=== PATIENT | female | born 1960 | race Caucasian/White ===

== ENCOUNTER 2021-11-11 11:26 | Outpatient (REF) | payer MEDICARE, MEDICAID, SELFPAY ==
[2021-11-11 13:06] LABS: Binax Internal Control QC Valid; Binax Now Covid-19 Ag Negative (Negative); Binax Performed by: HO.BONILM
== END 2021-11-11 11:27 | disposition home or self-care (01) ==
LOC: HO.HMGCLDS 11:26
PROVIDERS: Visit Provider Internal Medicine
DX: Z20.822 Contact with and (suspected) exposure to COVID-19 (principal); J06.9 Acute upper respiratory infection, unspecified
CPT/HCPCS: 87811; C9803

== ENCOUNTER 2022-02-14 13:57 | Outpatient (REF) | payer MEDICARE, MEDICAID, SELFPAY ==
[2022-02-14 16:12] LABS: Influenza A PCR NEGATIVE (Negative); Influenza B PCR NEGATIVE (Negative); Resp Syncy Virus RNA Qual PCR NEGATIVE (Negative); SARS COV2 PCR INHOUSE POSITIVE (Negative)
== END 2022-02-14 13:58 | disposition home or self-care (01) ==
LOC: HO.LAB 13:57
PROVIDERS: Visit Provider Nurse Practitioner Acute Care
DX: R09.81 Nasal congestion (principal); Z20.822 Contact with and (suspected) exposure to COVID-19
CPT/HCPCS: 0241U

== ENCOUNTER 2022-03-23 13:11 | Outpatient (REF) | payer MEDICARE, MEDICAID, SELFPAY ==
--- NOTE | ~2022-03-23 | XR_ITS ---
EXAMINATION: XR ANKLE, LEFT CLINICAL INFORMATION: Sprain left ankle. Pain COMPARISON: None TECHNIQUE: AP, lateral, and mortise views of the left ankle. FINDINGS: There is bimalleolar soft tissue swelling with moderate enthesophytes along the tip of bilateral malleoli. No visible fracture, dislocation. The ankle mortise and subtalar joints is normal. There is a moderate size calcaneal heel and small retrocalcaneal enthesophytes. Also visualized or enthesophytes along the dorsal intertarsal joints. XR/XR ankle LT min 3V IMPRESSION: No acute fracture or dislocation. Calculi heel, retrocalcaneal, bilateral malleolar and dorsal intertarsal enthesophytes. There is bimalleolar soft tissue swelling.
== END 2022-03-23 13:12 | disposition home or self-care (01) ==
LOC: HO.HMGCX 13:11
PROVIDERS: PCP Nurse Practitioner Gerontology; Visit Provider Internal Medicine
DX: S93.402A Sprain of unspecified ligament of left ankle, initial encounter (principal)
CPT/HCPCS: 73610

== ENCOUNTER 2022-12-18 11:39 | Emergency (ER) | payer MEDICARE, MEDICAID, SELFPAY ==
--- NOTE | ~2022-12-18 | XR_ITS ---
EXAMINATION: XR CHEST CLINICAL INFORMATION: Chest pain. COMPARISON: None available. TECHNIQUE: 2 views of the chest were obtained. FINDINGS: No significant abnormality is noted involving the heart, lungs, mediastinum, bony thorax or soft tissues. XR/XR chest 2V IMPRESSION: No acute cardiopulmonary process.
--- NOTE | 2022-12-18 11:41 | ED.GENADULT ---
HPI - General Adult General Chief complaint: Chest Pain Stated complaint: chest pain Time Seen by Provider: 12/18/22 17:53 Source: patient Mode of arrival: ambulatory Limitations: no limitations History of Present Illness HPI narrative: Patient is a 62 year old assigned female at with no reported medical history presenting to the emergency department today with chest and epigastric pain. Patient states that since last night she has been having epigastric type pain that radiates into her chest and left arm. Patient denies any dizziness, lightheadedness, nausea, vomiting, fever, chills, blurry vision, double vision, loss of vision, difficulty breathing, shortness of breath, back pain, night sweats, pain with urination, increased urinary frequency, increased urinary urgency, blood in her urine or stool, syncope or a near syncopal episode, recent trauma or falls, bowel incontinence, bladder incontinence, bowel retention, bladder retention, or any other complaints at this time. Onset (ago): day(s) (1) Location: chest and abdomen Severity: mild Severity scale (1-10): 3 Quality: aching and dull Pain Consistency: constant Relieving factors: none Exacerbating factors: none Associated symptoms: denies other symptoms Treatments prior to arrival: none Related Data Home Medications Medication Instructions Recorded Confirmed albuterol sulfate 90 mcg/actuation 0 mcg inhalation 02/13/21 aerosol inhaler cariprazine 1.5 mg capsule 1.5 mg PO DAILY 02/13/21 (Vraylar) cariprazine 3 mg capsule (Vraylar) 3 mg PO DAILY 02/13/21 famotidine 40 mg tablet 40 mg PO DAILY 02/13/21 fluoxetine 20 mg capsule 0 mg PO 02/13/21 gabapentin 300 mg capsule 300 mg PO TID 02/13/21 insulin glargine 100 unit/mL (3 unit subcut 02/13/21 mL) subcutaneous pen (Lantus Solostar U-100 Insulin) lisinopril 5 mg tablet mg PO 02/13/21 metformin 500 mg tablet,extended 500 mg PO BID 02/13/21 release 24 hr metoprolol tartrate 25 mg tablet 25 mg PO BID 02/13/21 nystatin 100,000 unit/gram topical topical 02/13/21 powder topiramate 25 mg tablet 25 mg PO BID 02/13/21 Previous Rx's Medication Instructions Recorded prednisone 10 mg tablet 40 mg PO DAILY 3 days #30 tabs 02/13/21 meloxicam 15 mg tablet 15 mg PO DAILY #14 tabs 03/23/22 Allergies Allergy/AdvReac Type Severity Reaction Status Date / Time adhesive tape [ADHESIVE TAPE] Allergy Unknown RASH Verified 12/18/22 11:51 Sulfa (Sulfonamide Allergy Unknown SWELLING Verified 12/18/22 11:51 Antibiotics) AND HIVES [SULFA (SULFONAMIDE ANTIBIOTICS)] ADHESIVE BANDAGE Allergy Unknown RASH Uncoded 12/18/22 11:51 Review of Systems Constitutional: Constitutional: Reports no additional constitutional complaints, Denies chills, Denies fever(s) and Denies night sweats Eyes: Eyes: Reports no additional eye complaints, Denies blurry vision, Denies change in vision, Denies diplopia, Denies eye discharge, Denies loss of vision and Denies eye pain ENT: Denies dizziness Cardiovascular: Cardiovascular: Reports no additional cardiovascular complaints, Reports chest pain, Denies lightheadedness, Denies Loss of Consciousness and Denies dyspnea Respiratory: Respiratory: Reports no additional respiratory complaints and Denies dyspnea Gastrointestinal: Gastrointestinal: Reports no additional gastrointestinal complaints, Reports abdominal pain, Denies melena, Denies hematochezia, Denies change in bowel habits and Denies change in stool character Genitourinary: Genitourinary: Denies hematuria, Denies urinary frequency, Denies dysuria, Denies urinary incontinence, Denies urinary hesitancy and Denies urinary urgency Musculoskeletal: Musculoskeletal: Reports no additional musculoskeletal complaints, Denies numbness and Denies tingling Neurologic: Denies dizziness, Denies loss of vision, Denies numbness and Denies tingling Psychiatric: Psychiatric: Reports no additional psychiatric complaints Endocrine: Endocrine: Reports no additional endocrine complaints Hematologic/Lymphatic: Hematologic/Lymphatic: Reports no additional hematologic/lymphatic complaints Allergic/Immunologic: Allergic/Immunologic: Reports no additional allergic/immunologic complaints PMFSH Past Medical History Attestation statement: The following information was validated with the patient. Source: old records reviewed and nursing notes reviewed Medical History Bronchitis Congestion of nasal sinus COVID Sprain of ankle, left Social History Social History Advance Directives: No Advance Directives Information Provided: Yes Physical Exam ED Vital Signs: Vital Signs - 24 hr 12/18/22 11:51 12/18/22 16:18 Temperature 98 F Pulse Rate 71 72 Respiratory Rate 19 19 Blood Pressure 153/74 H 148/75 H Pulse Oximetry 99 98 Oxygen Delivery Method Room Air Room Air BMI result Body Mass Index 48.0 Const General: cooperative, no acute distress, alert and awake Nutritional Appearance: well nourished Orientation/consciousness: patient oriented x3 Limitations: no limitations HENMT Head: Yes normal to inspection and Yes atraumatic Ears: hearing grossly normal bilaterally and external ears normal General nose exam: Normal external nose present, no nasal discharge noted and no epistaxis Face and sinus: Yes normal facial exam, No abrasion and No laceration Mouth: Normal oral and palatal mucosa present, no drooling and no muffled voice Eyes General: appearance normal, both eyes and all related structures Periorbital: periorbital findings normal Eyelids: Yes eyelids normal Conjunctivae: conjunctivae normal Pupils: Equal, round and reactive pupils present EOM: EOMs intact bilaterally Neck Neck: Yes normal visual inspection, Yes full ROM and Yes no lymphadenopathy Chest Chest palpation & inspection: normal inspection of the chest Resp Effort & Inspection: normal respiratory effort and able to speak in complete sentences Auscultation: clear to auscultation bilaterally Cardio Rate: regular rate Rhythm: regular rhythm GI Inspection: Yes normal to inspection Palpation (GI): Soft to palpation, not firm, nontender and no guarding Neuro General: patient oriented x3 and moves all extremities Cranial nerves: Yes Equal, round and reactive pupils present Cognition (Neuro): normal cognition Motor exam (neuro): 5/5 motor strength present throughout Sensory Exam: Normal double simultaneous stimulation for sensation Coordination: [id number] test normal Extrem General: Yes normal to inspection, Yes full ROM and Yes capillary refill normal Psych Appearance: grossly normal Mental Status: mental status grossly normal Affect: normal affect Attitude: cooperative Thought process: Normal thought process present Thought content: Normal thought content present Insight: Good insight present (Psych) Course Course Course Narrative: RME performed by Nesha Rich PA-C. Patient is a 62 year old assigned female at presenting to the emergency department with chest and epigastric pain. Labs, imaging, and swab ordered. Patient placed back in the waiting room pending room availability and results. Medical Decision Making Medical Decision Making MDM Narrative: Patient is a 62 year old assigned female at with no reported medical history presenting to the emergency department today with epigastric and chest pain. Patient's physical exam was unremarkable. Patient's blood work was unremarkable. Patient's EKG was unremarkable. Patient's chest x-ray showed no acute process. I explained my physical exam findings as well as all test results to the patient. I answered all questions asked by the patient. I stressed the importance of the patient taking her medication as prescribed. I stressed the importance of the patient following up with her primary care provider and a GI specialist. I stressed the importance of the patient returning to the emergency department immediately if her symptoms were to worsen or if she were to develop any dizziness, shortness of breath, difficulty breathing, chest pain, blurry vision, loss of vision, nausea, vomiting, abdominal pain, fever, chills, back pain, or any other complaints. Patient verbalized agreement and understanding with this treatment plan and discharge. Differential Diagnosis Differential Diagnoses: The differential diagnosis associated with the presentation includes STEMI NSTEMI Epigastric pain Gastritis GERD Admission/Observation Consideration of admission/observation: Escalation of care including admission/observation considered Patient would have been admitted to the hospital had her work up had any findings where hospital admission was appropriate and her clinical presentation warranted hospital admission. Lab Data [facility] Lab Attestation statement: I reviewed the patient's lab results. My interpretation of these studies and their corresponding values is that they are grossly normal. 12/18/22 11:49 12/18/22 11:49 Labs: Lab Results 12/18/22 12/18/22 12/18/22 Range/Units 11:49 11:49 11:49 WBC 9.9 (4.8-10.8) X10*3/uL RBC 4.33 (4.20-5.50) X10*6/uL Hgb 11.8 L (12.0-16.0) g/dl Hct 36.1 L (37.0-47.0) % MCV 83.4 (80.0-98.0) fL MCH 27.3 (27.0-33.0) pg MCHC 32.7 (31.0-35.0) g/dl RDW 14.3 (11.0-16.0) % Plt Count 312 (160-400) X10*3/uL MPV 9.1 L (9.4-12.3) fL Immature Gran % (Auto) 0.4 (0.0-0.4) % Neut % (Auto) 64.4 (45-73) % Lymph % (Auto) 20.6 (20-40) % [place] % (Auto) 8.7 (2-11) % Eos % (Auto) 5.1 H (0-4) % Baso % (Auto) 0.8 (0-2) % Lymph # (Auto) 2.0 (1.2-4.9) X10*3/uL [place] # (Auto) 0.9 (0.1-1.2) X10*3/uL Eos # (Auto) 0.5 H (0.0-0.4) X10*3/uL Baso # (Auto) 0.1 (0.0-0.2) X10*3/uL Abs Immat Gran (auto) 0.04 H (0.00-0.03) X10*3/uL Absolute Neuts (auto) 6.4 (2.0-8.3) x10*3/uL Absolute Nucleated RBC 0.000 (0.0-0.012) X10*3/uL Nucleated RBC % (auto) 0.0 (0.0-0.2) /100WBC Sodium 137 (135-145) mmol/L Potassium 4.9 (3.3-5.1) mmol/L Chloride 105 (96-108) mmol/L Carbon Dioxide 23 (22-29) mmol/L Anion Gap 14 (12-20) BUN 16 (9-16) mg/dL Creatinine 0.87 (0.5-1.4) mg/dL Estim Creat Clear Calc 85.3 Estimated GFR > 60 Random Glucose 101 (60-115) mg/dL Calcium 10.0 (8.4-10.2) mg/dL Magnesium 1.8 (1.6-2.6) mg/dL Total Bilirubin 0.3 (0.0-1.0) mg/dL AST 17 (5-31) U/L ALT 18 (0-31) U/L Alkaline Phosphatase 63 (39-117) U/L Troponin I High Sens < 2.7 (<3.5-17.0) ng/L Total Protein 7.1 (6.5-8.0) g/dL Albumin 4.1 (3.5-5.0) g/dL COVID-19 (SURENDRA) (Negative) COVID-19 Clin Com 12/18/22 12/18/22 Range/Units 11:49 16:33 WBC (4.8-10.8) X10*3/uL RBC (4.20-5.50) X10*6/uL Hgb (12.0-16.0) g/dl Hct (37.0-47.0) % MCV (80.0-98.0) fL MCH (27.0-33.0) pg MCHC (31.0-35.0) g/dl RDW (11.0-16.0) % Plt Count (160-400) X10*3/uL MPV (9.4-12.3) fL Immature Gran % (Auto) (0.0-0.4) % Neut % (Auto) (45-73) % Lymph % (Auto) (20-40) % [place] % (Auto) (2-11) % Eos % (Auto) (0-4) % Baso % (Auto) (0-2) % Lymph # (Auto) (1.2-4.9) X10*3/uL [place] # (Auto) (0.1-1.2) X10*3/uL Eos # (Auto) (0.0-0.4) X10*3/uL Baso # (Auto) (0.0-0.2) X10*3/uL Abs Immat Gran (auto) (0.00-0.03) X10*3/uL Absolute Neuts (auto) (2.0-8.3) x10*3/uL Absolute Nucleated RBC (0.0-0.012) X10*3/uL Nucleated RBC % (auto) (0.0-0.2) /100WBC Sodium (135-145) mmol/L Potassium (3.3-5.1) mmol/L Chloride (96-108) mmol/L Carbon Dioxide (22-29) mmol/L Anion Gap (12-20) BUN (9-16) mg/dL Creatinine (0.5-1.4) mg/dL Estim Creat Clear Calc Estimated GFR Random Glucose (60-115) mg/dL Calcium (8.4-10.2) mg/dL Magnesium (1.6-2.6) mg/dL Total Bilirubin (0.0-1.0) mg/dL AST (5-31) U/L ALT (0-31) U/L Alkaline Phosphatase (39-117) U/L Troponin I High Sens < 2.7 (<3.5-17.0) ng/L Total Protein (6.5-8.0) g/dL Albumin (3.5-5.0) g/dL COVID-19 (SURENDRA) Negative (Negative) COVID-19 Clin Com See Note Independent Interpretation I performed an independent interpretation of an: EKG and Plain X-Ray Interpretation: My interpretation is in agreement with the radiologist's impression of this imaging study. EXAMINATION: XR CHEST CLINICAL INFORMATION: Chest pain. COMPARISON: None available. TECHNIQUE: 2 views of the chest were obtained. FINDINGS: No significant abnormality is noted involving the heart, lungs, mediastinum, bony thorax or soft tissues. XR/XR chest 2V IMPRESSION: No acute cardiopulmonary process. Dictated By: Savage Avila MD Signed By: Electronically signed by Savage Avila MD 12/18/22 9462 Vent. Rate : 072 BPM ? ? Atrial Rate: 072 BPM P-R Int : 158 ms? QRS Dur: 082 ms QT Int : 386 ms ? ? ? P-R-T Axes: 001 -02 030 degrees QTc Int : 422 ms ? Normal sinus rhythm Low voltage QRS Abnormal ECG When compared with ECG of 25-NOV-2005 14:33, QT has shortened Referred By: Nesha Rich ? Electronically Signed By:BERENICE CORMIER DOFACP Dictated By: Berenice Cormier DO Signed By: Electronically signed by Berenice Cormier DO 12/18/22 1512 Radiology Impression Discussion of test interpretation with radiology: I have reviewed the radiologist's reading. Discharge Plan Discharge Clinical Impression: Acute epigastric pain Patient Disposition: Home, Self-Care Instructions: Epigastric Pain (ED) Additional Instructions: Follow up with your primary care provider and a GI specialist. Return to the emergency department immediately if your symptoms worsen or if you develop any dizziness, shortness of breath, difficulty breathing, chest pain, blurry vision, loss of vision, nausea, vomiting, abdominal pain, fever, chills, back pain, or any other complaints. Prescriptions: No Action lisinopril 5 mg tablet PO metoprolol tartrate 25 mg tablet 25 mg PO BID metformin 500 mg tablet extended release 24 hr 500 mg PO BID Lantus Solostar U-100 Insulin 100 unit/mL (3 mL) insulin pen subcut nystatin 100,000 unit/gram powder topical topiramate 25 mg tablet 25 mg PO BID gabapentin 300 mg capsule 300 mg PO TID famotidine 40 mg tablet 40 mg PO DAILY albuterol sulfate 90 mcg/actuation HFA aerosol inhaler 0 mcg inhalation fluoxetine 20 mg capsule 0 mg PO Vraylar 3 mg capsule 3 mg PO DAILY Vraylar 1.5 mg capsule 1.5 mg PO DAILY prednisone 10 mg tablet 40 mg PO DAILY 3 Days Qty: 30 0RF Rx Instructions: then take 3 tabs for 3 days, then 2 tabs for 3 days, then 1 tab for 3 days. meloxicam 15 mg tablet 15 mg PO DAILY Qty: 14 0RF Referrals: [facility] [place] [facility] [Provider Group] (Call to establish and follow up with a primary care provider. If you already have a primary care provider, please follow up with them.) [facility] [place] [facility] [Provider Group] (Call to establish and follow up with a primary care provider. If you already have a primary care provider, please follow up with them.) [facility] [place] [facility] [Provider Group] (Call to establish and follow up with a primary care provider. If you already have a primary care provider, please follow up with them.) Interventions: ED Discharge Assessment Last Done: 12/18/22 17:57 Discharge Date/Time: 12/18/22 17:58 Print Language: Bruneian
--- NOTE | 2022-12-18 11:42 | ECG_ITS ---
Test Reason : cp Blood Pressure : / mmHG Vent. Rate : 072 BPM Atrial Rate : 072 BPM P-R Int : 158 ms QRS Dur : 082 ms QT Int : 386 ms P-R-T Axes : 001 -02 030 degrees QTc Int : 422 ms Normal sinus rhythm Low voltage QRS Abnormal ECG When compared with ECG of 25-NOV-2005 14:33, QT has shortened Referred By: Nesha Rich Electronically Signed By:BERENICE CUENCA
[2022-12-18 11:51] VITALS: BP 153/74; PULSE 71; RESP 19; TEMP 36.6; O2SAT 99; BMI 48.0
[2022-12-18 11:54] LABS: MANUAL DIFF FLAG NO
[2022-12-18 11:57] LABS: Basophils Absolute Auto 0.1 X10*3/uL (0.0-0.2); Basophils Percent Auto 0.8 % (0-2); Eosinophils Absolute Auto 0.5 X10*3/uL (0.0-0.4); Eosinophils Percent Auto 5.1 % (0-4); Hematocrit 36.1 % (37.0-47.0); Hemoglobin 11.8 g/dl (12.0-16.0); Imm Gran Abs Auto 0.04 X10*3/uL (0.00-0.03); Imm Gran Pct Auto 0.4 % (0.0-0.4); Lymphocytes Percent Auto 20.6 % (20-40); Mean Corpuscular HGB Conc 32.7 g/dl (31.0-35.0); Mean Corpuscular Hemoglobin 27.3 pg (27.0-33.0); Mean Corpuscular Volume 83.4 fL (80.0-98.0); Mean Platelet Volume 9.1 fL (9.4-12.3); Monocytes Absolute Auto 0.9 X10*3/uL (0.1-1.2); Monocytes Percent Auto 8.7 % (2-11); Neutrophils Absolute Auto 6.4 x10*3/uL (2.0-8.3); Neutrophils Percent Auto 64.4 % (45-73); Platelet Count 312 X10*3/uL (160-400); Red Blood Count 4.33 X10*6/uL (4.20-5.50); Red Cell Distribution Width 14.3 % (11.0-16.0); White Blood Count 9.9 X10*3/uL (4.8-10.8)
[2022-12-18 12:13] LABS: COVID-19 Test Negative (Negative); IDNOW Serial# 9DB6401D
[2022-12-18 12:20] LABS: Troponin-I High Sensitivity < 2.7 ng/L (<3.5-17.0)
[2022-12-18 12:34] LABS: Alanine Aminotransferase 18 U/L (0-31); Albumin Level 4.1 g/dL (3.5-5.0); Alkaline Phosphatase 63 U/L (39-117); Anion Gap 14 (12-20); Aspartate Amino Transferase 17 U/L (5-31); Bilirubin Total 0.3 mg/dL (0.0-1.0); Blood Urea Nitrogen 16 mg/dL (9-16); Carbon Dioxide 23 mmol/L (22-29); Chloride 105 mmol/L (96-108); Creatinine Clr Calc Pharmacy 85.3; Estimated Glomerular Filt Rate > 60; Glucose Random 101 mg/dL (60-115); Magnesium 1.8 mg/dL (1.6-2.6); Potassium 4.9 mmol/L (3.3-5.1); Sodium 137 mmol/L (135-145); Total Protein 7.1 g/dL (6.5-8.0)
[2022-12-18 16:18] VITALS: BP 148/75; PULSE 72; RESP 19; O2SAT 98
--- NOTE | 2022-12-18 16:19 | PC.NURSE ---
skin wpd alert, l cp, vss, will recheck trop and add xray
[2022-12-18 17:03] LABS: Troponin-I High Sensitivity < 2.7 ng/L (<3.5-17.0)
== END 2022-12-18 17:58 | disposition home or self-care (01) ==
PROVIDERS: Physician Assistant Medical; Emergency Provider Emergency Medicine
DX: R10.13 Epigastric pain (principal); Z20.822 Contact with and (suspected) exposure to COVID-19; Z79.4 Long term (current) use of insulin
CPT/HCPCS: 36415; 71046; 80053; 83735; 84484; 85025; 87635; 93005; 99283

== ENCOUNTER 2023-09-13 10:01 | Outpatient (AMB) | payer MEDICARE, MEDICAID, SELFPAY ==
--- NOTE | 2023-09-13 09:53 | MHC.OFFVISPS ---
Intake Vital Signs 09/13/23 09:54 Height 5 ft 6 in Weight 237 lb Intake Visit Reasons: Depression, Bipolar II disorder major depressive with atypical features, Chronic post-traumatic stress disorder (PTSD), Borderline personality disorder in adult Client Solutions Manager Required: No Allergies adhesive tape [ADHESIVE TAPE] Allergy (Unknown, Verified 12/18/22 11:51) RASH Sulfa (Sulfonamide Antibiotics) [SULFA (SULFONAMIDE ANTIBIOTICS)] Allergy (Unknown, Verified 12/18/22 11:51) SWELLING AND HIVES ADHESIVE BANDAGE Allergy (Unknown, Uncoded 12/18/22 11:51) RASH Medication List - Last Reconciled 09/13/23 by Cece Hurley, YUMIKO albuterol sulfate 90 mcg/actuation 0 mcg inhalation atorvastatin 10 mg PO DAILY bupropion HCl XL 150 mg PO QAM bupropion HCl XL 300 mg PO DAILY cariprazine (Vraylar) 3 mg PO DAILY cariprazine (Vraylar) 1.5 mg PO DAILY dicyclomine 10 mg PO TID PRN diphenoxylate-atropine 2.5-0.025 mg 1 tab PO TID fluoxetine 0 mg PO fluticasone propion-salmeterol 115-21 mcg/actuation 2 puffs inhalation BID folic acid 0.4 mg PO DAILY gabapentin 900 mg PO TID insulin degludec (Tresiba FlexTouch U-100 insulin) 47 units subcut DAILY insulin glargine (Lantus Solostar U-100 Insulin) units subcut lisinopril 2.5 mg PO DAILY meloxicam 15 mg PO DAILY metformin ER 500 mg PO BID methenamine hippurate 1 g PO BID metoprolol tartrate 25 mg PO BID montelukast 10 mg PO DAILY nystatin topical DAILY omeprazole 20 mg PO BID ondansetron HCl 4 mg PO Q6H PRN oxycodone 5 mg PO TID PRN prednisone 40 mg (4 x 10 mg) PO DAILY 3 days sitagliptin phosphate (Januvia) 100 mg PO DAILY trazodone 50 mg PO BEDTIME triamcinolone acetonide 0.5% 1 appl topical BID HPI- Psychiatric Chief Complaint: Depression, Bipolar II disorder major depressive with atypical features, Chronic post-traumatic stress disorder (PTSD), Borderline personality disorder in adult HPI Narrative: Pt seen today for follow up re; mood and anxiety; She has appt with new provider at [facility] next month but is out of medications; She is less depressed and less anxious. She had a difficult day yesterday as it was mother's day and she missed her mother. she experience self harm urges but did not act on them. she reports No SI or HI. She is spending time with two friends. She is attending rastafari. Pt has been adherent to meds; no side effects; She continues with therapy. Past Psychiatric History: Pt has hx of PTSD, Bipolar II, BPD with depressed mood, anxiety, and difficulty with self sabotaging behaviors such as impulse buying, gambling, and setting boundaries; Pt has hx of cutting and burning self Long history of psychiatric symptoms and co morbid medical issues seeking ongoing medication management; she sees Mariana Bridges for therapy outpatient; she has support from [facility] mental health patient support associate and [facility] 2004 respite 2010 no PHP or IOP outpatient [facility] 20+yrs Panic attacks: Yes Agoraphobia: Yes Separation anxiety disorder: No Social phobia: No Specific phobia: No Hypochondriasis: No Body dysmorphic disorder: No Obsessive compulsive disorder: No Generalized anxiety: Yes Post traumatic stress disorder: Yes Acute stress disorder: No Previous psychiatric history: Yes Previous inpatient psychiatric hospitalization: Yes Other previous psychiatric treatment programs: none History of suicidal ideation: Yes History of suicide attempt: Yes Medically hospitalized: Yes History of self injurious behavior: Yes History of violence: No Current/previous psychiatrist: jasiel Current/previous therapist: Sudha Umaña History provided by: patient and medical record Chief complaint: depression Previous similar episode: Yes Previous psychiatric history: Yes Previous inpatient psychiatric hospitalization: Yes Other previous psychiatric treatment programs: none History of suicidal ideation: Yes History of suicide attempt: Yes Medically hospitalized: Yes History of self injurious behavior: Yes History of violence: No Current/previous psychiatrist: jasiel Current/previous therapist: Sudha Umaña Subjective Subjective Subjective Medication Compliance: Yes Side effects from medications: No Review of Systems Medical Review of Systems: unchanged Mental Status Exam Mental Status Exam Patient Appearance: Well Grooomed and Appropriate Patient Orientation: Person, Place, Time and Situation Level of Consciousness: Awake Patient Behavior: Appropriate and Cooperative Mood Description: Anxious Affect Description: Constricted Patient Cognition Impaired: No Ability to Follow Directions: Good Speech Pattern: Clear Memory Description: Intact Hallucinations: None Delusions: Not Present Thought Process: Intact Thought Content: positive for Intact Judgement: Good Assessment and Plan Assessment & Plan (1) Chronic post-traumatic stress disorder (PTSD): Code(s): F43.12 - Post-traumatic stress disorder, chronic (2) Borderline personality disorder in adult: Code(s): F60.3 - Borderline personality disorder (3) Bipolar II disorder major depressive with atypical features: Code(s): F31.81 - Bipolar II disorder Plan continue medications as prescribed follow up with new prescriber at [facility] continue therapy with Sudha Bridges from [facility] Medications: New bupropion HCl XL 150 mg PO QAM 30 tabs 1RF cariprazine (Vraylar) 1.5 mg PO DAILY 30 caps 1RF folic acid 0.4 mg PO DAILY 30 tabs 1RF bupropion HCl XL 300 mg PO DAILY 30 tabs 1RF cariprazine (Vraylar) 3 mg PO DAILY 30 caps 1RF Changed From fluoxetine PO To fluoxetine 80 mg PO DAILY Counseling and coordination of Care Pt. Self Management counseling: General coping skills Medication management counseling: Effectiveness, Side effects, Dosing range, Duration, Drug interaction and Adherence Diagnosis and Prognosis Counseling: Accuracy of diagnosis, Prognosis over time, Impact of diagnosis on life functions, Impact of family relationship, Problematic behaviors secondary to diagnosis and Adequacy of current interventions Details: I spent 30 minutes reviewing the record, seeing the patient and documenting in the medical record. Counseling provided to the patient/caregiver as outlined below. Addressed patient/caregiver concerns regarding current medication regime including effective adherence. Addressed patient/caregiver concerns regarding diagnosis and prognosis including accuracy of diagnosis, prognosis over time, impact of diagnosis. Addressed patient/caregiver concerns regarding impact of recent stressors. [facility] Medical History (Updated 09/13/23 @ 10:03 by Cece Hurley APRN) Asthma IBS (irritable bowel syndrome) Chronic osteoarthritis Diabetes 1.5, managed as type 2 HTN (hypertension) Kidney stone Post hysterectomy menopause Sprain of ankle, left COVID Congestion of nasal sinus Bronchitis Social History: lives alone; has 2 brothers, attends rastafari; has friends Substance History: none Coding Level of Care Code Est Pt Level 4 (43161) Diagnoses Chronic post-traumatic stress disorder (PTSD) F43.12 Borderline personality disorder in adult F60.3 Bipolar II disorder major depressive with atypical features F31.81
== END 2023-09-13 10:36 | disposition home or self-care (01) ==
LOC: HO.HOP 10:01
PROVIDERS: Visit Provider Clinical Nurse Specialist Psychiatric/Mental Health
DX: F43.12 Post-traumatic stress disorder, chronic (principal); F60.3 Borderline personality disorder; F31.81 Bipolar II disorder
CPT/HCPCS: 99214

== ENCOUNTER → 2023-09-13 10:01 | Outpatient (BNVA) | payer MEDICARE, MEDICAID, SELFPAY | PROVIDERS: Visit Provider Clinical Nurse Specialist Psychiatric/Mental Health | DX: F43.12 Post-traumatic stress disorder, chronic (principal); F31.81 Bipolar II disorder; F60.3 Borderline personality disorder | CPT/HCPCS: 99212 ==

== ENCOUNTER 2024-03-18 11:09 | Outpatient (AMB) | payer MEDICARE, MEDICAID, SELFPAY ==
[2024-03-18 11:12] VITALS: BP 132/80; PULSE 80; TEMP 36.6; O2SAT 98
--- NOTE | 2024-03-18 11:12 | AM.OFFWIN_ITS ---
Intake Vital Signs 3 03/18/24 11:12 Height 5 ft 3 in BP 132/80 Blood Pressure Location Lt brachial Position Sitting Pulse 80 Pulse Source Pulse Oximeter Temp 97.9 F Temp Source Oral Pulse Oximetry (%) 98 Oxygen Delivery Method Room Air Intake Visit Reasons: EP Rash Intake Note: pt is here for rash Patient Tobacco Use Status: Never used Tobacco Allergies adhesive tape [ADHESIVE TAPE] Allergy (Unknown, Verified 03/18/24 11:12) RASH Sulfa (Sulfonamide Antibiotics) [SULFA (SULFONAMIDE ANTIBIOTICS)] Allergy (Unknown, Verified 03/18/24 11:12) SWELLING AND HIVES ADHESIVE BANDAGE Allergy (Unknown, Uncoded 12/18/22 11:51) RASH Do you need a note to return to daycare/school/sports/work: No HPI HPI Comments 2 History of Present Illness0 Details 63 y/o female patient who presents to [facility] walk in clinic with c/o itchy and red rash on her lower extremities since Wednesday. Pt was taken off Zyprexa due to rash, facial and leg swelling. She was also started on Doxy x 7 days. Her PCP thought the Rash was from Cellulitis. Pt reports that rash is not getting any better, and now it's spreading. [facility] Medical History (Updated 09/13/23 @ 10:03 by Cece Hurley APRN) Asthma IBS (irritable bowel syndrome) Chronic osteoarthritis Diabetes 1.5, managed as type 2 HTN (hypertension) Kidney stone Post hysterectomy menopause Sprain of ankle, left COVID Congestion of nasal sinus Bronchitis Social History Patient Tobacco Use Status: Never used Tobacco Physical Exam Vital Signs: Last Vital Signs Temp 97.9 F 03/18/24 11:12 Pulse 80 03/18/24 11:12 BP 132/80 03/18/24 11:12 Pulse Ox 98 03/18/24 11:12 Oxygen Delivery Method Room Air 03/18/24 11:12 Const General: cooperative and no acute distress Nutritional Appearance: obese Orientation/consciousness: patient oriented x3 Skin Rashes: rashes noted (B/L Lower extremities. ) Full body images: 2 1. Small red/pink macular papular raised rash with hives, dry and flaky skin Neuro General: patient oriented x3, gait normal and moves all extremities Extrem Right lower extremity: lower leg Details: erythema and non-pitting edema Left lower extremity: lower leg Details: erythema and non-pitting edema Psych Speech and movement: Normal speech and movement present Assessment & Plan Assessment & Plan (1) Rash and nonspecific skin eruption: Code(s): R21 - Rash and other nonspecific skin eruption Plan: DDx's: Allergic Dermatitis vs Fungal vs Eczema vs Cellulitis Ordered Oral and Topical Steroids. F/U with your Providers (PCP and Psych). Medications: New 2 prednisone 20 mg PO DAILY 10 tabs 0RF 10 days R21 - Rash and other nonspecific skin eruption Changed 2 From triamcinolone acetonide 0.5% 1 appl topical BID R21 - Rash and other nonspecific skin eruption To triamcinolone acetonide 0.5% 1 appl topical BID 15 grams 0RF 14 days R21 - Rash and other nonspecific skin eruption Coding Level of Care Code Est Pt Level 3 (43254) Diagnoses Rash and nonspecific skin eruption R21 Time Spent (min) 15
--- OUTSIDE RECORDS SUMMARY | 2024-03-24 12:21 | XMS_ITS | Continuity of Care Document ---
Author Organization [facility] [place] [address] [place] [address]- Care Team Providers Care Communications Advisor Name Role Phone Blayne RANDALL, Ana Jameson Primary Care Physician Encounter 05/01/19 - 06/15/19 [facility] [address], [address] [place] [address]- [phone] Attending Physician: Kerrie Dumont MD Admitting Physician: Kerrie Dumont MD Referring Physician: Kerrie Dumont MD Allergies, Adverse Reactions, Alerts Substance Reaction Severity Status sulfa drugs Active Provera rash Active Latex Active Soy Products swelling, rash Active Immunizations Given and Recorded Vaccine Date Status Refusal Reason influenza virus vaccine, inactivated 02/08/19 Give n Medications Advair Diskus 250 mcg-50 mcg inhalation powder 1 puffs, Inhalation, 2 times a day, 0 Refills, Maintenance Start Date: 08/10/12 Status: Ordered BD UF MINI PEN NEEDLE [id number] See Instructions, # 100 Unknown, Refills 2 Tot. Refills 2, USE DIRECTED AT BEDTIME WITH SOLORSTAR PEN, [facility]/pharmacy #[id number] Start Date: 02/13/19 Status: Ordered benzoyl peroxide-erythromycin 5%-3% topical gel See Instructions, APPLY TO AFFECTED AREA TWICE A DAY, # 23.3 Gm, 0 Refills, Acute, [id number], APPLY TO AFFECTED AREA TWICE A DAY, 163.25, cm, 04/24/19 11:37:00 EST, Height Start Date: 05/23/19 Status: Ordered cetirizine 10 mg oral tablet 1 tablet, By Mouth, Daily, # 30 tablet, 3 Refills, Maintenance, 05/15/19 11:02:00 EST, [facility], 163.25, cm, 04/24/19 11:37:00 EST, Height Start Date: 05/15/19 Status: Ordered clotrimazole 1% topical cream CREAM, 2 Refill(s),, 0 Refills, 08/29/18 12:04:00 EDT Start Date: 08/29/18 Status: Ordered [facility] FIBER 0.52 G CAPSULE See Instructions, # 30 capsule, Refills 6 Tot. Refills 6, TAKE ONE CAPSULE BY MOUTH EVERY DAY, [facility]/pharmacy #[id number] Start Date: 08/26/18 Status: Ordered [facility] FIBER 0.52 G CAPSULE See Instructions, # 30 capsule, Refills 6 Tot. Refills 6, TAKE ONE CAPSULE BY MOUTH EVERY DAY, [facility]/pharmacy #[id number] Start Date: 03/16/19 Status: Ordered Dexilant 60 mg oral delayed release capsule ORAL, CAPSULE, DELAYED RELEASE, 4 Refill(s),, 0 Refills, 08/29/18 12:04:00 EDT Start Date: 08/29/18 Status: Ordered Fiber Choice ORAL, CAPSULE, 7 Refill(s),, 0 Refills, 08/29/18 12:04:00 EDT Start Date: 08/29/18 Status: Ordered FLUoxetine 20 mg oral capsule 80 mg, 4, capsule, By Mouth, Daily, ORAL, CAPSULE, 0 Refill(s),, Refills 0, 08/29/18 12:05:00 EDT Start Date: 08/29/18 Status: Ordered fluticasone 50 mcg/inh nasal spray See Instructions, # 16 mL, Refills 5 Tot. Refills 5, SPRAY 2 SPRAYS INTO EACH NOSTRIL EVERY DAY, [facility]/pharmacy #[id number] Start Date: 09/30/18 Status: Ordered gabapentin 600 mg oral tablet ORAL, TABLET, 0 Refill(s),, 0 Refills, 08/29/18 12:05:00 EDT Start Date: 08/29/18 Status: Ordered Januvia 100 mg oral tablet 1 tablet, By Mouth, Daily, # 30 tablet, 3 Refills, Maintenance, 05/15/19 11:03:00 EST, [facility] ST[facility] 54665, 163.25, cm, 04/24/19 11:37:00 EST, Height Start Date: 05/15/19 Status: Ordered Lantus Solostar Pen 100 units/mL subcutaneous solution SUBCUTANEOUS, INJECTION, SOLUTION, 2 Refill(s),, 0 Refills, 08/29/18 12:05:00 EDT Start Date: 08/29/18 Status: Ordered Lipitor 10 mg oral tablet 1 tablet = 10 mg, By Mouth, Daily, # 30 tablet, 0 Refills, Maintenance Start Date: 03/09/18 Status: Ordered lisinopril 5 mg oral tablet See Instructions, # 45 tablet, Refills 1 Tot. Refills 1, TAKE 1/2 TABLET BY MOUTH DAILY, [facility]/pharmacy #[id number] Start Date: 03/07/19 Status: Ordered meclizine 12.5 mg oral tablet 1 tablet = 12.5 mg, By Mouth, 3 times a day, PRN for dizziness, # 30 tablet, 1 Refills, Maintenance, 05/29/19 11:21:00 EST, Tablet, [facility]/pharmacy #[id number], 163.25, cm, 05/29/19 11:18:00 EST, Height Start Date: 05/29/19 Status: Ordered mesalamine 1000 mg rectal suppository See Instructions, 1 supp Rectally bid, 0 Refills, Maintenance, 02/08/19 10:23:07 EDT Start Date: 02/08/19 Status: Ordered metFORMIN 500 mg oral tablet, extended release 2 tablet, By Mouth, Daily, # 180 tablet, 1 Refills, Maintenance, 05/15/19 11:01:00 EST, [facility] STORE 65594, 163.25, cm, 04/24/19 11:37:00 EST, Height Start Date: 05/15/19 Status: Ordered Metoprolol Tartrate 25 mg oral tablet See Instructions, # 180 tablet, Refills 1 Tot. Refills 1, TAKE 1 TABLET BY MOUTH TWICE A DAY, [facility]/pharmacy #[id number] Start Date: 03/10/19 Status: Ordered montelukast 10 mg oral tablet See Instructions, # 90 tablet, Refills 1 Tot. Refills 1, TAKE 1 TABLET BY MOUTH EVERY DAY, [facility]/pharmacy #[id number] Start Date: 12/22/18 Status: Ordered multivitamin Therapeutic Multiple Vitamins oral tablet 1, tablet, By Mouth, Daily, 0, 0, 05/25/05 16:31:13, [id number]+[id number], Constant Indicator Start Date: 05/25/05 Status: Ordered mupirocin 2% topical ointment 1 application, Topically, 3 times a day, for 1 week and prn., # 15 Gm, 0 Refills, Maintenance, 11/09/18 17:17:23 EDT, Ointment, 1 application Topically 3 times a day,Instr:for 1 week and prn. Start Date: 11/09/18 Status: Ordered nystatin topical 271260 u/gm cream 1 application, Topically, 2 times a day, # 30 Gm, 1 Refills, Maintenance, 01/16/19 18:04:19 EDT, Cream, 1 application Topically 2 times a day Start Date: 01/16/19 Status: Ordered oxyCODONE 5 mg oral capsule 2 capsule = 10 mg, By Mouth, Every 8 hours, PRN for pain, 0 Refills, Maintenance, 05/16/18 9:44:38 EST, Capsule Start Date: 05/16/18 Status: Ordered Protonix 20 mg oral delayed release tablet 1 tablet = 20 mg, By Mouth, Daily, 0 Refills, Maintenance Start Date: 08/10/12 Status: Ordered sucralfate 1 gm oral tablet 1 Gm, 1, tablet, By Mouth, 3 times a day before meals and bedtime, Refills 0, Maintenance, 02/08/1910:22:23 EDT Start Date: 02/08/19 Status: Ordered Ventolin HFA 108 mcg/inh inhalation aerosol with adapter 2 puffs, Inhalation, Every 6 hours, PRN for wheezing, # 18 Gm, 2 Refills, Maintenance, 05/10/19 9:22:00 EST, Aerosol, [facility]/pharmacy #[id number], 163.25, cm, 04/24/19 11:37:00 EST, Height Start Date: 05/10/19 Status: Ordered Vistaril pamoate 25 mg oral capsule 1 capsule = 25 mg, By Mouth, Once, PRN for anxiety, # 40 capsule, 0 Refills, Maintenance, 01/04/19 14:19:17 EDT, Capsule Start Date: 01/04/19 Status: Ordered Vitamin D3 2000 intl units oral capsule 1 capsule = 2,000 International_Units, By Mouth, Daily, in AM, # 30 capsule, 5 Refills, Maintenance, 02/08/19 10:35:07 EDT, Capsule Start Date: 02/08/19 Status: Ordered Vraylar 1.5 mg oral capsule See Instructions, 1 capsule By Mouth in am and 2 tabs in pm, # 1 capsule, 0 Refills, Maintenance, 08/29/18 12:07:25 EDT Start Date: 08/29/18 Status: Ordered Vraylar 3 mg oral capsule 1 capsule = 3 mg, By Mouth, Daily, 0 Refills, Maintenance, 03/09/18 11:19:42 EST Start Date: 03/09/18 Status: Ordered Wellbutrin SR 150 mg oral tablet, extended release 150, mg, 1, tablet, By Mouth, Daily, 0, 0, 05/22/05 18:31:07, [id number]+[id number], Constant Indicator Start Date: 05/22/05 Status: Ordered Wellbutrin XL 300 mg/24 hours oral tablet, extended release ORAL, TABLET, EXTENDED RELEASE, 0 Refill(s),, 0 Refills, 08/29/18 12:03:00 EDT Start Date: 08/29/18 Status: Ordered Zantac 150 oral tablet 1 tablet = 150 mg, By Mouth, 2 times a day, # 60 tablet, 0 Refills, Maintenance, 03/09/18 11:19:50 EST, Tablet Start Date: 03/09/18 Status: Ordered Zofran 4 mg oral tablet 1 tablet = 4 mg, By Mouth, Every 8 hours, PRN as needed for nausea/vomiting, 0 Refills, Maintenance, 03/09/18 11:20:08 EST, Tablet Start Date: 03/09/18 Status: Ordered Zyloprim 100 mg oral tablet 100 mg, 1, tablet, By Mouth, 2 times a day, # 60 tablet, Refills 0, Maintenance, 03/09/18 11:20:16 EST Start Date: 03/09/18 Status: Ordered Problem List Condition Effective Dates Status Health Status Inform ant Abnormal radiologic density- pulm nodule(s) details unclear(Confirmed) Active Allergic rhinitis(Confirmed) Active Anxiety(Confirmed) Active Asthma(Confirmed) Active Chronic obstructive lung disease(Confirmed) Active Chronic sinusitis(Confirmed) Active Depressive disorder(Confirmed) Active Diverticular disease of colon(Confirmed) Active Gastroesophageal reflux disease(Confirmed) Active Herpes simplex type 1 infection(Confirmed) Active Low back pain(Confirmed) Active Migraine(Confirmed) Active Morbid obesity(Confirmed) Active Nephrolithiasis(Confirmed) Active Posttraumatic stress disorder(Confirmed) Active Sleep apnea(Confirmed) Active Steatosis of liver(Confirmed) Active Tobacco abuse(Confirmed) Active Type 2 diabetes mellitus(Confirmed) Active Vitamin D deficiency(Confirmed) Active Vitiligo(Confirmed) Active Social History Social History Type Response Smoking Status Never (less than 100 in lifetime) entered on: 08/29/18 Sex
--- OUTSIDE RECORDS SUMMARY | 2024-03-24 12:21 | XMS_ITS | Continuity of Care Document ---
Author Organization [facility] Address [address] [place] [address]- Care Team Providers Care General Education Instructor Name Role Phone Blayne RANDALL, Ana Jameson Primary Care Physician [place] [facility] [place]): [place]02[place]21 - 01/01/22 [facility] [address] [place] [id number] Attending Physician: AdmZoe shi Admitting Physician: Admtr, Ar8 Referring Physician: Admtr, Ar8 Allergies, Adverse Reactions, Alerts Substance Reaction Severity Status sulfa drugs swelling itching Active Provera rash Active Latex rash Active Soy Products swelling, rash Active Immunizations Given and Recorded Vaccine Date Status Refusal Reason influenza virus vaccine, inactivated 1 02/25/21 Gi miguel influenza virus vaccine, inactivated 02/08/19 Give n SARS-CoV-2 (COVID-19) mRNA BNT-162b2 vac 08/01/20 Recorded SARS-CoV-2 (COVID-19) mRNA BNT-162b2 vac 07/11/20 Recorded Influenza Virus Vaccine (oldterm) 02/03/20 [facility] 1Result Comment: [facility] [id number] Medications Advair Diskus 250 mcg-50 mcg inhalation powder 1 puffs, Inhalation, 2 times a day, 0 Refills, Maintenance Start Date: 08/10/12 Status: Ordered aspirin 81 mg oral delayed release tablet 81 mg, 1, tablet, By Mouth, Daily, # 30 tablet, Refills 0, Maintenance, 10/03/21 14:17:00 EDT, Partial fill upon patient request if the prescription is for a schedule II opioid drug. Start Date: 10/03/21 Status: Ordered cetirizine 10 mg oral tablet 1 tablet, By Mouth, Daily, # 90 tablet, 1 Refills, [facility], 163.25, cm, 10/26/21 15:12:00 EDT, Height Start Date: 03/05/21 Status: Ordered Cranberry oral tablet 2 tabs 500 mg, 0 Refills, Maintenance, 03/12/21 16:25:00 EST, Partial fill upon patient request if the prescription is for a schedule II opioid drug. Start Date: 03/12/21 Status: Ordered Dexilant 60 mg oral delayed release capsule ORAL, CAPSULE, DELAYED RELEASE, 4 Refill(s),, 0 Refills, 08/29/18 12:04:00 EDT Start Date: 08/29/18 Status: Ordered Fiber Choice 1.5 g oral tablet, chewable 1 tablet = 1.5 Gm, Chew, Daily, # 90 tablet, 0 Refills, Maintenance, 10/30/19 7:22:00 EDT, Chew Tablet, [facility]/pharmacy #[id number], 163.25, cm, 10/18/19 11:00:00 EDT, Height Start Date: 10/30/19 Status: Ordered fluconazole 150 mg oral tablet 1 tablet = 150 mg, By Mouth, Once, # 1 tablet, 0 Refills, Soft Stop, 12/24/21 14:01:00 EDT, Tablet,[facility]/pharmacy #[id number], Partial fill upon patient request if the prescription is for a schedule II opioid drug., 163, cm, 12/24/21 13:40:00 EDT, Height, 12... Start Date: 12/24/21 Status: Ordered FLUoxetine 20 mg oral capsule 80 mg, 4, capsule, By Mouth, Daily, ORAL, CAPSULE, 0 Refill(s),, Refills 0, 08/29/18 12:05:00 EDT Start Date: 08/29/18 Status: Ordered fluticasone 50 mcg/inh nasal spray See Instructions, SPRAY 2 SPRAYS INTO EACH NOSTRIL EVERY DAY, # 48 mL, 1 Refills, Soft Stop, 05/21/20 2:30:00 EST, [facility]/pharmacy #[id number], SPRAY 2 SPRAYS INTO EACH NOSTRIL EVERY DAY, 163.25, cm, 04/30/2012:50:00 EST, Height Start Date: 05/21/20 Status: Ordered folic acid 1 mg oral tablet 400 mcg, By Mouth, Daily, # 30 tablet, Refills 0, Maintenance, 11/23/19 11:22:00 EDT Start Date: 11/23/19 Status: Ordered gabapentin 600 mg oral tablet = 900 mg, 2 times a day, ORAL, TABLET, 0 Refill(s),, 0 Refills, 08/29/18 12:05:00 EDT Start Date: 08/29/18 Status: Ordered incontinence pads incontinence pads, See Instructions, # 60 each, Refills 11, Tot. Refills 11, Maintenance, urinary incontinence use 1-2 times a day, 11/19/21 11:23:00 EDT, Supply Start Date: 11/19/21 Status: Ordered Januvia 100 mg oral tablet 1 tablet, By Mouth, Daily, # 90 tablet, 3 Refills, Maintenance, 07/02/21 11:04:00 EST, [facility]/pharmacy#0693, 162.56, cm, 06/16/21 11:08:00 EST, Height, 125.8, kg, 06/16/21 11:08:00 EST, Dry Weight Start Date: 07/02/21 Status: Ordered Lantus Solostar Pen 100 units/mL subcutaneous solution See Instructions, INJECT 47 UNITS INTO THE SKIN ONCE A DAY DX E11.9, # 30 mL, 5 Refills, 12/12/21 9:28:00 EDT, [facility]/pharmacy #[id number], 163, cm, 12/02/21 9:43:00 EDT, Height, 123.7, kg, 10/06/21 7:05:00 EDT, Dry Weight Start Date: 12/12/21 Status: Ordered Lipitor 10 mg oral tablet 1 tablet = 10 mg, By Mouth, Daily at bedtime, # 30 tablet, 0 Refills, Maintenance Start Date: 03/09/18 Status: Ordered lisinopril 5 mg oral tablet 0.5, tablet, By Mouth, Daily, # 45 tablet, Refills 1, Route to Pharmacy Electronically, [id number], 163, cm, 12/02/21 9:43:00 EDT, Height, 123.7, kg, 10/06/21 7:05:00 EDT, Dry Weight Start Date: 12/04/21 Status: Ordered meclizine 12.5 mg oral tablet 1 tablet = 12.5 mg, By Mouth, 3 times a day, PRN for dizziness, # 30 tablet, 1 Refills, Maintenance, 05/29/19 11:21:00 EST, Tablet, [facility]/pharmacy #[id number], 163.25, cm, 05/29/19 11:18:00 EST, Height Start Date: 05/29/19 Status: Ordered meclizine 12.5 mg oral tablet 1 tablet = 12.5 mg, By Mouth, 3 times a day, PRN for dizziness, # 30 tablet, 0 Refills, Maintenance, 11/19/21 11:34:00 EDT, Tablet, [facility]/pharmacy #[id number], Partial fill upon patient request if the prescription is for a schedule II opioid drug., 163, cm, 0... Start Date: 11/19/21 Status: Ordered mesalamine 1000 mg rectal suppository See Instructions, 1 supp Rectally bid, 0 Refills, Maintenance, 02/08/19 10:23:07 EDT Start Date: 02/08/19 Status: Ordered MetFORMIN (Eqv-Glucophage XR) 500 mg oral tablet, extended release 2 tablet, By Mouth, 2 times a day, # 360 tablet, 2 Refills, Maintenance, 09/30/21 13:54:00 EDT, [facility]/pharmacy #[id number], 163, cm, 09/26/21 7:21:00 EDT, Height, 125.2, kg, 09/24/21 17:31:00 EDT, Dry Weight Start Date: 09/30/21 Status: Ordered Metoprolol Tartrate 25 mg oral tablet 1 tablet, By Mouth, 2 times a day, # 180 tablet, 1 Refills, [facility], 162.56, cm, 08/20/21 11:09:00 EDT, Height, 125.8, kg, 06/16/21 11:08:00 EST, Dry Weight Start Date: 09/09/21 Status: Ordered montelukast 10 mg oral tablet 1, tablet, By Mouth, Daily, # 90 tablet, Refills 1, Route to Pharmacy Electronically, [id number], 162.56, cm, 08/20/21 11:09:00 EDT, Height, 125.8, kg, 06/16/21 11:08:00 EST, Dry Weight Start Date: 09/09/21 Status: Ordered multivitamin Therapeutic Multiple Vitamins oral tablet 1, tablet, By Mouth, Daily, 0, 0, 05/25/05 16:31:13, 1.50670k+006, Constant Indicator Start Date: 05/25/05 Status: Ordered nystatin topical 265725 u/gm powder See Instructions, APPLY TOPICALLY TO THE AFFECTED AREA 2 OR 3 TIMES A DAY., # 60 Gm, 1 Refills, Maintenance, 12/27/21 11:39:00 EDT, [facility]/pharmacy #[id number], APPLY TOPICALLY TO THE AFFECTED AREA 2 OR 3 TIMES A DAY., 163, cm, 12/24/21 13:40:00 EDT, Height, 1... Start Date: 12/27/21 Status: Ordered oxyCODONE 5 mg oral capsule 2 capsule = 10 mg, By Mouth, Every 8 hours, PRN for pain, 0 Refills, Maintenance, 05/16/18 9:44:38 EST, Capsule Start Date: 05/16/18 Status: Ordered Protonix 20 mg oral delayed release tablet = 40 mg, By Mouth, Daily, 0 Refills, Maintenance, 08/10/12 13:36:33 EDT Start Date: 08/10/12 Status: Ordered sucralfate 1 gm oral tablet TAKE 1 TABLET BY MOUTH TWICE A DAY BEFORE MEALS Start Date: 07/17/21 Status: Ordered tamsulosin 0.4 mg oral capsule 0.4 mg, 1, capsule, By Mouth, Daily, Refills 0, Maintenance, 09/24/21 17:26:00 EDT, Partial fill upon patient request if the prescription is for a schedule II opioid drug. Start Date: 09/24/21 Status: Ordered topiramate 25 mg oral capsule 1 capsule = 25 mg, By Mouth, 2 times a day, 0 Refills, Maintenance, 07/24/20 8:59:00 EDT, Partial fill upon patient request if the prescription is for a schedule II opioid drug. Start Date: 07/24/20 Status: Ordered Ventolin HFA 108 mcg/inh inhalation aerosol with adapter 2 puffs, Inhalation, Every 6 hours, PRN for wheezing, # 8 Gm, 3 Refills, Maintenance, 11/06/21 8:07:00 EDT, Aerosol, [facility]/pharmacy #[id number], Partial fill upon patient request if the prescription is for aschedule II opioid drug., 163, cm, 06/20/22 15:37:0... Start Date: 11/06/21 Status: Ordered Vistaril pamoate 25 mg oral [...] Capsule Start Date: 02/08/19 Status: Ordered Vraylar 3 mg oral capsule 1 capsule = 3 mg, By Mouth, Daily, 0 Refills, Maintenance, 03/09/18 11:19:42 EST Start Date: 03/09/18 Status: Ordered Wellbutrin XL 300 mg/24 hours oral tablet, extended release ORAL, TABLET, EXTENDED RELEASE, 0 Refill(s),, 0 Refills, 08/29/18 12:03:00 EDT Start Date: 08/29/18 Status: Ordered Problem List Condition Effective Dates Status Health Status Inform ant Abnormal radiologic density- pulm nodule(s) details unclear(Confirmed) Active Allergic rhinitis(Confirmed) Active Anxiety(Confirmed) Active Asthma(Confirmed) Active Chronic obstructive lung disease(Confirmed) Active Chronic sinusitis(Confirmed) Active Depressive disorder(Confirmed) Active Diverticular disease of colon(Confirmed) Active Gastroesophageal reflux disease(Confirmed) Active Herpes simplex type 1 infection(Confirmed) Active Infected sebaceous cyst of skin(Confirmed) Active Intertrigo(Confirmed) Active Low back pain(Confirmed) Active Migraine(Confirmed) Active Morbid obesity(Confirmed) Active Nephrolithiasis(Confirmed) Active Posttraumatic stress disorder(Confirmed) Active Recurrent major depression i n partial remission(Confirmed) Active Recurrent UTI(Confirmed) Active Severe obesity(Confirmed) Active Sleep apnea(Confirmed) Active Steatosis of liver(Confirmed) Active Tobacco abuse(Confirmed) Active Type 2 diabetes mellitus(Confirmed) Active Vitamin D deficiency(Confirmed) Active Vitiligo(Confirmed) Active Social History Social History Type Response Smoking Status Former smoker, quit more than 30 days ago entered on: 08/20/21 Sex Implantable Device List Procedure Provider Procedure Date Device Type Site Cystoscopy Retrograde Ureteroscopy Giovanny Dumas MD 10/06/21 Unknown Ureter Device Identifier Serial Number Lot or Batch Number Manufacturing Date Expiration Date Distinct Identification Code MRI Safety Implantable Status Assigning Authority Unknown Unknown [id number] Unknown 01/06/24 Unknown Unknown Active Unknown Care Team Personnel Name: Blayne RANDALL, Ana Jameson Address: [address] [place] [address]
--- OUTSIDE RECORDS SUMMARY | 2024-03-24 12:21 | XMS_ITS | Continuity of Care Document ---
Author Organization [facility] Address [address] [place] [address]- Care Team Providers Care General Dentist/Owner Name Role Phone Blayne RANDALL, Ana Jameson Primary Care Physician ( [phone] Encounter [facility] Date(s): 01/15/22 - 04/23/[address] [address]- Encounter Diagnosis Low back pain, unspecified(Final) - Discharge Disposition: A-D/C Home Attending Physician: Candis Mederos DO Admitting Physician: Candis Mederos DO Referring Physician: Candis Mederos DO Allergies, Adverse Reactions, Alerts Substance Reaction Severity [...] 07/11/20 Recorded Influenza Virus Vaccine (oldterm) 02/03/20 Recorde d Not Given Vaccine Date Status Refusal Reason tetanus/diphtheria/pertussis, acel(Tdap) 2 02/04/22 Not Given Patient Refuses 1Result Comment: [facility] [id number] 2Result Comment: pt will do next time in Medications Advair Diskus 250 mcg-50 mcg inhalation [...] Mouth, Daily, # 90 tablet, 1 Refills, [facility], 163.25, cm, 02/25/21 15:12:00 EDT, Height Start Date: 03/05/21 Status: [...] Refills, Maintenance, 10/30/19 7:22:00 EDT, Chew Tablet, [facility]/pharmacy #[id number], 163.25, cm, 10/18/19 11:00:00 EDT, Height Start Date: 10/30/19 Status: Ordered fluconazole 150 mg oral tablet 1 tablet = 150 mg, By Mouth, Once, # 1 tablet, 0 Refills, Soft Stop, 12/24/21 14:01:00 EDT, Tablet,[facility]/pharmacy #[id number], Partial fill upon patient request if [...] 1 Refills, Soft Stop, 05/21/20 2:30:00 EST, [facility]/pharmacy #[id number], SPRAY 2 SPRAYS INTO EACH NOSTRIL [...] Daily, # 90 tablet, 3 Refills, Maintenance, 03/31/22 12:48:00 EST, [facility]/pharmacy#0693, 163, cm, 03/25/22 16:47:00 EST, Height, 123.7, kg, 10/06/21 7:05:00 EDT, Dry Weight Start Date: 03/31/22 Stop Date: 03/26/23 Status: Ordered Lantus Solostar Pen 100 units/mL subcutaneous solution See Instructions, INJECT 47 UNITS INTO THE SKIN ONCE A DAY DX E11.9, # 30 mL, 5 Refills, 12/12/21 9:28:00 EDT, [facility]/pharmacy #[id number], 163, cm, 12/02/21 9:43:00 EDT, Height, 123.7, kg, 10/06/21 7:05:00 EDT, Dry Weight Start Date: 12/12/21 Status: Ordered Lipitor 10 mg oral tablet 1 tablet = 10 mg, By Mouth, Daily at bedtime, # 30 tablet, 0 Refills, Maintenance Start Date: 03/09/18 Status: Ordered lisinopril 2.5 mg oral tablet 1, tablet, By Mouth, Daily, # 90 tablet, Refills 1, Maintenance, 03/24/22 4:05:00 EST, Route to Pharmacy Electronically, [facility] [id number], 163, cm, 03/10/22 15:21:00 EST, Height, 123.7, kg, 10/06/21 7:05:00 EDT, Dry Weight Start Date: 03/24/22 Status: Ordered meclizine 12.5 mg oral tablet 1 tablet = 12.5 mg, By Mouth, 3 times a day, PRN for dizziness, # 30 tablet, 1 Refills, Maintenance, 05/29/19 11:21:00 EST, Tablet, [facility]/pharmacy #[id number], 163.25, cm, 05/29/19 11:18:00 EST, Height Start Date: 05/29/19 Status: Ordered meclizine 12.5 mg oral tablet 1 tablet = 12.5 mg, By Mouth, 3 times a day, PRN for dizziness, # 30 tablet, 0 Refills, Maintenance, 11/19/21 11:34:00 EDT, Tablet, [facility]/pharmacy #[id number], Partial fill upon patient request if [...] tablet, 2 Refills, Maintenance, 09/30/21 13:54:00 EDT, [facility]/pharmacy #[id number], 163, cm, 09/26/21 7:21:00 EDT, Height, 125.2, kg, 09/24/21 17:31:00 EDT, Dry Weight Start Date: 09/30/21 Status: Ordered methenamine hippurate 1 gm oral tablet 1 tablet = 1 Gm, By Mouth, 2 times a day, 0 Refills, Maintenance, 03/10/22 15:34:00 EST, Partial fill upon patient request if the prescription is for a schedule II opioid drug. Start Date: 03/10/22 Status: Ordered Metoprolol Tartrate 25 mg oral tablet 1 tablet, By Mouth, 2 times a day, # 180 tablet, 1 Refills, Maintenance, 03/24/22 4:05:00 EST, [facility], 163, cm, 03/10/22 15:21:00 EST, Height, 123.7, kg, 10/06/21 7:05:00 EDT, Dry Weight Start Date: 03/24/22 Status: Ordered montelukast 10 mg oral tablet 1, tablet, By Mouth, Daily, # 90 tablet, Refills 1, Maintenance, 03/24/22 4:05:00 EST, Route to Pharmacy Electronically, [facility], 163, cm, 03/10/22 15:21:00 EST, Height, 123.7, kg, 10/06/21 7:05:00 EDT, Dry Weight Start Date: 03/24/22 Status: Ordered multivitamin Therapeutic Multiple Vitamins oral tablet 1, tablet, By Mouth, Daily, 0, 0, 05/25/05 16:31:13, 1.50559t+006, Constant Indicator Start Date: 05/25/05 Status: Ordered nystatin topical 220280 u/gm powder See Instructions, APPLY TOPICALLY TO THE AFFECTED AREA 2 OR 3 TIMES A DAY., # 60 Gm, 1 Refills, Maintenance, 04/06/22 8:27:00 EST, [facility], 20, APPLY TOPICALLY TO THE AFFECTED AREA 2 OR 3 TIMES A DAY., 163, cm, 03/25/22 16:47:00 EST, Height, 1... Start Date: 04/06/22 Status: Ordered oxyCODONE 5 mg oral capsule [...] BEFORE MEALS Start Date: 07/17/21 Status: Ordered topiramate 25 mg oral capsule [...] 3 Refills, Maintenance, 11/06/21 8:07:00 EDT, Aerosol, [facility]/pharmacy #[id number], Partial fill upon patient request if the prescription is for aschedule II opioid drug., 163, cm, 10/20/21 15:37:0... Start Date: 11/06/21 Status: Ordered Vistaril [...] Date: 08/29/18 Status: Ordered Problem List Condition Confirmation Course Effective Dates Status H ealth Status Informant Abnormal radiologic density-pulm nodule(s) details unclear Confirmed Active Allergic rhinitis Confirmed Active Anxiety Confirmed Active Asthma Confirmed Active Chronic obstructive lung disease Confirmed Active Chronic sinusitis Confirmed Active Depressive disorder Confirmed Active Diverticular disease of colon Confirmed Active Gastroesophageal reflux disease Confirmed Active Herpes simplex type 1 infection Confirmed Active Infected sebaceous cyst of skin Confirmed Active Intertrigo Confirmed Active Low back pain Confirmed Active Migraine Confirmed Active Morbid obesity Confirmed Active Nephrolithiasis Confirmed Active Posttraumatic stress disorder Confirmed Active Recurrent major depression in partial remission Confirmed Active Recurrent UTI Confirmed Active Severe obesity Confirmed Active Sleep apnea Confirmed Active Steatosis of liver Confirmed Active Tobacco abuse Confirmed Active Type 2 diabetes mellitus Confirmed Active Vitamin D deficiency Confirmed Active Vitiligo Confirmed Active Social History Social History Type Response Smoking Status Former smoker, quit more than 30 days ago entered on: 08/20/21 Sex Implantable Device List Procedure Provider Procedure Date Device Type Site Cystoscopy Retrograde Ureteroscopy Leatha Chisholm MD, Giovanny Cameron 10/06/21 Unknown Ureter Device Identifier Serial Number Lot or Batch Number Manufacturing Date Expiration Date Distinct Identification Code MRI Safety Implantable Status Assigning Authority Unknown Unknown [id number] Unknown 01/06/24 Unknown Unknown Active Unknown Patient Care team information Care Team Personnel Name: Blayne RANDALL, Ana Jameson Position: [facility]O Associate Professional Member Role: PCP Address: Address: [address] [place] [address] [place] [address]- Care Team Related Persons Name: NIA WHITE Address: [place] [address] Name: CALLY BERRY Address: [address] [address]
--- OUTSIDE RECORDS SUMMARY | 2024-03-24 12:21 | XMS_ITS | Continuity of Care Document ---
Author Organization [facility] Address [address] [place] [address]- Care Team Providers Care Wastewater Technician Name Role Phone Blayne RANDALL, Ana Jameson Primary Care Physician Encounter [facility] Date(s): 09/09/20 - 10/09/20 [facility] [address] [place] [address]- Allergies, Adverse Reactions, Alerts Substance Reaction Severity Status sulfa drugs Active Provera rash Active Latex Active Soy Products swelling, rash Active Immunizations Given and Recorded Vaccine Date Status Refusal Reason Influenza Virus Vaccine (oldterm) 02/03/20 Recorde d influenza virus vaccine, inactivated 02/08/19 Give n Medications Advair Diskus 250 mcg-50 mcg inhalation powder 1 puffs, Inhalation, 2 times a day, 0 Refills, Maintenance Start Date: 08/10/12 Status: Ordered BD UF MINI PEN NEEDLE [id number] See Instructions, # 100 Unknown, Refills 2 Tot. Refills 2, USE DIRECTED AT BEDTIME WITH SOLORSTAR PEN, [id number] Start Date: 02/13/19 Status: Ordered benzoyl peroxide-erythromycin 5%-3% topical gel See Instructions, APPLY TO AFFECTED AREA TWICE A DAY, # 23.3 Gm, 1 Refills, Maintenance, 02/07/20 11:27:00 EDT, [id number], APPLY TO AFFECTED AREA TWICE A DAY, 163.25, cm, 02/01/20 14:23:00 EDT, Height Start Date: 02/07/20 Status: Ordered cetirizine 10 mg oral tablet 1 tablet, By Mouth, Daily, # 90 tablet, 1 Refills, Maintenance, 09/07/20 6:27:00 EDT, [id number], 163.25, cm, 08/28/20 13:54:00 EDT, Height Start Date: 09/07/20 Status: Ordered clotrimazole 1% topical cream CREAM, 2 Refill(s),, 0 Refills, 08/29/18 12:04:00 EDT Start Date: 08/29/18 Status: Ordered [facility] FIBER 0.52 G CAPSULE See Instructions, # 30 capsule, Refills 6 Tot. Refills 6, TAKE ONE CAPSULE BY MOUTH EVERY DAY, [facility]/pharmacy #[id number] Start Date: 08/26/18 Status: Ordered [facility] FIBER 0.52 G CAPSULE See Instructions, # 30 capsule, Refills 6 Tot. Refills 6, TAKE ONE CAPSULE BY MOUTH EVERY DAY, [facility]/pharmacy #[id number] Start Date: 03/16/19 Status: Ordered Dexilant 60 mg oral delayed release capsule ORAL, CAPSULE, DELAYED RELEASE, 4 Refill(s),, 0 Refills, 08/29/18 12:04:00 EDT Start Date: 08/29/18 Status: Ordered Fiber Choice 1.5 g oral tablet, chewable 1 tablet = 1.5 Gm, Chew, Daily, # 90 tablet, 0 Refills, Maintenance, 10/30/19 7:22:00 EDT, Chew Tablet, [facility]/pharmacy #[id number], 163.25, cm, 10/18/19 11:00:00 EDT, Height Start Date: 10/30/19 Status: Ordered FLUoxetine 20 mg oral capsule 80 mg, 4, capsule, By Mouth, Daily, ORAL, CAPSULE, 0 Refill(s),, Refills 0, 08/29/18 12:05:00 EDT Start Date: 08/29/18 Status: Ordered fluticasone 50 mcg/inh nasal spray See Instructions, SPRAY 2 SPRAYS INTO EACH NOSTRIL EVERY DAY, # 48 mL, 1 Refills, Soft Stop, 05/21/20 2:30:00 EST, [facility]/pharmacy #[id number], SPRAY 2 SPRAYS INTO EACH NOSTRIL EVERY DAY, 163.25, cm, 04/30/2012:50:00 EST, Height Start Date: 05/21/20 Status: Ordered folic acid 1 mg oral tablet 1 mg, 1, tablet, By Mouth, Daily, # 30 tablet, Refills 0, Maintenance, 11/23/19 11:22:00 EDT Start Date: 11/23/19 Status: Ordered gabapentin 600 mg oral tablet ORAL, TABLET, 0 Refill(s),, 0 Refills, 08/29/18 12:05:00 EDT Start Date: 08/29/18 Status: Ordered Januvia 100 mg oral tablet 1 tablet, By Mouth, Daily, # 90 tablet, 1 Refills, Maintenance, 06/11/20 12:01:00 EST, [facility]/pharmacy#0693, 163.25, cm, 04/30/20 12:50:00 EST, Height Start Date: 06/11/20 Status: Ordered Lantus Solostar Pen 100 units/mL subcutaneous solution See Instructions, INJECT 56 UNITS INTO THE SKIN ONCE A DAY AT BEDTIME, # 10 mL, 2 Refills, 08/16/2115:28:00 EDT, [facility]/pharmacy #[id number], 163.25, cm, 07/24/20 8:37:00 EDT, Height Start Date: 08/15/20 Status: Ordered Lipitor 10 mg oral tablet 1 tablet = 10 mg, By Mouth, Daily, # 30 tablet, 0 Refills, Maintenance Start Date: 03/09/18 Status: Ordered lisinopril 5 mg oral tablet 0.5, tablet, By Mouth, Daily, # 45 tablet, Refills 1, Tot. Refills 1, Maintenance, 03/01/20 15:23:00 EDT, Route to Pharmacy Electronically, [facility]/pharmacy #[id number], 163.25, cm, 02/01/20 14:23:00 EDT, Height Start Date: 03/01/20 Status: Ordered meclizine 12.5 mg oral tablet 1 tablet = 12.5 mg, By Mouth, 3 times a day, PRN for dizziness, # 30 tablet, 1 Refills, Maintenance, 05/29/19 11:21:00 EST, Tablet, [facility]/pharmacy #[id number], 163.25, cm, 05/29/19 11:18:00 EST, Height Start Date: 05/29/19 Status: Ordered mesalamine 1000 mg rectal suppository See Instructions, 1 supp Rectally bid, 0 Refills, Maintenance, 02/08/19 10:23:07 EDT Start Date: 02/08/19 Status: Ordered MetFORMIN (Eqv-Glucophage XR) 500 mg oral tablet, extended release See Instructions, 2 tablet By Mouth in am and 1 tablet in pm, # 270 tablet, 2 Refills, Maintenance,08/23/20 8:20:00 EDT, [facility]/pharmacy #[id number], 163.25, cm, 07/24/20 8:37:00 EDT, Height Start Date: 08/23/20 Status: Ordered Metoprolol Tartrate 25 mg oral tablet 1 tablet, By Mouth, 2 times a day, # 180 tablet, 1 Refills, Maintenance, 05/17/20 11:36:00 EST, [facility]/pharmacy #[id number], 163.25, cm, 04/30/20 12:50:00 EST, Height Start Date: 05/17/20 Status: Ordered Miscellaneous Rx 1, capsule, By Mouth, Daily, # 30 capsule, 6 Refills, Maintenance, 10/04/19 10:07:00 EDT, 163.25, cm, 07/13/19 14:03:00 EDT, Height Start Date: 10/04/19 Status: Ordered Miscellaneous Rx 1, capsule, By Mouth, Daily, # 30 capsule, 6 Refills, Maintenance, 10/26/19 6:41:00 EDT, 163.25, cm, 10/18/19 11:00:00 EDT, Height Start Date: 10/26/19 Status: Ordered montelukast 10 mg oral tablet 1, tablet, By Mouth, Daily, # 90 tablet, Refills 1, Tot. Refills 1, Maintenance, 06/03/20 8:47:00 EST, Route to Pharmacy Electronically, [facility]/pharmacy #[id number], 163.25, cm, 04/30/20 12:50:00 EST, Height Start Date: 06/03/20 Status: Ordered multivitamin Therapeutic Multiple Vitamins oral tablet 1, tablet, By Mouth, Daily, 0, 0, 05/25/05 16:31:13, 1.90714x+006, Constant Indicator Start Date: 05/25/05 Status: Ordered mupirocin 2% topical ointment See Instructions, APPLY 1 APPLICATION TOPICALLY 3 TIMES A DAY FOR 1 WEEK AND THEN NEEDED, # 15 Gm, 1 Refills, Acute, [facility], 7, APPLY 1 APPLICATION TOPICALLY 3 TIMES A DAY FOR 1 WEEK AND THEN NEEDED, 163.25, cm, 07/13/19 14:03:00 EDT, H... Start Date: 09/21/19 Status: Ordered nystatin topical 047840 u/gm powder See Instructions, APPLY 2 OR 3 TIMES A DAY TO AFFECTED AREA, # 60 Gm, 1 Refills, Acute, [facility], 21, APPLY 2 OR 3 TIMES A DAY TO AFFECTED AREA, 163.25, cm, 06/21/20 15:02:00 EST, Height Start Date: 07/01/20 Status: Ordered oxyCODONE 5 mg oral capsule 2 capsule = 10 mg, By Mouth, Every 8 hours, PRN for pain, 0 Refills, Maintenance, 05/16/18 9:44:38 EST, Capsule Start Date: 05/16/18 Status: Ordered ProAir HFA 90 mcg/inh inhalation aerosol with adapter 2, puffs, Inhalation, Every 6 hours, PRN, # 8.5 Gm, Refills 11, Tot. Refills 11, Maintenance, 07/03/20 11:25:00 EST, Route to Pharmacy Electronically, [id number], [facility]/pharmacy #[id number], 163.25, cm, 06/21/20 15:02:00 EST, Height Start Date: 07/03/20 Status: Ordered Protonix 20 mg oral delayed release tablet 1 tablet = 20 mg, By Mouth, Daily, 0 Refills, Maintenance Start Date: 08/10/12 Status: Ordered topiramate 25 mg oral capsule 1 capsule = 25 mg, By Mouth, 2 times a day, 0 Refills, Maintenance, 07/24/20 8:59:00 EDT, Partial fill upon patient request if the prescription is for a schedule II opioid drug. Start Date: 07/24/20 Status: Ordered Vistaril pamoate 25 mg oral [...] By Mouth, Daily, 0, 0, 05/22/05 18:31:07, 1.45677i+006, Constant Indicator Start Date: 05/22/05 Status: Ordered Wellbutrin XL 300 mg/24 hours oral tablet, extended release ORAL, TABLET, EXTENDED RELEASE, 0 Refill(s),, 0 Refills, 08/29/18 12:03:00 EDT Start Date: 08/29/18 Status: Ordered Zofran 4 mg oral tablet [...] Active Infected sebaceous cyst of skin(Confirmed) Active Low back pain(Confirmed) Active Migraine(Confirmed) Active Morbid obesity(Confirmed) Active Nephrolithiasis(Confirmed) Active Posttraumatic stress disorder(Confirmed) Active Sleep apnea(Confirmed) Active Steatosis of liver(Confirmed) Active Tobacco abuse(Confirmed) Active Type 2 diabetes mellitus(Confirmed) Active Vitamin D deficiency(Confirmed) Active Vitiligo(Confirmed) Active Social History Social History Type Response Smoking Status Never (less than 100 in lifetime) entered on: 08/29/18 Sex
--- OUTSIDE RECORDS SUMMARY | 2024-03-24 12:21 | XMS_ITS | Continuity of Care Document ---
Author Organization [facility] Address [address] [place] [address]- Care Team Providers Care Snowboard Instructor Name Role Phone Blayne RANDALL, Ana Jameson Primary Care Physician ( [phone] Encounter [facility] Date(s): 10/06/21 - 10/06/[address] [address]- Discharge Disposition: A-D/C Home Attending Physician: Giovanny Chisholm MD Admitting Physician: Giovanny Chisholm MD Referring Physician: Giovanny Chisholm MD Allergies, Adverse Reactions, Alerts Substance Reaction [...] Influenza Virus Vaccine (oldterm) 02/03/20 Recorde d 1Result Comment: [facility] 15329-450-13 Medications Advair Diskus 250 mcg-50 mcg inhalation [...] Mouth, Daily, # 90 tablet, 1 Refills, [facility] 38124, 163.25, cm, 02/25/21 15:12:00 EDT, Height Start [...] Refills, Maintenance, 10/30/19 7:22:00 EDT, Chew Tablet, [facility]/pharmacy #[id number], 163.25, cm, 10/18/19 11:00:00 [...] 1 Refills, Soft Stop, 05/21/20 2:30:00 EST, [facility]/pharmacy #[id number], SPRAY 2 SPRAYS INTO [...] tablet, 3 Refills, Maintenance, 07/02/21 11:04:00 EST, [facility]/pharmacy#0693, 162.56, cm, 06/16/21 11:08:00 EST, Height, 125.8, kg, 06/16/21 11:08:00 EST, Dry Weight Start Date: 07/02/21 Status: Ordered Lantus Solostar Pen 100 units/mL subcutaneous solution See Instructions, INJECT 47 UNITS INTO THE SKIN ONCE A DAY DX E11.9, # 20 mL, 5 Refills, 07/29/21 6:38:00 EDT, [facility]/pharmacy #[id number], 162.56, cm, 07/17/21 13:24:00 EDT, Height, 125.8, kg, 06/16/21 11:08:00 EST, Dry Weight Start Date: 07/29/21 Status: Ordered Lipitor 10 mg oral tablet 1 tablet = 10 mg, By Mouth, Daily at bedtime, # 30 tablet, 0 Refills, Maintenance Start Date: 03/09/18 Status: Ordered lisinopril 5 mg oral tablet 0.5, tablet, By Mouth, Daily, # 45 tablet, Refills 1, Route to Pharmacy Electronically, [facility] 41982, 162.56, cm, 05/14/21 11:38:00 EST, Height Start Date: 05/20/21 Status: Ordered meclizine 12.5 mg oral tablet 1 tablet = 12.5 mg, By Mouth, 3 times a day, PRN for dizziness, # 30 tablet, 1 Refills, Maintenance, 05/29/19 11:21:00 EST, Tablet, [facility]/pharmacy #[id number], 163.25, cm, 05/29/19 11:18:00 EST, Height Start Date: 05/29/19 Status: Ordered mesalamine 1000 mg rectal suppository See Instructions, 1 supp Rectally bid, 0 Refills, Maintenance, 02/08/19 10:23:07 EDT Start Date: 02/08/19 Status: Ordered MetFORMIN (Eqv-Glucophage XR) 500 mg oral tablet, extended release 2 tablet, By Mouth, 2 times a day, # 360 tablet, 2 Refills, Maintenance, 09/30/21 13:54:00 EDT, [facility]/pharmacy #[id number], 163, cm, 09/26/21 7:21:00 EDT, Height, 125.2, kg, 09/24/21 17:31:00 EDT, Dry Weight Start Date: 09/30/21 Status: Ordered Metoprolol Tartrate 25 mg oral tablet 1 tablet, By Mouth, 2 times a day, # 180 tablet, 1 Refills, [facility] 90596, 162.56, cm, 08/20/21 11:09:00 EDT, Height, 125.8, kg, 06/16/21 11:08:00 EST, Dry Weight Start Date: 09/09/21 Status: Ordered montelukast 10 mg oral tablet 1, tablet, By Mouth, Daily, # 90 tablet, Refills 1, Route to Pharmacy Electronically, [facility] 18050, 162.56, cm, 08/20/21 11:09:00 EDT, Height, 125.8, kg, 06/16/21 11:08:00 EST, Dry Weight Start Date: 09/09/21 Status: Ordered multivitamin Therapeutic Multiple Vitamins oral tablet 1, tablet, By Mouth, Daily, 0, 0, 05/25/05 16:31:13, 1.45860g+006, Constant Indicator Start Date: 05/25/05 Status: Ordered nystatin topical 962432 u/gm powder See Instructions, APPLY TOPICALLY TO THE AFFECTED AREA 2 OR 3 TIMES A DAY., # 60 Gm, 1 Refills, Maintenance, 09/17/21 11:25:00 EDT, [facility]/pharmacy #[id number], APPLY TOPICALLY TO THE AFFECTED AREA 2 OR 3 TIMES A DAY., 162.56, cm, 09/17/21 11:20:00 EDT, Height... Start Date: 09/17/21 Status: Ordered oxyCODONE 5 mg oral capsule 2 capsule = 10 mg, By Mouth, Every 8 hours, PRN for pain, 0 Refills, Maintenance, 05/16/18 9:44:38 EST, Capsule Start Date: 05/16/18 Status: Ordered ProAir HFA 90 mcg/inh inhalation aerosol with adapter 2, puffs, Inhalation, Every 6 hours, PRN, # 8.5 Gm, Refills 11, Tot. Refills 11, Maintenance, 07/03/20 11:25:00 EST, Route to Pharmacy Electronically, [id number], [facility]/pharmacy #[id number], 163.25, cm, 06/21/20 15:02:00 [...] Active Vitamin D deficiency(Confirmed) Active Vitiligo(Confirmed) Active Results Radiology Reports * Exam Date Time Procedure Performing Provider Status 10/06/21 8:38 AM C-Arm < 1 Hour Do , Juan; Auth (Verif ied) Notes: (C-Arm < 1 Hour) Reason For Exam: Calculus in left kidey, stent placement RESULT: C-Arm < 1 Hour C-Arm < 1 Hour INDICATION: Reason: Calculus in left kidey, stent placement; Special Instructions: TT: 35mins. FT: 12.8sec COMPARISONS: None TECHNIQUE: Fluoroscopy support was provided. There was no radiologist in attendance. FLUOROSCOPY TIME: 12.8 seconds TECHNOLOGIST TIME: 35 minutes FINDINGS: Fluoroscopy support was provided. There was no radiologist in attendance. IMPRESSION: See above. WSN: [id number] Ordering Physician: Giovanny Chisholm Dictated By: Narendra Caldera MD Dictated Date/Time: 10/06/21 6:28 pm Reviewed By: Narendra Caldera MD Signed By: Narendra Caldera MD Signed Date/Time: 10/06/21 6:28 pm Transcribed By: CASEY Transcribed Date/Time: 10/06/21 6:28 pm Vital Signs Most recent to oldest [Reference Range]: 1 2 3 Oxygen Saturation [94-100 %] 98 % (10/06/21 9:00 AM) 96 % (10/06/21 8:45 AM) 100 % (10/06/21 8:30 AM) Pulse Rate [55-90 bpm] 74 bpm (10/06/21 7:05 AM) Blood Pressure [90-138/55-84 mm Hg] 114/84mm Hg (10/06/21 9:00 AM) 106/62mm Hg (10/06/21 8:45 AM) 88/58mm Hg *L* (10/06/21 8:30 AM) Respiratory Rate [16-30 br/min] 16 br/min (10/06/21 9:00 AM) 16 br/min (10/06/21 8:45 AM) 26 br/min (10/06/21 8:30 AM) Temperature [96.8-100.4 DegF] 97 DegF (10/06/21 7:05 AM) Liters per Minute 4 L/min (10/06/21 8:30 AM) Mode of Delivery (Oxygen) Simple face ma sk (10/06/21 8:30 AM) Room air (10/06/21 7:05 AM) Temperature Route Femoral (10/06/21 7:05 AM) Dry Weight 123.7 kg (10/06/21 7:05 AM) Dry Weight Obtained Via Standing scale (10/06/21 7:05 AM) Social History Social History Type Response Smoking Status Former smoker, quit more than 30 days ago entered on: 08/20/21 Sex Medical Equipment Implanted Date:10/06/21Target Site:Ureter Description Quantity MRI Company Model STENT STRETCH VL 6FR - BSCI ([phone]) 1 [employer] [facility]cology Unknown ALEX:No Information Assigning Authority: FDA
--- OUTSIDE RECORDS SUMMARY | 2024-03-24 12:21 | XMS_ITS | Continuity of Care Document ---
Author Organization [facility] Address [address] [place] [address]- Care Team Providers Care Management Aide Name Role Phone Blayne RANDALL, Ana Jameson Primary Care Physician Encounter [facility] Date(s): 09/03/23 - 10/03/23 [facility] [address] [place] [id number] Allergies, Adverse Reactions, Alerts Substance Reaction Severity Status sulfa drugs swelling itching Active Provera rash Active Latex rash Active Soy Products swelling, rash Active Immunizations Given and Recorded Vaccine Date Status Refusal Reason RSV vaccine, preF A-preF B, recombinant 04/19/23 R ecorded influenza virus vaccine, inactivated 02/01/23 Give n influenza virus vaccine, inactivated 1 02/25/21 Gi miguel influenza virus vaccine, inactivated 02/08/19 Give n [id number] 12y+ bivalent booster vax 06/12/22 Recorded tetanus/diphtheria/pertussis, acel(Tdap) 2 06/01/22 Given SARS-CoV-2 (COVID-19) mRNA BNT-162b2 vac 02/26/21 Recorded SARS-CoV-2 (COVID-19) mRNA BNT-162b2 vac 08/01/20 Recorded SARS-CoV-2 (COVID-19) mRNA BNT-162b2 vac 07/11/20 Recorded Influenza Virus Vaccine (oldterm) 02/03/20 Recorde d 1Result Comment: [facility] [id number] 2Result Comment: [facility] [id number] Medications Albuterol (Eqv-ProAir HFA) 90 mcg/inh inhalation aerosol 2 puffs, Inhalation, Every 6 hours, PRN NEEDED FOR WHEEZING, # 8.5 each, 11 Refills, Maintenance, 09/09/22 9:05:00 EDT, [facility], 17, TAKE 2 PUFFS BY MOUTH EVERY 6 HOURS NEEDED FOR WHEEZING, 163, cm, 09/07/22 11:03:00 EDT, Height, 123.7,... Start Date: 09/09/22 Status: Ordered aspirin 81 mg oral delayed release tablet 81 mg, 1, tablet, By Mouth, Daily, # 30 tablet, Refills 0, Maintenance, 10/03/21 14:17:00 EDT, Partial fill upon patient request if the prescription is for a schedule II opioid drug. Start Date: 10/03/21 Status: Ordered buPROPion 150 mg/24 hours (XL) oral tablet, extended release 1 tablet = 150 mg, By Mouth, Every 24 hours, taken with 300 mg, 0 Refills, Maintenance, 12/01/22 13:37:00 EDT, Partial fill upon patient request if the prescription is for a schedule II opioid drug. Start Date: 12/01/22 Status: Ordered cetirizine 10 mg oral tablet 1 tablet, By Mouth, Daily, # 90 tablet, 1 Refills, [facility], 163.25, cm, 02/25/21 15:12:00 EDT, Height Start Date: 03/05/21 Status: Ordered Cranberry oral tablet 2 tabs 500 mg, 0 Refills, Maintenance, 03/12/21 16:25:00 EST, Partial fill upon patient request if the prescription is for a schedule II opioid drug. Start Date: 03/12/21 Status: Ordered diazepam 2 mg oral tablet TAKE 1 TABLET BY MOUTH EVERY DAY NEEDED FOR ANXIETY Start Date: 12/01/22 Status: Ordered Fiber Choice 1.5 g oral tablet, chewable 1 tablet = 1.5 Gm, Chew, Daily, # 90 tablet, 0 Refills, Maintenance, 10/30/19 7:22:00 EDT, Chew Tablet, [facility]/pharmacy #0693, 163.25, cm, 10/18/19 11:00:00 EDT, Height Start Date: 10/30/19 Status: Ordered FLUoxetine 20 mg oral capsule 80 mg, 4, capsule, By Mouth, Daily, ORAL, CAPSULE, 0 Refill(s),, Refills 0, 08/29/18 12:05:00 EDT Start Date: 08/29/18 Status: Ordered fluticasone 50 mcg/inh nasal spray See Instructions, SPRAY 2 SPRAYS INTO EACH NOSTRIL EVERY DAY, # 48 mL, 1 Refills, Soft Stop, 05/21/20 2:30:00 EST, [facility]/pharmacy #0693, SPRAY 2 SPRAYS INTO EACH NOSTRIL EVERY DAY, 163.25, cm, 04/30/2012:50:00 EST, Height Start Date: 05/21/20 Status: Ordered fluticasone-salmeterol 100 mcg-50 mcg inhalation powder 1, inhalation, Inhalation, 2 times a day, rinse mouth and throat after use, Refills 0, Maintenance,07/26/23 11:22:00 EDT, Powder Start Date: 07/26/23 Status: Ordered folic acid 1 mg oral [...] EDT, Supply Start Date: 11/19/21 Status: Ordered incontinence pads/Poise incontinence pads/Poise, See Instructions, # 60 each, Refills 11, Tot. Refills 11, Maintenance, dx urinary incontinence. using 2 pads a day., 07/26/23 11:39:00 EDT, Supply Start Date: 07/26/23 Status: Ordered Januvia 100 mg oral tablet 1 tablet, By Mouth, Daily, # 30 tablet, 5 Refills, Maintenance, 09/28/23 14:44:00 EDT, [facility]/pharmacy#0693, 163, cm, 08/30/23 11:08:00 EDT, Height, 125.8, kg, 03/18/23 7:42:00 EST, Dry Weight Start Date: 09/28/23 Status: Ordered Lantus 100 u/ml subcutaneous solution See Instructions, Subcutaneous Injection, Use as directed for Diabetes mellitus type II. 47 units in am., 5 Refills, Maintenance, 07/26/23 11:30:00 EDT, Partial fill upon patient request if the prescription is for a schedule II opioid drug. Start Date: 07/26/23 Stop Date: 08/25/23 Status: Ordered Lipitor 10 mg oral tablet 1 tablet = 10 mg, By Mouth, Daily at bedtime, # 30 tablet, 0 Refills, Maintenance Start Date: 03/09/18 Status: Ordered lisinopril 2.5 mg oral tablet 1, tablet, By Mouth, Daily, # 90 tablet, Refills 1, Maintenance, 03/24/22 4:05:00 EST, Route to Pharmacy Electronically, [id number], 163, cm, 03/10/22 15:21:00 EST, Height, 123.7, kg, 10/06/21 7:05:00 EDT, Dry Weight Start Date: 03/24/22 Status: Ordered meclizine 12.5 mg oral tablet 1 tablet = 12.5 mg, By Mouth, 3 times a day, PRN for dizziness, # 30 tablet, 0 Refills, Maintenance, 11/19/21 11:34:00 EDT, Tablet, [id number], Partial fill upon patient request if [...] 2 times a day, # 360 tablet, 1 Refills, Maintenance, 08/25/23 11:22:00 EDT, [facility], 163, cm, 07/26/23 11:18:00 EDT, Height, 125.8, kg, 03/18/23 7:42:00 EST, Dry Weight Start Date: 08/25/23 Status: Ordered methenamine hippurate 1 gm oral tablet 1 tablet = 1 Gm, By Mouth, 2 times a day, 0 Refills, Maintenance, 03/10/22 15:34:00 EST, Partial fill upon patient request if the prescription is for a schedule II opioid drug. Start Date: 03/10/22 Status: Ordered Metoprolol Tartrate 25 mg oral tablet 1 tablet, By Mouth, 2 times a day, # 180 tablet, 0 Refills, Maintenance, 09/03/23 2:33:00 EDT, [facility]0693, 163, cm, 08/30/23 11:08:00 EDT, Height, 125.8, kg, 03/18/23 7:42:00 EST, Dry Weight Start Date: 09/03/23 Status: Ordered montelukast 10 mg oral tablet 1, tablet, By Mouth, Daily, # 90 tablet, Refills 1, Tot. Refills 1, Maintenance, 06/14/23 9:13:00 EST, Route to Pharmacy Electronically, [facility][id number], 163, cm, 05/24/23 11:13:00 EST, Height, 125.8, kg, 03/18/23 7:42:00 EST, Dry Weight Start Date: 06/14/23 Status: Ordered multivitamin Therapeutic Multiple Vitamins oral tablet 1, tablet, By Mouth, Daily, 0, 0, 05/25/05 16:31:13, [id number], Constant Indicator Start Date: 05/25/05 Status: Ordered nystatin topical 545492 u/gm powder See Instructions, APPLY TOPICALLY TO THE AFFECTED AREA 2 OR 3 TIMES A DAY., # 60 Gm, 1 Refills, Maintenance, 09/09/22 9:05:00 EDT, [facility], 20, APPLY TOPICALLY TO THE AFFECTED AREA 2 OR 3 TIMES A DAY., 163, cm, 09/07/22 11:03:00 EDT, Height, 1... Start Date: 09/09/22 Status: Ordered omeprazole 20 mg oral delayed release tablet 1 tablet = 20 mg, By Mouth, 2 times a day, # 30 tablet, 0 Refills, Maintenance, 03/15/23 11:19:00 EST, [facility] Tablet, Partial fill upon patient request if the prescription is for a schedule II opioid drug. Start Date: 03/15/23 Status: Ordered oxyCODONE 5 mg oral capsule 2 capsule = 10 mg, By Mouth, Every 8 hours, PRN for pain, 0 Refills, Maintenance, 05/16/18 9:44:38 EST, Capsule Start Date: 05/16/18 Status: Ordered sucralfate 1 gm oral tablet TAKE 1 TABLET BY MOUTH TWICE A DAY BEFORE MEALS Start Date: 07/17/21 Status: Ordered traZODone 50 mg oral tablet 50 mg, 1, tablet, TAKE 1 TAB AT BEDTIME FOR SLEEP NEEDED Start Date: 12/01/22 Status: Ordered UF Mini pen needles UF Mini pen needles, See Instructions, # 100 each, Refills 2, Tot. Refills 2, Maintenance, patient to use every day for type 2 diabetes E11.9, 07/21/23 9:01:00 EDT, Supply, 163, cm, 06/28/23 11:11:00EST, Height, 125.8, kg, 03/18/23 7:42:00 EST, Dry W... Start Date: 07/21/23 Status: Ordered Vistaril pamoate 25 mg oral [...] unclear Confirmed Active Allergic rhinitis Confirmed Active Ascending aortic aneurysm Confirmed Active Anxiety Confirmed Active Asthma Confirmed Active Chronic obstructive lung disease Confirmed Active Chronic sinusitis Confirmed Active Depressive disorder Confirmed Active Diverticular disease of colon Confirmed Active Gastroesophageal reflux disease Confirmed Active Herpes simplex type 1 infection Confirmed Active Infected sebaceous cyst of skin Confirmed Active Intertrigo Confirmed Active Low back pain Confirmed Active Migraine Confirmed Active Pulmonary nodules Confirmed Active Nephrolithiasis Confirmed Active Posttraumatic stress [...] Safety Implantable Status Assigning Authority Unknown Unknown [id number] Unknown 01/06/24 Unknown Unknown Active Unknown Patient Care team information Care Team Personnel Name: Blayne RANDALL, Ana Jameson Position: [facility] PCO Associate Professional Member Role: PCP Address: Address: [address] [place] [address] [address] Care Team Related Persons Name: NIA WHITE Address: [place] [address] Name: CALLY BERRY Address: [address] [address]
--- OUTSIDE RECORDS SUMMARY | 2024-03-24 12:21 | XMS_ITS | Continuity of Care Document ---
Author Organization [facility] Address [address] [place] [address]- Care Team Providers Care Home Health Care Worker Name Role Phone Blayne RANDALL, Ana Jameson Primary Care Physician Encounter [facility] Date(s): 04/03/21 - 05/03/21 [facility] [address] [place] [address]- Allergies, Adverse Reactions, Alerts Substance Reaction Severity Status sulfa drugs swelling itching Active Provera rash Active Latex rash Active Soy Products swelling, rash Active Immunizations Given and Recorded Vaccine Date Status Refusal Reason influenza virus vaccine, inactivated 1 02/25/21 Gi miguel influenza virus vaccine, inactivated 02/08/19 Give n Influenza Virus Vaccine (oldterm) 02/03/20 Recorde d 1Result Comment: [facility] [id number] Medications Advair Diskus 250 mcg-50 mcg inhalation powder 1 puffs, Inhalation, 2 times a day, 0 Refills, Maintenance Start Date: 08/10/12 Status: Ordered cetirizine 10 mg oral tablet 1 tablet, By Mouth, Daily, # 90 tablet, 1 Refills, [facility] [address], 163.25, cm, 02/25/21 15:12:00 EDT, Height Start [...] Refills, Maintenance, 10/30/19 7:22:00 EDT, Chew Tablet, [facility]/pharmacy #[id number], 163.25, cm, 10/18/19 11:00:00 EDT, Height Start Date: 10/30/19 Status: Ordered FLUoxetine 20 mg oral capsule 80 mg, 4, capsule, By Mouth, Daily, ORAL, CAPSULE, 0 Refill(s),, Refills 0, 08/29/18 12:05:00 EDT Start Date: 08/29/18 Status: Ordered fluticasone 50 mcg/inh nasal spray See Instructions, SPRAY 2 SPRAYS INTO EACH NOSTRIL EVERY DAY, # 48 mL, 1 Refills, Soft Stop, 05/21/20 2:30:00 EST, [facility]/pharmacy #[id number], SPRAY 2 SPRAYS INTO EACH NOSTRIL [...] Daily, # 90 tablet, 1 Refills, Maintenance, 03/06/21 9:29:00 EDT, [facility]/pharmacy #[id number], 163.25, cm, 03/06/21 9:09:00 EDT, Height Start Date: 03/06/21 Status: Ordered Lantus Solostar Pen 100 units/mL subcutaneous solution See Instructions, INJECT 56 UNITS INTO THE SKIN ONCE A DAY AT BEDTIME, # 15 Unknown, 5 Refills, [facility], 163.25, cm, 01/23/21 8:57:00 EDT, Height Start Date: 01/31/21 Status: Ordered Lipitor 10 mg oral tablet 1 tablet = 10 mg, By Mouth, Daily at bedtime, # 30 tablet, 0 Refills, Maintenance Start Date: 03/09/18 Status: Ordered lisinopril 5 mg oral tablet 0.5, tablet, By Mouth, Daily, # 45 tablet, Refills 1, Route to Pharmacy Electronically, [facility], 163.25, cm, 01/23/21 8:57:00 EDT, Height Start Date: 02/11/21 Status: Ordered meclizine 12.5 mg oral tablet 1 tablet = 12.5 mg, By Mouth, 3 times a day, PRN for dizziness, # 30 tablet, 1 Refills, Maintenance, 05/29/19 11:21:00 EST, Tablet, [facility]/pharmacy #[id number], 163.25, cm, 05/29/19 11:18:00 EST, Height Start Date: 05/29/19 Status: Ordered mesalamine 1000 mg rectal suppository See Instructions, 1 supp Rectally bid, 0 Refills, Maintenance, 02/08/19 10:23:07 EDT Start Date: 02/08/19 Status: Ordered MetFORMIN (Eqv-Glucophage XR) 500 mg oral tablet, extended release 2 tablet, By Mouth, 2 times a day, # 360 tablet, 1 Refills, 04/03/21 8:50:00 EST, [facility]/pharmacy #[id number], 162.56, cm, 03/17/21 8:25:00 EST, Height Start Date: 04/03/21 Status: Ordered Metoprolol Tartrate 25 mg oral tablet 1 tablet, By Mouth, 2 times a day, # 180 tablet, 1 Refills, [facility], 162.56, cm, 03/17/21 8:25:00 EST, Height Start Date: 04/21/21 Status: Ordered montelukast 10 mg oral tablet 1, tablet, By Mouth, Daily, # 90 tablet, Refills 1, Route to Pharmacy Electronically, [facility], 162.56, cm, 03/17/21 8:25:00 EST, Height Start Date: 04/21/21 Status: Ordered multivitamin Therapeutic Multiple Vitamins oral tablet 1, tablet, By Mouth, Daily, 0, 0, 05/25/05 16:31:13, 1.98022m+006, Constant Indicator Start Date: 05/25/05 Status: Ordered nystatin topical 206216 u/gm powder See Instructions, APPLY TOPICALLY TO THE AFFECTED AREA 2 OR 3 TIMES A DAY., # 60 Gm, 1 Refills, [facility], 20, APPLY TOPICALLY TO THE AFFECTED AREA 2 OR 3 TIMES A DAY., 162.56, cm, 03/17/21 8:25:00 EST, Height Start Date: 04/21/21 Status: Ordered oxyCODONE 5 mg oral capsule 2 capsule = 10 mg, By Mouth, Every 8 hours, PRN for pain, 0 Refills, Maintenance, 05/16/18 9:44:38 EST, Capsule Start Date: 05/16/18 Status: Ordered ProAir HFA 90 mcg/inh inhalation aerosol with adapter 2, puffs, Inhalation, Every 6 hours, PRN, # 8.5 Gm, Refills 11, Tot. Refills 11, Maintenance, 07/03/20 11:25:00 EST, Route to Pharmacy Electronically, [id number], [facility]/pharmacy #[id number], 163.25, cm, 06/21/20 15:02:00 EST, Height Start Date: 07/03/20 Status: Ordered Protonix 20 mg oral delayed release tablet = 40 mg, By Mouth, Daily, 0 Refills, Maintenance, 08/10/12 13:36:33 EDT Start Date: 08/10/12 Status: Ordered topiramate 25 [...] By Mouth, Daily, 0, 0, 05/22/05 18:31:07, 1.04896l+006, Constant Indicator Start Date: 05/22/05 Status: Ordered Wellbutrin XL 300 mg/24 hours oral tablet, extended release ORAL, TABLET, EXTENDED RELEASE, 0 Refill(s),, 0 Refills, 08/29/18 12:03:00 EDT Start Date: 08/29/18 Status: Ordered ZyrTEC 10 mg oral tablet 1 tablet = 10 mg, By Mouth, Daily at bedtime, 0 Refills, Maintenance, 03/12/21 16:17:00 EST, Partial fill upon patient request if the prescription is for a schedule II opioid drug. Start Date: 03/12/21 Status: Ordered Problem List Condition Effective Dates [...]
--- OUTSIDE RECORDS SUMMARY | 2024-03-24 12:21 | XMS_ITS | Continuity of Care Document ---
Author Organization [facility] Address [address] [place] [address]- Care Team Providers Care Jigger Artisan Name Role Phone Blayne RANDALL, Ana Jameson Primary Care Physician ( [phone] Encounter [facility] ACCT R [id number] Date(s): 05/14/22 - 07/23/[address] [address]- Encounter Diagnosis Lesion of sciatic nerve, unspecified lower limb(Final) - Discharge Disposition: A-D/C Home Allergies, Adverse Reactions, Alerts Substance Reaction Severity Status sulfa drugs swelling itching Active Provera rash Active Latex rash Active Soy Products swelling, rash Active Immunizations Given and Recorded Vaccine Date Status Refusal Reason [id number] 12y+ bivalent booster vax 06/12/22 Recorded tetanus/diphtheria/pertussis, acel(Tdap) 1 06/01/22 Given SARS-CoV-2 (COVID-19) mRNA BNT-162b2 vac 02/26/21 Recorded SARS-CoV-2 (COVID-19) mRNA BNT-162b2 vac 08/01/20 Recorded SARS-CoV-2 (COVID-19) mRNA BNT-162b2 vac 07/11/20 Recorded influenza virus vaccine, inactivated 3 02/25/21 Gi miguel influenza virus vaccine, inactivated 02/08/19 Give n Influenza Virus Vaccine (oldterm) 02/03/20 Recorde d Not Given Vaccine Date Status Refusal Reason tetanus/diphtheria/pertussis, acel(Tdap) 2 02/04/22 Not Given Patient Refuses 1Result Comment: [facility] [id number] 2Result Comment: [facility] [id number] 3Result Comment: pt will do next time in [...] opioid drug. Start Date: 10/03/21 Status: Ordered BD UF MINI PEN NEEDLE [id number] BD UF MINI PEN NEEDLE [id number], See Instructions, # 100 Unknown, 5 Refills, Maintenance, USE DIRECTED 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 Start Date: 06/12/22 Status: Ordered cetirizine 10 mg oral tablet 1 tablet, By Mouth, Daily, # 90 tablet, 1 Refills, [facility], 163.25, cm, 02/25/21 15:12:00 EDT, Height Start [...] Refills, Maintenance, 10/30/19 7:22:00 EDT, Chew Tablet, [id number], 163.25, cm, 10/18/19 11:00:00 EDT, Height Start Date: 10/30/19 Status: Ordered fluconazole 150 mg oral tablet 1 tablet = 150 mg, By Mouth, Once, # 1 tablet, 0 Refills, Soft Stop, 12/24/21 14:01:00 EDT, Tablet,[id number], Partial fill upon patient request if [...] 1 Refills, Soft Stop, 05/21/20 2:30:00 EST, [facility]/pharmacy #[id number], SPRAY 2 SPRAYS INTO EACH [...] tablet, 3 Refills, Maintenance, 03/31/22 12:48:00 EST, [facility]/pharmacy#0693, 163, cm, 03/25/22 16:47:00 EST, Height, 123.7, kg, 10/06/21 7:05:00 EDT, Dry Weight Start Date: 03/31/22 Stop Date: 03/26/23 Status: Ordered Lantus Solostar Pen 100 units/mL subcutaneous solution See Instructions, INJECT 47 UNITS INTO THE SKIN ONCE A DAY DX E11.9, # 30 mL, 5 Refills, 12/12/21 9:28:00 EDT, [facility]/pharmacy #[id number], 163, cm, 12/02/21 9:43:00 EDT, Height, [...] 03/24/22 4:05:00 EST, Route to Pharmacy Electronically, [facility], 163, cm, 03/10/22 15:21:00 EST, Height, 123.7, kg, 10/06/21 7:05:00 EDT, Dry Weight Start Date: 03/24/22 Status: Ordered meclizine 12.5 mg oral tablet 1 tablet = 12.5 mg, By Mouth, 3 times a day, PRN for dizziness, # 30 tablet, 1 Refills, Maintenance, 05/29/19 11:21:00 EST, Tablet, [facility]/pharmacy #[id number], 163.25, cm, 05/29/19 11:18:00 EST, Height Start Date: 05/29/19 Status: Ordered meclizine 12.5 mg oral tablet 1 tablet = 12.5 mg, By Mouth, 3 times a day, PRN for dizziness, # 30 tablet, 0 Refills, Maintenance, 11/19/21 11:34:00 EDT, Tablet, [facility]/pharmacy #[id number], Partial fill upon patient request if [...] tablet, 2 Refills, Maintenance, 09/30/21 13:54:00 EDT, [facility]/pharmacy #[id number], 163, cm, 09/26/21 7:21:00 EDT, [...] tablet, 1 Refills, Maintenance, 03/24/22 4:05:00 EST, [facility], 163, cm, 03/10/22 15:21:00 EST, Height, 123.7, kg, 10/06/21 7:05:00 EDT, Dry Weight Start Date: 03/24/22 Status: Ordered montelukast 10 mg oral tablet 1, tablet, By Mouth, Daily, # 90 tablet, Refills 1, Maintenance, 03/24/22 4:05:00 EST, Route to Pharmacy Electronically, [facility] STORE [id number], 163, cm, 03/10/22 15:21:00 EST, Height, 123.7, kg, 10/06/21 7:05:00 EDT, Dry Weight Start Date: 03/24/22 Status: Ordered multivitamin Therapeutic Multiple Vitamins oral tablet 1, tablet, By Mouth, Daily, 0, 0, 05/25/05 16:31:13, 1.57436a+006, Constant Indicator Start Date: 05/25/05 Status: Ordered nystatin topical 876944 u/gm powder See Instructions, APPLY TOPICALLY TO THE AFFECTED AREA 2 OR 3 TIMES A DAY., # 60 Gm, 1 Refills, Maintenance, 04/06/22 8:27:00 EST, [facility], 20, APPLY TOPICALLY TO THE AFFECTED AREA [...] 3 Refills, Maintenance, 11/06/21 8:07:00 EDT, Aerosol, [facility]/pharmacy #[id number], Partial fill upon patient request if [...] Date Device Type Site Cystoscopy Retrograde Ureteroscopy W Dayne Chisholm MD, Giovanny Cameron 10/06/21 Unknown Ureter Device Identifier Serial Number Lot or Batch Number Manufacturing Date Expiration Date Distinct Identification Code MRI Safety Implantable Status Assigning Authority Unknown Unknown [id number] Unknown 01/06/24 Unknown Unknown Active Unknown Patient Care team information Care Team Personnel Name: Ana iCsneros NP Position: [facility] PCO Associate Professional Member Role: PCP Address: Address: [address] [place] [address] [address] Care Team Related Persons Name: NIA WHITE Address: [place] [address] Name: CALLY BERRY Address: home [address] [place] [address]
--- OUTSIDE RECORDS SUMMARY | 2024-03-24 12:21 | XMS_ITS | Continuity of Care Document ---
Author Organization [facility] Address [address] [place] [address]- Care Team Providers Care Day Treatment Clinician/Art Therapist Name Role Phone Blayne RANDALL, Ana Jameson Primary Care Physician Encounter 08/17/23 - 08/24/23 [facility] [address] [place] [address]- Attending Physician: Kerrie Dumont MD Admitting Physician: [...] influenza virus vaccine, inactivated 02/08/19 Give n [id number] 12y+ bivalent booster vax 06/12/22 Recorded tetanus/diphtheria/pertussis, acel(Tdap) 2 06/01/22 Given SARS-CoV-2 (COVID-19) mRNA BNT-162b2 vac 02/26/21 Recorded SARS-CoV-2 (COVID-19) mRNA BNT-162b2 vac 08/01/20 Recorded SARS-CoV-2 (COVID-19) mRNA BNT-162b2 vac 07/11/20 Recorded Influenza Virus Vaccine (oldterm) 02/03/20 Recorde d 1Result Comment: [facility] [id number] 2Result Comment: [facility] [id number] Medications Albuterol (Eqv-ProAir HFA) 90 mcg/inh inhalation aerosol 2 puffs, Inhalation, Every 6 hours, PRN NEEDED FOR WHEEZING, # 8.5 each, 11 Refills, Maintenance, 09/09/22 9:05:00 EDT, [facility], 17, TAKE 2 PUFFS BY MOUTH EVERY [...] Mouth, Daily, # 90 tablet, 1 Refills, [facility], 163.25, cm, 02/25/21 15:12:00 EDT, Height Start [...] Refills, Maintenance, 10/30/19 7:22:00 EDT, Chew Tablet, [facility]/pharmacy #0693, 163.25, cm, 10/18/19 11:00:00 EDT, [...] 1 Refills, Soft Stop, 05/21/20 2:30:00 EST, [facility]/pharmacy #0693, SPRAY 2 SPRAYS INTO EACH [...] tablet, 3 Refills, Maintenance, 03/31/22 12:48:00 EST, [facility]/pharmacy#0693, 163, cm, 03/25/22 16:47:00 EST, Height, 123.7, kg, 10/06/21 7:05:00 EDT, Dry Weight Start Date: 03/31/22 Stop Date: 03/26/23 Status: Ordered Lantus 100 u/ml subcutaneous solution [...] 03/24/22 4:05:00 EST, Route to Pharmacy Electronically, [facility] STORE 57203, 163, cm, 03/10/22 15:21:00 EST, Height, 123.7, kg, 10/06/21 7:05:00 EDT, Dry Weight Start Date: 03/24/22 Status: Ordered meclizine 12.5 mg oral tablet 1 tablet = 12.5 mg, By Mouth, 3 times a day, PRN for dizziness, # 30 tablet, 0 Refills, Maintenance, 11/19/21 11:34:00 EDT, Tablet, [facility]/pharmacy #0693, Partial fill upon patient request [...] 2 times a day, # 360 tablet, 0 Refills, Maintenance, 03/24/23 8:42:00 EST, [facility]/pharmacy #0693, 163, cm, 03/18/23 7:42:00 EST, Height, 125.8, kg, 03/18/23 7:42:00 EST, Dry Weight Start Date: 03/24/23 Status: Ordered methenamine hippurate 1 gm oral tablet 1 tablet = 1 Gm, By Mouth, 2 times a day, 0 Refills, Maintenance, 03/10/22 15:34:00 EST, Partial fill upon patient request if the prescription is for a schedule II opioid drug. Start Date: 03/10/22 Status: Ordered metoprolol 25 mg oral tablet 25 mg, 1, tablet, By Mouth, 2 times a day, # 180 tablet, Refills 1, Tot. Refills 1, Maintenance, 03/15/23 11:12:00 EST, Route to Pharmacy Electronically, [facility]/pharmacy #0693, Partial fill upon patientrequest if the prescription is for a schedule II op... Start Date: 03/15/23 Status: Ordered montelukast 10 mg oral tablet 1, tablet, By Mouth, Daily, # 90 tablet, Refills 1, Tot. Refills 1, Maintenance, 06/14/23 9:13:00 EST, Route to Pharmacy Electronically, [facility]/pharmacy #0693, 163, cm, 05/24/23 11:13:00 EST, Height, 125.8, kg, 03/18/23 7:42:00 EST, Dry Weight Start Date: 06/14/23 Status: Ordered multivitamin Therapeutic Multiple Vitamins oral tablet 1, tablet, By Mouth, Daily, 0, 0, 05/25/05 16:31:13, 1.07567u+006, Constant Indicator Start Date: 05/25/05 Status: Ordered nystatin topical 287897 u/gm powder See Instructions, APPLY TOPICALLY TO THE AFFECTED AREA 2 OR 3 TIMES A DAY., # 60 Gm, 1 Refills, Maintenance, 09/09/22 9:05:00 EDT, [facility] ST[facility] 78803, 20, APPLY TOPICALLY TO THE AFFECTED AREA [...] D deficiency Confirmed Active Vitiligo Confirmed Active Results Radiology Reports * Exam Date Time Procedure Performing Provider Status 08/17/23 2:07 PM MM Digital Mammo Screening Danni Rodriguez; Auth (Verified) Notes: (MM Digital Mammo Screening) Reason For Exam: Z12.31 SCREENING MAMMO RESULT: MM Digital Mammo Screening PROCEDURE: MM Digital Mammo Screening INDICATION: Screening for breast cancer. No known palpable abnormalities. COMPARISON: Back to 10/19/2019. TECHNIQUE: Full-field digital CC and MLO 3-D tomosynthesis images of both breasts were acquired. Computer-aided detection (CAD) was utilized in the interpretation of this study. DENSITY: There are scattered areas of fibroglandular density. FINDINGS: No suspicious masses, suspicious microcalcifications, or areas of architectural distortion are seen in either breast to suggest malignancy. IMPRESSION: No mammographic evidence of malignancy. RECOMMENDATION: Annual mammographic screening BI-RADS: 2 (Benign) Lay letter mailed to patient I have personally reviewed the images and I agree with this report. WSN: [id number] Ordering Physician: Kerrie Dumont Dictated By: Jose Lidnsay MD Dictated Date/Time: 08/17/23 2:46 pm Reviewed By: Iban José MD Signed By: Iban José MD Signed Date/Time: 08/17/23 2:51 pm Transcribed By: CASEY Electric Meter Installer Date/Time: 08/17/23 2:13 pm Birads: Social History Social History Type Response Smoking Status Former smoker, quit more than 30 days ago entered on: 08/20/21 Sex Implantable Device List Procedure Provider Procedure Date Device Type Site Cystoscopy Retrograde Ureteroscopy W Giovanny Horne MD 10/06/21 Unknown Ureter Device Identifier Serial Number Lot or Batch Number Manufacturing Date Expiration Date Distinct Identification Code MRI Safety Implantable Status Assigning Authority Unknown Unknown [id number] Unknown 01/06/24 Unknown Unknown Active Unknown Patient Care team information Care Team Personnel Name: Blayne RANDALL, Ana Jameson Position: [facility] PCO Associate Professional Member Role: PCP Address: Address: [address] [place] [address] [place] [address]- Care Team Related Persons Name: NIA WHITE Address: [place] [address] Name: CALLY BERRY Address: [place] [address]
--- OUTSIDE RECORDS SUMMARY | 2024-03-24 12:21 | XMS_ITS | Continuity of Care Document ---
Author Organization [facility] Address [address] [place] [address]- Care Team Providers Care Warp Spinner Name Role Phone Blayne RANDALL, Ana Jameson Primary Care Physician [place] [facility] [place]/28/[place] - 11/27/[address] [address] Attending Physician: AdmZoe shi Admitting Physician: Admtr, Ar8 Referring Physician: Admtr, Ar8 Allergies, Adverse Reactions, Alerts Substance Reaction Severity Status sulfa drugs swelling itching Active Provera rash Active Latex rash Active Soy Products swelling, rash Active Immunizations Given and Recorded Vaccine Date Status Refusal Reason [id number] 12y+ bivalent booster vax 06/12/22 Recorded tetanus/diphtheria/pertussis, [...] 02/04/22 Not Given Patient Refuses 1Result Comment: [facility] 14039-619-25 2Result Comment: [facility] 05359-031-57 3Result Comment: pt will do next time in Medications Advair Diskus 250 mcg-50 mcg inhalation powder 1 puffs, Inhalation, 2 times a day, 0 Refills, Maintenance Start Date: 08/10/12 Status: Ordered Albuterol (Eqv-ProAir HFA) 90 mcg/inh inhalation aerosol 2 puffs, Inhalation, Every 6 hours, PRN NEEDED FOR WHEEZING, # 8.5 each, 11 Refills, Maintenance, 09/09/22 9:05:00 EDT, [facility], 17, TAKE 2 PUFFS BY MOUTH EVERY [...] Status: Ordered BD UF MINI PEN NEEDLE [id number] BD UF MINI PEN NEEDLE [id number], See Instructions, # 100 Unknown, 5 Refills, Maintenance, 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 Start Date: 06/12/22 Status: Ordered cetirizine 10 mg oral tablet 1 tablet, By Mouth, Daily, # 90 tablet, 1 Refills, [facility], 163.25, cm, 02/25/21 15:12:00 EDT, Height Start [...] Refills, Maintenance, 10/30/19 7:22:00 EDT, Chew Tablet, [facility]/pharmacy #0693, 163.25, cm, 10/18/19 11:00:00 EDT, Height Start Date: 10/30/19 Status: Ordered fluconazole 150 mg oral tablet 1 tablet = 150 mg, By Mouth, Once, # 1 tablet, 0 Refills, Soft Stop, 12/24/21 14:01:00 EDT, Tablet,[facility]/pharmacy #0693, Partial fill upon patient [...] 1 Refills, Soft Stop, 05/21/20 2:30:00 EST, [facility]/pharmacy #0693, SPRAY 2 SPRAYS INTO [...] Daily, # 90 tablet, 3 Refills, Maintenance, 11/29/22 12:48:00 EST, [facility]/pharmacy#0693, 163, cm, 03/25/22 16:47:00 EST, Height, 123.7, kg, 10/06/21 7:05:00 EDT, Dry Weight Start Date: 03/31/22 Stop Date: 03/26/23 Status: Ordered Lantus Solostar Pen 100 units/mL subcutaneous solution See Instructions, INJECT 47 UNITS INTO THE SKIN ONCE A DAY DX E11.9, # 30 mL, 5 Refills, 11/10/22 10:36:00 EDT, [facility], 163, cm, 11/04/22 9:00:00 EDT, Height, 123.7, kg, 10/06/21 7:05:00 EDT, Dry Weight Start Date: 11/10/22 Status: Ordered Lipitor 10 mg oral tablet 1 tablet = 10 mg, By Mouth, Daily at bedtime, # 30 tablet, 0 Refills, Maintenance Start Date: 03/09/18 Status: Ordered lisinopril 2.5 mg oral tablet 1, tablet, By Mouth, Daily, # 90 tablet, Refills 1, Maintenance, 03/24/22 4:05:00 EST, Route to Pharmacy Electronically, [facility] 78[facility], 163, cm, 03/10/22 15:21:00 EST, Height, 123.7, kg, 10/06/21 7:05:00 EDT, Dry Weight Start Date: 03/24/22 Status: Ordered meclizine 12.5 mg oral tablet 1 tablet = 12.5 mg, By Mouth, 3 times a day, PRN for dizziness, # 30 tablet, 1 Refills, Maintenance, 05/29/19 11:21:00 EST, Tablet, [facility]/pharmacy #0693, 163.25, cm, 05/29/19 11:18:00 EST, Height Start Date: 05/29/19 Status: Ordered meclizine 12.5 mg oral tablet 1 tablet = 12.5 mg, By Mouth, 3 times a day, PRN for dizziness, # 30 tablet, 0 Refills, Maintenance, 11/19/21 11:34:00 EDT, Tablet, [facility]/pharmacy #0693, Partial fill upon patient [...] day, # 360 tablet, 2 Refills, Maintenance, 09/08/22 11:26:00 EDT, [facility], 163, cm, 09/07/22 11:03:00 EDT, Height, 123.7, kg, 10/06/21 7:05:00 EDT, Dry Weight Start Date: 09/08/22 Status: Ordered methenamine hippurate 1 gm oral [...] times a day, # 180 tablet, Refills 0, Tot. Refills 0, Maintenance, 11/10/22 9:23:00 EDT, Route to Pharmacy Electronically, [facility]/pharmacy #0671, Partial fill upon patient request if the prescription is for a schedule II opi... Start Date: 11/10/22 Status: Ordered montelukast 10 mg oral tablet 1, tablet, By Mouth, Daily, # 90 tablet, Refills 1, Maintenance, 11/09/22 18:24:00 EDT, Route to Pharmacy Electronically, [facility], 163, cm, 11/04/22 9:00:00 EDT, Height, 123.7, kg, 10/06/21 7:05:00 EDT, Dry Weight Start Date: 11/09/22 Status: Ordered multivitamin Therapeutic Multiple Vitamins oral tablet 1, tablet, By Mouth, Daily, 0, 0, 05/25/05 16:31:13, 1.04801x+006, Constant Indicator Start Date: 05/25/05 Status: Ordered nystatin topical 031961 u/gm powder See Instructions, APPLY TOPICALLY TO THE AFFECTED AREA 2 OR 3 TIMES A DAY., # 60 Gm, 1 Refills, Maintenance, 09/09/22 9:05:00 EDT, [facility] 30[facility], 20, APPLY TOPICALLY TO THE AFFECTED AREA 2 OR 3 TIMES A DAY., 163, cm, 09/07/22 11:03:00 EDT, Height, 1... Start Date: 09/09/22 Status: Ordered oxyCODONE 5 mg oral capsule [...] BEFORE MEALS Start Date: 07/17/21 Status: Ordered Vistaril pamoate 25 mg oral [...] Safety Implantable Status Assigning Authority Unknown Unknown [id number] Unknown 01/06/24 Unknown Unknown Active Unknown Patient Care team information Care Team Personnel Name: Blayne RANDALL, Ana Jameson Position: [facility] PCO Associate Professional Member Role: PCP Address: Address: [address] [place] [address] [address] Care Team Related Persons Name: NIA WHITE Address: [place] [address] Name: CALLY BERRY Address: home [address] [place] [address]
--- OUTSIDE RECORDS SUMMARY | 2024-03-24 12:21 | XMS_ITS | Continuity of Care Document ---
Author Organization [facility] Address [address] [place] [address]- Care Team Providers Care Emergency Medical Technician Name Role Phone Blayne RANDALL, Ana Jameson Primary Care Physician En[place] [facility] [place] Date(s): 04/02/21 - 05/02/21 [facility] [address] [place] [address]- Allergies, Adverse Reactions, Alerts Substance Reaction Severity Status sulfa drugs swelling itching Active Provera rash Active Latex rash Active Soy Products swelling, rash Active Immunizations Given and Recorded Vaccine Date Status Refusal Reason influenza virus vaccine, inactivated 1 02/25/21 Gi miguel influenza virus vaccine, inactivated 02/08/19 Give n Influenza Virus Vaccine (oldterm) 02/03/20 Recorde d 1Result Comment: [facility] [id number] Medications Advair Diskus 250 mcg-50 mcg inhalation powder 1 puffs, Inhalation, 2 times a day, 0 Refills, Maintenance Start Date: 08/10/12 Status: Ordered cetirizine 10 mg oral tablet 1 tablet, By Mouth, Daily, # 90 tablet, 1 Refills, [facility] 78165, 163.25, cm, 02/25/21 15:12:00 EDT, Height Start [...] Maintenance, 10/30/19 7:22:00 EDT, Chew Tablet, [facility]/pharmacy #0693, 163.25, cm, 10/18/19 11:00:00 EDT, Height [...] Refills, Soft Stop, 05/21/20 2:30:00 EST, [facility]/pharmacy #0693, SPRAY 2 SPRAYS INTO EACH NOSTRIL [...] tablet, 1 Refills, Maintenance, 03/06/21 9:29:00 EDT, [facility]/pharmacy #0693, 163.25, cm, 03/06/21 9:09:00 EDT, Height Start Date: 03/06/21 Status: Ordered Lantus Solostar Pen 100 units/mL subcutaneous solution See Instructions, INJECT 56 UNITS INTO THE SKIN ONCE A DAY AT BEDTIME, # 15 Unknown, 5 Refills, [facility], 163.25, cm, 01/23/21 8:57:00 EDT, Height Start Date: 01/31/21 Status: Ordered Lipitor 10 mg oral tablet 1 tablet = 10 mg, By Mouth, Daily at bedtime, # 30 tablet, 0 Refills, Maintenance Start Date: 03/09/18 Status: Ordered lisinopril 5 mg oral tablet 0.5, tablet, By Mouth, Daily, # 45 tablet, Refills 1, Route to Pharmacy Electronically, [facility] 34231, 163.25, cm, 01/23/21 8:57:00 EDT, Height Start Date: 02/11/21 Status: Ordered meclizine 12.5 mg oral tablet 1 tablet = 12.5 mg, By Mouth, 3 times a day, PRN for dizziness, # 30 tablet, 1 Refills, Maintenance, 05/29/19 11:21:00 EST, Tablet, [facility]/pharmacy #0693, 163.25, cm, 05/29/19 11:18:00 EST, Height Start Date: 05/29/19 Status: Ordered mesalamine 1000 mg rectal suppository See Instructions, 1 supp Rectally bid, 0 Refills, Maintenance, 02/08/19 10:23:07 EDT Start Date: 02/08/19 Status: Ordered MetFORMIN (Eqv-Glucophage XR) 500 mg oral tablet, extended release 2 tablet, By Mouth, 2 times a day, # 360 tablet, 1 Refills, 04/03/21 8:50:00 EST, [facility]/pharmacy #0693, 162.56, cm, 03/17/21 8:25:00 EST, Height Start Date: 04/03/21 Status: Ordered Metoprolol Tartrate 25 mg oral tablet 1 tablet, By Mouth, 2 times a day, # 180 tablet, 1 Refills, [facility] 48903, 162.56, cm, 03/17/21 8:25:00 EST, Height Start Date: 04/21/21 Status: Ordered montelukast 10 mg oral tablet 1, tablet, By Mouth, Daily, # 90 tablet, Refills 1, Route to Pharmacy Electronically, [facility] 09894, 162.56, cm, 03/17/21 8:25:00 EST, Height Start Date: 04/21/21 Status: Ordered multivitamin Therapeutic Multiple Vitamins oral tablet 1, tablet, By Mouth, Daily, 0, 0, 05/25/05 16:31:13, 1.21560y+006, Constant Indicator Start Date: 1/23/06 Status: Ordered nystatin topical 137481 u/gm powder See Instructions, APPLY TOPICALLY TO THE AFFECTED AREA 2 OR 3 TIMES A DAY., # 60 Gm, 1 Refills, [facility], 20, APPLY TOPICALLY TO THE AFFECTED AREA [...] 07/03/20 11:25:00 EST, Route to Pharmacy Electronically, [id number], [facility]/pharmacy #0693, 163.25, cm, 06/21/20 15:02:00 EST, Height [...] By Mouth, Daily, 0, 0, 05/22/05 18:31:07, 1.17821e+006, Constant Indicator Start Date: 05/22/05 Status: Ordered [...]
--- OUTSIDE RECORDS SUMMARY | 2024-03-24 12:21 | XMS_ITS | Continuity of Care Document ---
Author Organization [facility] Address [address] [place] [address]- Care Team Providers Care Bobbin Washer Name Role Phone Blayne RANDALL, Ana Jameson Primary Care Physician Encounter [facility] [place] Date(s): 03/03/23 - 04/02/23 [facility] [address] [place], [place] [address] Attending Physician: Admtr, Roni8 Admitting Physician: Admtr, Ar8 Referring Physician: Admtr, Ar8 Allergies, Adverse Reactions, Alerts Substance Reaction Severity Status Soy Products swelling, rash Active Latex rash Active sulfa drugs swelling itching Active Provera rash Active Immunizations Given and Recorded Vaccine Date Status Refusal Reason influenza virus vaccine, inactivated 02/01/23 Give n influenza virus vaccine, inactivated 1 02/25/21 Gi miguel influenza virus vaccine, inactivated 02/08/19 Give n [id number] 12y+ bivalent booster vax 06/12/22 Recorded tetanus/diphtheria/pertussis, acel(Tdap) 2 06/01/22 Given SARS-CoV-2 (COVID-19) mRNA BNT-162b2 vac 02/26/21 Recorded SARS-CoV-2 (COVID-19) mRNA BNT-162b2 vac 08/01/20 Recorded SARS-CoV-2 (COVID-19) mRNA BNT-162b2 vac 07/11/20 Recorded Influenza Virus Vaccine (oldterm) 02/03/20 Recorde d 1Result Comment: [facility] [id number] 2Result Comment: [facility] 48943-363-87 Medications Albuterol (Eqv-ProAir HFA) 90 mcg/inh inhalation aerosol 2 puffs, Inhalation, Every 6 hours, PRN NEEDED FOR WHEEZING, # 8.5 each, 11 Refills, Maintenance, 09/09/22 9:05:00 EDT, [facility], 17, TAKE 2 PUFFS BY MOUTH EVERY [...] Status: Ordered BD UF MINI PEN NEEDLE [id number] BD UF MINI PEN NEEDLE [id number], See Instructions, # 100 Unknown, 5 Refills, Maintenance, 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 Start Date: 06/12/22 Status: Ordered buPROPion 150 mg/24 hours (XL) [...] # 90 tablet, 1 Refills, [facility], 163.25, cm, 02/25/21 15:12:00 EDT, Height Start [...] tablet, 3 Refills, Maintenance, 03/31/22 12:48:00 EST, [facility]/pharmacy#0693, 163, cm, 03/25/22 16:47:00 EST, Height, 123.7, kg, 10/06/21 7:05:00 EDT, Dry Weight Start Date: 03/31/22 Stop Date: 03/26/23 Status: Ordered Lantus Solostar Pen 100 units/mL subcutaneous solution See Instructions, INJECT 47 UNITS INTO THE SKIN ONCE A DAY DX E11.9, # 30 mL, 5 Refills, 12/01/22 13:46:00 EDT, [facility]/pharmacy #0693, 163, cm, 12/01/22 13:22:00 EDT, Height, 123.7, kg, 10/06/21 7:05:00EDT, Dry Weight Start Date: 12/01/22 Status: Ordered Lipitor 10 mg oral tablet 1 tablet = 10 mg, By Mouth, Daily at bedtime, # 30 tablet, 0 Refills, Maintenance Start Date: 03/09/18 Status: Ordered lisinopril 2.5 mg oral tablet 1, tablet, By Mouth, Daily, # 90 tablet, Refills 1, Maintenance, 03/24/22 4:05:00 EST, Route to Pharmacy Electronically, [facility] STORE 13455, 163, cm, 03/10/22 15:21:00 EST, Height, 123.7, kg, 10/06/21 7:05:00 EDT, Dry Weight Start Date: 03/24/22 Status: Ordered meclizine 12.5 mg oral tablet 1 tablet = 12.5 mg, By Mouth, 3 times a day, PRN for dizziness, # 30 tablet, 0 Refills, Maintenance, 11/19/21 11:34:00 EDT, Tablet, [facility]/pharmacy #0693, Partial fill upon patient request [...] tablet, 0 Refills, Maintenance, 03/24/23 8:42:00 EST, [facility]/pharmacy #0693, 163, cm, 03/18/23 7:42:00 EST, Height, [...] 03/15/23 11:12:00 EST, Route to Pharmacy Electronically, [facility]/pharmacy #0693, Partial fill upon patientrequest if the prescription is for a schedule II op... Start Date: 03/15/23 Status: Ordered montelukast 10 mg oral tablet 1, tablet, By Mouth, Daily, # 90 tablet, Refills 1, Maintenance, 11/09/22 18:24:00 EDT, Route to Pharmacy Electronically, [facility], 163, cm, 11/04/22 9:00:00 EDT, Height, 123.7, kg, 10/06/21 7:05:00 EDT, Dry Weight Start Date: 11/09/22 Status: Ordered multivitamin Therapeutic Multiple Vitamins oral tablet 1, tablet, By Mouth, Daily, 0, 0, 05/25/05 16:31:13, 1.15880b+006, Constant Indicator Start Date: 05/25/05 Status: Ordered nystatin topical 329901 u/gm powder See Instructions, APPLY TOPICALLY TO THE AFFECTED AREA 2 OR 3 TIMES A DAY., # 60 Gm, 1 Refills, Maintenance, 09/09/22 9:05:00 EDT, [facility], 20, APPLY TOPICALLY TO THE AFFECTED AREA [...] SLEEP NEEDED Start Date: 12/01/22 Status: Ordered Vistaril pamoate 25 mg oral [...] Safety Implantable Status Assigning Authority Unknown Unknown [id number] Unknown 01/06/24 Unknown Unknown Active Unknown Patient Care team information Care Team Personnel Name: Blayne RANDALL, Ana Jameson Position: [facility] PCO Associate Professional Member Role: PCP Address: Address: [address] [place] [address] [place] [address]- Care Team Related Persons Name: NIA WHITE Address: [place] [address] Name: CALLY BERRY Address: [place] [address]
--- OUTSIDE RECORDS SUMMARY | 2024-03-24 12:21 | XMS_ITS | Continuity of Care Document ---
Author Organization [facility] Address [address] [place] [address]- Care Team Providers Care Logistics Supply Officer Name Role Phone Blayne RANDALL, Ana Jameson Primary Care Physician [facility]counter [facility] Date(s): 09/03/23 - 10/03/23 [facility] [address] [place] [id number] Allergies, Adverse Reactions, Alerts Substance Reaction Severity Status Latex rash Active Soy Products swelling, rash Active sulfa drugs swelling itching Active Provera rash Active Immunizations Given and Recorded Vaccine Date Status Refusal Reason RSV vaccine, preF A-preF B, recombinant 04/19/23 R ecorded influenza virus vaccine, inactivated 02/01/23 Give n influenza virus vaccine, inactivated 1 02/25/21 Gi miguel influenza virus vaccine, inactivated 02/08/19 Give n [id number] 12y+ bivalent booster vax 06/12/22 Recorded tetanus/diphtheria/pertussis, acel(Tdap) 2 06/01/22 Given SARS-CoV-2 (COVID-19) mRNA BNT-162b2 vac 02/26/21 Recorded SARS-CoV-2 (COVID-19) mRNA BNT-162b2 vac 08/01/20 Recorded SARS-CoV-2 (COVID-19) mRNA BNT-162b2 vac 07/11/20 Recorded Influenza Virus Vaccine (oldterm) 02/03/20 Recorde d 1Result Comment: [facility] 96608-216-09 2Result Comment: [facility] 07809-706-35 Medications Albuterol (Eqv-ProAir HFA) 90 mcg/inh inhalation aerosol 2 puffs, Inhalation, Every 6 hours, PRN NEEDED FOR WHEEZING, # 8.5 each, 11 Refills, Maintenance, 09/09/22 9:05:00 EDT, [facility], 17, TAKE 2 PUFFS BY MOUTH EVERY [...] Mouth, Daily, # 90 tablet, 1 Refills, [facility] 80125, 163.25, cm, 02/25/21 15:12:00 EDT, Height Start [...] Maintenance, 10/30/19 7:22:00 EDT, Chew Tablet, [facility]/pharmacy #0693, 163.25, cm, 10/18/19 11:00:00 EDT, Height [...] Refills, Soft Stop, 05/21/20 2:30:00 EST, [facility]/pharmacy #0693, SPRAY 2 SPRAYS INTO EACH NOSTRIL [...] tablet, 5 Refills, Maintenance, 09/28/23 14:44:00 EDT, [facility]/pharmacy#0693, 163, cm, 08/30/23 11:08:00 EDT, Height, 125.8, [...] EST, Route to Pharmacy Electronically, [facility], 163, cm, 03/10/22 15:21:00 EST, Height, 123.7, kg, 10/06/21 7:05:00 EDT, Dry Weight Start Date: 03/24/22 Status: Ordered meclizine 12.5 mg oral tablet 1 tablet = 12.5 mg, By Mouth, 3 times a day, PRN for dizziness, # 30 tablet, 0 Refills, Maintenance, 11/19/21 11:34:00 EDT, Tablet, [facility]/pharmacy #0693, Partial fill upon patient request if [...] tablet, 1 Refills, Maintenance, 08/25/23 11:22:00 EDT, [facility], 163, cm, 07/26/23 11:18:00 EDT, Height, 125.8, [...] tablet, 0 Refills, Maintenance, 09/03/23 2:33:00 EDT, [facility]/pharmacy #0693, 163, cm, 08/30/23 11:08:00 EDT, Height, 125.8, kg, 03/18/23 7:42:00 EST, Dry Weight Start Date: 09/03/23 Status: Ordered montelukast 10 mg oral tablet 1, tablet, By Mouth, Daily, # 90 tablet, Refills 1, Tot. Refills 1, Maintenance, 06/14/23 9:13:00 EST, Route to Pharmacy Electronically, [facility]/pharmacy #0693, 163, cm, 05/24/23 11:13:00 EST, Height, 125.8, kg, 03/18/23 7:42:00 EST, Dry Weight Start Date: 06/14/23 Status: Ordered multivitamin Therapeutic Multiple Vitamins oral tablet 1, tablet, By Mouth, Daily, 0, 0, 05/25/05 16:31:13, 1.27536v+006, Constant Indicator Start Date: 05/25/05 Status: Ordered nystatin topical 155554 u/gm powder See Instructions, APPLY TOPICALLY TO THE AFFECTED AREA 2 OR 3 TIMES A DAY., # 60 Gm, 1 Refills, Maintenance, 09/09/22 9:05:00 EDT, [facility], 20, APPLY TOPICALLY TO THE AFFECTED AREA [...] Safety Implantable Status Assigning Authority Unknown Unknown [id number] Unknown 01/06/24 Unknown Unknown Active Unknown Patient Care team information Care Team Personnel Name: Blayne RANDALL, Ana Jameson Position: [facility] PCO Associate Professional Member Role: PCP Address: Address: [address] [place] [address] [address] Care Team Related Persons Name: NIA WHITE Address: [place] [address] Name: CALLY BERRY Address: [place] [address]
--- OUTSIDE RECORDS SUMMARY | 2024-03-24 12:21 | XMS_ITS | Continuity of Care Document ---
Author Organization [facility] ter Address [address] [place] [address]- Care Team Providers Care Resource Analyst Name Role Phone Blayne RANDALL, Ana Jameson Primary Care Physician Encounter [facility] Date(s): 09/26/21 - 09/26/[address] [id number] Discharge Disposition: A-D/C Home Attending Physician: Orlando Seaman MD, I Admitting Physician: Orlando Seaman MD, I Referring Physician: Orlando Seaman MD, I Allergies, Adverse Reactions, Alerts Substance Reaction Severity [...] Vaccine (oldterm) 02/03/20 Recorde d 1Result Comment: [facility] [id number] Medications Advair Diskus 250 mcg-50 mcg inhalation powder 1 puffs, Inhalation, 2 times a day, 0 Refills, Maintenance Start Date: 08/10/12 Status: Ordered cetirizine 10 mg oral tablet 1 tablet, By Mouth, Daily, # 90 tablet, 1 Refills, [facility] ST[facility] 84108, 163.25, cm, 02/25/21 15:12:00 EDT, Height Start [...] Refills, Maintenance, 10/30/19 7:22:00 EDT, Chew Tablet, [facility]/pharmacy #0693, 163.25, cm, 10/18/19 11:00:00 EDT, [...] 1 Refills, Soft Stop, 05/21/20 2:30:00 EST, [facility]/pharmacy #0693, SPRAY 2 SPRAYS INTO [...] tablet, 3 Refills, Maintenance, 07/02/21 11:04:00 EST, [facility]/pharmacy#0693, 162.56, cm, 06/16/21 11:08:00 EST, Height, 125.8, kg, 06/16/21 11:08:00 EST, Dry Weight Start Date: 07/02/21 Status: Ordered Lantus Solostar Pen 100 units/mL subcutaneous solution See Instructions, INJECT 47 UNITS INTO THE SKIN ONCE A DAY DX E11.9, # 20 mL, 5 Refills, 07/29/21 6:38:00 EDT, [facility]/pharmacy #0693, 162.56, cm, 07/17/21 13:24:00 EDT, [...] tablet, Refills 1, Route to Pharmacy Electronically, [facility], 162.56, cm, 05/14/21 11:38:00 EST, Height Start Date: 05/20/21 Status: Ordered meclizine 12.5 mg oral tablet 1 tablet = 12.5 mg, By Mouth, 3 times a day, PRN for dizziness, # 30 tablet, 1 Refills, Maintenance, 05/29/19 11:21:00 EST, Tablet, [facility]/pharmacy #0693, 163.25, cm, 05/29/19 11:18:00 EST, Height Start Date: 05/29/19 Status: Ordered mesalamine 1000 mg rectal suppository See Instructions, 1 supp Rectally bid, 0 Refills, Maintenance, 02/08/19 10:23:07 EDT Start Date: 02/08/19 Status: Ordered MetFORMIN (Eqv-Glucophage XR) 500 mg oral tablet, extended release 2 tablet, By Mouth, 2 times a day, # 360 tablet, 1 Refills, 04/03/21 8:50:00 EST, [facility], 162.56, cm, 03/17/21 8:25:00 EST, Height Start Date: 04/03/21 Status: Ordered Metoprolol Tartrate 25 mg oral tablet 1 tablet, By Mouth, 2 times a day, # 180 tablet, 1 Refills, [facility], 162.56, cm, 08/20/21 11:09:00 EDT, Height, 125.8, kg, 06/16/21 11:08:00 EST, Dry Weight Start Date: 09/09/21 Status: Ordered montelukast 10 mg oral tablet 1, tablet, By Mouth, Daily, # 90 tablet, Refills 1, Route to Pharmacy Electronically, [facility] 49451, 162.56, cm, 08/20/21 11:09:00 EDT, Height, 125.8, kg, 06/16/21 11:08:00 EST, Dry Weight Start Date: 09/09/21 Status: Ordered multivitamin Therapeutic Multiple Vitamins oral tablet 1, tablet, By Mouth, Daily, 0, 0, 05/25/05 16:31:13, 1.96900c+006, Constant Indicator Start Date: 05/25/05 Status: Ordered nystatin topical 565652 u/gm powder See Instructions, APPLY TOPICALLY TO THE AFFECTED AREA 2 OR 3 TIMES A DAY., # 60 Gm, 1 Refills, Maintenance, 09/17/21 11:25:00 EDT, [facility]/pharmacy #0693, APPLY TOPICALLY TO THE AFFECTED [...] 07/03/20 11:25:00 EST, Route to Pharmacy Electronically, [id number], [facility]/pharmacy #0693, 163.25, cm, 06/21/20 15:02:00 EST, [...] Exam Date Time Procedure Performing Provider Status 09/26/21 8:58 AM C-Arm < 1 Hour Giovanny Vergara; Auth (Verified) Notes: (C-Arm < 1 Hour) Reason For Exam: Calculus of Kidney; Urethrocystography Retrograde Stent Placement RESULT: C-Arm < 1 Hour Urethrocystography Retrograde, C-Arm < 1 Hour INDICATION: Reason: Calculus of Kidney COMPARISONS: None TECHNIQUE: Fluoroscopy support was provided. There was no radiologist in attendance. FLUOROSCOPY TIME: 19 seconds EXPOSURE: 2.7898 Gycm2 TECHNOLOGIST TIME: 52 minutes FINDINGS: 3 images were submitted. A left ureteral stent was placed. Please refer to operative note for full details. IMPRESSION: See above. WSN: [id number] Ordering Physician: Orlando Seaman I Dictated By: Brant Hartman MD Dictated Date/Time: 09/26/21 11:36 a Reviewed By: Brant Hartman MD Signed By: Brant Hartman MD Signed Date/Time: 09/26/21 11:36 am Transcribed By: CASEY Transcribed Date/Time: 09/26/21 11:36 am * Exam Date Time Procedure Performing Provider Status 09/26/21 8:58 AM Urethrocystography Retrograde Giovanny Vergara; Auth (Verified) Notes: (Urethrocystography Retrograde) Reason For Exam: Calculus of Kidney RESULT: Urethrocystography Retrograde Urethrocystography Retrograde, C-Arm < 1 Hour INDICATION: Reason: Calculus of Kidney COMPARISONS: None TECHNIQUE: Fluoroscopy support was provided. There was no radiologist in attendance. FLUOROSCOPY TIME: 19 seconds EXPOSURE: 2.7898 Gycm2 TECHNOLOGIST TIME: 52 minutes FINDINGS: 3 images were submitted. A left ureteral stent was placed. Please refer to operative note for full details. IMPRESSION: See above. WSN: [id number] Ordering Physician: Orlando Seaman I Dictated By: Brant Hartman MD Dictated Date/Time: 09/26/21 11:36 a Reviewed By: Brant Hartman MD Signed By: Brant Hartman MD Signed Date/Time: 09/26/21 11:36 am Transcribed By: CASEY Transcribed Date/Time: 09/26/21 11:36 am Vital Signs Most recent to oldest [Reference Range]: 1 2 3 Height 163 cm (09/26/21 7:21 AM) 163 cm (09/24/21 5:31 PM) Weight 124.4 kg (09/26/21 7:21 AM) 125.2 kg (09/24/21 5:31 PM) Oxygen Saturation [94-100 %] 96 % (09/26/21 9:30 AM) 98 % (09/26/21 9:15 AM) 100 % (09/26/21 9:00 AM) Pulse Rate [55-90 bpm] 71 bpm (09/26/21 7:21 AM) Body Mass Index [18.5-24.99] 46.82 *>HHI* (09/26/21 7:21 AM) 47.12 *>HHI* (09/24/21 5:31 PM) Blood Pressure [90-138/55-84 mm Hg] 131/71mm Hg (09/26/21 9:30 AM) 114/54mm Hg (09/26/21 9:15 AM) 121/66mm Hg (09/26/21 9:00 AM) Respiratory Rate [16-30 br/min] 12 br/min *L* (09/26/21 9:30 AM) 19 br/min (09/26/21 9:15 AM) 13 br/min *L* (09/26/21 9:00 AM) Temperature [96.8-100.4 DegF] 97.7 DegF (09/26/21 9:30 AM) 98.1 DegF (09/26/21 8:45 AM) 97.4 DegF (09/26/21 7:21 AM) Liters per Minute 6 L/min (09/26/21 8:45 AM) Mode of Delivery (Oxygen) Room air (09/26/21 9:30 AM) Room air (09/26/21 9:15 AM) Room air (09/26/21 9:00 AM) Blood pressure sites Arm, left (09/26/21 7:21 AM) Temperature Route Temporal (09/26/21 9:30 AM) Temporal (09/26/21 8:45 AM) Temporal (09/26/21 7:21 AM) Dry Weight 125.2 kg (09/24/21 5:31 PM) Weight Obtained Via Standing scale (09/26/21 7:21 AM) Patient/family stated (09/24/21 5:31 PM) Dry Weight Obtained Via Patient/family s tated (09/24/21 5:31 PM) Social History Social History Type Response Smoking Status Former smoker, quit more than 30 days ago entered on: 08/20/21 Sex
--- OUTSIDE RECORDS SUMMARY | 2024-03-24 12:21 | XMS_ITS | Continuity of Care Document ---
Author Organization [facility] Address [address] [place] [address]- Care Team Providers Care Hearing Impaired Teacher Name Role Phone Blayne RANDALL, Ana Jameson Primary Care Physician [facility] Date(s): 09/16/20 - 10/16/20 [facility] [address] [place] [id number] Allergies, Adverse Reactions, Alerts Substance [...] Status: Ordered BD UF MINI PEN NEEDLE [id number] See Instructions, # 100 Unknown, Refills 2 [...] TAKE ONE CAPSULE BY MOUTH EVERY DAY, [facility]/pharmacy #0693 Start Date: 08/26/18 Status: Ordered [facility] 0.52 G CAPSULE See Instructions, # 30 capsule, Refills 6 Tot. Refills 6, TAKE ONE CAPSULE BY MOUTH EVERY DAY, [facility]/pharmacy #0693 Start Date: 03/16/19 Status: Ordered Dexilant 60 mg oral delayed release capsule ORAL, CAPSULE, DELAYED RELEASE, 4 Refill(s),, 0 Refills, 08/29/18 12:04:00 EDT Start Date: 08/29/18 Status: Ordered Fiber Choice 1.5 g oral tablet, chewable 1 tablet = 1.5 Gm, Chew, Daily, # 90 tablet, 0 Refills, Maintenance, 10/30/19 7:22:00 EDT, Chew Tablet, [facility]/pharmacy #0693, 163.25, cm, 10/18/19 11:00:00 [...] 1 Refills, Soft Stop, 05/21/20 2:30:00 EST, [facility]/pharmacy #0693, SPRAY 2 SPRAYS INTO [...] tablet, 1 Refills, Maintenance, 06/11/20 12:01:00 EST, [facility]/pharmacy#0693, 163.25, cm, 04/30/20 12:50:00 EST, Height Start Date: 06/11/20 Status: Ordered Lantus Solostar Pen 100 units/mL subcutaneous solution See Instructions, INJECT 56 UNITS INTO THE SKIN ONCE A DAY AT BEDTIME, # 10 mL, 2 Refills, 08/16/2115:28:00 EDT, [facility]/pharmacy #0693, 163.25, cm, 07/24/20 8:37:00 [...] 03/01/20 15:23:00 EDT, Route to Pharmacy Electronically, [facility]/pharmacy #0693, 163.25, cm, 02/01/20 14:23:00 EDT, Height Start Date: 03/01/20 Status: Ordered meclizine 12.5 mg oral tablet 1 tablet = 12.5 mg, By Mouth, 3 times a day, PRN for dizziness, # 30 tablet, 1 Refills, Maintenance, 05/29/19 11:21:00 EST, Tablet, [facility]/pharmacy #0693, 163.25, cm, 05/29/19 11:18:00 [...] 270 tablet, 2 Refills, Maintenance,08/23/20 8:20:00 EDT, [facility]/pharmacy #0693, 163.25, cm, 07/24/20 8:37:00 EDT, Height Start Date: 08/23/20 Status: Ordered Metoprolol Tartrate 25 mg oral tablet 1 tablet, By Mouth, 2 times a day, # 180 tablet, 1 Refills, Maintenance, 05/17/20 11:36:00 EST, [facility]/pharmacy #0693, 163.25, cm, 04/30/20 12:50:00 [...] 06/03/20 8:47:00 EST, Route to Pharmacy Electronically, [facility]/pharmacy #0693, 163.25, cm, 04/30/20 12:50:00 EST, Height Start Date: 06/03/20 Status: Ordered multivitamin Therapeutic Multiple Vitamins oral tablet 1, tablet, By Mouth, Daily, 0, 0, 05/25/05 16:31:13, 1.14384e+006, Constant Indicator Start Date: 05/25/05 Status: Ordered mupirocin 2% topical ointment See Instructions, APPLY 1 APPLICATION TOPICALLY 3 TIMES A DAY FOR 1 WEEK AND THEN NEEDED, # 15 Gm, 1 Refills, Acute, [facility], 7, APPLY 1 APPLICATION TOPICALLY 3 TIMES A DAY FOR 1 WEEK AND THEN NEEDED, 163.25, cm, 07/13/19 14:03:00 EDT, H... Start Date: 5/21/20 Status: Ordered nitrofurantoin macrocrystals-monohydrate 100 mg oral capsule 1 capsule = 100 mg, By Mouth, 2 times a day, for 7 days, # 14 capsule, 0 Refills, Acute 10/17/20 7:17:00 EDT, 10/10/20 7:17:00 EDT, Capsule, [facility]/pharmacy #0693, Partial fill upon patient request if the prescription is for a schedule II opioid drug., 1... Start Date: 10/10/20 Stop Date: 10/17/20 Status: Ordered nystatin topical 940067 u/gm powder See Instructions, APPLY 2 OR 3 TIMES A DAY TO AFFECTED AREA, # 60 Gm, 1 Refills, Acute, [facility], 21, APPLY 2 OR 3 TIMES A [...] 07/03/20 11:25:00 EST, Route to Pharmacy Electronically, [id number], [facility]/pharmacy #0693, 163.25, cm, 06/21/20 15:02:00 [...] By Mouth, Daily, 0, 0, 05/22/05 18:31:07, 1.70078s+006, Constant Indicator Start Date: 05/22/05 Status: Ordered [...]
--- OUTSIDE RECORDS SUMMARY | 2024-03-24 12:21 | XMS_ITS | Continuity of Care Document ---
Author Organization [facility] Address [address] [place] [address]- Care Team Providers Care Title Clerk Automobile Name Role Phone Blayne RANDALL, Ana Jameson Primary Care Physician ( [phone] [facility] Date[facility]s): 12/30/20 - 01/29/21 [facility] [address] [place] [id number] Allergies, Adverse Reactions, Alerts Substance [...] Status: Ordered BD UF MINI PEN NEEDLE [id number] See Instructions, # 100 Unknown, Refills 2 [...] TAKE ONE CAPSULE BY MOUTH EVERY DAY, [facility]/pharmacy #0693 Start Date: 08/26/18 Status: Ordered [facility] F[facility] 0.52 G CAPSULE See Instructions, # 30 capsule, Refills 6 Tot. Refills 6, TAKE ONE CAPSULE BY MOUTH EVERY DAY, [facility]/pharmacy #0693 Start Date: 03/16/19 Status: Ordered Dexilant 60 mg oral delayed release capsule ORAL, CAPSULE, DELAYED RELEASE, 4 Refill(s),, 0 Refills, 08/29/18 12:04:00 EDT Start Date: 08/29/18 Status: Ordered Fiber Choice 1.5 g oral tablet, chewable 1 tablet = 1.5 Gm, Chew, Daily, # 90 tablet, 0 Refills, Maintenance, 10/30/19 7:22:00 EDT, Chew Tablet, [facility]/pharmacy #0693, 163.25, cm, 10/18/19 11:00:00 EDT, [...] 1 Refills, Soft Stop, 05/21/20 2:30:00 EST, [facility]/pharmacy #0693, SPRAY 2 SPRAYS INTO EACH [...] Daily, # 90 tablet, 1 Refills, Maintenance, 11/15/20 13:38:00 EDT, [facility], 163.25, cm, 09/19/20 15:40:00 EDT, Height Start Date: 11/15/20 Status: Ordered Lantus Solostar Pen 100 units/mL subcutaneous solution See Instructions, INJECT 56 UNITS INTO THE SKIN ONCE A DAY AT BEDTIME, # 15 Unknown, 2 Refills, Maintenance, 11/04/20 10:21:00 EDT, [facility]/pharmacy #0693, 163.25, cm, 09/19/20 15:40:00 EDT, Height Start Date: 11/04/20 Status: Ordered Lipitor 10 mg oral tablet 1 tablet = 10 mg, By Mouth, Daily, # 30 tablet, 0 Refills, Maintenance Start Date: 03/09/18 Status: Ordered lisinopril 5 mg oral tablet 0.5, tablet, By Mouth, Daily, # 45 tablet, Refills 1, Tot. Refills 1, Maintenance, 03/01/20 15:23:00 EDT, Route to Pharmacy Electronically, [facility]/pharmacy #0693, 163.25, cm, 02/01/20 14:23:00 EDT, Height Start Date: 03/01/20 Status: Ordered meclizine 12.5 mg oral tablet 1 tablet = 12.5 mg, By Mouth, 3 times a day, PRN for dizziness, # 30 tablet, 1 Refills, Maintenance, 05/29/19 11:21:00 EST, Tablet, [facility]/pharmacy #0693, 163.25, cm, 05/29/19 11:18:00 EST, Height Start Date: 05/29/19 Status: Ordered mesalamine 1000 mg rectal suppository See Instructions, 1 supp Rectally bid, 0 Refills, Maintenance, 02/08/19 10:23:07 EDT Start Date: 02/08/19 Status: Ordered MetFORMIN (Eqv-Glucophage XR) 500 mg oral tablet, extended release See Instructions, 2 tablets By Mouth in am and 2 tablets in pm, # 270 tablet, 2 Refills, Maintenance, 11/07/20 13:34:00 EDT, [facility]/pharmacy #0693, 163.25, cm, 09/19/20 15:40:00 EDT, Height Start Date: 11/07/20 Status: Ordered Metoprolol Tartrate 25 mg oral tablet 1 tablet, By Mouth, 2 times a day, # 180 tablet, 1 Refills, Maintenance, 11/08/20 13:04:00 EDT, [facility], 163.25, cm, 09/19/20 15:40:00 EDT, Height Start Date: 11/08/20 Status: Ordered Miscellaneous Rx 1, capsule, By [...] # 90 tablet, Refills 1, Tot. Refills 0, Maintenance, 11/26/20 6:49:00 EDT, Route to Pharmacy Electronically, [facility], 163.25, cm, 09/19/20 15:40:00 EDT, Height Start Date: 11/26/20 Status: Ordered multivitamin Therapeutic Multiple Vitamins oral tablet 1, tablet, By Mouth, Daily, 0, 0, 05/25/05 16:31:13, 1.31728y+006, Constant Indicator Start Date: 05/25/05 Status: Ordered mupirocin 2% topical ointment See Instructions, APPLY 1 APPLICATION TOPICALLY 3 TIMES A DAY FOR 1 WEEK AND THEN NEEDED, # 15 Gm, 1 Refills, Acute, [facility], 7, APPLY 1 APPLICATION TOPICALLY 3 TIMES A DAY FOR 1 WEEK AND THEN NEEDED, 163.25, cm, 07/13/19 14:03:00 EDT, H... Start Date: 09/21/19 Status: Ordered nystatin topical 991673 u/gm powder See Instructions, APPLY 2 OR 3 TIMES A DAY TO AFFECTED AREA, # 60 Gm, 1 Refills, [facility], 30, APPLY 2 OR 3 TIMES A DAY TO AFFECTED AREA, 163.25, cm, 12/16/20 10:08:00 EDT, Height Start Date: 12/19/20 Status: Ordered oxyCODONE 5 mg oral capsule 2 capsule = 10 mg, By Mouth, Every 8 hours, PRN for pain, 0 Refills, Maintenance, 05/16/18 9:44:38 EST, Capsule Start Date: 05/16/18 Status: Ordered ProAir HFA 90 mcg/inh inhalation aerosol with adapter 2, puffs, Inhalation, Every 6 hours, PRN, # 8.5 Gm, Refills 11, Tot. Refills 11, Maintenance, 07/03/20 11:25:00 EST, Route to Pharmacy Electronically, [id number], [facility]/pharmacy #0693, 163.25, cm, 06/21/20 15:02:00 EST, Height [...] By Mouth, Daily, 0, 0, 05/22/05 18:31:07, 1.97484z+006, Constant Indicator Start Date: 05/22/05 Status: Ordered [...] Nephrolithiasis(Confirmed) Active Posttraumatic stress disorder(Confirmed) Active Recurrent UTI(Confirmed) Active Sleep apnea(Confirmed) Active Steatosis of liver(Confirmed) Active Tobacco abuse(Confirmed) Active Type 2 diabetes mellitus(Confirmed) Active Vitamin D deficiency(Confirmed) Active Vitiligo(Confirmed) Active Social History Social History Type Response Smoking Status Never (less than 100 in lifetime) entered on: 08/29/18 Sex
--- OUTSIDE RECORDS SUMMARY | 2024-03-24 12:21 | XMS_ITS | Continuity of Care Document ---
Author Organization [facility] ter Address [address] [place] [address]- Care Team Providers Care Clothing Sales Assistant Name Role Phone Blayne RANDALL, Ana Jameson Primary Care Physician ( [phone] Encounter [facility] [place] [facility] [place] Date(s): 11/04/19 - 12/10/[address] [address]- [facility] Attending Physician: Bhanu Chappell MD Admitting Physician: Bhanu Chappell MD Referring Physician: Lina Camp MD Allergies, Adverse Reactions, Alerts Substance Reaction [...] Status: Ordered BD UF MINI PEN NEEDLE [id number] See Instructions, # 100 Unknown, Refills 2 Tot. Refills 2, USE DIRECTED AT BEDTIME WITH SOLORSTAR PEN, [id number] Start Date: 02/13/19 Status: Ordered benzoyl peroxide-erythromycin 5%-3% topical gel See Instructions, APPLY TO AFFECTED AREA TWICE A DAY, # 23.3 Gm, 1 Refills, Acute, [facility], APPLY TO AFFECTED AREA TWICE A DAY, 163.25, cm, 05/29/19 11:18:00 EST, Height Start Date: 06/21/19 Status: Ordered cetirizine 10 mg oral tablet 1 tablet, By Mouth, Daily, # 90 tablet, 1 Refills, Maintenance, 08/31/19 8:07:00 EDT, [facility], 163.25, cm, 07/13/19 14:03:00 EDT, Height Start Date: 08/31/19 Status: Ordered clotrimazole 1% topical cream CREAM, 2 Refill(s),, 0 Refills, 08/29/18 12:04:00 EDT Start Date: 08/29/18 Status: Ordered [facility] FIBER 0.52 G CAPSULE See Instructions, # 30 capsule, Refills 6 Tot. Refills 6, TAKE ONE CAPSULE BY MOUTH EVERY DAY, [facility]/pharmacy #[id number] Start Date: 08/26/18 Status: Ordered [facility] FIBER 0.52 G CAPSULE See Instructions, # 30 capsule, Refills 6 Tot. Refills 6, TAKE ONE CAPSULE BY MOUTH EVERY DAY, [facility]/pharmacy #0693 Start Date: 03/16/19 Status: Ordered Dexilant 60 mg oral delayed release capsule ORAL, CAPSULE, DELAYED RELEASE, 4 Refill(s),, 0 Refills, 08/29/18 12:04:00 EDT Start Date: 08/29/18 Status: Ordered doxycycline hyclate 100 mg oral capsule 1 capsule = 100 mg, By Mouth, Every 12 hours, # 8 capsule, 0 Refills, Maintenance, 08/24/19 13:53:00 EDT, Capsule, [facility]/pharmacy #0693, 163.25, cm, 07/13/19 14:03:00 EDT, Height Start Date: 08/24/19 Status: Ordered Fiber Choice 1.5 g oral tablet, chewable 1 tablet = 1.5 Gm, Chew, Daily, # 90 tablet, 0 Refills, Maintenance, 10/30/19 7:22:00 EDT, Chew Tablet, [facility]/pharmacy #0693, 163.25, cm, 10/18/19 11:00:00 EDT, Height Start Date: 10/30/19 Status: Ordered FLUoxetine 20 mg oral capsule 80 mg, 4, capsule, By Mouth, Daily, ORAL, CAPSULE, 0 Refill(s),, Refills 0, 08/29/18 12:05:00 EDT Start Date: 08/29/18 Status: Ordered fluticasone 50 mcg/inh nasal spray See Instructions, SPRAY 2 SPRAYS INTO EACH NOSTRIL EVERY DAY, # 16 Gm, 5 Refills, Soft Stop, 11/20/19 11:00:00 EDT, [facility]/pharmacy #[id number], SPRAY 2 SPRAYS INTO EACH NOSTRIL EVERY DAY, 163.25, cm, 10/18/19 11:00:00 EDT, Height Start Date: 11/20/19 Status: Ordered folic acid 1 mg oral [...] Daily, # 90 tablet, 1 Refills, Maintenance, 09/07/19 8:26:00 EDT, [facility], 163.25, cm, 07/13/19 14:03:00 EDT, Height Start Date: 09/07/19 Status: Ordered Lantus Solostar Pen 100 units/mL subcutaneous solution See Instructions, INJECT 52 UNITS INTO THE SKIN ONCE A DAY AT BEDTIME, # 45 Unknown, 3 Refills, [facility], 163.25, cm, 07/13/19 14:03:00 EDT, Height Start Date: 08/01/19 Status: Ordered Lipitor 10 mg oral tablet 1 tablet = 10 mg, By Mouth, Daily, # 30 tablet, 0 Refills, Maintenance Start Date: 03/09/18 Status: Ordered lisinopril 5 mg oral tablet 0.5, tablet, By Mouth, Daily, # 45 tablet, Refills 1, Tot. Refills 0, Maintenance, 08/28/19 8:20:00EDT, Route to Pharmacy Electronically, [facility], 163.25, cm, 07/13/19 14:03:00 EDT, Height Start Date: 08/28/19 Status: Ordered meclizine 12.5 mg oral tablet 1 tablet = 12.5 mg, By Mouth, 3 times a day, PRN for dizziness, # 30 tablet, 1 Refills, Maintenance, 05/29/19 11:21:00 EST, Tablet, [facility]/pharmacy #[id number], 163.25, cm, 05/29/19 11:18:00 EST, Height Start Date: 05/29/19 Status: Ordered mesalamine 1000 mg rectal suppository See Instructions, 1 supp Rectally bid, 0 Refills, Maintenance, 02/08/19 10:23:07 EDT Start Date: 02/08/19 Status: Ordered MetFORMIN (Eqv-Glucophage XR) 500 mg oral tablet, extended release 2 tablet, By Mouth, Daily, # 180 tablet, 1 Refills, Maintenance, 10/25/19 8:40:00 EDT, [facility], 163.25, cm, 10/18/19 11:00:00 EDT, Height Start Date: 10/25/19 Status: Ordered Metoprolol Tartrate 25 mg oral tablet 1 tablet, By Mouth, 2 times a day, # 180 tablet, 1 Refills, Maintenance, 09/18/19 8:16:00 EDT, [facility], 163.25, cm, 07/13/19 14:03:00 EDT, Height Start Date: 09/18/19 Status: Ordered Miscellaneous Rx 1, capsule, By [...] tablet, Refills 1, Tot. Refills 0, Maintenance, 06/19/19 10:09:00 EST, Route to Pharmacy Electronically, [facility], 163.25, cm, 05/29/19 11:18:00 EST, Height Start Date: 06/19/19 Status: Ordered multivitamin Therapeutic Multiple Vitamins oral tablet 1, tablet, By Mouth, Daily, 0, 0, 05/25/05 16:31:13, 1.75462a+[id number], Constant Indicator Start Date: 05/25/05 Status: Ordered mupirocin 2% topical ointment See Instructions, APPLY 1 APPLICATION TOPICALLY 3 TIMES A DAY FOR 1 WEEK AND THEN NEEDED, # 15 Gm, 1 Refills, Acute, [facility] ST[facility] 31855, 7, APPLY 1 APPLICATION TOPICALLY 3 TIMES A DAY FOR 1 WEEK AND THEN NEEDED, 163.25, cm, 07/13/19 14:03:00 EDT, H... Start Date: 09/21/19 Status: Ordered nystatin topical 520193 u/gm powder See Instructions, APPLY 2 OR 3 TIMES A DAY TO AFFECTED AREA, # 60 Gm, 1 Refills, Acute, [facility], 30, APPLY 2 OR 3 TIMES A DAY TO AFFECTED AREA, 163.25, cm, 07/13/19 14:03:00 EDT, Height Start Date: 07/18/19 Status: Ordered oxyCODONE 5 mg oral capsule 2 capsule = 10 mg, By Mouth, Every 8 hours, PRN for pain, 0 Refills, Maintenance, 05/16/18 9:44:38 EST, Capsule Start Date: 05/16/18 Status: Ordered ProAir HFA 90 mcg/inh inhalation aerosol with adapter 2, puffs, Inhalation, Every 6 hours, PRN, # 18 Unknown, Refills 2, Tot. Refills 0, Maintenance, 09/20/19 8:19:00 EDT, Route to Pharmacy Electronically, [id number], [facility] [id number], 163.25, cm, 07/13/19 14:03:00 EDT, Height Start Date: 09/20/19 Status: Ordered Protonix 20 mg oral delayed release tablet 1 tablet = 20 mg, By Mouth, Daily, 0 Refills, Maintenance Start Date: 08/10/12 Status: Ordered sucralfate 1 gm oral tablet 1 Gm, 1, tablet, By Mouth, 3 times a day before meals and bedtime, Refills 0, Maintenance, 02/08/1910:22:23 EDT Start Date: 02/08/19 Status: Ordered Vistaril pamoate 25 mg oral [...] By Mouth, Daily, 0, 0, 05/22/05 18:31:07, 1.95372u+[id number], Constant Indicator Start Date: 05/22/05 Status: Ordered [...]
--- OUTSIDE RECORDS SUMMARY | 2024-03-24 12:21 | XMS_ITS | Continuity of Care Document ---
Author Organization [facility] ter Address [address] [place] [id number]- Care Team Providers Care Gold Prospector Name Role Phone Blayne RANDALL, Ana Jameson Primary Care Physician Encounter [facility] [place](s): 03/17/21 - 03/17/[address] [address] Discharge Disposition: A-D/C Home Attending Physician: Kerrie Dumont MD Admitting Physician: [...] Vaccine (oldterm) 02/03/20 Recorde d 1Result Comment: [facility] 65842-433-69 Medications Advair Diskus 250 mcg-50 mcg inhalation powder 1 puffs, Inhalation, 2 times a day, 0 Refills, Maintenance Start Date: 08/10/12 Status: Ordered cetirizine 10 mg oral tablet 1 tablet, By Mouth, Daily, # 90 tablet, 1 Refills, [facility] 10272, 163.25, cm, 02/25/21 15:12:00 EDT, Height Start [...] 10/30/19 7:22:00 EDT, Chew Tablet, [facility]/pharmacy #0693, 163.25, cm, 10/18/19 11:00:00 EDT, Height [...] Soft Stop, 05/21/20 2:30:00 EST, [facility]/pharmacy #0693, SPRAY 2 SPRAYS INTO EACH NOSTRIL [...] tablet, 1 Refills, Maintenance, 03/06/21 9:29:00 EDT, [facility], 163.25, cm, 03/06/21 9:09:00 EDT, Height Start Date: 03/06/21 Status: Ordered Lantus Solostar Pen 100 units/mL subcutaneous solution See Instructions, INJECT 56 UNITS INTO THE SKIN ONCE A DAY AT BEDTIME, # 15 Unknown, 5 Refills, [facility], 163.25, cm, 01/23/21 8:57:00 EDT, Height Start Date: 01/31/21 Status: Ordered Lipitor 10 mg oral tablet 1 tablet = 10 mg, By Mouth, Daily at bedtime, # 30 tablet, 0 Refills, Maintenance Start Date: 03/09/18 Status: Ordered lisinopril 5 mg oral tablet 0.5, tablet, By Mouth, Daily, # 45 tablet, Refills 1, Route to Pharmacy Electronically, [facility], 163.25, cm, 01/23/21 8:57:00 EDT, Height Start Date: 02/11/21 Status: Ordered meclizine 12.5 mg oral tablet 1 tablet = 12.5 mg, By Mouth, 3 times a day, PRN for dizziness, # 30 tablet, 1 Refills, Maintenance, 05/29/19 11:21:00 EST, Tablet, [facility]/pharmacy #0693, 163.25, cm, 05/29/19 11:18:00 EST, Height Start Date: 05/29/19 Status: Ordered mesalamine 1000 mg rectal suppository See Instructions, 1 supp Rectally bid, 0 Refills, Maintenance, 02/08/19 10:23:07 EDT Start Date: 02/08/19 Status: Ordered MetFORMIN (Eqv-Glucophage XR) 500 mg oral tablet, extended release 2 tablet, By Mouth, Daily, # 180 tablet, 1 Refills, [facility], 163.25, cm, 01/23/21 8:57:00 EDT, Height Start Date: 02/11/21 Status: Ordered Metoprolol Tartrate 25 mg oral tablet 1 tablet, By Mouth, 2 times a day, # 180 tablet, 1 Refills, Maintenance, 11/08/20 13:04:00 EDT, [facility], 163.25, cm, 09/19/20 15:40:00 EDT, Height Start Date: 11/08/20 Status: Ordered montelukast 10 mg oral tablet 1, tablet, By Mouth, Daily, # 90 tablet, Refills 1, Tot. Refills 0, Maintenance, 11/26/20 6:49:00 EDT, Route to Pharmacy Electronically, [facility], 163.25, cm, 09/19/20 15:40:00 EDT, Height Start Date: 11/26/20 Status: Ordered multivitamin Therapeutic Multiple Vitamins oral tablet 1, tablet, By Mouth, Daily, 0, 0, 05/25/05 16:31:13, 1.70305k+006, Constant Indicator Start Date: 05/25/05 Status: Ordered nystatin topical [id number] u/gm powder See Instructions, APPLY 2 OR 3 TIMES A DAY TO AFFECTED AREA, # 60 Gm, 1 Refills, [facility], 30, APPLY 2 OR 3 TIMES A DAY TO AFFECTED AREA, 163.25, cm, 12/16/20 10:08:00 EDT, Height Start Date: 12/19/20 Status: Ordered oxyCODONE 5 mg oral capsule 2 capsule = 10 mg, By Mouth, Every 8 hours, PRN for pain, 0 Refills, Maintenance, 05/16/18 9:44:38 EST, Capsule Start Date: 05/16/18 Status: Ordered OxyCODONE IR Tablet 5 mg, Tablet, By Mouth, Every 4 hours, in PACU ONLY, if patient can tolerate PO, PRN for Pain , Mild, Routine, 03/17/21 10:05:00 EST Start Date: 03/17/21 Stop Date: 03/17/21 Status: Discontinued ProAir HFA 90 mcg/inh inhalation aerosol with adapter 2, puffs, Inhalation, Every 6 hours, PRN, # 8.5 Gm, Refills 11, Tot. Refills 11, Maintenance, 07/03/20 11:25:00 EST, Route to Pharmacy Electronically, [id number], [facility]/pharmacy #[id number], 163.25, cm, 06/21/20 15:02:00 EST, Height [...] By Mouth, Daily, 0, 0, 05/22/05 18:31:07, 1.53481a+[id number], Constant Indicator Start Date: 05/22/05 Status: Ordered [...] Posttraumatic stress disorder(Confirmed) Active Recurrent UTI(Confirmed) Active Severe obesity(Confirmed) Active Sleep apnea(Confirmed) Active Steatosis of liver(Confirmed) Active Tobacco abuse(Confirmed) Active Type 2 diabetes mellitus(Confirmed) Active Vitamin D deficiency(Confirmed) Active Vitiligo(Confirmed) Active Vital Signs Most recent to oldest [Reference Range]: 1 2 3 Height 162.56 cm (03/17/21 8:25 AM) 162.56 cm (03/12/21 3:54 PM) Weight 124.4 kg (03/17/21 8:25 AM) 126.82 kg (03/12/21 3:54 PM) Oxygen Saturation [94-100 %] 96 % (03/17/21 10:45 AM) 96 % (03/17/21 10:30 AM) 100 % (03/17/21 10: AM) Pulse Rate [55-90 bpm] 70 bpm (03/17/21 8:25 AM) Body Mass Index [18.5-24.99] 47.08 *>HHI* (03/17/21 8:25 AM) 47.99 *>HHI* (03/12/21 3:54 PM) Blood Pressure [90-138/55-84 mm Hg] 114/50mm Hg (03/17/21 10:45 AM) 125/66mm Hg (03/17/21 10:30 AM) 124/65mm Hg (03/17/21 10:15 AM) Respiratory Rate [16-30 br/min] 14 br/min *L* (03/17/21 10:45 AM) 12 br/min *L* (03/17/21 10:30 AM) 18 br/min (03/17/21 10:27 AM) Temperature [96.8-100.4 DegF] 97.2 DegF (03/17/21 10:30 AM) 97.1 DegF (03/17/21 10:00 AM) 97.1 DegF (03/17/21 8:25 AM) Liters per Minute 6 L/min (03/17/21 10:00 AM) Mode of Delivery (Oxygen) Room air (03/17/21 10:45 AM) Room air (03/17/21 10:15 AM) Simple face mask (03/17/21 10:00 AM) Blood pressure sites Arm, left (03/17/21 8:25 AM) Temperature Route Temporal (03/17/21 10:30 AM) Temporal (03/17/21 10:00 AM) Social History Social History Type Response Smoking Status Never (less than 100 in lifetime) entered on: 08/29/18 Sex
--- OUTSIDE RECORDS SUMMARY | 2024-03-24 12:21 | XMS_ITS | Continuity of Care Document ---
Author Organization [facility] Address [address] [place] [address]- Care Team Providers Care Sack Repairer Name Role Phone Blayne RANDALL, Ana Jameson Primary Care Physician Encounter 06/30/21 - 07/07/21 [facility] [address], [address] [place] [address]- Attending Physician: Blayne RANDALL, Ana Jameson Admitting Physician: Blayne RANDALL, Ana Jameson Referring Physician: Ana Cisneros NP Allergies, Adverse Reactions, Alerts Substance Reaction Severity Status sulfa drugs swelling itching Active Provera rash Active Soy Products swelling, rash Active Latex rash Active Immunizations Given and Recorded Vaccine Date Status Refusal Reason influenza virus vaccine, inactivated 1 02/25/21 Gi miguel influenza virus vaccine, inactivated 02/08/19 Give n Influenza Virus Vaccine (oldterm) 02/03/20 Recorde d 1Result Comment: [facility] [id number] Medications Advair Diskus 250 mcg-50 mcg inhalation powder 1 puffs, Inhalation, 2 times a day, 0 Refills, Maintenance Start Date: 08/10/12 Status: Ordered cetirizine 10 mg oral tablet 1 tablet, By Mouth, Daily, # 90 tablet, 1 Refills, [facility] ST[facility] 10710, 163.25, cm, 02/25/21 15:12:00 EDT, Height Start [...] Refills, Maintenance, 10/30/19 7:22:00 EDT, Chew Tablet, [facility]/pharmacy #[id number], 163.25, cm, 10/18/19 11:00:00 [...] Refills, Soft Stop, 05/21/20 2:30:00 EST, [facility]/pharmacy #[id number], SPRAY 2 SPRAYS INTO [...] tablet, 3 Refills, Maintenance, 07/02/21 11:04:00 EST, [facility]/pharmacy#0693, 162.56, cm, 06/16/21 11:08:00 EST, Height, 125.8, kg, 06/16/21 11:08:00 EST, Dry Weight Start Date: 07/02/21 Status: Ordered Lipitor 10 mg oral tablet 1 tablet = 10 mg, By Mouth, Daily at bedtime, # 30 tablet, 0 Refills, Maintenance Start Date: 03/09/18 Status: Ordered lisinopril 5 mg oral tablet 0.5, tablet, By Mouth, Daily, # 45 tablet, Refills 1, Route to Pharmacy Electronically, [facility] 76695, 162.56, cm, 05/14/21 11:38:00 EST, Height Start Date: 05/20/21 Status: Ordered meclizine 12.5 mg oral tablet 1 tablet = 12.5 mg, By Mouth, 3 times a day, PRN for dizziness, # 30 tablet, 1 Refills, Maintenance, 05/29/19 11:21:00 EST, Tablet, [facility]/pharmacy #[id number], 163.25, cm, 05/29/19 11:18:00 [...] a day, # 180 tablet, 1 Refills, [facility] 21864, 162.56, cm, 03/17/21 8:25:00 EST, Height Start Date: 04/21/21 Status: Ordered montelukast 10 mg oral tablet 1, tablet, By Mouth, Daily, # 90 tablet, Refills 1, Route to Pharmacy Electronically, [facility] 12575, 162.56, cm, 03/17/21 8:25:00 EST, Height Start Date: 04/21/21 Status: Ordered multivitamin Therapeutic Multiple Vitamins oral tablet 1, tablet, By Mouth, Daily, 0, 0, 05/25/05 16:31:13, 1.55619d+006, Constant Indicator Start Date: 05/25/05 Status: Ordered nystatin topical 980088 u/gm powder See Instructions, APPLY TOPICALLY TO THE AFFECTED AREA 2 OR 3 TIMES A DAY., # 60 Gm, 1 Refills, [facility], 20, APPLY TOPICALLY TO THE AFFECTED AREA [...] 07/03/20 11:25:00 EST, Route to Pharmacy Electronically, [id number], [facility]/pharmacy #[id number], 163.25, cm, 06/21/20 15:02:00 [...] By Mouth, Daily, 0, 0, 05/22/05 18:31:07, 1.83110h+006, Constant Indicator Start Date: 05/22/05 Status: Ordered [...]
--- OUTSIDE RECORDS SUMMARY | 2024-03-24 12:21 | XMS_ITS | Continuity of Care Document ---
Author Organization [facility] Address [address] [place] [address]- Care Team Providers Care Line Locator Name Role Phone Blayne RANDALL, Ana Jameson Primary Care Physician Encounter [facility] Date(s): 08/22/20 - 09/21/20 [facility] [address] [place] [address] Allergies, Adverse Reactions, Alerts Substance [...] Status: Ordered BD UF MINI PEN NEEDLE [id number] See Instructions, # 100 Unknown, Refills 2 [...] TAKE ONE CAPSULE BY MOUTH EVERY DAY, [facility]/pharmacy #[id number] Start Date: 08/26/18 Status: Ordered [facility] F[facility] 0.52 G CAPSULE See Instructions, # 30 capsule, Refills 6 Tot. Refills 6, TAKE ONE CAPSULE BY MOUTH EVERY DAY, [facility]/pharmacy #0693 Start Date: 03/16/19 Status: Ordered Dexilant 60 mg oral delayed release capsule ORAL, CAPSULE, DELAYED RELEASE, 4 Refill(s),, 0 Refills, 08/29/18 12:04:00 EDT Start Date: 08/29/18 Status: Ordered Fiber Choice 1.5 g oral tablet, chewable 1 tablet = 1.5 Gm, Chew, Daily, # 90 tablet, 0 Refills, Maintenance, 10/30/19 7:22:00 EDT, Chew Tablet, [facility]/pharmacy #0693, 163.25, cm, 10/18/19 11:00:00 EDT, [...] 1 Refills, Soft Stop, 05/21/20 2:30:00 EST, [facility]/pharmacy #[id number], SPRAY 2 SPRAYS INTO EACH [...] tablet, 1 Refills, Maintenance, 06/11/20 12:01:00 EST, [facility]/pharmacy#0693, 163.25, cm, 04/30/20 12:50:00 EST, Height Start Date: 06/11/20 Status: Ordered Lantus Solostar Pen 100 units/mL subcutaneous solution See Instructions, INJECT 56 UNITS INTO THE SKIN ONCE A DAY AT BEDTIME, # 10 mL, 2 Refills, 08/16/2115:28:00 EDT, [facility]/pharmacy #0693, 163.25, cm, 07/24/20 8:37:00 EDT, Height Start Date: 08/15/20 Status: Ordered Lipitor 10 mg oral tablet 1 tablet = 10 mg, By Mouth, Daily, # 30 tablet, 0 Refills, Maintenance Start Date: 03/09/18 Status: Ordered lisinopril 5 mg oral tablet 0.5, tablet, By Mouth, Daily, # 45 tablet, Refills 1, Tot. Refills 1, Maintenance, 03/01/20 15:23:00 EDT, Route to Pharmacy Electronically, [facility]/pharmacy #[id number], 163.25, cm, 02/01/20 14:23:00 EDT, Height Start Date: 03/01/20 Status: Ordered meclizine 12.5 mg oral tablet 1 tablet = 12.5 mg, By Mouth, 3 times a day, PRN for dizziness, # 30 tablet, 1 Refills, Maintenance, 05/29/19 11:21:00 EST, Tablet, [facility]/pharmacy #0693, 163.25, cm, 05/29/19 11:18:00 EST, [...] 270 tablet, 2 Refills, Maintenance,08/23/20 8:20:00 EDT, [facility]/pharmacy #0693, 163.25, cm, 07/24/20 8:37:00 EDT, Height Start Date: 08/23/20 Status: Ordered Metoprolol Tartrate 25 mg oral tablet 1 tablet, By Mouth, 2 times a day, # 180 tablet, 1 Refills, Maintenance, 05/17/20 11:36:00 EST, [facility]/pharmacy #0693, 163.25, cm, 04/30/20 12:50:00 EST, Height [...] 06/03/20 8:47:00 EST, Route to Pharmacy Electronically, [facility]/pharmacy #[id number], 163.25, cm, 04/30/20 12:50:00 EST, Height Start Date: 06/03/20 Status: Ordered multivitamin Therapeutic Multiple Vitamins oral tablet 1, tablet, By Mouth, Daily, 0, 0, 05/25/05 16:31:13, 1.67490b+006, Constant Indicator Start Date: 05/25/05 Status: Ordered mupirocin 2% topical ointment See Instructions, APPLY 1 APPLICATION TOPICALLY 3 TIMES A DAY FOR 1 WEEK AND THEN NEEDED, # 15 Gm, 1 Refills, Acute, [facility], 7, APPLY 1 APPLICATION TOPICALLY 3 TIMES A DAY FOR 1 WEEK AND THEN NEEDED, 163.25, cm, 07/13/19 14:03:00 EDT, H... Start Date: 5/21/20 Status: Ordered nystatin topical 723770 u/gm powder See Instructions, APPLY 2 OR 3 TIMES A DAY TO AFFECTED AREA, # 60 Gm, 1 Refills, Acute, [facility], 21, APPLY 2 OR 3 TIMES A [...] 07/03/20 11:25:00 EST, Route to Pharmacy Electronically, [id number], [facility]/pharmacy #[id number], 163.25, cm, 06/21/20 15:02:00 EST, [...] By Mouth, Daily, 0, 0, 05/22/05 18:31:07, 1.09445a+006, Constant Indicator Start Date: 05/22/05 Status: Ordered [...]
--- OUTSIDE RECORDS SUMMARY | 2024-03-24 12:22 | XMS_ITS | Continuity of Care Document ---
Author Organization [facility] Address [address] [place] [address]- Care Team Providers Care Crepe Box Tender Name Role Phone Blayne RANDALL, Ana Jameson Primary Care Physician ( [phone] Encounter [facility] [id number] Date(s): 03/03/23 - 03/10/23 [facility] [address], [place] [address] Attending Physician: Luis Santos MD Referring Physician: Kerrie Dumont MD Allergies, Adverse Reactions, Alerts Substance Reaction Severity Status Provera rash Active Soy Products swelling, rash Active sulfa drugs swelling itching Active Latex rash Active Immunizations Given and Recorded Vaccine Date Status Refusal Reason influenza virus vaccine, inactivated 02/01/23 Give n influenza virus vaccine, inactivated 1 02/25/21 Gi miguel influenza virus vaccine, inactivated 02/08/19 Give n [id number] 12y+ bivalent booster vax 06/12/22 Recorded tetanus/diphtheria/pertussis, acel(Tdap) 2 06/01/22 Given SARS-CoV-2 (COVID-19) mRNA BNT-162b2 vac 02/26/21 Recorded SARS-CoV-2 (COVID-19) mRNA BNT-162b2 vac 08/01/20 Recorded SARS-CoV-2 (COVID-19) mRNA BNT-162b2 vac 07/11/20 Recorded Influenza Virus Vaccine (oldterm) 02/03/20 Recorde d 1Result Comment: [facility] 26057-943-93 2Result Comment: [facility] [id number] Medications Albuterol (Eqv-ProAir HFA) 90 mcg/inh inhalation aerosol 2 puffs, Inhalation, Every 6 hours, PRN NEEDED FOR WHEEZING, # 8.5 each, 11 Refills, Maintenance, 09/09/22 9:05:00 EDT, [facility], 17, TAKE 2 PUFFS BY MOUTH EVERY [...] Status: Ordered BD UF MINI PEN NEEDLE [id number] BD UF MINI PEN NEEDLE [id number], See Instructions, # 100 Unknown, 5 Refills, [...] # 90 tablet, 1 Refills, [facility], 163.25, cm, 02/25/21 15:12:00 EDT, Height Start [...] Maintenance, 10/30/19 7:22:00 EDT, Chew Tablet, [facility]/pharmacy #0693, 163.25, cm, 10/18/19 11:00:00 EDT, Height [...] Refills, Soft Stop, 05/21/20 2:30:00 EST, [facility]/pharmacy #0693, SPRAY 2 SPRAYS INTO EACH NOSTRIL [...] 3 Refills, Maintenance, 03/31/22 12:48:00 EST, [facility]/pharmacy#0693, 163, cm, 03/25/22 16:47:00 EST, Height, 123.7, kg, 10/06/21 7:05:00 EDT, Dry Weight Start Date: 03/31/22 Stop Date: 03/26/23 Status: Ordered Lantus Solostar Pen 100 units/mL subcutaneous solution See Instructions, INJECT 47 UNITS INTO THE SKIN ONCE A DAY DX E11.9, # 30 mL, 5 Refills, 12/01/22 13:46:00 EDT, [facility]/pharmacy #0693, 163, cm, 12/01/22 13:22:00 EDT, Height, [...] 4:05:00 EST, Route to Pharmacy Electronically, [facility], 163, cm, 03/10/22 15:21:00 EST, Height, 123.7, kg, 10/06/21 7:05:00 EDT, Dry Weight Start Date: 03/24/22 Status: Ordered meclizine 12.5 mg oral tablet 1 tablet = 12.5 mg, By Mouth, 3 times a day, PRN for dizziness, # 30 tablet, 1 Refills, Maintenance, 05/29/19 11:21:00 EST, Tablet, [facility]/pharmacy #0693, 163.25, cm, 05/29/19 11:18:00 EST, Height Start Date: 05/29/19 Status: Ordered meclizine 12.5 mg oral tablet 1 tablet = 12.5 mg, By Mouth, 3 times a day, PRN for dizziness, # 30 tablet, 0 Refills, Maintenance, 11/19/21 11:34:00 EDT, Tablet, [facility]/pharmacy #0693, Partial fill upon patient request if [...] tablet, 2 Refills, Maintenance, 09/08/22 11:26:00 EDT[facility], 163, cm, 09/07/22 11:03:00 EDT, Height, 123.7, [...] 11/10/22 9:23:00 EDT, Route to Pharmacy Electronically, [facility]/pharmacy #0693, Partial fill upon patient request if the prescription is for a schedule II opi... Start Date: 11/10/22 Status: Ordered montelukast 10 mg oral tablet 1, tablet, By Mouth, Daily, # 90 tablet, Refills 1, Maintenance, 11/09/22 18:24:00 EDT, Route to Pharmacy Electronically, [facility], 163, cm, 11/04/22 9:00:00 EDT, Height, 123.7, kg, 10/06/21 7:05:00 EDT, Dry Weight Start Date: 11/09/22 Status: Ordered multivitamin Therapeutic Multiple Vitamins oral tablet 1, tablet, By Mouth, Daily, 0, 0, 05/25/05 16:31:13, 1.33900y+006, Constant Indicator Start Date: 05/25/05 Status: Ordered nystatin topical 607195 u/gm powder See Instructions, APPLY TOPICALLY TO THE AFFECTED AREA 2 OR 3 TIMES A DAY., # 60 Gm, 1 Refills, Maintenance, 09/09/22 9:05:00 EDT, [facility], 20, APPLY TOPICALLY TO THE AFFECTED AREA [...] SLEEP NEEDED Start Date: 12/01/22 Status: Ordered traZODone 50 mg oral tablet 50 mg, 1, tablet, By Mouth, Daily at bedtime, Refills 0, Maintenance, 12/01/22 13:36:00 EDT, Partial fill upon patient request if the prescription is for a schedule II opioid drug. Start Date: 12/01/22 Status: Ordered Vistaril pamoate [...] D deficiency Confirmed Active Vitiligo Confirmed Active Vital Signs Most recent to oldest [Reference Range]: 1 Height 163 cm (03/03/23 2:33 PM) Weight 128.5 kg (03/03/23 2:33 PM) Oxygen Saturation [94-100 %] 97 % (03/03/23 2:33 PM) Pulse Rate [55-90 bpm] 81 bpm (03/03/23 2:33 PM) Body Mass Index [18.5-24.99 kg/m2] 48.36 kg/m2 *>HHI* (03/03/23 2:33 PM) Blood Pressure [90-138/55-84 mm Hg] 141/ 69mm Hg *H* (03/03/23 2:33 PM) Respiratory Rate [16-30 br/min] 18 br/mi n (03/03/23 2:33 PM) Mode of Delivery (Oxygen) Room air (03/03/23 2:33 PM) Blood pressure sites Arm, left (03/03/23 2:33 PM) Weight Obtained Via Standing scale (03/03/23 2:33 PM) Social History Social History Type Response [...] Safety Implantable Status Assigning Authority Unknown Unknown [id number] Unknown 01/06/24 Unknown Unknown Active Unknown EKG study * Event Display: ECG 12-Lead Authored Date: Please click on pdf link to open report * Event Display: ECG 12-Lead Authored Date: Ventricular Rate: 78 BPM Atrial Rate: 78 BPM P-R Interval: 160 ms QRS Duration: 84 ms Q-T Interval: 398 ms QTC Calculation(Bazett): 453 ms P Lavelle: 18 degrees R Lavelle: -1 degrees T Lavelle: 46 degrees Normal sinus rhythm Low voltage QRS Cannot rule out Anterior infarct , age undetermined Abnormal ECG When compared with ECG of 06-MAY-2021 11:48, Nonspecific T wave abnormality, improved in Lateral leads Confirmed by QUEENIE VILLEGAS MD ([id number]) on 03/03/2023 8:06:41 PM [place]: QUEENIE VILLEGAS MD Patient Care team information Care Team Personnel Name: Blayne RANDALL, Ana Jameson Position: [facility] PCO Associate Professional Member Role: PCP Address: Address: [address] [place] [address] [place] [address]- Care Team Related Persons Name: NIA WHITE Address: [place] [address] Name: CALLY BERRY Address: home [address] [place] [address]
--- OUTSIDE RECORDS SUMMARY | 2024-03-24 12:22 | XMS_ITS | Continuity of Care Document ---
Author Organization [facility] Address [address] [place] [address]- Care Team Providers Care Marine Fuel Dock Attendant Name Role Phone Blayne RANDALL, Ana Jameson Primary Care Physician Encounter [facility] [place] Date(s): 04/03/21 - 05/03/21 [facility] [address] [place] [address]- Allergies, Adverse Reactions, Alerts Substance Reaction Severity Status sulfa drugs swelling itching Active Provera rash Active Latex rash Active Soy Products swelling, rash Active Immunizations Given and Recorded Vaccine Date Status Refusal Reason influenza virus vaccine, inactivated 1 02/25/21 Gi miguel influenza virus vaccine, inactivated 02/08/19 Give n Influenza Virus Vaccine (oldterm) 02/03/20 Recorde d 1Result Comment: [facility] [id number] Medications Advair Diskus 250 mcg-50 mcg inhalation powder 1 puffs, Inhalation, 2 times a day, 0 Refills, Maintenance Start Date: 08/10/12 Status: Ordered cetirizine 10 mg oral tablet 1 tablet, By Mouth, Daily, # 90 tablet, 1 Refills, [facility] 32182, 163.25, cm, 02/25/21 15:12:00 EDT, Height Start [...] Refills, Maintenance, 10/30/19 7:22:00 EDT, Chew Tablet, [facility]/pharmacy #0693, 163.25, cm, 10/18/19 11:00:00 EDT, [...] 1 Refills, Soft Stop, 05/21/20 2:30:00 EST, [facility]/pharmacy #0693, SPRAY 2 SPRAYS INTO EACH [...] tablet, 1 Refills, Maintenance, 03/06/21 9:29:00 EDT, [facility]/pharmacy #0693, 163.25, cm, 03/06/21 9:09:00 EDT, Height Start Date: 03/06/21 Status: Ordered Lantus Solostar Pen 100 units/mL subcutaneous solution See Instructions, INJECT 56 UNITS INTO THE SKIN ONCE A DAY AT BEDTIME, # 15 Unknown, 5 Refills, [facility], 163.25, cm, 01/23/21 8:57:00 EDT, Height Start Date: 01/31/21 Status: Ordered Lipitor 10 mg oral tablet 1 tablet = 10 mg, By Mouth, Daily at bedtime, # 30 tablet, 0 Refills, Maintenance Start Date: 03/09/18 Status: Ordered lisinopril 5 mg oral tablet 0.5, tablet, By Mouth, Daily, # 45 tablet, Refills 1, Route to Pharmacy Electronically, [facility], 163.25, cm, 01/23/21 8:57:00 EDT, Height Start Date: 02/11/21 Status: Ordered meclizine 12.5 mg oral tablet 1 tablet = 12.5 mg, By Mouth, 3 times a day, PRN for dizziness, # 30 tablet, 1 Refills, Maintenance, 05/29/19 11:21:00 EST, Tablet, [facility]/pharmacy #0693, 163.25, cm, 05/29/19 11:18:00 EST, Height Start Date: 05/29/19 Status: Ordered mesalamine 1000 mg rectal suppository See Instructions, 1 supp Rectally bid, 0 Refills, Maintenance, 02/08/19 10:23:07 EDT Start Date: 02/08/19 Status: Ordered MetFORMIN (Eqv-Glucophage XR) 500 mg oral tablet, extended release 2 tablet, By Mouth, 2 times a day, # 360 tablet, 1 Refills, 04/03/21 8:50:00 EST, [facility]/pharmacy #0693, 162.56, cm, 03/17/21 8:25:00 EST, Height Start Date: 04/03/21 Status: Ordered Metoprolol Tartrate 25 mg oral tablet 1 tablet, By Mouth, 2 times a day, # 180 tablet, 1 Refills, [facility], 162.56, cm, 03/17/21 8:25:00 EST, Height Start Date: 04/21/21 Status: Ordered montelukast 10 mg oral tablet 1, tablet, By Mouth, Daily, # 90 tablet, Refills 1, Route to Pharmacy Electronically, [facility] 9[facility]12, 162.56, cm, 03/17/21 8:25:00 EST, Height Start Date: 04/21/21 Status: Ordered multivitamin Therapeutic Multiple Vitamins oral tablet 1, tablet, By Mouth, Daily, 0, 0, 05/25/05 16:31:13, 1.74027u+006, Constant Indicator Start Date: 05/25/05 Status: Ordered nystatin topical 046831 u/gm powder See Instructions, APPLY TOPICALLY TO THE AFFECTED AREA 2 OR 3 TIMES A DAY., # 60 Gm, 1 Refills, [facility], 20, APPLY TOPICALLY TO THE AFFECTED AREA [...] 07/03/20 11:25:00 EST, Route to Pharmacy Electronically, [id number], [facility]/pharmacy #0693, 163.25, cm, 06/21/20 15:02:00 EST, [...] By Mouth, Daily, 0, 0, 05/22/05 18:31:07, 1.00778y+006, Constant Indicator Start Date: 05/22/05 Status: Ordered [...]
--- OUTSIDE RECORDS SUMMARY | 2024-03-24 12:22 | XMS_ITS | Continuity of Care Document ---
Author Organization [facility] Address [address] [place] [address]- Care Team Providers Care Supervisor Instant Potato Processing Name Role Phone Blayne RANDALL, Ana Jameson Primary Care Physician Encounter [facility] [place] Date(s): 03/31/22 - 04/30/22 [facility] [address] [place] [address]- Allergies, Adverse Reactions, Alerts Substance Reaction Severity [...] 02/04/22 Not Given Patient Refuses 1Result Comment: [facility] [id number] 2Result Comment: pt will do next time [...] Daily, # 90 tablet, 1 Refills, [facility] 64981, 163.25, cm, 02/25/21 15:12:00 EDT, Height Start [...] 10/30/19 7:22:00 EDT, Chew Tablet, [facility]/pharmacy #0693, 163.25, cm, 10/18/19 11:00:00 EDT, Height Start Date: 10/30/19 Status: Ordered fluconazole 150 mg oral tablet 1 tablet = 150 mg, By Mouth, Once, # 1 tablet, 0 Refills, Soft Stop, 12/24/21 14:01:00 EDT, Tablet,[facility]/pharm[facility] #0693, Partial fill upon patient [...] Soft Stop, 05/21/20 2:30:00 EST, [facility]/pharmacy #0693, SPRAY 2 SPRAYS [...] Refills, Maintenance, 03/31/22 12:48:00 EST, [facility]/pharmacy#0693, 163, cm, 03/25/22 16:47:00 EST, Height, 123.7, kg, 10/06/21 7:05:00 EDT, Dry Weight Start Date: 03/31/22 Stop Date: 03/26/23 Status: Ordered Lantus Solostar Pen 100 units/mL subcutaneous solution See Instructions, INJECT 47 UNITS INTO THE SKIN ONCE A DAY DX E11.9, # 30 mL, 5 Refills, 12/12/21 9:28:00 EDT, [facility]/pharmacy #0693, 163, cm, 12/02/21 9:43:00 EDT, [...] EST, Route to Pharmacy Electronically, [facility] 67761, 163, cm, 03/10/22 15:21:00 EST, Height, 123.7, kg, 10/06/21 7:05:00 EDT, Dry Weight Start Date: 03/24/22 Status: Ordered meclizine 12.5 mg oral tablet 1 tablet = 12.5 mg, By Mouth, 3 times a day, PRN for dizziness, # 30 tablet, 1 Refills, Maintenance, 05/29/19 11:21:00 EST, Tablet, [facility]/pharmacy #0693, 163.25, cm, 05/29/19 11:18:00 EST, Height Start Date: 05/29/19 Status: Ordered meclizine 12.5 mg oral tablet 1 tablet = 12.5 mg, By Mouth, 3 times a day, PRN for dizziness, # 30 tablet, 0 Refills, Maintenance, 11/19/21 11:34:00 EDT, Tablet, [facility]/pharmacy #0693, Partial fill upon patient [...] tablet, 2 Refills, Maintenance, 09/30/21 13:54:00 EDT, [facility]/pharmacy #0693, 163, cm, 09/26/21 7:21:00 [...] tablet, 1 Refills, Maintenance, 03/24/22 4:05:00 EST, [facility], 163, cm, 03/10/22 15:21:00 EST, Height, 123.7, kg, 10/06/21 7:05:00 EDT, Dry Weight Start Date: 03/24/22 Status: Ordered montelukast 10 mg oral tablet 1, tablet, By Mouth, Daily, # 90 tablet, Refills 1, Maintenance, 03/24/22 4:05:00 EST, Route to Pharmacy Electronically, [facility], 163, cm, 03/10/22 15:21:00 EST, Height, 123.7, kg, 10/06/21 7:05:00 EDT, Dry Weight Start Date: 03/24/22 Status: Ordered multivitamin Therapeutic Multiple Vitamins oral tablet 1, tablet, By Mouth, Daily, 0, 0, 05/25/05 16:31:13, 1.91313y+006, Constant Indicator Start Date: 05/25/05 Status: Ordered nystatin topical 838551 u/gm powder See Instructions, APPLY TOPICALLY TO THE AFFECTED AREA 2 OR 3 TIMES A DAY., # 60 Gm, 1 Refills, Maintenance, 04/06/22 8:27:00 EST, [facility], 20, APPLY TOPICALLY TO THE AFFECTED AREA [...] 3 Refills, Maintenance, 11/06/21 8:07:00 EDT, Aeros[facility], [facility], Partial fill upon patient request [...] Retrograde Ureteroscopy W Dayne Chisholm MD, Giovanny Porras/6/22 Unknown Ureter Device Identifier Serial Number Lot or Batch Number Manufacturing Date Expiration Date Distinct Identification Code MRI Safety Implantable Status Assigning Authority Unknown Unknown [id number] Unknown 01/06/24 Unknown Unknown Active Unknown Patient Care team information Care Team Personnel Name: Blayne RANDALL, Ana Jameson Position: [facility] PCO Associate Professional Member Role: PCP Address: Address: [address] [place] [address] [place] [address]- Care Team Related Persons Name: NIA WHITE Address: [place] [address] Name: CALLY BERRY Address: [place] [address]
--- OUTSIDE RECORDS SUMMARY | 2024-03-24 12:22 | XMS_ITS | Continuity of Care Document ---
Author Organization [facility] Address [address] [place] [address]- Care Team Providers Care Plasterer Stucco Name Role Phone Blayne RANDALL, Ana Jameson Primary Care Physician ( [phone] Encounter 02/11/24 - 02/12/[address] [address] Attending Physician: Not on Staff, Attending MD Referring Physician: Not on Staff, Referring MD Allergies, Adverse Reactions, Alerts Substance Reaction Severity Status Soy Products swelling, rash Active sulfa drugs swelling itching Active Provera rash Active Latex rash Active Immunizations Given and Recorded Vaccine Date Status Refusal Reason influenza virus vaccine, inactivated 1 02/08/24 Gi miguel influenza virus vaccine, inactivated 02/01/23 Give n influenza virus vaccine, inactivated 2 02/25/21 Gi miguel influenza virus vaccine, inactivated 02/08/19 Give n RSV vaccine, preF A-preF B, recombinant 04/19/23 R ecorded [id number] 12y+ bivalent booster vax 06/12/22 Recorded tetanus/diphtheria/pertussis, acel(Tdap) 3 06/01/22 Given SARS-CoV-2 (COVID-19) mRNA BNT-162b2 vac 02/26/21 Recorded SARS-CoV-2 (COVID-19) mRNA BNT-162b2 vac 08/01/20 Recorded SARS-CoV-2 (COVID-19) mRNA BNT-162b2 vac 07/11/20 Recorded Influenza Virus Vaccine (oldterm) 02/03/20 Recorde d 1Result Comment: [facility] [id number] 2Result Comment: [facility] [id number] 3Result Comment: [facility] [id number] Medications Albuterol (Eqv-ProAir HFA) 90 mcg/inh inhalation aerosol 2 puffs, Inhalation, Every 6 hours, PRN NEEDED FOR WHEEZING, # 8.5 each, 11 Refills, Maintenance, 09/09/22 9:05:00 EDT, [facility], 17, TAKE 2 PUFFS BY MOUTH EVERY [...] Mouth, Daily, # 90 tablet, 1 Refills, [facility] 66795, 163.25, cm, 02/25/21 15:12:00 EDT, Height Start [...] 1.5 Gm, Chew, Daily, # 90 tablet, 3 Refills, Maintenance, 12/21/23 11:20:00 EDT, Chew Tablet, [facility]/pharmacy #0693, 163, cm, 12/16/23 11:34:00 EDT, Height, 125.8, kg, 03/18/23 7:42:00 EST, Dry Weight Start Date: 12/21/23 Status: Ordered FLUoxetine 20 mg oral capsule 80 mg, 4, capsule, By Mouth, Daily, ORAL, CAPSULE, 0 Refill(s),, Refills 0, 08/29/18 12:05:00 EDT Start Date: 08/29/18 Status: Ordered fluticasone 50 mcg/inh nasal spray 2 sprays = 100 mcg, Nares, Both, Daily in AM, # 16 Gm, 3 Refills, Maintenance, 11/25/23 15:50:00 EDT, [place], [facility]/pharmacy #0693, Partial fill upon patient request if the prescription is for a schedule II opioid drug., 2 sprays Nares, Both Daily in AM,... Start Date: 11/25/23 Status: Ordered fluticasone 50 mcg/inh nasal spray [...] Weight Start Date: 09/28/23 Status: Ordered Lantus Solostar Pen 100 units/mL subcutaneous solution See Instructions, INJECT 47 UNITS INTO THE SKIN ONCE A DAY DX E11.9, # 30 Unknown, 5 Refills, Maintenance, 12/20/23 10:37:00 EDT, [facility], 163, cm, 12/16/23 11:34:00 EDT, Height, 125.8, kg, 03/18/23 7:42:00 EST, Dry Weight Start Date: 12/20/23 Status: Ordered Lipitor 10 mg oral tablet 1 tablet = 10 mg, By Mouth, Daily at bedtime, # 30 tablet, 0 Refills, Maintenance Start Date: 03/09/18 Status: Ordered lisinopril 2.5 mg oral tablet 1, tablet, By Mouth, Daily, # 90 tablet, Refills 1, Maintenance, 03/24/22 4:05:00 EST, Route to Pharmacy Electronically, [facility], 163, cm, 03/10/22 15:21:00 EST, Height, 123.7, kg, 10/06/21 7:05:00 EDT, Dry Weight Start Date: 03/24/22 Status: Ordered meclizine 12.5 mg oral tablet 1 tablet = 12.5 mg, By Mouth, 3 times a day, PRN for motion sickness, # 60 tablet, 0 Refills, Maintenance, 12/16/23 11:49:00 EDT, Tablet, [facility]/pharmacy #0693, Partial fill upon patient request if the prescription is for a schedule II opioid drug., 163,... Start Date: 12/16/23 Status: Ordered meclizine 12.5 mg oral tablet 1 tablet = 12.5 mg, By Mouth, 3 times a day, PRN for dizziness, # 30 tablet, 0 Refills, Maintenance, 11/19/21 11:34:00 EDT, Tablet, [facility]/pharmacy #0693, Partial fill upon patient request if [...] tablet, 1 Refills, Maintenance, 08/25/23 11:22:00 EDT, [facility], 163, cm, 07/26/23 11:18:00 EDT, Height, 125.8, [...] day, # 180 tablet, 0 Refills, Maintenance, 11/29/23 21:31:00 EDT, [facility], 163, cm, 11/01/23 11:35:00 EDT, Height, 125.8, kg, 03/18/23 7:42:00 EST, Dry Weight Start Date: 11/29/23 Status: Ordered montelukast 10 mg oral tablet 1, tablet, By Mouth, Daily, # 90 tablet, Refills 1, Maintenance, 12/05/23 18:35:00 EDT, Route to [facility] Electronically, [facility], 163, cm, 11/01/23 11:35:00 EDT, Height, 125.8, kg, 03/18/23 7:42:00 EST, Dry Weight Start Date: 12/05/23 Status: Ordered multivitamin Therapeutic Multiple Vitamins oral tablet 1, tablet, By Mouth, Daily, 0, 0, 05/25/05 16:31:13, 1.82682p+006, Constant Indicator Start Date: 05/25/05 Status: Ordered nystatin topical 113195 u/gm powder See Instructions, APPLY TOPICALLY TO THE AFFECTED AREA 2 OR 3 TIMES A DAY., # 60 Gm, 1 Refills, Maintenance, 09/09/22 9:05:00 EDT, [facility] 21567, 20, APPLY TOPICALLY TO THE AFFECTED AREA [...] Pulmonary nodules Confirmed Active Nephrolithiasis Confirmed Active Degenerative joint disease of right knee Confirmed Active Posttraumatic stress disorder Confirmed Active Recurrent major depression in partial remission Confirmed Active Recurrent UTI Confirmed Active Severe obesity Confirmed Active Sleep apnea Confirmed Active Steatosis of liver Confirmed Active Tobacco abuse Confirmed Active Type 2 diabetes mellitus Confirmed Active Vitamin D deficiency Confirmed Active Vitiligo Confirmed Active Results Radiology Reports * Exam Date Time Procedure Performing Provider Status 02/11/24 7:52 AM MRI Ext Lower W/O Contrast Right Auth (Verified) Notes: (MRI Ext Lower W/O Contrast Right) Reason For Exam: Bilateral primary osteoarthritis of knee;Bilateral primary osteoarthritis of knee RESULT: MRI Ext Lower W/O Contrast Right [facility] VISIT NUMBER :[id number] Patient Name: Alexia Junior Date of : 1960 Date of Exam: 02-11-2024 Referring Physician: [facility] [address] [place] [id number] Exam: MR Knee (C-) CPT 09564 - Right [facility] C[facility] 77276 CLINICAL INDICATION: Severe lateral pain. No injury. TECHNIQUE: MRI of the right knee was performed without intravenous contrast. COMPARISON: 08/18/2012 FINDINGS: Joint effusion: Small joint effusion with evidence of synovitis. Hoffa's fat pad is unremarkable. Menisci: Mucoid degeneration throughout the medial meniscus. Complex degenerative tearing posterior two thirds of the medial meniscus with diminutive anterior horn body junction. Discoid lateral meniscus. Mucoid degeneration body of the lateral meniscus. Tendons and ligaments: Diminutive ACL likely reflect chronic partial thickness tear. The PCL appears intact. MCL and lateral collateral ligament complex appear intact. Extensor mechanism demonstrates enthesopathy without tear. Articular cartilage and bone: Full-thickness chondral loss involving the majority of the weightbearing medial tibiofemoral compartment with associated subchondral bony edema. Moderate chondral thinning posterior weightbearing lateral tibiofemoral compartment. Near full-thickness chondral loss involving the lateral patellar facet and opposing lateral trochlear cartilage. Full-thickness fissuring of the trochlear groove. IMPRESSION: Advanced tricompartmental osteoarthritis as described above. Associated subchondral bony edema in the medial tibiofemoral compartment and small joint effusion with synovitis. Complex degenerative tearing posterior two thirds of the medial meniscus. Discoid lateral meniscus. I, Leoncio Romero, have reviewed the images and report and concur with the resident, Dayne Mark's, findings. Electronically Signed By: Leoncio Romero MD Dictated By: Not on Staff ASHLIE MD Dictated Date/Time: 02/11/24 11:32 a Reviewed By: Not on Staff ASHLIE MD Signed By: Not on Staff ASHLIE MD Signed Date/Time: 02/11/24 11:32 am Transcribed By: LILIANA Transcribed Date/Time: 02/11/24 11:32 am Social History Social History Type Response Smoking [...] Safety Implantable Status Assigning Authority Unknown Unknown [id number] Unknown 01/06/24 Unknown Unknown Active Unknown Patient Care team information Care Team Personnel Name: Blayne RANDALL, Ana Jameson Position: [facility] PCO Associate Professional Member Role: PCP Address: Address: [address] [place] [address] [place] [address]- Care Team Related Persons Name: NIA WHITE Address: [place] [address] Name: CALLY BERRY Address: [address] [address]
--- OUTSIDE RECORDS SUMMARY | 2024-03-24 12:22 | XMS_ITS | Continuity of Care Document ---
Author Organization [facility] Address [address] [place] [id number]- Care Team Providers Care Safety Admin Assistant Name Role Phone Blayne BASS FISHER, Ana Jameson Primary Care Physician ( [phone] [facility] [place] Date(s): 12/25/21 - 01/24/22 [facility] [address] [place] [id number] Allergies, Adverse Reactions, Alerts Substance Reaction [...] Vaccine (oldterm) 02/03/20 Recorde d 1Result Comment: [facility] [id number] Medications Advair Diskus 250 mcg-50 mcg inhalation [...] Mouth, Daily, # 90 tablet, 1 Refills, [facility]45, 163.25, cm, 02/25/21 15:12:00 EDT, Height Start [...] Refills, Maintenance, 10/30/19 7:22:00 EDT, Chew Tablet, [facility]/pharmacy #[id number], 163.25, cm, 10/18/19 11:00:00 EDT, Height Start Date: 10/30/19 Status: Ordered fluconazole 150 mg oral tablet 1 tablet = 150 mg, By Mouth, Once, # 1 tablet, 0 Refills, Soft Stop, 12/24/21 14:01:00 EDT, Tablet,[facility]/pharmacy #[id number], Partial fill upon patient request [...] 1 Refills, Soft Stop, 05/21/20 2:30:00 EST, [facility]/pharmacy #[id number], SPRAY 2 SPRAYS INTO EACH [...] tablet, 3 Refills, Maintenance, 07/02/21 11:04:00 EST, [facility]/pharmacy#0693, 162.56, cm, 06/16/21 11:08:00 EST, Height, 125.8, kg, 06/16/21 11:08:00 EST, Dry Weight Start Date: 07/02/21 Status: Ordered Lantus Solostar Pen 100 units/mL subcutaneous solution See Instructions, INJECT 47 UNITS INTO THE SKIN ONCE A DAY DX E11.9, # 30 mL, 5 Refills, 12/12/21 9:28:00 EDT, [facility]/pharmacy #[id number], 163, cm, 12/02/21 9:43:00 EDT, [...] tablet, Refills 1, Route to Pharmacy Electronically, [facility]999, 163, cm, 12/02/21 9:43:00 EDT, Height, 123.7, kg, 10/06/21 7:05:00 EDT, Dry Weight Start Date: 12/04/21 Status: Ordered meclizine 12.5 mg oral tablet 1 tablet = 12.5 mg, By Mouth, 3 times a day, PRN for dizziness, # 30 tablet, 1 Refills, Maintenance, 05/29/19 11:21:00 EST, Tablet, [facility]/pharmacy #[id number], 163.25, cm, 05/29/19 11:18:00 EST, Height Start Date: 05/29/19 Status: Ordered meclizine 12.5 mg oral tablet 1 tablet = 12.5 mg, By Mouth, 3 times a day, PRN for dizziness, # 30 tablet, 0 Refills, Maintenance, 11/19/21 11:34:00 EDT, Tablet, [facility]/pharmacy #[id number], Partial fill upon patient request [...] tablet, 2 Refills, Maintenance, 09/30/21 13:54:00 EDT, [facility]/pharmacy #[id number], 163, cm, 09/26/21 7:21:00 EDT, Height, 125.2, kg, 09/24/21 17:31:00 EDT, Dry Weight Start Date: 09/30/21 Status: Ordered Metoprolol Tartrate 25 mg oral tablet 1 tablet, By Mouth, 2 times a day, # 180 tablet, 1 Refills, [facility], 162.56, cm, 08/20/21 11:09:00 EDT, Height, 125.8, kg, 06/16/21 11:08:00 EST, Dry Weight Start Date: 09/09/21 Status: Ordered montelukast 10 mg oral tablet 1, tablet, By Mouth, Daily, # 90 tablet, Refills 1, Route to Pharmacy Electronically, [facility] 73475, 162.56, cm, 08/20/21 11:09:00 EDT, Height, 125.8, kg, 06/16/21 11:08:00 EST, Dry Weight Start Date: 09/09/21 Status: Ordered multivitamin Therapeutic Multiple Vitamins oral tablet 1, tablet, By Mouth, Daily, 0, 0, 05/25/05 16:31:13, 1.65323h+[id number], Constant Indicator Start Date: 05/25/05 Status: Ordered nystatin topical 356063 u/gm powder See Instructions, APPLY TOPICALLY TO THE AFFECTED AREA 2 OR 3 TIMES A DAY., # 60 Gm, 1 Refills, Maintenance, 12/27/21 11:39:00 EDT, [facility]/pharmacy #[id number], APPLY TOPICALLY TO THE AFFECTED AREA [...] 3 Refills, Maintenance, 11/06/21 8:07:00 EDT, Aerosol, [facility]/pharmacy #[id number], Partial fill upon patient request [...] Safety Implantable Status Assigning Authority Unknown Unknown [id number] Unknown 01/06/24 Unknown Unknown Active Unknown Care Team Personnel Name: Blayne RANDALL, Ana Jameson Address: [address] [place] [address] Primary [place], [place] [address]
--- OUTSIDE RECORDS SUMMARY | 2024-03-24 12:22 | XMS_ITS | Continuity of Care Document ---
Author Organization [facility] Address [address] [place] [address]- Care Team Providers Care Racking Machine Operator Name Role Phone Blayne RANDALL, Ana Jameson Primary Care Physician Encounter 11/18/20 - 01/09/21 [facility] [address], [address] [place] [address]- Attending Physician: Kerrie Dumont MD Admitting Physician: [...] Status: Ordered BD UF MINI PEN NEEDLE [id number] See Instructions, # 100 Unknown, Refills 2 [...] EDT, Height Start Date: 09/07/20 Status: Ordered Cipro 250 mg oral tablet 1 tablet = 250 mg, By Mouth, Every 12 hours, for 7 days, # 14 tablet, 0 Refills, Acute 01/12/21 9:05:00 EDT, 01/05/21 9:05:00 EDT, Tablet, [facility]/pharmacy #[id number], Partial fill upon patient request if theprescription is for a schedule II opioid drug., 163... Start Date: 01/05/21 Stop Date: 01/12/21 Status: Ordered clotrimazole 1% topical cream CREAM, 2 Refill(s),, 0 Refills, 08/29/18 12:04:00 EDT Start Date: 08/29/18 Status: Ordered [facility] FIBER 0.52 G CAPSULE See Instructions, # 30 capsule, Refills 6 Tot. Refills 6, TAKE ONE CAPSULE BY MOUTH EVERY DAY, [facility]/pharmacy #[id number] Start Date: 08/26/18 Status: Ordered [facility] FIBER 0.52 G CAPSULE See Instructions, # 30 capsule, Refills 6 Tot. Refills 6, TAKE ONE CAPSULE BY MOUTH EVERY DAY, [facility]/pharmacy #[id number] Start Date: 03/16/19 Status: Ordered Dexilant 60 mg oral delayed release capsule ORAL, CAPSULE, DELAYED RELEASE, 4 Refill(s),, 0 Refills, 08/29/18 12:04:00 EDT Start Date: 08/29/18 Status: Ordered Fiber Choice 1.5 g oral tablet, chewable 1 tablet = 1.5 Gm, Chew, Daily, # 90 tablet, 0 Refills, Maintenance, 10/30/19 7:22:00 EDT, Chew Tablet, [facility]/pharmacy #[id number], 163.25, cm, 10/18/19 11:00:00 EDT, [...] Refills, Soft Stop, 05/21/20 2:30:00 EST, [facility]/pharmacy #[id number], SPRAY 2 SPRAYS INTO EACH [...] tablet, 1 Refills, Maintenance, 11/15/20 13:38:00 EDT, [facility] ST[facility] 08008, 163.25, cm, 09/19/20 15:40:00 EDT, Height Start Date: 11/15/20 Status: Ordered Lantus Solostar Pen 100 units/mL subcutaneous solution See Instructions, INJECT 56 UNITS INTO THE SKIN ONCE A DAY AT BEDTIME, # 15 Unknown, 2 Refills, Maintenance, 11/04/20 10:21:00 EDT, [facility]/pharmacy #[id number], 163.25, cm, 09/19/20 15:40:00 EDT, Height Start Date: 11/04/20 Status: Ordered Lipitor 10 mg oral tablet 1 tablet = 10 mg, By Mouth, Daily, # 30 tablet, 0 Refills, Maintenance Start Date: 03/09/18 Status: Ordered lisinopril 5 mg oral tablet 0.5, tablet, By Mouth, Daily, # 45 tablet, Refills 1, Tot. Refills 1, Maintenance, 03/01/20 15:23:00 EDT, Route to Pharmacy Electronically, [facility]/pharmacy #[id number], 163.25, cm, 02/01/20 14:23:00 EDT, Height Start Date: 03/01/20 Status: Ordered meclizine 12.5 mg oral tablet 1 tablet = 12.5 mg, By Mouth, 3 times a day, PRN for dizziness, # 30 tablet, 1 Refills, Maintenance, 05/29/19 11:21:00 EST, Tablet, [facility]/pharmacy #[id number], 163.25, cm, 05/29/19 11:18:00 EST, [...] tablet, 2 Refills, Maintenance, 11/07/20 13:34:00 EDT, [facility]/pharmacy #[id number], 163.25, cm, 09/19/20 15:40:00 EDT, Height Start Date: 11/07/20 Status: Ordered Metoprolol Tartrate 25 mg oral tablet 1 tablet, By Mouth, 2 times a day, # 180 tablet, 1 Refills, Maintenance, 11/08/20 13:04:00 EDT, [facility], 163.25, cm, 09/19/20 15:40:00 EDT, Height Start [...] EDT, Route to Pharmacy Electronically, [facility], 163.25, cm, 09/19/20 15:40:00 EDT, Height Start Date: 11/26/20 Status: Ordered multivitamin Therapeutic Multiple Vitamins oral tablet 1, tablet, By Mouth, Daily, 0, 0, 05/25/05 16:31:13, 1.69699k+006, Constant Indicator Start Date: 05/25/05 Status: Ordered mupirocin 2% topical ointment See Instructions, APPLY 1 APPLICATION TOPICALLY 3 TIMES A DAY FOR 1 WEEK AND THEN NEEDED, # 15 Gm, 1 Refills, Acute, [facility]147, 7, APPLY 1 APPLICATION TOPICALLY 3 TIMES A DAY FOR 1 WEEK AND THEN NEEDED, 163.25, cm, 07/13/19 14:03:00 EDT, H... Start Date: 09/21/19 Status: Ordered nystatin topical 770788 u/gm powder See Instructions, APPLY 2 OR 3 TIMES A DAY TO AFFECTED AREA, # 60 Gm, 1 Refills, [facility] [address]009, 30, APPLY 2 OR 3 TIMES A [...] 07/03/20 11:25:00 EST, Route to Pharmacy Electronically, [id number], [facility]/pharmacy #[id number], 163.25, cm, 06/21/20 15:02:00 EST, [...] By Mouth, Daily, 0, 0, 05/22/05 18:31:07, 1.02951c+006, Constant Indicator Start Date: 05/22/05 Status: Ordered [...]
--- OUTSIDE RECORDS SUMMARY | 2024-03-24 12:22 | XMS_ITS | Continuity of Care Document ---
Author Organization [facility] Address [address] [place] [address]- Care Team Providers Care Concreting Supervisor Name Role Phone Blayne RANDALL, Ana Jameson Primary Care Physician Encounter [facility] [place] Date(s): 03/19/21 - 04/18/21 [facility] [address] [place] [address]- Allergies, Adverse Reactions, Alerts Substance Reaction Severity Status sulfa drugs swelling itching Active Provera rash Active Latex rash Active Soy Products swelling, rash Active Immunizations Given and Recorded Vaccine Date Status Refusal Reason influenza virus vaccine, inactivated 1 02/25/21 Gi miguel influenza virus vaccine, inactivated 02/08/19 Give n Influenza Virus Vaccine (oldterm) 02/03/20 Recorde d 1Result Comment: [facility] [id number] Medications Advair Diskus 250 mcg-50 mcg inhalation powder 1 puffs, Inhalation, 2 times a day, 0 Refills, Maintenance Start Date: 08/10/12 Status: Ordered cetirizine 10 mg oral tablet 1 tablet, By Mouth, Daily, # 90 tablet, 1 Refills, [facility] 12687, 163.25, cm, 02/25/21 15:12:00 EDT, Height Start [...] tablet, 1 Refills, Maintenance, 03/06/21 9:29:00 EDT, [facility]/pharmacy #0693, 163.25, cm, 03/06/21 9:09:00 EDT, Height Start Date: 03/06/21 Status: Ordered Lantus Solostar Pen 100 units/mL subcutaneous solution See Instructions, INJECT 56 UNITS INTO THE SKIN ONCE A DAY AT BEDTIME, # 15 Unknown, 5 Refills, [facility], 163.25, cm, 01/23/21 8:57:00 EDT, Height Start Date: 01/31/21 Status: Ordered Lipitor 10 mg oral tablet 1 tablet = 10 mg, By Mouth, Daily at bedtime, # 30 tablet, 0 Refills, Maintenance Start Date: 03/09/18 Status: Ordered lisinopril 5 mg oral tablet 0.5, tablet, By Mouth, Daily, # 45 tablet, Refills 1, Route to Pharmacy Electronically, [facility], 163.25, cm, 01/23/21 8:57:00 EDT, Height Start Date: 02/11/21 Status: Ordered meclizine 12.5 mg oral tablet 1 tablet = 12.5 mg, By Mouth, 3 times a day, PRN for dizziness, # 30 tablet, 1 Refills, Maintenance, 05/29/19 11:21:00 EST, Tablet, [facility]/pharmacy #0693, 163.25, cm, 05/29/19 11:18:00 EST, Height Start Date: 05/29/19 Status: Ordered mesalamine 1000 mg rectal suppository See Instructions, 1 supp Rectally bid, 0 Refills, Maintenance, 02/08/19 10:23:07 EDT Start Date: 02/08/19 Status: Ordered MetFORMIN (Eqv-Glucophage XR) 500 mg oral tablet, extended release 2 tablet, By Mouth, 2 times a day, # 360 tablet, 1 Refills, 04/03/21 8:50:00 EST, [facility]/pharmacy #0693, 162.56, cm, 03/17/21 8:25:00 EST, Height Start Date: 04/03/21 Status: Ordered Metoprolol Tartrate 25 mg oral tablet 1 tablet, By Mouth, 2 times a day, # 180 tablet, 1 Refills, Maintenance, 11/08/20 13:04:00 EDT, [facility], 163.25, cm, 09/19/20 15:40:00 EDT, Height Start Date: 11/08/20 Status: Ordered montelukast 10 mg oral tablet 1, tablet, By Mouth, Daily, # 90 tablet, Refills 1, Tot. Refills 0, Maintenance, 11/26/20 6:49:00 EDT, Route to Pharmacy Electronically, [facility], 163.25, cm, 09/19/20 15:40:00 EDT, Height Start Date: 11/26/20 Status: Ordered multivitamin Therapeutic Multiple Vitamins oral tablet 1, tablet, By Mouth, Daily, 0, 0, 05/25/05 16:31:13, 1.34927o+006, Constant Indicator Start Date: 05/25/05 Status: Ordered nystatin topical 079906 u/gm powder See Instructions, APPLY 2 OR 3 TIMES A DAY TO AFFECTED AREA, # 60 Gm, 1 Refills, [facility], 30, APPLY 2 OR 3 TIMES A [...] 07/03/20 11:25:00 EST, Route to Pharmacy Electronically, [id number], [facility]/pharmacy #[id number], 163.25, cm, 06/21/20 15:02:00 EST, Height [...] By Mouth, Daily, 0, 0, 05/22/05 18:31:07, 1.92745l+006, Constant Indicator Start Date: 05/22/05 Status: Ordered [...]
--- OUTSIDE RECORDS SUMMARY | 2024-03-24 12:22 | XMS_ITS | Continuity of Care Document ---
Author Organization [facility] ter Address [address] [place] [address]- Care Team Providers Care Tailoring Teacher Name Role Phone Blayne RANDALL, Ana Jameson Primary Care Physician ( [phone] Encounter [facility] Date(s): 03/18/23 - 03/18/[address] [id number] Discharge Disposition: A-D/C Home Attending Physician: Kerrie [...] influenza virus vaccine, inactivated 02/08/19 Give n [id number] 12y+ bivalent booster vax 06/12/22 Recorded tetanus/diphtheria/pertussis, acel(Tdap) 2 06/01/22 Given SARS-CoV-2 (COVID-19) mRNA BNT-162b2 vac 02/26/21 Recorded SARS-CoV-2 (COVID-19) mRNA BNT-162b2 vac 08/01/20 Recorded SARS-CoV-2 (COVID-19) mRNA BNT-162b2 vac 07/11/20 Recorded Influenza Virus Vaccine (oldterm) 02/03/20 Recorde d 1Result Comment: [facility] 95306-762-26 2Result Comment: [facility] [id number] Medications Albuterol (Eqv-ProAir HFA) 90 mcg/inh inhalation aerosol 2 puffs, Inhalation, Every 6 hours, PRN NEEDED FOR WHEEZING, # 8.5 each, 11 Refills, Maintenance, 05/10/23 9:05:00 EDT, [facility], 17, TAKE 2 PUFFS BY MOUTH EVERY [...] Status: Ordered BD UF MINI PEN NEEDLE [id number] BD UF MINI PEN NEEDLE [id number], See Instructions, # 100 Unknown, 5 Refills, [...] # 90 tablet, 1 Refills, [facility], 163.25, cm, 02/25/21 15:12:00 EDT, Height Start [...] Maintenance, 10/30/19 7:22:00 EDT, Chew Tablet, [facility]/pharmacy #0693, 163.25, cm, 10/18/19 11:00:00 [...] mL, 5 Refills, 12/01/22 13:46:00 EDT, [facility]/pharmacy #0693, 163, cm, 12/01/22 13:22:00 EDT, [...] EST, Route to Pharmacy Electronically, [facility], 163, cm, 03/10/22 15:21:00 EST, Height, 123.7, [...] tablet, 2 Refills, Maintenance, 09/08/22 11:26:00 EDT, [facility], 163, cm, 09/07/22 11:03:00 EDT, Height, 123.7, [...] 03/15/23 11:12:00 EST, Route to Pharmacy Electronically, [facility]/pharmacy #0693, Partial fill upon patientrequest if the prescription is for a schedule II op... Start Date: 03/15/23 Status: Ordered montelukast 10 mg oral tablet 1, tablet, By Mouth, Daily, # 90 tablet, Refills 1, Maintenance, 11/09/22 18:24:00 EDT, Route to Pharmacy Electronically, [facility], 163, cm, 11/04/22 9:00:00 EDT, Height, 123.7, kg, 10/06/21 7:05:00 EDT, Dry Weight Start Date: 11/09/22 Status: Ordered multivitamin Therapeutic Multiple Vitamins oral tablet 1, tablet, By Mouth, Daily, 0, 0, 05/25/05 16:31:13, 1.73260b+006, Constant Indicator Start Date: 05/25/05 Status: Ordered nystatin topical 672500 u/gm powder See Instructions, APPLY TOPICALLY TO THE AFFECTED AREA 2 OR 3 TIMES A DAY., # 60 Gm, 1 Refills, Maintenance, 09/09/22 9:05:00 EDT, [facility], 20, APPLY TOPICALLY TO THE AFFECTED AREA [...] EST, Capsule Start Date: 05/16/18 Status: Ordered Oxycodone 5mg Oral Tablet (PACU ONLY) 5 mg, Tablet, By Mouth, Once, in PACU ONLY, PRN for Pain , Moderate, Routine, 03/18/23 10:50:00 EST Start Date: 03/18/23 Stop Date: 03/18/23 Status: Completed sucralfate 1 gm oral tablet TAKE 1 [...] to oldest [Reference Range]: 1 2 3 4 Height 163 cm (03/18/23 7:42 AM) 163 cm (03/16/23 12:43 PM) Weight 125.8 kg (03/18/23 7:42 AM) 126.8 kg (03/16/23 12:43 PM) Oxygen Saturation [94-100 %] 98 % (03/18/23 3:00 PM) 93 % *L* (03/18/23 1:30 PM) 94 % (03/18/23 1:15 PM) Pulse Rate [55-90 bpm] 72 bpm (03/18/23 7:42 AM) Body Mass Index [18.5-24.99 kg/m2] 47.35 kg/m2 *>HHI* (03/18/23 7:42 AM) 47.72 kg/m2 *>HHI* (03/16/23 12:43 PM) Blood Pressure [90-138/55-84 mm Hg] 118/71mm Hg (03/18/23 1:30 PM) 121/71mm Hg (03/18/23 1:15 PM) 110/72mm Hg (03/18/23 1:00 PM) Respiratory Rate [16-30 br/min] 16 br/min (03/18/23 3:00 PM) 20 br/min (03/18/23 1:30 PM) 20 br/min (03/18/23 1:29 PM) Temperature [96.8-100.4 DegF] 97.6 DegF (03/18/23 1:30 PM) 97.3 DegF (03/18/23 12:45 PM) 97.5 DegF (03/18/23 12:15 PM) Liters per Minute 2 L/min (03/18/23 1:30 PM) 2 L/min (03/18/23 1:15 PM) 5 L/min (03/18/23 12:45 PM) Mode of Delivery (Oxygen) Room air (03/18/23 3:00 PM) Nasal cannula (03/18/23 1:30 PM) Nasal cannula (03/18/23 1:15 PM) Nasal cannula (03/18/23 1:15 PM) Blood pressure sites Arm, right (03/18/23 7:42 AM) Temperature Route Temporal (03/18/23 1:30 PM) Temporal (03/18/23 12:45 PM) Temporal (03/18/23 12:15 PM) Dry Weight 125.8 kg (03/18/23 7:42 AM) 126.8 kg (03/16/23 12:43 PM) Weight Obtained Via Standing scale (03/18/23 7:42 AM) Patient/family stated (03/16/23 12:43 PM) Dry Weight Obtained Via Standing scale (03/18/23 7:42 AM) Patient/family stated (03/16/23 12:43 PM) Social History Social History Type Response [...] Safety Implantable Status Assigning Authority Unknown Unknown [id number] Unknown 01/06/24 Unknown Unknown Active Unknown Note * Freya Junior RN: PERFORM Event Display: Discharge/Transfer Note Hospital Authored Date: [id number] Nursing Discharge Note Entered On: 03/18/2023 15:32 EST Performed On: 03/18/2023 15:32 EST by Freya Junior RN Nursing Discharge Note 2 Discharge Time : 03/18/2023 15:00 EST Discharge Level of Care at Discharge : Home/Alf/Foster Care Patient Left Unit Via : Wheelchair Patient Accompanied Off Unit with : Responsible adult DC Instructions Provided & Signed by Pt : Yes Patient Understands D/C Instructions : Yes Patient Instructions Discharge Signed : Yes Did Pt have Specialty Bed or Wound Vac : No Freya Junior RN - 03/18/2023 15:32 EST * Freya Junior RN: PERFORM Event Display: Patient Education/Instruction Authored Date: [id number] Surgery Adult Discharge Instructions [address] [address] Name: ALEXIA RUBIO : 1960?? Visit: 03/18/2023 06:56?? Current Date: 03/18/2023 14:31 ?? Account: [id number]?? Surgery Discharge Instructions We would like to thank you for allowing us to assist you with your healthcare needs. The following includes patient education materials and information regarding your injury/illness. Our entire staffstrives to provide an excellent experience for our patients and their families. PLEASE ENSURE YOU FOLLOW-UP PER THE INSTRUCTIONS BELOW! ?? YOUR OPINION IS IMPORTANT TO US! Please complete the survey you may receive by mail or email. Your feedback will be used to make improvements to the healthcare experiences of our patients and their families. Surveys are administered by [employer]. ?? If further treatment with your primary care physician or another doctor is recommended, it is important for you to keep the appointment. Call your primary care physician or return to the Emergency Department immediately if your condition worsens, fails to improve, or new symptoms develop. If you need to find a doctor, you can call [facility] Link for a referral at [phone] or toll free at [phone] ([phone]) or log in to [email or web address].. ?? [facility], in keeping with [facility] guidance, no longer requires face masks for staff, patientsor visitors in most situations. Similiar to time spent indoors at other locations, there is the chance that you were exposed to repiratory viruses during your time with us (such as flu or COVID-19). If you develop symptoms concerning for a viral respiratory infection, please seek testing (and treatment if indicated) from your medical provider or home test kit. ?? You can view and manage your care through the patient portal or by using a health care dione of your choosing. [employer] is a website that allows you to securely view your medical information including your hospital discharge summary, office visit summaries, medications and follow-up visits. You can also request appointments, renew medications, and request access to your medical information using a health care dione of your choosing, or just ask a question. You are entitled to know the individuals who participated in your treatment. This information is available within your medical record and will be provided upon your request. You can enroll at [email or web address] or register d uring your next office visit. You have been discharged from [facility], Patient Care Unit: [facility]??. If you have any questions regarding these instructions after you leave, please call us and we will be happy to assist you. [facility] Your Care Team Attending Physician Tim MCCRACKEN, Kerrie Childers?? Consulting Providers Kerrie Dumont MD?? Discharging Providers Tigre MCCRACKEN, Yvette Palomino Reason for Admission PMN EIKATHARINE CARRERA CS Primary Care Provider Blayne RANDALL, Ana Jameson? Advance Directive Health Care Proxy on File No What to do next Instructions From Your Doctor ?? Orders? 03/18/23 12:11:00 EST?? Scheduled Follow-Up Appointments Wednesday 11:10 AM EST ?? With: Ana Cisneros NP Where: [address] [address]- Status: Pending You Need to Schedule the Following Appointments Follow Up with??Kerrie Dumont Where: [address] [place] [address] [employer], [place] [address]- [facility] (1) Follow Up with??nAa Cisneros When:??In 0 days Discharge Medications ALEXIA RUBIO :1960 Visit Date:03/18/2023 Medications: Please continue your medications until treatment is completed or stopped by your provider. You may resume your daily prescription medications. Discuss any questions related to medications with your provider. What How Much When Why Instructions Next Dose Unchanged Albuterol (Albuterol (Eqv-ProAir HFA) 90 mcg/ inh inhalation aerosol) 2 puff(s) Inhalation Every 6 hours as needed for NEEDED FOR WHEEZING Unchanged Aspirin (aspirin 81 mg oral delayed release tablet) 1 tab(s) Oral Daily Unchanged Atorvastatin (Lipitor 10 mg oral tablet) 1 tab(s) Oral Daily at Bedtime Unchanged BuPROpion (buPROPion 150 mg/ 24 hours (XL) oral tablet, extended release) 1 tab(s) Oral Every 24 hours taken with 300 mg ?? Unchanged BuPROpion (Wellbutrin XL 300 mg/ 24 hours oral tablet, extended release) ORAL, TABLET, EXTENDED RELEASE, 0 Refill(s), ?? Unchanged cariprazine (Vraylar 3 mg oral capsule) 1 capsule Oral Daily Unchanged Cetirizine (cetirizine 10 mg oral tablet) 1 tab(s) Oral Daily Unchanged Cholecalciferol (Vitamin D3 2000 intl units oral capsule) 1 capsule Oral Daily in AM ?? Unchanged Cranberry (Cranberry oral tablet) 2 tabs 500 mg Unchanged Diazepam (diazepam 2 mg oral tablet) TAKE 1 TABLET BY MOUTH EVERY DAY NEEDED FOR ANXIETY ?? Unchanged Durable Medical Equipment (incontinence pads) See instructions urinary incontinence use 1-2 times a day ?? Unchanged Fluoxetine (FLUoxetine 20 mg oral capsule) 4 capsule Oral Daily ORAL, CAPSULE, 0 Refill(s), ?? Unchanged Fluticasone Nasal (fluticasone 50 mcg/ inh nasal spray) See instructions SPRAY 2 SPRAYS INTO EACH NOSTRIL EVERY DAY ?? Unchanged Folic Acid (folic acid 1 mg oral tablet) 400 Microgram Oral Daily Unchanged Gabapentin (gabapentin 600 mg oral tablet) 900 Milligram Twice a day ORAL, TABLET, 0 Refill(s), ?? Unchanged HydrOXYzine (Vistaril pamoate 25 mg oral capsule) 1 capsule Oral Once as needed for for anxiety Unchanged Insulin Glargine (Lantus Solostar Pen 100 units/ mL subcutaneous solution) See instructions INJECT 47 UNITS INTO THE SKIN ONCE A DAY ?? DX E11.9 ?? Unchanged Inulin (Fiber Choice 1.5 g oral tablet, chewable) 1 tab(s) Chew Daily Unchanged Lisinopril (lisinopril 2.5 mg oral tablet) 1 tab(s) Oral Daily Unchanged Meclizine (meclizine 12.5 mg oral tablet) 1 tab(s) Oral 3 times a day as needed for for dizziness Dizziness Unchanged Mesalamine (mesalamine 1000 mg rectal suppository) See instructions 1 supp Rectally bid ?? 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 Unchanged Montelukast (montelukast 10 mg oral tablet) 1 tab(s) Oral Daily Unchanged Multivitamin (multivitamin Therapeutic Multiple Vitamins oral tablet) 1 tab(s) Oral Daily Unchanged Nystatin Topical (nystatin topical 770722 u/ gm powder) See instructions APPLY TOPICALLY TO THE AFFECTED AREA 2 OR 3 TIMES A DAY. ?? Unchanged Omeprazole (omeprazole 20 mg oral delayed release tablet) 1 tab(s) Oral Twice a day Unchanged Oxycodone (oxyCODONE 5 mg oral capsule) 2 capsule Oral Every 8 hours as needed for for pain Unchanged sitagliptin (Januvia 100 mg oral tablet) 1 tab(s) Oral Daily Duration: 90 Days Unchanged Sucralfate (sucralfate 1 gm oral tablet) TAKE 1 TABLET BY MOUTH TWICE A DAY BEFORE MEALS ?? Unchanged Trazodone (traZODone 50 mg oral tablet) 1 tab(s) TAKE 1 TAB AT BEDTIME FOR SLEEP NEEDED ?? Allergies (NKA means No Known Allergies) Latex??(rash) Provera??(rash) Soy Products??(swelling, rash) sulfa drugs??(swelling itching) Education Materials Below is the list of Educational Leaflet Providered with your Discharge Instructions. Surgery Medical Daystay Surgical Overnight Discharge Instructions?? Valuables and Belongings I fully understand and agree that [facility] accepts no responsibility for all my personal property including clothing, toilet articles, radios, jewelry, dentures, hearing aids, rings, money, or any other property that is in my possession or is brought to me after admission. I understand certain valuables may be placed in a hospital safe for a short period of time. I understand that the hospital is not liable for loss or damage due to accident, fire, or other natural occurrence while said property is in the safe. I accept full responsibility for any personal property that I keep with me, and will not hold the hospital responsible in case of loss or disappearance. I acknowledge that i have been encouraged to send valuables and belongings home. ?? Review of Valuable and Belonging List: With patient Disposition of Belongings: Other: under stretcher Date for Pt to Sign Valuables/Belongings: 03/18/23 07:42:00 ?? Valuables & Belongings ?? Clothes Electronic devices Jewelry Monetary Items Personal devices Miscellaneous Medications (Valuables) Valuables at Bedside Pants, Shirt, Shoes, Undergarments Cell phone, Other: call phone sewer line repairer Watch Other: chelsy Leroy took Dentures, full ? Valuables Sent Home ? Valuables Sent to Security ? Other Discharge Information ? Pulmonary Rehab Status?? Pulmonary Rehab Discharge Status?? Respiratory Rate: 20 br/min ? Common Emergency Awareness Tips IS IT A STROKE? Act FAST and Check for these signs: FACE Does the face look uneven? ARM Does one arm drift down? SPEECH Does their speech sound strange? TIME Call at any sign of stroke ?? Heart Attack Signs Chest discomfort: Most heart attacks involve discomfort in the center of the chest and lasts more than a few minutes, or goes away and comes back. It can feel like uncomfortable pressure, squeezing, fullness or pain. Discomfort in upper body: Symptoms can include pain or discomfort in one or both arms, back, neck, jaw or stomach. Shortness of breath: With or without discomfort. Other signs: Breaking out in a cold sweat, nausea, or lightheaded. Remember, MINUTES DO MATTER. If you experience any of these heart attack warning signs, call to get immediate medical attention! ?? Smoking can increase your chances of developing chronic health problems and can cause harmful effects to other family members in your house. If you smoke, you are strongly encouraged to quit. Please call [facility] Link at [phone] or [phone] (8941) or log in to [email or web address] for referrals to smoking cessation programs. ?? The National Suicide Prevention Hotline is available 23/11 if you or someone you know needs to find a reason to keep living. By calling 7-431-782-[employer] (4521) you'll be connected to a skilled, trained counselor at a crisis center in your area. SURGERY DISCHARGE INSTRUCTIONS SIGNATURE PAGE ALEXIA RUBIO Location:[facility] Registration Date and Time:03/18/2023 06:56 EST Primary Care Physician: Ana Cisneros NP, Attending Physician: Kerrie Dumont MD, I ALEXIA RUBIO, have received the above patient education materials/instructions and have verbalized understanding. If ambulance or transport services are being used I further acknowledge being given a choice of service. ?? If you need to contact me, please call me at this number: . Patient/Charging Car Operator Name: Patient/Charging Car Operator Signature: Relationship to Patient: Witness Name/Signature: Date: * Freya Junior RN: PERFORM, SIGN, VERIFY Event Display: Patient Education Handout Authored Date: [id number] * Freya Junior RN: PERFORM Event Display: Patient Education Leaflets Authored Date: [id number] Surgery Medical Daystay Surgical Overnight Discharge Instructions ?? 295 Medical Daystay/Surgical Overnight Discharge Instructions ? Since your coordination and judgment may be altered by medication and/or anesthesia, a responsible adult must drive you home from the hospital. ? If you have received medication for pain or sedation while under our care, you should not drive, operate machinery, drink alcohol, or sign any legal documents for 24 hours.?? You should have someone with you at home tonight. ? Remain at home the day of discharge.?? You may be up and about unless otherwise instructed by your physician. ? You may resume your daily prescription medication schedule.?? Any depressant medication should be avoided for 24 hours unless otherwise instructed by your surgeon or anesthesiologist. ? Call your physician for a follow-up appointment.? If you experience unusual or severe pain not relied by your pain medication, excessive bleedingor drainage, persistent nausea and vomiting, excessive swelling or redness, foul odor from incisionsite or fever over 100.6F, you need to call your physician. ? A follow-up phone call by a nurse will be made the day after your procedure.?? If you have stayed with us over night, you will not be receiving a follow-up phone call. ? Nausea and vomiting are a common side effect of prescription pain medication.?? We recommend that pills are not taken on an empty stomach.?? While taking any prescription pain medication you should not drive or drink alcohol. ? Patient Care team information Care Team Personnel Name: Blayne RANDALL, Ana Jameson Position: [facility] PCO Associate Professional Member Role: PCP Address: Address: [address] [place] [address] [place] [address]- Care Team Related Persons Name: NIA WHITE Address: [place] [address] Name: CALLY BERRY Address: [place] [address]
--- OUTSIDE RECORDS SUMMARY | 2024-03-24 12:22 | XMS_ITS | Continuity of Care Document ---
Author Organization [facility] Address [address] [place] [address]- Care Team Providers Care Hand Stone Polisher Name Role Phone Blayne RANDALL, Ana Jameson Primary Care Physician Encounter [facility] Date(s): 02/14/21 - 03/16/21 [facility] [address] [place] [address]- Allergies, Adverse Reactions, Alerts Substance Reaction Severity Status sulfa drugs swelling itching Active Provera rash Active Latex rash Active Soy Products swelling, rash Active Immunizations Given and Recorded Vaccine Date Status Refusal Reason influenza virus vaccine, inactivated 1 02/25/21 Gi miguel influenza virus vaccine, inactivated 02/08/19 Give n Influenza Virus Vaccine (oldterm) 02/03/20 Recorde d 1Result Comment: [facility] [id number] Medications Advair Diskus 250 mcg-50 mcg inhalation powder 1 puffs, Inhalation, 2 times a day, 0 Refills, Maintenance Start Date: 08/10/12 Status: Ordered cetirizine 10 mg oral tablet 1 tablet, By Mouth, Daily, # 90 tablet, 1 Refills, [facility] 94959, 163.25, cm, 02/25/21 15:12:00 EDT, Height Start [...] Refills, Maintenance, 10/30/19 7:22:00 EDT, Chew Tablet, [facility]/pharmacy #0693, 163.25, cm, 10/18/19 11:00:00 [...] 1 Refills, Soft Stop, 05/21/20 2:30:00 EST, [facility]/pharmacy #0693, SPRAY 2 SPRAYS INTO [...] tablet, 1 Refills, Maintenance, 03/06/21 9:29:00 EDT, [facility]/pharmacy #0693, 163.25, cm, 03/06/21 9:09:00 EDT, Height Start Date: 03/06/21 Status: Ordered Lantus Solostar Pen 100 units/mL subcutaneous solution See Instructions, INJECT 56 UNITS INTO THE SKIN ONCE A DAY AT BEDTIME, # 15 Unknown, 5 Refills, [facility], 163.25, cm, 01/23/21 8:57:00 EDT, Height Start Date: 01/31/21 Status: Ordered Lipitor 10 mg oral tablet 1 tablet = 10 mg, By Mouth, Daily at bedtime, # 30 tablet, 0 Refills, Maintenance Start Date: 03/09/18 Status: Ordered lisinopril 5 mg oral tablet 0.5, tablet, By Mouth, Daily, # 45 tablet, Refills 1, Route to Pharmacy Electronically, [facility], 163.25, cm, 01/23/21 8:57:00 EDT, Height Start Date: 02/11/21 Status: Ordered meclizine 12.5 mg oral tablet 1 tablet = 12.5 mg, By Mouth, 3 times a day, PRN for dizziness, # 30 tablet, 1 Refills, Maintenance, 05/29/19 11:21:00 EST, Tablet, [facility]/pharmacy #0693, 163.25, cm, 05/29/19 11:18:00 EST, Height Start Date: 05/29/19 Status: Ordered mesalamine 1000 mg rectal suppository See Instructions, 1 supp Rectally bid, 0 Refills, Maintenance, 02/08/19 10:23:07 EDT Start Date: 02/08/19 Status: Ordered MetFORMIN (Eqv-Glucophage XR) 500 mg oral tablet, extended release 2 tablet, By Mouth, Daily, # 180 tablet, 1 Refills, [facility], 163.25, cm, 01/23/21 8:57:00 EDT, Height Start Date: 02/11/21 Status: Ordered Metoprolol Tartrate 25 mg oral tablet 1 tablet, By Mouth, 2 times a day, # 180 tablet, 1 Refills, Maintenance, 11/08/20 13:04:00 EDT, [facility], 163.25, cm, 09/19/20 15:40:00 EDT, Height Start Date: 11/08/20 Status: Ordered montelukast 10 mg oral tablet 1, tablet, By Mouth, Daily, # 90 tablet, Refills 1, Tot. Refills 0, Maintenance, 11/26/20 6:49:00 EDT, Route to Pharmacy Electronically, [facility], 163.25, cm, 09/19/20 15:40:00 EDT, Height Start Date: 11/26/20 Status: Ordered multivitamin Therapeutic Multiple Vitamins oral tablet 1, tablet, By Mouth, Daily, 0, 0, 05/25/05 16:31:13, 1.33269i+006, Constant Indicator Start Date: 05/25/05 Status: Ordered nystatin topical 219190 u/gm powder See Instructions, APPLY 2 OR 3 TIMES A DAY TO AFFECTED AREA, # 60 Gm, 1 Refills, [facility], 30, APPLY 2 OR 3 TIMES A [...] 07/03/20 11:25:00 EST, Route to Pharmacy Electronically, [id number], [facility]/pharmacy #0693, 163.25, cm, 06/21/20 15:02:00 EST, [...] By Mouth, Daily, 0, 0, 05/22/05 18:31:07, 1.08271m+006, Constant Indicator Start Date: 05/22/05 Status: Ordered [...]
--- OUTSIDE RECORDS SUMMARY | 2024-03-24 12:22 | XMS_ITS | Continuity of Care Document ---
Author Organization [facility] Address [address] [place] [address]- Care Team Providers Care Pets And Pet Supplies Salesperson Name Role Phone Blayne RANDALL, Ana Jameson Primary Care Physician Encounter [facility] [place] Date(s): 02/14/21 - 03/16/21 [facility] [address] [place] [address]- Allergies, Adverse Reactions, Alerts Substance Reaction Severity Status sulfa drugs swelling itching Active Provera rash Active Latex rash Active Soy Products swelling, rash Active Immunizations Given and Recorded Vaccine Date Status Refusal Reason influenza virus vaccine, inactivated 1 02/25/21 Gi miguel influenza virus vaccine, inactivated 02/08/19 Give n Influenza Virus Vaccine (oldterm) 02/03/20 Recorde d 1Result Comment: [facility] 59645-545-81 Medications Advair Diskus 250 mcg-50 mcg inhalation powder 1 puffs, Inhalation, 2 times a day, 0 Refills, Maintenance Start Date: 08/10/12 Status: Ordered cetirizine 10 mg oral tablet 1 tablet, By Mouth, Daily, # 90 tablet, 1 Refills, [facility] 12839, 163.25, cm, 02/25/21 15:12:00 EDT, Height Start [...] Refills, Maintenance, 10/30/19 7:22:00 EDT, Chew Tablet, [facility]/pharmacy #0693, 163.25, cm, 10/18/19 11:00:00 [...] 1 Refills, Soft Stop, 05/21/20 2:30:00 EST, [facility]/pharmacy #0693, SPRAY 2 SPRAYS INTO [...] tablet, 1 Refills, Maintenance, 03/06/21 9:29:00 EDT, [facility]/pharmacy #0693, 163.25, cm, 03/06/21 9:09:00 EDT, Height Start Date: 03/06/21 Status: Ordered Lantus Solostar Pen 100 units/mL subcutaneous solution See Instructions, INJECT 56 UNITS INTO THE SKIN ONCE A DAY AT BEDTIME, # 15 Unknown, 5 Refills, [facility], 163.25, cm, 01/23/21 8:57:00 EDT, Height Start Date: 01/31/21 Status: Ordered Lipitor 10 mg oral tablet 1 tablet = 10 mg, By Mouth, Daily at bedtime, # 30 tablet, 0 Refills, Maintenance Start Date: 03/09/18 Status: Ordered lisinopril 5 mg oral tablet 0.5, tablet, By Mouth, Daily, # 45 tablet, Refills 1, Route to Pharmacy Electronically, [facility], 163.25, cm, 01/23/21 8:57:00 EDT, Height Start Date: 02/11/21 Status: Ordered meclizine 12.5 mg oral tablet 1 tablet = 12.5 mg, By Mouth, 3 times a day, PRN for dizziness, # 30 tablet, 1 Refills, Maintenance, 05/29/19 11:21:00 EST, Tablet, [facility]/pharmacy #0693, 163.25, cm, 05/29/19 11:18:00 EST, Height Start Date: 05/29/19 Status: Ordered mesalamine 1000 mg rectal suppository See Instructions, 1 supp Rectally bid, 0 Refills, Maintenance, 02/08/19 10:23:07 EDT Start Date: 02/08/19 Status: Ordered MetFORMIN (Eqv-Glucophage XR) 500 mg oral tablet, extended release 2 tablet, By Mouth, Daily, # 180 tablet, 1 Refills, [facility], 163.25, cm, 01/23/21 8:57:00 EDT, Height Start Date: 02/11/21 Status: Ordered Metoprolol Tartrate 25 mg oral tablet 1 tablet, By Mouth, 2 times a day, # 180 tablet, 1 Refills, Maintenance, 11/08/20 13:04:00 EDT, [facility], 163.25, cm, 09/19/20 15:40:00 EDT, Height Start Date: 11/08/20 Status: Ordered montelukast 10 mg oral tablet 1, tablet, By Mouth, Daily, # 90 tablet, Refills 1, Tot. Refills 0, Maintenance, 11/26/20 6:49:00 EDT, Route to Pharmacy Electronically, [facility], 163.25, cm, 09/19/20 15:40:00 EDT, Height Start Date: 11/26/20 Status: Ordered multivitamin Therapeutic Multiple Vitamins oral tablet 1, tablet, By Mouth, Daily, 0, 0, 05/25/05 16:31:13, 1.58186d+006, Constant Indicator Start Date: 05/25/05 Status: Ordered nystatin topical 212987 u/gm powder See Instructions, APPLY 2 OR 3 TIMES A DAY TO AFFECTED AREA, # 60 Gm, 1 Refills, [facility], 30, APPLY 2 OR 3 TIMES A [...] 07/03/20 11:25:00 EST, Route to Pharmacy Electronically, [id number], [facility]/pharmacy #[id number], 163.25, cm, 06/21/20 15:02:00 [...] By Mouth, Daily, 0, 0, 05/22/05 18:31:07, 1.07271e+006, Constant Indicator Start Date: 05/22/05 Status: Ordered [...]
--- OUTSIDE RECORDS SUMMARY | 2024-03-24 12:22 | XMS_ITS | Continuity of Care Document ---
Author Organization [facility] ter Address [address] [place] [address]- Care Team Providers Care Whipped Topping Supervisor Name Role Phone Blayne ENVIRONMENTAL SERVICES SPECIALIST, Ana Jameson Primary Care Physician Encounter 01/16/24 - 01/17/[address] [address] Attending Physician: Not on Staff, Attending MD [...] influenza virus vaccine, inactivated 02/08/19 Give n [id number] 12y+ bivalent booster vax 06/12/22 Recorded tetanus/diphtheria/pertussis, acel(Tdap) 2 06/01/22 Given SARS-CoV-2 (COVID-19) mRNA BNT-162b2 vac 02/26/21 Recorded SARS-CoV-2 (COVID-19) mRNA BNT-162b2 vac 08/01/20 Recorded SARS-CoV-2 (COVID-19) mRNA BNT-162b2 vac 07/11/20 Recorded Influenza Virus Vaccine (oldterm) 02/03/20 Recorde d 1Result Comment: [facility] 86259-263-43 2Result Comment: [facility] 21095-644-51 Medications Albuterol (Eqv-ProAir HFA) 90 mcg/inh inhalation aerosol 2 puffs, Inhalation, Every 6 hours, PRN NEEDED FOR WHEEZING, # 8.5 each, 11 Refills, Maintenance, 09/09/22 9:05:00 EDT, [facility] 02360, 17, TAKE 2 PUFFS BY MOUTH EVERY [...] Mouth, Daily, # 90 tablet, 1 Refills, [facility] 13631, 163.25, cm, 02/25/21 15:12:00 EDT, Height Start [...] Refills, Maintenance, 12/21/23 11:20:00 EDT, Chew Tablet, [facility]/pharmacy #0693, 163, cm, 12/16/23 11:34:00 EDT, Height, 125.8, kg, 03/18/23 7:42:00 EST, Dry Weight Start Date: 12/21/23 Status: Ordered FLUoxetine 20 mg oral capsule 80 mg, 4, capsule, By Mouth, Daily, ORAL, CAPSULE, 0 Refill(s),, Refills 0, 04/29/19 12:05:00 EDT Start Date: 08/29/18 Status: Ordered fluticasone 50 mcg/inh nasal spray 2 sprays = 100 mcg, Nares, Both, Daily in AM, # 16 Gm, 3 Refills, Maintenance, 11/25/23 15:50:00 EDT, [place], [facility]/pharmacy #0693, Partial fill upon patient request if the prescription is for a schedule II opioid drug., 2 sprays Nares, Both Daily in AM,... Start Date: 11/25/23 Status: Ordered fluticasone 50 mcg/inh nasal spray See Instructions, SPRAY 2 SPRAYS INTO EACH NOSTRIL EVERY DAY, # 48 mL, 1 Refills, Soft Stop, 05/21/20 2:30:00 EST, [facility]/pharmacy #0693, SPRAY 2 SPRAYS INTO EACH [...] tablet, 5 Refills, Maintenance, 09/28/23 14:44:00 EDT, [facility]/pharmacy#0693, 163, cm, 08/30/23 11:08:00 EDT, Height, 125.8, kg, 03/18/23 7:42:00 EST, Dry Weight Start Date: 09/28/23 Status: Ordered Lantus Solostar Pen 100 units/mL subcutaneous solution See Instructions, INJECT 47 UNITS INTO THE SKIN ONCE A DAY DX E11.9, # 30 Unknown, 5 Refills, Maintenance, 12/20/23 10:37:00 EDT, [facility], 163, cm, 12/16/23 11:34:00 EDT, Height, 125.8, [...] EST, Route to Pharmacy Electronically, [facility], 163, cm, 03/10/22 15:21:00 EST, Height, 123.7, kg, 10/06/21 7:05:00 EDT, Dry Weight Start Date: 03/24/22 Status: Ordered meclizine 12.5 mg oral tablet 1 tablet = 12.5 mg, By Mouth, 3 times a day, PRN for motion sickness, # 60 tablet, 0 Refills, Maintenance, 12/16/23 11:49:00 EDT, Tablet, [facility]/pharmacy #0693, Partial fill upon patient request if the prescription is for a schedule II opioid drug., 163,... Start Date: 12/16/23 Status: Ordered meclizine 12.5 mg oral tablet 1 tablet = 12.5 mg, By Mouth, 3 times a day, PRN for dizziness, # 30 tablet, 0 Refills, Maintenance, 11/19/21 11:34:00 EDT, Tablet, [facility]/pharmacy #0693, Partial fill upon patient request [...] 1 Refills, Maintenance, 08/25/23 11:22:00 EDT, [facility], 163, cm, 07/26/23 11:18:00 EDT, Height, 125.8, [...] 0 Refills, Maintenance, 11/29/23 21:31:00 EDT, [facility], 163, cm, 11/01/23 11:35:00 EDT, Height, 125.8, kg, 03/18/23 7:42:00 EST, Dry Weight Start Date: 11/29/23 Status: Ordered montelukast 10 mg oral tablet 1, tablet, By Mouth, Daily, # 90 tablet, Refills 1, Maintenance, 12/05/23 18:35:00 EDT, Route to Pharmacy Electronically, [facility], 163, cm, 11/01/23 11:35:00 EDT, Height, 125.8, kg, 03/18/23 7:42:00 EST, Dry Weight Start Date: 12/05/23 Status: Ordered multivitamin Therapeutic Multiple Vitamins oral tablet 1, tablet, By Mouth, Daily, 0, 0, 05/25/05 16:31:13, 1.51770g+006, Constant Indicator Start Date: 05/25/05 Status: Ordered nystatin topical 838107 u/gm powder See Instructions, APPLY TOPICALLY TO THE AFFECTED AREA 2 OR 3 TIMES A DAY., # 60 Gm, 1 Refills, Maintenance, 09/09/22 9:05:00 EDT, [facility], 20, APPLY TOPICALLY TO THE AFFECTED AREA [...] Exam Date Time Procedure Performing Provider Status 01/16/24 3:51 PM MRI Ext Lower W/O Contrast Left Auth (Verified) Notes: (MRI Ext Lower W/O Contrast Left) Reason For Exam: Bilateral primary osteoarthritis of knee;Bilateral primary osteoarthritis of knee RESULT: MRI Ext Lower W/O Contrast Left [facility] VISIT NUMBER :[id number] Patient Name: Alexia Junior Date of : 1960 Date of Exam: 01-16-2024 Referring Physician: [facility] [address] [place] [address] Exam: MR Knee (C-) CPT 10786 - Left Room Description: [facility] 3T MRI left knee History: Pain Findings: Complex tear involving the body, posterior horn and posterior root of the medial meniscus. The tear has horizontal and complete radial components. Body of the medial meniscus is subluxed into the medial gutter. Diffuse absence of weightbearing surface cartilage within the medial compartment. Patchy marrow edema in the medial femoral condyle and medial tibial plateau. Medial compartment osteophytosis. Myxoid degeneration in the lateral meniscus Approximately 0.7 cm focal chondral defects within the lateral femoral condyle and lateral tibial plateau near the intercondylar notch. Lateral compartment osteophytosis. The ACL and PCL are intact The MCL is intact The LCL complex including the biceps femoris, popliteus and fibular collateral ligaments are intact The medial and lateral patellar retinacula are intact. Diffuse thinning and irregularity within patellofemoral compartment cartilage. Patellofemoral compartment osteophytosis. The extensor mechanism is intact. Impression: Large complex tear involving the body, posterior horn and posterior root of the medial meniscus. Advanced medial compartment chondromalacia. Subchondral marrow edema in the medial femoral condyle and medial tibial plateau. Myxoid degeneration in the lateral meniscus. Additional lateral and patellofemoral compartment chondromalacia is outlined above. Tricompartmental osteophytosis. Electronically Signed By: Giovanny Mayer MD Dictated By: Not on Staff ASHLIE MD Dictated Date/Time: 01/17/24 5:02 pm Reviewed By: Not on Staff ASHLIE MD Signed By: Not on Staff , ASHLIE MCCRACKEN Signed Date/Time: 01/17/24 5:02 pm Transcribed By: LILIANA Transcribed Date/Time: 01/17/24 5:02 pm Social History Social History Type Response Smoking [...] Safety Implantable Status Assigning Authority Unknown Unknown [id number] Unknown 01/06/24 Unknown Unknown Active Unknown Patient Care team information Care Team Personnel Name: Ana Cisneros NP Position: S PCO Associate Professional Member Role: PCP Address: Address: [address] [place] [address] [place] [address]- Care Team Related Persons Name: NIA WHITE Address: [place] [address] Name: CALLY BERRY Address: home [address] [place] [address]
--- OUTSIDE RECORDS SUMMARY | 2024-03-24 12:22 | XMS_ITS | Continuity of Care Document ---
Author Organization [facility] Address [address] [place] [address]- Care Team Providers Care Fudge Candy Maker Name Role Phone Blayne RANDALL, Ana Jameson Primary Care Physician Encounter [facility] [place] [facility] Date(s): 01/13/22 - 02/12/22 [facility] [address] [place] [id number] Allergies, Adverse Reactions, Alerts Substance Reaction Severity [...] 02/04/22 Not Given Patient Refuses 1Result Comment: [facility] [id number] 2Result Comment: pt will do next time [...] Mouth, Daily, # 90 tablet, 1 Refills, [facility] 02943, 163.25, cm, 02/25/21 15:12:00 EDT, Height Start Date: 03/05/21 Status: Ordered Cipro 250 mg oral tablet 1 tablet = 250 mg, By Mouth, Every 12 hours, for 5 days, # 10 tablet, 0 Refills, Acute 02/13/22 23:40:00 EDT, 02/08/22 23:40:00 EDT, Tablet, [facility]/pharmacy #0693, Partial fill upon patient request if the prescription is for a schedule II opioid drug., 1... Start Date: 02/08/22 Stop Date: 02/13/22 Status: Ordered Cranberry oral tablet 2 tabs [...] Refills, Maintenance, 10/30/19 7:22:00 EDT, Chew Tablet, [facility]/pharmacy #0693, 163.25, cm, 10/18/19 11:00:00 EDT, Height Start Date: 10/30/19 Status: Ordered fluconazole 150 mg oral tablet 1 tablet = 150 mg, By Mouth, Once, # 1 tablet, 0 Refills, Soft Stop, 12/24/21 14:01:00 EDT, Tablet,[facility]/pharmacy #0693, Partial fill upon patient [...] 1 Refills, Soft Stop, 05/21/20 2:30:00 EST, [facility]/pharmacy #0693, SPRAY 2 SPRAYS INTO [...] tablet, 3 Refills, Maintenance, 07/02/21 11:04:00 EST, [facility]/pharmacy#0693, 162.56, cm, 06/16/21 11:08:00 EST, Height, 125.8, kg, 06/16/21 11:08:00 EST, Dry Weight Start Date: 07/02/21 Status: Ordered Lantus Solostar Pen 100 units/mL subcutaneous solution See Instructions, INJECT 47 UNITS INTO THE SKIN ONCE A DAY DX E11.9, # 30 mL, 5 Refills, 12/12/21 9:28:00 EDT, [facility], 163, cm, 12/02/21 9:43:00 EDT, Height, 123.7, kg, 10/06/21 7:05:00 EDT, Dry Weight Start Date: 12/12/21 Status: Ordered Lipitor 10 mg oral tablet 1 tablet = 10 mg, By Mouth, Daily at bedtime, # 30 tablet, 0 Refills, Maintenance Start Date: 03/09/18 Status: Ordered lisinopril 2.5 mg oral tablet 2.5 mg, 1, tablet, By Mouth, Daily, # 90 tablet, Refills 0, Tot. Refills 0, Maintenance, 02/02/22 13:47:00 EDT, Route to Pharmacy Electronically, [facility]/pharmacy #0693, Partial fill upon patient requestif the prescription is for a schedule II opioid garrison... Start Date: 02/02/22 Status: Ordered meclizine 12.5 mg oral tablet 1 tablet = 12.5 mg, By Mouth, 3 times a day, PRN for dizziness, # 30 tablet, 1 Refills, Maintenance, 05/29/19 11:21:00 EST, Tablet, [facility]/pharmacy #0693, 163.25, cm, 05/29/19 11:18:00 EST, Height Start Date: 05/29/19 Status: Ordered meclizine 12.5 mg oral tablet 1 tablet = 12.5 mg, By Mouth, 3 times a day, PRN for dizziness, # 30 tablet, 0 Refills, Maintenance, 11/19/21 11:34:00 EDT, Tablet, [facility]/pharmacy #0693, Partial fill upon patient [...] tablet, 2 Refills, Maintenance, 09/30/21 13:54:00 EDT, [facility]/pharmacy #0693, 163, cm, 09/26/21 7:21:00 EDT, Height, 125.2, kg, 09/24/21 17:31:00 EDT, Dry Weight Start Date: 09/30/21 Status: Ordered Metoprolol Tartrate 25 mg oral tablet 1 tablet, By Mouth, 2 times a day, # 180 tablet, 1 Refills, [facility] 90250, 162.56, cm, 08/20/21 11:09:00 EDT, Height, 125.8, kg, 06/16/21 11:08:00 EST, Dry Weight Start Date: 09/09/21 Status: Ordered montelukast 10 mg oral tablet 1, tablet, By Mouth, Daily, # 90 tablet, Refills 1, Route to Pharmacy Electronically, [facility] 79125, 162.56, cm, 08/20/21 11:09:00 EDT, Height, 125.8, kg, 06/16/21 11:08:00 EST, Dry Weight Start Date: 09/09/21 Status: Ordered multivitamin Therapeutic Multiple Vitamins oral tablet 1, tablet, By Mouth, Daily, 0, 0, 05/25/05 16:31:13, 1.40241c+006, Constant Indicator Start Date: 05/25/05 Status: Ordered nystatin topical 025142 u/gm powder See Instructions, APPLY TOPICALLY TO THE AFFECTED AREA 2 OR 3 TIMES A DAY., # 60 Gm, 1 Refills, Maintenance, 12/27/21 11:39:00 EDT, [facility]/pharmacy #0693, APPLY TOPICALLY TO THE [...] Safety Implantable Status Assigning Authority Unknown Unknown [id number] Unknown 01/06/24 Unknown Unknown Active Unknown Patient Care team information Personnel Name: Blayne RANDALL, Ana Jameson Address: Address: [address] [place] [address] Primary [place], [place] [address]
--- OUTSIDE RECORDS SUMMARY | 2024-03-24 12:22 | XMS_ITS | Continuity of Care Document ---
Author Organization [facility] ter Address [address] [place] [address]- Care Team Providers Care System Safety Engineer Name Role Phone Blayne RANDALL, Ana Jameson Primary Care Physician En[place] [facility] Date(s): 06/22/19 - 06/22/[address] [address]- [facility] Attending Physician: Roland Larry MD Allergies, Adverse Reactions, Alerts Substance Reaction [...] Status: Ordered BD UF MINI PEN NEEDLE [id number] See Instructions, # 100 Unknown, Refills 2 Tot. Refills 2, USE DIRECTED AT BEDTIME WITH SOLORSTAR PEN, [id number] Start Date: 02/13/19 Status: Ordered benzoyl peroxide-erythromycin 5%-3% topical gel See Instructions, APPLY TO AFFECTED AREA TWICE A DAY, # 23.3 Gm, 1 Refills, Acute, [facility] 564[facility],30, APPLY TO AFFECTED AREA TWICE A DAY, 163.25, cm, 05/29/19 11:18:00 EST, Height Start Date: 06/21/19 Status: Ordered cetirizine 10 mg oral tablet 1 tablet, By Mouth, Daily, # 30 tablet, 3 Refills, Maintenance, 05/15/19 11:02:00 EST, [facility] 08459, 163.25, cm, 04/24/19 11:37:00 EST, Height Start Date: 05/15/19 Status: Ordered clotrimazole 1% topical cream CREAM, 2 Refill(s),, 0 Refills, 08/29/18 12:04:00 EDT Start Date: 08/29/18 Status: Ordered [facility] FIBER 0.52 G CAPSULE See Instructions, # 30 capsule, Refills 6 Tot. Refills 6, TAKE ONE CAPSULE BY MOUTH EVERY DAY, [facility]/pharmacy #0693 Start Date: 08/26/18 Status: Ordered [facility] FIB[facility] 0.52 G CAPSULE See Instructions, # 30 capsule, Refills 6 Tot. Refills 6, TAKE ONE CAPSULE BY MOUTH EVERY DAY, [facility]/pharmacy #0693 Start Date: 03/16/19 Status: Ordered Dexilant [...] 2 SPRAYS INTO EACH NOSTRIL EVERY DAY, [facility]/pharmacy #0693 Start Date: 09/30/18 Status: Ordered gabapentin 600 mg oral tablet ORAL, TABLET, 0 Refill(s),, 0 Refills, 08/29/18 12:05:00 EDT Start Date: 08/29/18 Status: Ordered Januvia 100 mg oral tablet 1 tablet, By Mouth, Daily, # 30 tablet, 3 Refills, Maintenance, 05/15/19 11:03:00 EST, [facility] 31760, 163.25, cm, 04/24/19 11:37:00 EST, Height Start [...] 1, TAKE 1/2 TABLET BY MOUTH DAILY, [facility] Start Date: 03/07/19 Status: Ordered meclizine 12.5 mg oral tablet 1 tablet = 12.5 mg, By Mouth, 3 times a day, PRN for dizziness, # 30 tablet, 1 Refills, Maintenance, 05/29/19 11:21:00 EST, Tablet, [facility]/pharmacy #0693, 163.25, cm, 05/29/19 11:18:00 EST, Height Start Date: 05/29/19 Status: Ordered mesalamine 1000 mg rectal suppository See Instructions, 1 supp Rectally bid, 0 Refills, Maintenance, 02/08/19 10:23:07 EDT Start Date: 02/08/19 Status: Ordered metFORMIN 500 mg oral tablet, extended release 2 tablet, By Mouth, Daily, # 180 tablet, 1 Refills, Maintenance, 05/15/19 11:01:00 EST, [facility] 38594, 163.25, cm, 04/24/19 11:37:00 EST, Height Start Date: 05/15/19 Status: Ordered Metoprolol Tartrate 25 mg oral tablet See Instructions, # 180 tablet, Refills 1 Tot. Refills 1, TAKE 1 TABLET BY MOUTH TWICE A DAY, [facility]/pharmacy #0693 Start Date: 03/10/19 Status: Ordered montelukast 10 mg oral tablet 1, tablet, By Mouth, Daily, # 90 tablet, Refills 1, Tot. Refills 0, Maintenance, 06/19/19 10:09:00 EST, Route to Pharmacy Electronically, [facility] 63512, 163.25, cm, 05/29/19 11:18:00 EST, Height Start Date: 06/19/19 Status: Ordered multivitamin Therapeutic Multiple Vitamins oral tablet 1, tablet, By Mouth, Daily, 0, 0, 05/25/05 16:31:13, 1.92597n+006, Constant Indicator Start Date: 05/25/05 Status: Ordered mupirocin 2% topical ointment 1 application, Topically, 3 times a day, for 1 week and prn., # 15 Gm, 0 Refills, Maintenance, 11/09/18 17:17:23 EDT, Ointment, 1 application Topically 3 times a day,Instr:for 1 week and prn. Start Date: 11/09/18 Status: Ordered nystatin topical 313177 u/gm cream 1 application, Topically, 2 times [...] 2 Refills, Maintenance, 05/10/19 9:22:00 EST, Aerosol, [facility]/pharmacy #0693, 163.25, cm, 04/24/19 11:37:00 EST, Height [...] By Mouth, Daily, 0, 0, 05/22/05 18:31:07, 1.39187h+006, Constant Indicator Start Date: 05/22/05 Status: Ordered [...]
--- OUTSIDE RECORDS SUMMARY | 2024-03-24 12:22 | XMS_ITS | Continuity of Care Document ---
Author Organization [facility] Address [address], [address] [place] [address]- Care Team Providers Care Chief Of Production Name Role Phone Blayne RANDALL, Ana Jameson Primary Care Physician Encounter 07/17/22 - 07/24/22 [facility] [address], [address] [place] [address]- Attending Physician: Blayne RANDALL, Ana Jameson Admitting Physician: Blayne RANDALL, Ana Jameson Referring Physician: Blayne RANDALL, Ana Jameson Allergies, Adverse Reactions, Alerts Substance Reaction Severity Status sulfa drugs swelling itching Active Provera rash Active Latex rash Active Soy Products swelling, rash Active Immunizations Given and Recorded Vaccine Date Status Refusal Reason [id number] 12y+ bivalent booster vax 06/12/22 Recorded tetanus/diphtheria/pertussis, [...] 02/04/22 Not Given Patient Refuses 1Result Comment: [facility] 71948-342-54 2Result Comment: [facility] 28663-853-46 3Result Comment: pt will do next time [...] Status: Ordered BD UF MINI PEN NEEDLE [id number] BD UF MINI PEN NEEDLE [id number], See Instructions, # 100 Unknown, 5 Refills, Maintenance, USE DIRECTED 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 Start Date: 06/12/22 Status: Ordered cetirizine 10 mg oral tablet 1 tablet, By Mouth, Daily, # 90 tablet, 1 Refills, [facility], 163.25, cm, 02/25/21 15:12:00 EDT, Height Start [...] tablet, 3 Refills, Maintenance, 03/31/22 12:48:00 EST, [facility]/pharmacy#0693, 163, cm, 03/25/22 16:47:00 EST, Height, 123.7, kg, 10/06/21 7:05:00 EDT, Dry Weight Start Date: 03/31/22 Stop Date: 03/26/23 Status: Ordered Lantus Solostar Pen 100 units/mL subcutaneous solution See Instructions, INJECT 47 UNITS INTO THE SKIN ONCE A DAY DX E11.9, # 30 mL, 5 Refills, 12/12/21 9:28:00 EDT, [facility]/pharmacy #0693, 163, cm, 12/02/21 [...] 03/24/22 4:05:00 EST, Route to Pharmacy Electronically, [facility] STORE 49003, 163, cm, 03/10/22 15:21:00 EST, Height, 123.7, [...] 0 Refills, Maintenance, 11/19/21 11:34:00 EDT, Tablet, [facility]/pharmacy #[id number], Partial fill upon [...] tablet, 2 Refills, Maintenance, 09/30/21 13:54:00 EDT, [facility]/pharmacy #[id number], 163, cm, 09/26/21 [...] tablet, 1 Refills, Maintenance, 03/24/22 4:05:00 EST, [facility] STORE 39457, 163, cm, 03/10/22 15:21:00 EST, Height, 123.7, kg, 10/06/21 7:05:00 EDT, Dry Weight Start Date: 03/24/22 Status: Ordered montelukast 10 mg oral tablet 1, tablet, By Mouth, Daily, # 90 tablet, Refills 1, Maintenance, 03/24/22 4:05:00 EST, Route to Pharmacy Electronically, [facility] STORE 55478, 163, cm, 03/10/22 15:21:00 EST, Height, 123.7, kg, 10/06/21 7:05:00 EDT, Dry Weight Start Date: 03/24/22 Status: Ordered multivitamin Therapeutic Multiple Vitamins oral tablet 1, tablet, By Mouth, Daily, 0, 0, 05/25/05 16:31:13, 1.08281a+[id number], Constant Indicator Start Date: 05/25/05 Status: Ordered nystatin topical 763486 u/gm powder See Instructions, APPLY TOPICALLY TO THE AFFECTED AREA 2 OR 3 TIMES A DAY., # 60 Gm, 1 Refills, Maintenance, 04/06/22 8:27:00 EST, [facility], 20, APPLY TOPICALLY TO THE AFFECTED AREA [...] 3 Refills, Maintenance, 11/06/21 8:07:00 EDT, Aerosol, [facility]/pharmacy #0611, Partial fill upon patient request if the [...] Exam Date Time Procedure Performing Provider Status 07/17/22 10:52 AM MM Digital Mammo Screening Chelsey , Aug il; Auth (Verified) Notes: (MM Digital Mammo Screening) Reason For Exam: Screening;Screening RESULT: MM Digital Mammo Screening PROCEDURE: MM Digital Mammo Screening INDICATION: Screening for breast cancer. No known palpable abnormalities. COMPARISON: Multiple priors, the most recent 06/30/2021 TECHNIQUE: Full-field digital CC and MLO 3D tomosynthesis images of both breasts were acquired. Computer-aided detection (CAD) was utilized in the interpretation of this study. DENSITY: The breast tissue is almost entirely fatty. FINDINGS: No suspicious masses, suspicious microcalcifications, or areas of architectural distortion are seen in either breast to suggest malignancy. Numerous secretory calcifications again are notedbilaterally, again with a larger number on the right than the left. IMPRESSION: No mammographic evidence of malignancy. RECOMMENDATION: Routine mammographic screening BI-RADS: 2 (Benign) Lay letter mailed to patient WSN: [id number] Ordering Physician: Ana Cisneros Dictated By: Giovanny Morales MD Dictated Date/Time: 07/17/22 3:08 pm Reviewed By: Giovanny Morales MD Signed By: Giovanny Morales MD Signed Date/Time: 07/17/22 3:08 pm Transcribed By: CASEY Mortgage Protection Specialist Date/Time: 07/17/22 2:58 pm Birads: Social History Social History Type [...] Safety Implantable Status Assigning Authority Unknown Unknown [id number] Unknown 01/06/24 Unknown Unknown Active Unknown MG Breast Screening * [facility] , CIS S: TRANSCRIBE Giovanny Morales MD: VERIFY Event Display: Result: Authored Date: [id number] PROCEDURE: MM Digital Mammo Screening INDICATION: Screening for breast cancer. No known palpable abnormalities. COMPARISON: Multiple priors, the most recent 06/30/2021 TECHNIQUE: Full-field digital CC and MLO 3D tomosynthesis images of both breasts were acquired. Computer-aided detection (CAD) was utilized in the interpretation of this study. DENSITY: The breast tissue is almost entirely fatty. FINDINGS: No suspicious masses, suspicious microcalcifications, or areas of architectural distortion are seen in either breast to suggest malignancy. Numerous secretory calcifications again are notedbilaterally, again with a larger number on the right than the left. IMPRESSION: No mammographic evidence of malignancy. RECOMMENDATION: Routine mammographic screening BI-RADS: 2 (Benign) Lay letter mailed to patient WSN: [id number] Ordering Physician: Ana Cisneros Dictated By: Giovanny Morales MD Dictated Date/Time: 07/17/22 3:08 pm Reviewed By: Giovanny Morales MD Signed By: Giovanny Morales MD Signed Date/Time: 07/17/22 3:08 pm Transcribed By: CASEY Mortgage Protection Specialist Date/Time: 07/17/22 2:58 pm Birads: Patient Care team information Care Team Personnel Name: Ana Cisneros NP Position: [facility] Associate Professional Member Role: PCP Address: Address: [address] [place] [address] [place] [address]- Care Team Related Persons Name: NIA WHITE Address: [place] [address] Name: CALLY BERRY Address: home [address] [place] [address]
--- OUTSIDE RECORDS SUMMARY | 2024-03-24 12:22 | XMS_ITS | Continuity of Care Document ---
Author Organization [facility] Address [address], [address] [place] [address]- Care Team Providers Care Pump Operator Name Role Phone Blayne RANDALL, Ana Jameson Primary Care Physician ( [phone] Encounter 10/19/19 - 10/26/19 [facility] [address], [facility] [address] [place] [address]- [phone] Attending Physician: Kerrie Dumont MD Admitting Physician: [...] Status: Ordered BD UF MINI PEN NEEDLE [id number] See Instructions, # 100 Unknown, Refills 2 Tot. Refills 2, USE DIRECTED AT BEDTIME WITH SOLORSTAR PEN, [facility]/pharmacy #0693 Start Date: 02/13/19 Status: Ordered benzoyl peroxide-erythromycin 5%-3% topical gel See Instructions, APPLY TO AFFECTED AREA TWICE A DAY, # 23.3 Gm, 1 Refills, Acute, [facility],30, APPLY TO AFFECTED AREA TWICE A DAY, 163.25, cm, 05/29/19 11:18:00 EST, Height Start Date: 06/21/19 Status: Ordered cetirizine 10 mg oral tablet 1 tablet, By Mouth, Daily, # 90 tablet, 1 Refills, Maintenance, 08/31/19 8:07:00 EDT, [facility], 163.25, cm, 07/13/19 14:03:00 EDT, Height Start Date: 08/31/19 Status: Ordered clotrimazole 1% topical cream CREAM, 2 Refill(s),, 0 Refills, 08/29/18 12:04:00 EDT Start Date: 08/29/18 Status: Ordered [facility] F[facility] 0.52 G CAPSULE See Instructions, # 30 capsule, Refills 6 Tot. Refills 6, TAKE ONE CAPSULE BY MOUTH EVERY DAY, [facility]/pharmacy #0693 Start Date: 08/26/18 Status: Ordered [facility] F[facility] 0.52 G CAPSULE See Instructions, # 30 capsule, Refills 6 Tot. Refills 6, TAKE ONE CAPSULE BY MOUTH EVERY DAY, [facility]/pharmacy #0693 Start Date: 03/16/19 Status: Ordered Dexilant 60 mg oral delayed release capsule ORAL, CAPSULE, DELAYED RELEASE, 4 Refill(s),, 0 Refills, 08/29/18 12:04:00 EDT Start Date: 08/29/18 Status: Ordered doxycycline hyclate 100 mg oral capsule 1 capsule = 100 mg, By Mouth, Every 12 hours, # 8 capsule, 0 Refills, Maintenance, 08/24/19 13:53:00 EDT, Capsule, [facility]/pharmacy #0693, 163.25, cm, 07/13/19 14:03:00 EDT, Height Start Date: 08/24/19 Status: Ordered Fiber Choice ORAL, CAPSULE, 7 [...] 2 SPRAYS INTO EACH NOSTRIL EVERY DAY, [facility]/pharmacy #0693 Start Date: 09/30/18 Status: Ordered gabapentin 600 mg oral tablet ORAL, TABLET, 0 Refill(s),, 0 Refills, 08/29/18 12:05:00 EDT Start Date: 08/29/18 Status: Ordered Januvia 100 mg oral tablet 1 tablet, By Mouth, Daily, # 90 tablet, 1 Refills, Maintenance, 09/07/19 8:26:00 EDT, [facility], 163.25, cm, 07/13/19 14:03:00 EDT, Height Start Date: 09/07/19 Status: Ordered Lantus Solostar Pen 100 units/mL subcutaneous solution See Instructions, INJECT 50 UNITS INTO THE SKIN ONCE A DAY AT BEDTIME, # 45 Unknown, 3 Refills, [facility], 163.25, cm, 07/13/19 14:03:00 EDT, Height Start Date: 08/01/19 Status: Ordered Lipitor 10 mg oral tablet 1 tablet = 10 mg, By Mouth, Daily, # 30 tablet, 0 Refills, Maintenance Start Date: 03/09/18 Status: Ordered lisinopril 5 mg oral tablet 0.5, tablet, By Mouth, Daily, # 45 tablet, Refills 1, Tot. Refills 0, Maintenance, 08/28/19 8:20:00EDT, Route to Pharmacy Electronically, [facility], 163.25, cm, 07/13/19 14:03:00 EDT, Height Start Date: 08/28/19 Status: Ordered meclizine 12.5 mg oral tablet 1 tablet = 12.5 mg, By Mouth, 3 times a day, PRN for dizziness, # 30 tablet, 1 Refills, Maintenance, 05/29/19 11:21:00 EST, Tablet, [facility]/pharmacy #0693, 163.25, cm, 05/29/19 11:18:00 EST, Height Start Date: 05/29/19 Status: Ordered mesalamine 1000 mg rectal suppository See Instructions, 1 supp Rectally bid, 0 Refills, Maintenance, 02/08/19 10:23:07 EDT Start Date: 02/08/19 Status: Ordered MetFORMIN (Eqv-Glucophage XR) 500 mg oral tablet, extended release 2 tablet, By Mouth, Daily, # 180 tablet, 1 Refills, Maintenance, 10/25/19 8:40:00 EDT, [facility], 163.25, cm, 10/18/19 11:00:00 EDT, Height Start Date: 10/25/19 Status: Ordered Metoprolol Tartrate 25 mg oral tablet 1 tablet, By Mouth, 2 times a day, # 180 tablet, 1 Refills, Maintenance, 09/18/19 8:16:00 EDT, [facility], 163.25, cm, 07/13/19 14:03:00 EDT, Height Start [...] 06/19/19 10:09:00 EST, Route to Pharmacy Electronically, [facility], 163.25, cm, 05/29/19 11:18:00 EST, Height Start Date: 06/19/19 Status: Ordered multivitamin Therapeutic Multiple Vitamins oral tablet 1, tablet, By Mouth, Daily, 0, 0, 05/25/05 16:31:13, 1.34001p+006, Constant Indicator Start Date: 05/25/05 Status: Ordered mupirocin 2% topical ointment See Instructions, APPLY 1 APPLICATION TOPICALLY 3 TIMES A DAY FOR 1 WEEK AND THEN NEEDED, # 15 Gm, 1 Refills, Acute, [facility], 7, APPLY 1 APPLICATION TOPICALLY 3 TIMES A DAY FOR 1 WEEK AND THEN NEEDED, 163.25, cm, 07/13/19 14:03:00 EDT, H... Start Date: 09/21/19 Status: Ordered nystatin topical 965406 u/gm powder See Instructions, APPLY 2 OR 3 TIMES A DAY TO AFFECTED AREA, # 60 Gm, 1 Refills, Acute, [facility] 537[facility], 30, APPLY 2 OR 3 TIMES A [...] 09/20/19 8:19:00 EDT, Route to Pharmacy Electronically, [id number], [facility] [id number], 163.25, cm, 07/13/19 14:03:00 EDT, Height Start [...] By Mouth, Daily, 0, 0, 05/22/05 18:31:07, 1.79388q+006, Constant Indicator Start Date: 05/22/05 Status: Ordered [...]
--- OUTSIDE RECORDS SUMMARY | 2024-03-24 12:22 | XMS_ITS | Continuity of Care Document ---
Author Organization [facility] Address [address] [place] [address]- Care Team Providers Care Comfort Station Attendant Name Role Phone Blayne RANDALL, Ana Jameson Primary Care Physician Encounter [facility] Date(s): 05/06/21 - 06/05/21 [facility] [address] [place] [address]- Allergies, Adverse Reactions, Alerts Substance Reaction Severity Status sulfa drugs swelling itching Active Soy Products swelling, rash Active Latex rash Active Provera rash Active Immunizations Given and Recorded Vaccine Date Status Refusal Reason influenza virus vaccine, inactivated 1 02/25/21 Gi miguel influenza virus vaccine, inactivated 02/08/19 Give n Influenza Virus Vaccine (oldterm) 02/03/20 Recorde d 1Result Comment: [facility] [id number] Medications Advair Diskus 250 mcg-50 mcg inhalation powder 1 puffs, Inhalation, 2 times a day, 0 Refills, Maintenance Start Date: 08/10/12 Status: Ordered cetirizine 10 mg oral tablet 1 tablet, By Mouth, Daily, # 90 tablet, 1 Refills, [facility] 87521, 163.25, cm, 02/25/21 15:12:00 EDT, Height Start [...] Refills, Maintenance, 10/30/19 7:22:00 EDT, Chew Tablet, [facility]/pharmacy #0693, 163.25, cm, 10/18/19 11:00:00 EDT, [...] 1 Refills, Soft Stop, 05/21/20 2:30:00 EST, [facility]/pharmacy #0693, SPRAY 2 SPRAYS INTO EACH [...] tablet, 1 Refills, Maintenance, 03/06/21 9:29:00 EDT, [facility]/pharmacy #0693, 163.25, cm, 03/06/21 9:09:00 EDT, Height Start Date: 03/06/21 Status: Ordered Lantus Solostar Pen 100 units/mL subcutaneous solution See Instructions, INJECT 56 UNITS INTO THE SKIN ONCE A DAY AT BEDTIME, # 15 Unknown, 5 Refills, [facility], 163.25, cm, 01/23/21 8:57:00 EDT, Height Start Date: 01/31/21 Status: Ordered Lipitor 10 mg oral tablet 1 tablet = 10 mg, By Mouth, Daily at bedtime, # 30 tablet, 0 Refills, Maintenance Start Date: 03/09/18 Status: Ordered lisinopril 5 mg oral tablet 0.5, tablet, By Mouth, Daily, # 45 tablet, Refills 1, Route to Pharmacy Electronically, [facility] 1985[facility], 162.56, cm, 05/14/21 11:38:00 EST, Height Start Date: 05/20/21 Status: Ordered meclizine 12.5 mg oral tablet 1 tablet = 12.5 mg, By Mouth, 3 times a day, PRN for dizziness, # 30 tablet, 1 Refills, Maintenance, 05/29/19 11:21:00 EST, Tablet, [facility]/pharmacy #0693, 163.25, cm, 05/29/19 11:18:00 EST, Height Start Date: 05/29/19 Status: Ordered mesalamine 1000 mg rectal suppository See Instructions, 1 supp Rectally bid, 0 Refills, Maintenance, 02/08/19 10:23:07 EDT Start Date: 02/08/19 Status: Ordered MetFORMIN (Eqv-Glucophage XR) 500 mg oral tablet, extended release 2 tablet, By Mouth, 2 times a day, # 360 tablet, 1 Refills, 04/03/21 8:50:00 EST, [facility]/pharmacy #0693, 162.56, cm, 03/17/21 8:25:00 EST, Height Start Date: 04/03/21 Status: Ordered Metoprolol Tartrate 25 mg oral tablet 1 tablet, By Mouth, 2 times a day, # 180 tablet, 1 Refills, [facility] 91881, 162.56, cm, 03/17/21 8:25:00 EST, Height Start Date: 04/21/21 Status: Ordered montelukast 10 mg oral tablet 1, tablet, By Mouth, Daily, # 90 tablet, Refills 1, Route to Pharmacy Electronically, [facility] 17820, 162.56, cm, 03/17/21 8:25:00 EST, Height Start Date: 04/21/21 Status: Ordered multivitamin Therapeutic Multiple Vitamins oral tablet 1, tablet, By Mouth, Daily, 0, 0, 05/25/05 16:31:13, 1.01739v+006, Constant Indicator Start Date: 1/23/06 Status: Ordered nystatin topical 884371 u/gm powder See Instructions, APPLY TOPICALLY TO THE AFFECTED AREA 2 OR 3 TIMES A DAY., # 60 Gm, 1 Refills, [facility], 20, APPLY TOPICALLY TO THE AFFECTED AREA [...] 07/03/20 11:25:00 EST, Route to Pharmacy Electronically, [id number], [facility]/pharmacy #0693, 163.25, cm, 06/21/20 15:02:00 EST, [...] By Mouth, Daily, 0, 0, 05/22/05 18:31:07, 1.26617t+006, Constant Indicator Start Date: 05/22/05 Status: Ordered [...]
--- OUTSIDE RECORDS SUMMARY | 2024-03-24 12:22 | XMS_ITS | Continuity of Care Document ---
Author Organization [facility] Address [address] [place] [address]- Care Team Providers Care Spring Former Hand Name Role Phone Blayne RANDALL, Ana Jameson Primary Care Physician Encounter [facility] Date(s): 11/07/20 - 12/07/20 [facility] Diabetes [address] [place] [address] Allergies, Adverse Reactions, Alerts Substance [...] Status: Ordered BD UF MINI PEN NEEDLE [id number] See Instructions, # 100 Unknown, Refills 2 [...] TAKE ONE CAPSULE BY MOUTH EVERY DAY, [facility]/pharmacy #0693 Start Date: 08/26/18 Status: Ordered [facility] 0.52 G CAPSULE See Instructions, # 30 capsule, Refills 6 Tot. Refills 6, TAKE ONE CAPSULE BY MOUTH EVERY DAY, [facility]/pharmacy #0693 Start Date: 03/16/19 Status: Ordered Dexilant 60 mg oral delayed release capsule ORAL, CAPSULE, DELAYED RELEASE, 4 Refill(s),, 0 Refills, 08/29/18 12:04:00 EDT Start Date: 08/29/18 Status: Ordered Fiber Choice 1.5 g oral tablet, chewable 1 tablet = 1.5 Gm, Chew, Daily, # 90 tablet, 0 Refills, Maintenance, 10/30/19 7:22:00 EDT, Chew Tablet, [facility]/pharmacy #0693, 163.25, cm, 10/18/19 [...] 1 Refills, Soft Stop, 05/21/20 2:30:00 EST, [facility]/pharmacy #0693, SPRAY 2 SPRAYS [...] Refills, Maintenance, 11/15/20 13:38:00 EDT, [facility], 163.25, cm, 09/19/20 15:40:00 EDT, Height Start Date: 11/15/20 Status: Ordered Lantus Solostar Pen 100 units/mL subcutaneous solution See Instructions, INJECT 56 UNITS INTO THE SKIN ONCE A DAY AT BEDTIME, # 15 Unknown, 2 Refills, Maintenance, 11/04/20 10:21:00 EDT, [facility]/pharmacy #0693, 163.25, cm, 09/19/20 15:40:00 EDT, Height Start Date: 11/04/20 Status: Ordered Lipitor 10 mg oral tablet 1 tablet = 10 mg, By Mouth, Daily, # 30 tablet, 0 Refills, Maintenance Start Date: 03/09/18 Status: Ordered lisinopril 5 mg oral tablet 0.5, tablet, By Mouth, Daily, # 45 tablet, Refills 1, Tot. Refills 1, Maintenance, 03/01/20 15:23:00 EDT, Route to Pharmacy Electronically, [facility]/pharmacy #0693, 163.25, cm, 02/01/20 14:23:00 EDT, Height Start Date: 03/01/20 Status: Ordered meclizine 12.5 mg oral tablet 1 tablet = 12.5 mg, By Mouth, 3 times a day, PRN for dizziness, # 30 tablet, 1 Refills, Maintenance, 05/29/19 11:21:00 EST, Tablet, [facility]/pharmacy #0693, 163.25, cm, 05/29/19 [...] tablet, 2 Refills, Maintenance, 11/07/20 13:34:00 EDT, [facility]/pharmacy #0693, 163.25, cm, 09/19/20 15:40:00 EDT, Height Start Date: 11/07/20 Status: Ordered Metoprolol Tartrate 25 mg oral tablet 1 tablet, By Mouth, 2 times a day, # 180 tablet, 1 Refills, Maintenance, 11/08/20 13:04:00 EDT, [facility], 163.25, cm, 09/19/20 15:40:00 EDT, Height Start [...] EDT, Route to Pharmacy Electronically, [facility], 163.25, cm, 09/19/20 15:40:00 EDT, Height Start Date: 11/26/20 Status: Ordered multivitamin Therapeutic Multiple Vitamins oral tablet 1, tablet, By Mouth, Daily, 0, 0, 05/25/05 16:31:13, 1.21084e+006, Constant Indicator Start Date: 05/25/05 Status: Ordered mupirocin 2% topical ointment See Instructions, APPLY 1 APPLICATION TOPICALLY 3 TIMES A DAY FOR 1 WEEK AND THEN NEEDED, # 15 Gm, 1 Refills, Acute, [facility], 7, APPLY 1 APPLICATION TOPICALLY 3 TIMES A DAY FOR 1 WEEK AND THEN NEEDED, 163.25, cm, 07/13/19 14:03:00 EDT, H... Start Date: 09/21/19 Status: Ordered nitrofurantoin macrocrystals-monohydrate 100 mg oral capsule 1 capsule = 100 mg, By Mouth, 2 times a day, for 5 days, # 10 capsule, 0 Refills, Acute 12/10/20 8:04:00 EDT, 12/05/20 8:04:00 EDT, Capsule, [facility]/pharmacy #0693, Partial fill upon patient request if the prescription is for a schedule II opioid drug., 1... Start Date: 12/05/20 Stop Date: 12/10/20 Status: Ordered nystatin topical 617978 u/gm powder See Instructions, APPLY 2 OR 3 TIMES A DAY TO AFFECTED AREA, # 60 Gm, 1 Refills, Acute, [facility] STORE 53509, 21, APPLY 2 OR 3 TIMES A [...] 07/03/20 11:25:00 EST, Route to Pharmacy Electronically, [id number], [facility]/pharmacy #0693, 163.25, cm, 06/21/20 [...] By Mouth, Daily, 0, 0, 05/22/05 18:31:07, 1.01532f+006, Constant Indicator Start Date: 05/22/05 Status: Ordered [...]
--- OUTSIDE RECORDS SUMMARY | 2024-03-24 12:22 | XMS_ITS | Continuity of Care Document ---
Author Organization [facility] Address [address] [place] [address]- Care Team Providers Care Patient Access Coordinator Name Role Phone Blayne RANDALL, Ana Jameson Primary Care Physician Encounter [facility] Date(s): 03/23/23 - 04/22/23 [facility] [address] [place] [id number] Allergies, Adverse Reactions, Alerts Substance Reaction Severity Status sulfa drugs swelling itching Active Provera rash Active Latex rash Active Soy Products swelling, rash Active Immunizations Given and Recorded Vaccine Date Status Refusal Reason influenza virus vaccine, inactivated 02/01/23 Give n influenza virus vaccine, inactivated 1 02/25/21 Gi miguel influenza virus vaccine, inactivated 02/08/19 Give n [id number] 12y+ bivalent booster vax 06/12/22 Recorded tetanus/diphtheria/pertussis, acel(Tdap) 2 06/01/22 Given SARS-CoV-2 (COVID-19) mRNA BNT-162b2 vac 02/26/21 Recorded SARS-CoV-2 (COVID-19) mRNA BNT-162b2 vac 08/01/20 Recorded SARS-CoV-2 (COVID-19) mRNA BNT-162b2 vac 07/11/20 Recorded Influenza Virus Vaccine (oldterm) 02/03/20 Recorde d 1Result Comment: [facility] 16153-196-93 2Result Comment: [facility] 58307-489-22 Medications Albuterol (Eqv-ProAir HFA) 90 mcg/inh inhalation aerosol 2 puffs, Inhalation, Every 6 hours, PRN NEEDED FOR WHEEZING, # 8.5 each, 11 Refills, Maintenance, 09/09/22 9:05:00 EDT, [facility], 17, TAKE 2 PUFFS BY MOUTH EVERY [...] Status: Ordered BD UF MINI PEN NEEDLE [id number] BD UF MINI PEN NEEDLE [id number], See Instructions, # 100 Unknown, 5 Refills, [...] # 90 tablet, 1 Refills, [facility], 163.25, cm, 02/25/21 15:12:00 EDT, Height Start [...] 1 Refills, Soft Stop, 05/21/20 2:30:00 EST, [facility]/pharmacy #[id number], SPRAY 2 SPRAYS [...] tablet, 3 Refills, Maintenance, 03/31/22 12:48:00 EST, [facility]/pharmacy#0693, 163, cm, 03/25/22 16:47:00 EST, Height, 123.7, kg, 10/06/21 7:05:00 EDT, Dry Weight Start Date: 03/31/22 Stop Date: 03/26/23 Status: Ordered Lantus Solostar Pen 100 units/mL subcutaneous solution See Instructions, INJECT 47 UNITS INTO THE SKIN ONCE A DAY DX E11.9, # 30 mL, 5 Refills, 12/01/22 13:46:00 EDT, [facility]/pharmacy #0693, 163, cm, 12/01/22 13:22:00 EDT, Height, [...] 03/24/22 4:05:00 EST, Route to Pharmacy Electronically, [facility], 163, cm, 03/10/22 15:21:00 EST, Height, 123.7, kg, 10/06/21 7:05:00 EDT, Dry Weight Start Date: 03/24/22 Status: Ordered meclizine 12.5 mg oral tablet 1 tablet = 12.5 mg, By Mouth, 3 times a day, PRN for dizziness, # 30 tablet, 0 Refills, Maintenance, 11/19/21 11:34:00 EDT, Tablet, [facility]/pharmacy #0693, Partial fill upon patient request if [...] tablet, 0 Refills, Maintenance, 03/24/23 8:42:00 EST, [facility]/pharmacy #0693, 163, cm, 03/18/23 7:42:00 EST, Height, [...] 03/15/23 11:12:00 EST, Route to Pharmacy Electronically, [facility]/pharmacy #0693, Partial fill upon patientrequest if the prescription is for a schedule II op... Start Date: 03/15/23 Status: Ordered montelukast 10 mg oral tablet 1, tablet, By Mouth, Daily, # 90 tablet, Refills 1, Maintenance, 11/09/22 18:24:00 EDT, Route to Pharmacy Electronically, [facility], 163, cm, 11/04/22 9:00:00 EDT, Height, 123.7, kg, 10/06/21 7:05:00 EDT, Dry Weight Start Date: 11/09/22 Status: Ordered multivitamin Therapeutic Multiple Vitamins oral tablet 1, tablet, By Mouth, Daily, 0, 0, 05/25/05 16:31:13, 1.87047d+006, Constant Indicator Start Date: 05/25/05 Status: Ordered nystatin topical 985072 u/gm powder See Instructions, APPLY TOPICALLY TO THE AFFECTED AREA 2 OR 3 TIMES A DAY., # 60 Gm, 1 Refills, Maintenance, 09/09/22 9:05:00 EDT, [facility], 20, APPLY TOPICALLY TO THE AFFECTED AREA [...] Safety Implantable Status Assigning Authority Unknown Unknown [id number] Unknown 01/06/24 Unknown Unknown Active Unknown Patient Care team information Care Team Personnel Name: Blayne RANDALL, Ana Jameson Position: S PCO Associate Professional Member Role: PCP Address: Address: [address] [place] [address] [place] [address]- Care Team Related Persons Name: NIA WHITE Address: [place] [address] Name: CALLY BERRY Address: [place] [address]
--- OUTSIDE RECORDS SUMMARY | 2024-03-24 12:22 | XMS_ITS | Continuity of Care Document ---
Author Organization [facility] Address [address] [place] [address]- Care Team Providers Care Php Web Developer Name Role Phone Blayne RANDALL, Jacqueline Jameson Primary Care Physician Encounter 08/21/21 - 08/28/21 [facility] [address] [place] [address]- Attending Physician: Blayne RANDALL, Jacqueline Jameson Admitting Physician: Blayne RANDALL, Jacqueline Jameson Referring Physician: Blayne RANDALL, Jacqueline Jameson Allergies, Adverse Reactions, Alerts Substance Reaction [...] d 1Result Comment: [facility] 29608-645-14 Medications Advair Diskus 250 mcg-50 mcg inhalation powder 1 puffs, Inhalation, 2 times a day, 0 Refills, Maintenance Start Date: 08/10/12 Status: Ordered cetirizine 10 mg oral tablet 1 tablet, By Mouth, Daily, # 90 tablet, 1 Refills, [facility] 324[facility], 163.25, cm, 02/25/21 15:12:00 EDT, Height Start [...] Refills, Maintenance, 10/30/19 7:22:00 EDT, Chew Tablet, [facility]/pharmacy #0693, 163.25, cm, 10/18/19 11:00:00 EDT, [...] 1 Refills, Soft Stop, 05/21/20 2:30:00 EST, [facility]/pharmacy #0693, SPRAY 2 SPRAYS INTO EACH [...] tablet, 3 Refills, Maintenance, 07/02/21 11:04:00 EST, [facility]/pharmacy#0693, 162.56, cm, 06/16/21 11:08:00 EST, Height, 125.8, kg, 06/16/21 11:08:00 EST, Dry Weight Start Date: 07/02/21 Status: Ordered Lantus Solostar Pen 100 units/mL subcutaneous solution See Instructions, INJECT 47 UNITS INTO THE SKIN ONCE A DAY DX E11.9, # 20 mL, 5 Refills, 07/29/21 6:38:00 EDT, [facility]/pharmacy #0693, 162.56, cm, 07/17/21 13:24:00 EDT, Height, [...] 1, Route to Pharmacy Electronically, [facility], 162.56, cm, 05/14/21 11:38:00 EST, Height Start Date: 05/20/21 Status: Ordered meclizine 12.5 mg oral tablet 1 tablet = 12.5 mg, By Mouth, 3 times a day, PRN for dizziness, # 30 tablet, 1 Refills, Maintenance, 05/29/19 11:21:00 EST, Tablet, [facility], 163.25, cm, 05/29/19 11:18:00 EST, Height [...] # 180 tablet, 1 Refills, [facility], 162.56, cm, 03/17/21 8:25:00 EST, Height Start Date: 04/21/21 Status: Ordered montelukast 10 mg oral tablet 1, tablet, By Mouth, Daily, # 90 tablet, Refills 1, Route to Pharmacy Electronically, [facility] 0[facility], 162.56, cm, 03/17/21 8:25:00 EST, Height Start Date: 04/21/21 Status: Ordered multivitamin Therapeutic Multiple Vitamins oral tablet 1, tablet, By Mouth, Daily, 0, 0, 05/25/05 16:31:13, 1.02389n+006, Constant Indicator Start Date: 05/25/05 Status: Ordered nystatin topical 932129 u/gm powder See Instructions, APPLY TOPICALLY TO THE AFFECTED AREA 2 OR 3 TIMES A DAY., # 60 Gm, 1 Refills, [facility], 20, APPLY TOPICALLY TO THE AFFECTED AREA [...] 07/03/20 11:25:00 EST, Route to Pharmacy Electronically, [id number], [facility]/pharmacy #0693, 163.25, cm, 06/21/20 15:02:00 EST, [...] Exam Date Time Procedure Performing Provider Status 08/21/21 10:38 AM Dexa Bone Density (Axial) Alvarado Cheng; Audrey (Verified) Notes: (Dexa Bone Density (Axial)) Reason For Exam: Post Menopausal RESULT: DEXA BONE DENSITY (AXIAL) Bone Density Report Name: ALEXIA RUBIO Age: 60 Sex: Female Ethnicity: White Date of : 1960 Indication: POSTMENOPAUSAL. Referring Provider: JACQUELINE KNUTSON Study: Bone densitometry was performed. Exam Date: August 21, 2021 Accession number: [id number] Bone Density: Region BMD T-score Z-score Classification AP Spine (L1-L4) 1.228 1.6 3.1 Normal Femoral Neck (Left) 0.805 -0.4 0.9 Normal Total Hip (Left) 1.128 1.5 2.5 Normal World Health Organization criteria for BMD impression classify patients as: Normal (T-score at or above -1.0), Osteopenia (T-score between -1.0 and -2.5), or Osteoporosis (T-score at or below -2.5). 10-year Fracture Risk: FRAX not reported because: All T-scores at or above -1.0 Clinical Information Provided by Patient: Smokes Has secondary osteoporosis Has used the following medications: Vitamin D Has the following medical conditions: Asthma or Emphysema Patient maximum height was 64.5 Menopause Age: 59 Onset of menses at age 12 Number of children 0 Impression: The patient has normal bone density as determined by WHO criteria. Reported by: Giovanny Mayer M.D. on 08/26/2021 3:06:00 PM. Dictated By: Giovanny Mayer MD Dictated Date/Time: 08/26/21 3:07 pm Reviewed By: Giovanny Mayer MD Signed By: Giovanny Mayer MD Signed Date/Time: 08/26/21 3:07 pm Transcribed By: CASEY Transcribed Date/Time: 08/26/21 3:07 pm Social History Social History Type Response Smoking Status Former smoker, quit more than 30 days ago entered on: 08/20/21 Sex
--- OUTSIDE RECORDS SUMMARY | 2024-03-24 12:23 | XMS_ITS | Continuity of Care Document ---
Author Organization [facility] Address [address] [place] [address]- Care Team Providers Care Budget Examiner Name Role Phone Blayne RANDALL, Ana Jameson Primary Care Physician Encounter [facility] Date(s): 09/13/20 - 10/13/20 [facility] [address] [place] [address]- Allergies, Adverse Reactions, Alerts Substance Reaction Severity [...] Status: Ordered BD UF MINI PEN NEEDLE [id number] See Instructions, # 100 Unknown, Refills 2 [...] TAKE ONE CAPSULE BY MOUTH EVERY DAY, [facility]/pharmacy #[id number] Start Date: 08/26/18 Status: Ordered [facility] 0.52 G CAPSULE See Instructions, # 30 capsule, Refills 6 Tot. Refills 6, TAKE ONE CAPSULE BY MOUTH EVERY DAY, [facility]/pharmacy #0693 Start Date: 03/16/19 Status: Ordered Dexilant 60 mg oral delayed release capsule ORAL, CAPSULE, DELAYED RELEASE, 4 Refill(s),, 0 Refills, 08/29/18 12:04:00 EDT Start Date: 08/29/18 Status: Ordered Fiber Choice 1.5 g oral tablet, chewable 1 tablet = 1.5 Gm, Chew, Daily, # 90 tablet, 0 Refills, Maintenance, 10/30/19 7:22:00 EDT, Chew Tablet, [facility]/pharmacy #0693, 163.25, cm, 10/18/19 11:00:00 EDT, [...] 1 Refills, Soft Stop, 05/21/20 2:30:00 EST, [facility]/pharmacy #0693, SPRAY 2 SPRAYS INTO EACH [...] tablet, 1 Refills, Maintenance, 06/11/20 12:01:00 EST, [facility]/pharmacy#0693, 163.25, cm, 04/30/20 12:50:00 EST, Height Start Date: 06/11/20 Status: Ordered Lantus Solostar Pen 100 units/mL subcutaneous solution See Instructions, INJECT 56 UNITS INTO THE SKIN ONCE A DAY AT BEDTIME, # 10 mL, 2 Refills, 08/16/2115:28:00 EDT, [facility]/pharmacy #0693, 163.25, cm, 07/24/20 8:37:00 EDT, Height Start Date: 08/15/20 Status: Ordered Lipitor 10 mg oral tablet 1 tablet = 10 mg, By Mouth, Daily, # 30 tablet, 0 Refills, Maintenance Start Date: 03/09/18 Status: Ordered lisinopril 5 mg oral tablet 0.5, tablet, By Mouth, Daily, # 45 tablet, Refills 1, Tot. Refills 1, Maintenance, 03/01/20 15:23:00 EDT, Route to Pharmacy Electronically, [facility]/pharmacy #0693, 163.25, cm, 02/01/20 14:23:00 EDT, Height Start Date: 03/01/20 Status: Ordered meclizine 12.5 mg oral tablet 1 tablet = 12.5 mg, By Mouth, 3 times a day, PRN for dizziness, # 30 tablet, 1 Refills, Maintenance, 05/29/19 11:21:00 EST, Tablet, [facility]/pharmacy #0693, 163.25, cm, 05/29/19 11:18:00 EST, [...] 270 tablet, 2 Refills, Maintenance,08/23/20 8:20:00 EDT, [facility]/pharmacy #0693, 163.25, cm, 07/24/20 8:37:00 EDT, Height Start Date: 08/23/20 Status: Ordered Metoprolol Tartrate 25 mg oral tablet 1 tablet, By Mouth, 2 times a day, # 180 tablet, 1 Refills, Maintenance, 05/17/20 11:36:00 EST, [facility]/pharmacy #0693, 163.25, cm, 04/30/20 12:50:00 EST, [...] 06/03/20 8:47:00 EST, Route to Pharmacy Electronically, [facility]/pharmacy #0693, 163.25, cm, 04/30/20 12:50:00 EST, Height Start Date: 06/03/20 Status: Ordered multivitamin Therapeutic Multiple Vitamins oral tablet 1, tablet, By Mouth, Daily, 0, 0, 05/25/05 16:31:13, 1.54328b+006, Constant Indicator Start Date: 05/25/05 Status: Ordered mupirocin 2% topical ointment See Instructions, APPLY 1 APPLICATION TOPICALLY 3 TIMES A DAY FOR 1 WEEK AND THEN NEEDED, # 15 Gm, 1 Refills, Acute, [facility], 7, APPLY 1 APPLICATION TOPICALLY 3 TIMES A DAY FOR 1 WEEK AND THEN NEEDED, 163.25, cm, 07/13/19 14:03:00 EDT, H... Start Date: 09/21/19 Status: Ordered nitrofurantoin macrocrystals-monohydrate 100 mg oral capsule 1 capsule = 100 mg, By Mouth, 2 times a day, for 7 days, # 14 capsule, 0 Refills, Acute 10/17/20 7:17:00 EDT, 10/10/20 7:17:00 EDT, Capsule, [facility]/pharmacy #0693, Partial fill upon patient request if the prescription is for a schedule II opioid drug., 1... Start Date: 10/10/20 Stop Date: 10/17/20 Status: Ordered nystatin topical 955374 u/gm powder See Instructions, APPLY 2 OR 3 TIMES A DAY TO AFFECTED AREA, # 60 Gm, 1 Refills, Acute, [facility], 21, APPLY 2 OR 3 TIMES A [...] 07/03/20 11:25:00 EST, Route to Pharmacy Electronically, [id number], [facility]/pharmacy #0693, 163.25, cm, 06/21/20 15:02:00 EST, [...] a schedule II opioid drug. Start Date: 3/24/21 Status: Ordered Vistaril pamoate 25 mg oral [...] By Mouth, Daily, 0, 0, 05/22/05 18:31:07, 1.36262g+006, Constant Indicator Start Date: 05/22/05 Status: Ordered [...]
--- OUTSIDE RECORDS SUMMARY | 2024-03-24 12:23 | XMS_ITS | Continuity of Care Document ---
Author Organization [facility] Address [address] [place] [address]- Care Team Providers Care Director Hospice Operations Name Role Phone Blayne RANDALL, Ana Jameson Primary Care Physician Encounter [facility] Date(s): 03/31/22 - 04/30/22 [facility] [address] [place] [phone]- Allergies, Adverse Reactions, Alerts Substance Reaction Severity [...] 02/04/22 Not Given Patient Refuses 1Result Comment: [facility] [id number] 2Result Comment: pt will do next time [...] Mouth, Daily, # 90 tablet, 1 Refills, [facility] 79104, 163.25, cm, 02/25/21 15:12:00 EDT, Height Start [...] Refills, Maintenance, 10/30/19 7:22:00 EDT, Chew Tablet, [facility]/pharmacy #0693, 163.25, cm, 10/18/19 11:00:00 EDT, Height Start Date: 10/30/19 Status: Ordered fluconazole 150 mg oral tablet 1 tablet = 150 mg, By Mouth, Once, # 1 tablet, 0 Refills, Soft Stop, 12/24/21 14:01:00 EDT, Tablet,[facility]/pharmacy #0693, Partial fill upon patient [...] 1 Refills, Soft Stop, 05/21/20 2:30:00 EST, [facility]/pharmacy #0693, SPRAY 2 SPRAYS [...] tablet, 3 Refills, Maintenance, 03/31/22 12:48:00 EST, [facility]/pharmacy#0693, 163, cm, 03/25/22 16:47:00 EST, Height, 123.7, kg, 10/06/21 7:05:00 EDT, Dry Weight Start Date: 03/31/22 Stop Date: 03/26/23 Status: Ordered Lantus Solostar Pen 100 units/mL subcutaneous solution See Instructions, INJECT 47 UNITS INTO THE SKIN ONCE A DAY DX E11.9, # 30 mL, 5 Refills, 12/12/21 9:28:00 EDT, [facility]/pharmacy #0693, 163, cm, 12/02/21 9:43:00 [...] 03/24/22 4:05:00 EST, Route to Pharmacy Electronically, [facility] 17349, 163, cm, 03/10/22 15:21:00 EST, Height, 123.7, kg, 10/06/21 7:05:00 EDT, Dry Weight Start Date: 03/24/22 Status: Ordered meclizine 12.5 mg oral tablet 1 tablet = 12.5 mg, By Mouth, 3 times a day, PRN for dizziness, # 30 tablet, 1 Refills, Maintenance, 05/29/19 11:21:00 EST, Tablet, [facility]/pharmacy #0693, 163.25, cm, 05/29/19 11:18:00 EST, Height Start Date: 05/29/19 Status: Ordered meclizine 12.5 mg oral tablet 1 tablet = 12.5 mg, By Mouth, 3 times a day, PRN for dizziness, # 30 tablet, 0 Refills, Maintenance, 11/19/21 11:34:00 EDT, Tablet, [facility]/pharmacy #0693, Partial fill upon patient [...] tablet, 2 Refills, Maintenance, 09/30/21 13:54:00 EDT, [facility]/pharmacy #0693, 163, cm, 09/26/21 7:21:00 [...] Refills, Maintenance, 03/24/22 4:05:00 EST, [facility], 163, cm, 03/10/22 15:21:00 EST, Height, 123.7, kg, 10/06/21 7:05:00 EDT, Dry Weight Start Date: 03/24/22 Status: Ordered montelukast 10 mg oral tablet 1, tablet, By Mouth, Daily, # 90 tablet, Refills 1, Maintenance, 03/24/22 4:05:00 EST, Route to Pharmacy Electronically, [facility], 163, cm, 03/10/22 15:21:00 EST, Height, 123.7, kg, 10/06/21 7:05:00 EDT, Dry Weight Start Date: 03/24/22 Status: Ordered multivitamin Therapeutic Multiple Vitamins oral tablet 1, tablet, By Mouth, Daily, 0, 0, 05/25/05 16:31:13, 1.81869j+006, Constant Indicator Start Date: 05/25/05 Status: Ordered nystatin topical 379829 u/gm powder See Instructions, APPLY TOPICALLY TO THE AFFECTED AREA 2 OR 3 TIMES A DAY., # 60 Gm, 1 Refills, Maintenance, 04/06/22 8:27:00 EST, [facility], 20, APPLY TOPICALLY TO THE AFFECTED AREA [...] Safety Implantable Status Assigning Authority Unknown Unknown [id number] Unknown 01/06/24 Unknown Unknown Active Unknown Patient Care team information Care Team Personnel Name: Blayne RANDALL, Ana Jameson Position: [facility] PCO Associate Professional Member Role: PCP Address: Address: [address] [place] [address] [place] [address]- Care Team Related Persons Name: NIA WHITE Address: [place] [address] Name: CALLY BERRY Address: [place] [address]
--- OUTSIDE RECORDS SUMMARY | 2024-03-24 12:23 | XMS_ITS | Continuity of Care Document ---
Author Organization [facility] Address [address] [place] [address]- Care Team Providers Care Field Crops Harvest Machine Operator Name Role Phone Blayne RIM TURNING FINISHER, Ana Jameson Primary Care Physician ( [phone] Encounter 11/26/23 - 12/03/23 [facility] [address], [address] [place], [place] [address] Attending Physician: Candis Mederos DO Admitting Physician: [...] influenza virus vaccine, inactivated 02/08/19 Give n [id number] 12y+ bivalent booster vax 06/12/22 Recorded tetanus/diphtheria/pertussis, acel(Tdap) 2 06/01/22 Given SARS-CoV-2 (COVID-19) mRNA BNT-162b2 vac 02/26/21 Recorded SARS-CoV-2 (COVID-19) mRNA BNT-162b2 vac 08/01/20 Recorded SARS-CoV-2 (COVID-19) mRNA BNT-162b2 vac 07/11/20 Recorded Influenza Virus Vaccine (oldterm) 02/03/20 Recorde d 1Result Comment: [facility] [id number] 2Result Comment: [facility] [id number] Medications Albuterol (Eqv-ProAir HFA) 90 mcg/inh inhalation aerosol 2 puffs, Inhalation, Every 6 hours, PRN NEEDED FOR WHEEZING, # 8.5 each, 11 Refills, Maintenance, 09/09/22 9:05:00 EDT, [facility], 17, TAKE 2 PUFFS BY MOUTH EVERY [...] Mouth, Daily, # 90 tablet, 1 Refills, [facility], 163.25, cm, 02/25/21 15:12:00 EDT, Height Start [...] Refills, Maintenance, 10/30/19 7:22:00 EDT, Chew Tablet, [facility]/pharmacy #[id number], 163.25, cm, 10/18/19 [...] Gm, 3 Refills, Maintenance, 11/25/23 15:50:00 EDT, [place], [facility]/pharmacy #[id number], Partial fill upon patient request if the prescription is for a schedule II opioid drug., 2 sprays Nares, Both Daily in AM,... Start Date: 11/25/23 Status: Ordered fluticasone 50 mcg/inh nasal spray See Instructions, SPRAY 2 SPRAYS INTO EACH NOSTRIL EVERY DAY, # 48 mL, 1 Refills, Soft Stop, 05/21/20 2:30:00 EST, [facility]/pharmacy #[id number], SPRAY 2 SPRAYS [...] tablet, 5 Refills, Maintenance, 09/28/23 14:44:00 EDT, [facility]/pharmacy#0693, 163, cm, 08/30/23 11:08:00 EDT, Height, [...] 03/24/22 4:05:00 EST, Route to Pharmacy Electronically, [facility], 163, cm, 03/10/22 15:21:00 EST, Height, 123.7, kg, 10/06/21 7:05:00 EDT, Dry Weight Start Date: 03/24/22 Status: Ordered meclizine 12.5 mg oral tablet 1 tablet = 12.5 mg, By Mouth, 3 times a day, PRN for dizziness, # 30 tablet, 0 Refills, Maintenance, 11/19/21 11:34:00 EDT, Tablet, [facility]/pharmacy #[id number], Partial fill upon [...] 1 Refills, Maintenance, 08/25/23 11:22:00 EDT, [facility], 163, cm, 07/26/23 11:18:00 EDT, Height, 125.8, [...] 0 Refills, Maintenance, 11/29/23 21:31:00 EDT, [facility], 163, cm, 11/01/23 11:35:00 EDT, Height, 125.8, kg, 03/18/23 7:42:00 EST, Dry Weight Start Date: 11/29/23 Status: Ordered montelukast 10 mg oral tablet 1, tablet, By Mouth, Daily, # 90 tablet, Refills 1, Tot. Refills 1, Maintenance, 06/14/23 9:13:00 EST, Route to Pharmacy Electronically, [facility]/pharmacy #[id number], 163, cm, 05/24/23 11:13:00 EST, Height, 125.8, kg, 03/18/23 7:42:00 EST, Dry Weight Start Date: 06/14/23 Status: Ordered multivitamin Therapeutic Multiple Vitamins oral tablet 1, tablet, By Mouth, Daily, 0, 0, 05/25/05 16:31:13, 1.88640s+006, Constant Indicator Start Date: 05/25/05 Status: Ordered nystatin topical 756492 u/gm powder See Instructions, APPLY TOPICALLY TO THE AFFECTED AREA 2 OR 3 TIMES A DAY., # 60 Gm, 1 Refills, Maintenance, 09/09/22 9:05:00 EDT, [facility], 20, APPLY TOPICALLY TO THE AFFECTED AREA [...] Exam Date Time Procedure Performing Provider Status 11/26/23 4:37 PM Knee 3 Views Left Yvette Jaime; Audrey (Verified) Notes: (Knee 3 Views Left) Reason For Exam: osteoarthritis RESULT: Knee 3 Views Left Knee 3 Views Left Reason: osteoarthritis COMPARISON: None. FINDINGS: There is no evidence of acute or healing fracture, dislocation or bone lesion. Severe tricompartmental degenerative osteoarthritis but no evidence of osteochondral defect or intra-articular loose body. In particular there is severe narrowing of the medial compartment. No evidence of joint effusion. IMPRESSION: Severe tricompartmental degenerative osteoarthritis but no acute abnormality. WSN: [id number] Ordering Physician: Candis Mederos Dictated By: Jeancarlos Ramos MD, V Dictated Date/Time: 11/26/23 4:45 pm Reviewed By: Jeancarlos Ramos MD, V Signed By: Jeancarlos Ramos MD, V Signed Date/Time: 11/26/23 4:45 pm Transcribed By: CASEY Transcribed Date/Time: 11/26/23 4:44 pm * Exam Date Time Procedure Performing Provider Status 11/26/23 4:37 PM Knee 3 Views Right Yvette Jaime; Audrey (Verified) Notes: (Knee 3 Views Right) Reason For Exam: osteoarthritis RESULT: Knee 3 Views Right Knee 3 Views Right Reason: osteoarthritis COMPARISON: None. FINDINGS: There is no evidence of acute or healing fracture, dislocation or bone lesion. Severe tricompartmental degenerative osteoarthritis but no evidence of osteochondral defect or intra-articular loose body. No evidence of joint effusion. IMPRESSION: Severe tricompartmental degenerative osteoarthritis but no acute abnormality. WSN: [id number] Ordering Physician: Candis Mederos Dictated By: Jeancarlos Ramos MD, V Dictated Date/Time: 11/26/23 4:39 pm Reviewed By: Jeancarlos Ramos MD, V Signed By: Jeancarlos Ramos MD, V Signed Date/Time: 11/26/23 4:39 pm Transcribed By: CASEY Transcribed Date/Time: 11/26/23 4:38 pm Social History Social History Type Response [...] Safety Implantable Status Assigning Authority Unknown Unknown [id number] Unknown 01/06/24 Unknown Unknown Active Unknown Patient Care team information Care Team Personnel Name: Blayne RANDALL, Ana Jameson Position: [facility] Associate Professional Member Role: PCP Address: Address: [address] [place] [address] [place] [address]- Care Team Related Persons Name: NIA WHITE Address: [place] [address] Name: CALYL BERRY Address: [place] [address]
== END 2024-03-18 11:53 | disposition home or self-care (01) ==
PROVIDERS: PCP Nurse Practitioner Gerontology; Visit Provider Nurse Practitioner Family
DX: R21 Rash and other nonspecific skin eruption (principal)

== ENCOUNTER → 2024-03-18 11:09 | Outpatient (BNVA) | payer MEDICARE, MEDICAID, SELFPAY | PROVIDERS: PCP Nurse Practitioner Gerontology; Visit Provider Nurse Practitioner Family | DX: R21 Rash and other nonspecific skin eruption (principal) | CPT/HCPCS: 99212 ==

== ENCOUNTER 2024-07-18 09:14 | Outpatient (AMB) | payer MEDICARE, MEDICAID, SELFPAY ==
[2024-07-18 09:18] VITALS: BP 128/90; PULSE 79; TEMP 36.8; O2SAT 97; BMI 47.3
--- NOTE | 2024-07-18 09:18 | AM.OFFWIN_ITS ---
Intake Vital Signs 07/18/24 09:18 Height 5 ft 3 in Weight 267 lb BMI 47.3 BP 128/90 H Blood Pressure Location Rt brachial Position Sitting Pulse 79 Pulse Source Pulse Oximeter Temp 98.3 F Temp Source Oral Pulse Oximetry (%) 97 Oxygen Delivery Method Room Air Intake Visit Reasons: EP-lt side face swollen/pain Intake Note: Pt presents to the office today for c/o left sided facial swelling and pain x3 days. Pt states this usually happens when she gets sinus infections. Patient Tobacco Use Status: Never used Tobacco Allergies adhesive tape [ADHESIVE TAPE] Allergy (Unknown, Verified 07/18/24 09:21) RASH Sulfa (Sulfonamide Antibiotics) [SULFA (SULFONAMIDE ANTIBIOTICS)] Allergy (Unknown, Verified 07/18/24 09:21) SWELLING AND HIVES ADHESIVE BANDAGE Allergy (Unknown, Uncoded 07/18/24 09:21) RASH HPI HPI Comments History of Present Illness Details History - The patient is a 63-year-old female pr esenting with sinus congestion x3 days. - Symptom onset was three days ago with associated facial swelling. - Dentures are in place, eliminating den dayo pain as a cause. Denies gum pain or swelling. - Has hx of sinus issues, infections and surgeries in the past and this feels like a sinus infection to her. Always needs antibiotics. - Warmth and redness are noted on the fa ce, along with nasal congestion and minor ear discomfort. - Previously attempted treatments includ e nasal saline, which offered brief relief, but symptoms persisted. - Flonase use in the past effectively ma naged similar symptoms. Physical Exam General: Cooperative, healthy appearing, comfortable and no acute distress Orientation/consciousness: Patient oriented x3 Limitations: No limitations Head: Normal to inspection Ears: Hearing grossly normal bilaterally, external ears normal and TM's normal bilaterally Nose: Normal external nose present, Normal nares present and No nasal discharge present Face and sinus: Normal facial exam and maxillary Sinuses tender L>R Mouth: Normal oral and palatal mucosa present and moist mucous membranes Throat: Yes tonsils normal, Yes uvula midline. Posterior oropharynx erythema Eyes: Appearance normal, both eyes and all related structures Neck: Normal visual inspection Respiratory: Normal respiratory effort, able to speak in complete sentences, no respiratory distress, not tachypneic, no tripod positioning and no use of accessory muscles Skin: No rashes or lesions noted Neuro: Patient oriented x3 Extremities: Normal to inspection and Yes no clubbing, cyanosis or edema PFSH Medical History Asthma IBS (irritable bowel syndrome) Chronic osteoarthritis Diabetes 1.5, managed as type 2 HTN (hypertension) Kidney stone Post hysterectomy menopause Sprain of ankle, left COVID Congestion of nasal sinus Bronchitis Social History Patient Tobacco Use Status: Never used Tobacco Review of Systems Const All systems reviewed & are unremarkable except as noted in HPI and below Physical Exam Vital Signs: Last Vital Signs Temp 98.3 F 07/18/24 09:18 Pulse 79 07/18/24 09:18 BP 128/90 H 07/18/24 09:18 Pulse Ox 97 07/18/24 09:18 Oxygen Delivery Method Room Air 07/18/24 09:18 BMI result Body Mass Index 47.3 Assessment & Plan Assessment & Plan (1) Acute bacterial sinusitis: Code(s): J01.90 - Acute sinusitis, unspecified; B96.89 - Other specified bacterial agents as the cause of diseases classified elsewhere Plan: The patient presents with sinus congestion lasting for three days, with associated facial redness and slight ear discomfort. Flonase nasal spray is recommended for symptom relief, consistent with previous effective use. Short- term nasal saline can be continued, but prolonged use should be minimized to avoid exacerbating symptoms. The patient should monitor for fever or any exacerbation of symptoms. Further evaluation may be considered if symptoms persist or worsen under current treatment. Patient was informed and verbally consented to the use of an ambient scribe for clinic note documentation during this visit Medications: New amoxicillin-pot clavulanate 875-125 mg 1 tab PO Q12H 14 tabs 0RF Coding Level of Care Code New Pt Level 3 (07558) Diagnoses Acute bacterial sinusitis J01.90; B96.89
--- OUTSIDE RECORDS SUMMARY | 2024-07-18 09:55 | XMS_ITS | Encounter Summary ---
Author Organization [facility] Address [address] [place] [address] Care Team Providers Care Developer Analyst Name Role Phone Ana Cisneros NP Primary Care Provider [phone] Reason for Visit * Reason Onset Date Comments Request For Order(s) 07/12/2024 Encounter Details Date Type Department Care Team (Late st Contact Info) Description 07/12/[address] [place] [address] Denice Davis MA Request For Order(s) Social History Tobacco Use Types Packs/Day Years Used Date Smoking Tobacco: Former Cigarettes Q uit: 08/31/2018 Smokeless Tobacco: Never Alcohol Use Standard Drinks/Week Comments No 0 (1 standard drink = 0.6 oz pur e alcohol) Comments Unknown Sex and Gender Information Value Date Recorded Sex Assigned at Not on file Legal Sex Female 11:26 AM EST Gender Identity Not on file Sexual Orientation Not on file documented as of this encounter Progress Notes * Denice Davis MA - 07/12/2024 8:37 AM EDT Rcvd fax from [facility] for order to be signed for oxygen therapy swo. Order signed by Dr. Camp and faxed to [facility] documented in this encounter Plan of Treatment Upcoming Encounters Date Type Department Care Team (Late st Contact Info) Description 10/16/2024 9:30 AM EDT Office Visit Gastroenterology - [place] 175 [facility] 175 [facility] [address] [place] [phone] Aileen Verduzco PA 175 [facility] 200 [place] [address] 01/26/2025 9:45 AM EDT Office Visit Pulmonolgy - [place] 175 [facility] [address] [place] [phone] Lina Camp MD [address] [address] documented as of this encounter Visit Diagnoses Not on filedocumented in this encounter Care Teams Developer Analyst Relationship Specialty Start Date End Date Ana Cisneros NP 24 [facility] [place] [address] PCP - General Internal Medicine 12/02/20 documented as of this encounter
--- OUTSIDE RECORDS SUMMARY | 2024-07-18 09:55 | XMS_ITS | Encounter Summary ---
Author Organization [facility] Address [address] [place] [address] Care Team Providers Care Packing And Stamping Machine Operator Name Role Phone Ana Cisneros NP Primary Care Provider [phone] Reason for Visit * Reason Onset Date Comments dme request 07/13/2024 Encounter Details Date Type Department Care Team (Late st Contact Info) Description 07/13/2024 Telephone [facility] 175 [facility] [address] [place] [address] Lina Camp MD 175 [facility] 200 [place] [address] dme request Social History Tobacco Use Types Packs/Day Years [...] as of this encounter Progress Notes * Radha Rene MA - 07/14/2024 3:07 PM EDT POC re certification signed and faxed back to [facility]. Fax confirmation received. * Teresa Whitmore - 07/13/2024 4:35 PM EDT [facility] fax received for recertification order. Will send to onbase folder Nov 01/26/25 documented in this encounter Plan of Treatment Upcoming Encounters Date Type Department Care Team (Late st Contact Info) Description 10/16/2024 9:30 AM EDT Office Visit Gastroenterology - [place] 175 [place] 175 [facility] [address] [place] [address] [phone] Aileen Verduzco PA [address] [address] 01/26/2025 9:45 AM EDT Office Visit Pulmonolgy - [place] [address] [facility] [address] [place] [address] [phone] Lina Camp MD 175 [facility] [place] [address] [place] [address] documented as of this encounter Visit Diagnoses Not on filedocumented in this encounter Care Teams Packing And Stamping Machine Operator Relationship Specialty Start Date End Date Ana Cisneros NP 24 [facility] [place] [address] PCP - General Internal Medicine 12/02/20 documented as of this encounter
--- OUTSIDE RECORDS SUMMARY | 2024-07-18 09:55 | XMS_ITS | Clinical Summary ---
Author Organization [facility] Address [address] [place] [address] Care Team Providers Care Hospital Manager Name Role Phone Ana Cisneros NP Primary Care Provider [phone] Allergies Active Allergy Reactions Criticality Noted Date Comments Sulfa Antibiotics 10/19/2017 Medications Medication Sig Dispensed Refills Start Date End Date Status PROAIR HFA 108 (90 Base) MCG/ACT inhaler 0 08/27/2017 Act eileen allopurinol (ZYLOPRIM) 100 MG tablet 0 09/26/2017 Active atorvastatin (LIPITOR) tablet 10 mg 0 09/28/2017 Active SYMBICORT 80-4.5 MCG/ACT inhaler 0 09/13/2017 Active buPROPion (WELLBUTRIN XL) 150 MG 24 hr tablet 0 09/28/2017 Active VRAYLAR 3 MG CAPS Take 1 capsule by mouth daily. 0 10/06/2017 Active buPROPion (WELLBUTRIN XL) 300 MG 24 hr tablet 0 09/28/2017 Active cetirizine (ZYRTEC) 10 MG tablet Take 10 mg by mouth daily. 2 09/14/2017 Active Cholecalciferol (VITAMIN D3) 2000 units capsule Take by mouth daily. 0 09/14/2017 Active DEXILANT 60 MG capsule 0 10/09/2017 Ac tive diazepam (VALIUM) tablet 5 mg 0 09/20/2017 Active FLUoxetine (PROZAC) 20 MG capsule 0 09/28/2017 Active gabapentin (NEURONTIN) 600 MG tablet 0 09/28/2017 Active LANTUS SOLOSTAR 100 UNIT/ML injection INJECT 44 UNITS INTO THE SKIN DAILY AT BEDTIME 3 10/08/2017 Active metFORMIN (GLUCOPHAGE-XR) ER 24 hr tablet 500 mg 0 10/09/2017 Active metoprolol tartrate (LOPRESSOR) 25 MG tablet 0 10/18/2017 Active montelukast (SINGULAIR) 10 MG tablet 0 10/09/2017 Active oxyCODONE (ROXICODONE) 5 MG immediate release tablet Take 5 mg by mouth 3 (three) times a day as needed. 0 10/06/2017 Active Potassium Citrate ER 15 MEQ (1620 MG) TBCR 0 09/29/2017 Act eileen raNITIdine (ZANTAC) 150 MG tablet 0 09/26/2017 Active JANUVIA 100 MG tablet 0 2017 Act eileen Family History Medical History Relation Name Comments Diabetes Father Heart disease Father Hypertension Father Cancer Mother Relation Name Status Comments Father Mother Social History Tobacco Use Types Packs/Day Years Used Date Smoking Tobacco: Never Assessed Sex and Gender Information Value Date Recorded Sex Assigned at Not on file Gender Identity Not on file Sexual Orientation Not on file Job Start Date Occupation Industry Not on file Not on file Not on file Last Filed Vital Signs Vital Sign Reading Time Taken Comments Blood Pressure - - Pulse - - Temperature - - Respiratory Rate - - Oxygen Saturation - - Inhaled Oxygen Concentration - - Weight 127.9 kg (282 lb) 10/19/2017 9:30 AM EDT Height 160 cm (5' 3 ) 10/19/2017 9:30 AM EDT Body Mass Index 49.95 10/19/2017 9:30 AM EDT Plan of Treatment Health Maintenance Due Date Last Done Comments Hepatitis C Screening 1960 COVID-19 Vaccine (#1) 04/16/1961 Depression Screening 1972 Preventative Health Evaluation 1978 DTap / Tdap / Td (1 - Tdap) 10/16/1979 Cervical Cancer Screening (P ap Smear) 1981 Colon Cancer Screening (Colonoscopy) 2005 Breast Cancer Screening (Mammogram) 2010 Shingrix-Zoster Vaccine (1 of 2) 2010 Influenza Vaccine (#1) 2024 RSV Adult > 60+ Yrs or Pregn ant (1 - 1-dose 75+ series) 10/16/2035 Hepatitis B Vaccines Aged Out No long er eligible based on patient's age to complete this topic Pneumococcal Vaccine Aged Out No long er eligible based on patient's age to complete this topic RSV Ped < 20 months Aged Out No longe r eligible based on patient's age to complete this topic Care Teams Hospital Manager Relationship Specialty Start Date End Date Ana Cisneros RECYCLING CREW SUPERVISOR [address] [place] [id number] PCP - General Nurse Practitioner 10/04/17
--- OUTSIDE RECORDS SUMMARY | 2024-07-18 09:55 | XMS_ITS | Patient Health Record ---
Author Organization [facility] Address [address] [facility] [address] [facility] [address] [place] [address] Care Team Providers Care Compliance Officer Name Role Phone Vanessa Rinaldi Unavailable [phone] Reason For Referral No Information Medications Medication SIG (Take, Route, Frequency, Duration) Notes Start Date End Date Status Advair Diskus 250-50 1 Inhalation TWICE DAILY for -3 [facility] 03/20/2013 Active Albuterol 90 MCG 2 Inhalation q6h for -3 [facility] 3 Active Allopurinol 100MG ORAL for -3 [facility] 03/20/2013 Active Aspirin EC 81MG 1 ORAL daily for -3 [facility] 03/20/2013 Active Ativan 2MG 1 ORAL three times d aily for 10 [facility] 03/20/2013 Active PROzac 20MG 1 ORAL every morning for - [facility] 03/20/2013 Active Bactroban 2% CREAM DIANN AA External thre e times daily for 7 [facility] 03/20/2013 Active Singulair 10 MG 1 ORAL daily for -3 [facility] 03/20/2013 Active Cefaclor 500MG 1 ORAL three times d aily for 10 [facility] 03/20/2013 Active Vitamin D3 1000 IU ORAL daily for -3 [facility] 03/20/2013 Active Fioricet 50-325-40 1 ORAL EVERY 6 HOURS for 10 [facility] 03/20/2013 Active Wellbutrin XL 450MG 1 ORAL daily for -3 [facility] 03/20/2013 Active Januvia 100MG 1 ORAL daily for -3 [facility] 03/20/2013 Active ZyrTEC 10MG 1 ORAL daily for -3 [facility] 03/20/2013 Active Lisinopril 5MG 1 ORAL daily for -3 [facility] 03/20/2013 Active metFORMIN HCl 500MG 1 ORAL twice daily for -3 [facility] 03/03 Active Metoprolol Tartrate 25MG 1 ORAL twice daily for -3 [facility] 03/20/2013 Active Multivitamins 1 ORAL daily for -3 [facility] 03/20/2013 Active Pantoprazole Sodium 40MG 1 ORAL daily for -3 [facility] 03/20 Active Prometrium 200MG 1 ORAL DAILY , DAYS 1 TO 12 for 12 [facility] 03/20/2013 Active Problems Problem Type SNOMED Code ICD Code Onset Dates Problem Status W/U Status Risk Notes Problem Neoplasm of uncertain behavior of trachea, 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, bronchus, 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 confirmed Major Problem 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) Malignant neoplasm of bronchus and lung, unspecified site (162.9) Active confirmed Major Problem Hypothyroidism (22788303) Unspecified hypothyroidism (244.9) Active confirmed Major Problem Obesity (351052323) Obesity, unspecified (278.00) Active confirmed Major Problem Age-related macular degeneration (disorder) (602245797) Macular degeneration (senile) of retina, unspecified (362.50) Active confirmed Diag Problem Benign essential hypertension (1345264) Essential hypertension, benign (401.1) Active confirmed Major Problem Irritable bowel syndrome (71704723) Irritable bowel syndrome (564.1) Active confirmed Major Problem Chronic kidney disease (658606962) Chronic kidney disease, unspecified (585.9) Active confirmed Major Problem Calculus of kidney (97661815) Calculus of kidney (592.0) Active confirmed Major Problem Endometrial hyperplasia (857541443) Endometrial hyperplasia, unspecified (621.30) Active confirmed Diag Problem Abnormal vaginal bleeding (275401391) Other disorder of menstruation and other abnormal bleeding from female genital tract (626.8) Active confirmed Diag Problem Insomnia (520746630) Insomnia, unspecified (780.52) Active confirmed Major Problem Impaired fasting glucose (490314885) Impaired fasting glucose (790.21) Active confirmed Diag Problem Elevated levels of transaminase & lactic acid dehydrogenase (792504448) Nonspecific elevation of levels of transaminase or lactic acid dehydrogenase (LDH) (790.4) Active confirmed Major Plan Of Treatment No Information Insurance Providers Payer Name Payer Address Payer Phone Subscriber Number Group Number Insured Name Patient Relationship to Insured Coverage Start Date Coverage End Date MEDICARE [address] [place], [place] [id number] ALEXIA NIELSEN Self - patient is the insured
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
--- OUTSIDE RECORDS SUMMARY | 2024-07-18 09:55 | XMS_ITS | Clinical Summary ---
Author Organization [employer] Address [address] [place] [address] [address] [place] [address] Care Team Providers Care Exercise Physiologist Certified Name Role Phone Unavailable Primary Care Provider Unavailabl e Allergies Active Allergy Reactions Criticality Noted Date Comments Sulfa Antibiotics Hives 07/02/2023 Medications Ventolin HFA 108 (90 Base) MCG/ACT inhaler TAKE 2 PUFFS BY MOUTH EVERY 6 HOURS NEEDED FOR WHEEZING Active aspirin 81 MG EC tablet Take 81 mg by mouth. 2 Active atorvastatin (Lipitor) 10 MG tablet Take 10 mg by mouth in the morning. Active buPROPion XL (Wellbutrin XL) 150 MG 24 hr tablet TAKE 1 TABLET (150 MG) BY MOUTH DAILY IN THE MORNING (IN ADDITION TO 300 MG). Active Vraylar 3 MG capsule TAKE 1 CAPSULE BY MOUTH EVERY DAY IN THE MORNING Active Cetirizine HCl 10 MG capsule Active cholecalciferol (Vitamin D-3) 50 MCG (2000 UT) capsule Take by mouth. 8 Active diazePAM (Valium) 2 MG tablet Take 2 mg by mouth if needed each day for anxiety. 3 Active famotidine (Pepcid) 40 MG tablet Take 40 mg by mouth in the morning. 3 Active FLUoxetine (PROzac) 20 MG capsule TAKE 4 CAPSULES BY MOUTH EVERY DAY. Active fluconazole (Diflucan) 150 MG tablet Take 150 mg by mouth. 2 Active fluticasone (Flonase) 50 MCG/ACT nasal spray Administer 1 spray into affected nostril(s) at bed time. 9 Active Fluticasone-Emery meterol (Advair Diskus) 250-50 MCG/ACT aerosol powder Inhale 1 puff every 12 (twelve) hours. 9 Active folic acid (Folvite) 1 MG tablet Take 400 mcg by mouth. 0 Active gabapentin (Neurontin) 300 MG capsule TAKE 3 CAPSULES BY MOUTH 3 TIMES A DAY Active Tresiba FlexTouch 100 UNIT/ML injection INJECT 47 UNITS SUBCUTANEOUS INFUSION DAILY 4 Active Lantus SoloStar 100 UNIT/ML pen INJECT 47 UNITS INTO THE SKIN ONCE A DAY DX E11.9 Active B-D UF III MINI PEN NEEDLES 31G X 5 MM [facility] USE DIRECTED FOR TYPE 2 DIABETES MELLITUS WITH LANTUS SOLOSTAR 3 Active Inulin (Fiber Choice) 1.5 g chewable tablet Chew 1.5 g. 0 Active lisinopril 5 MG tablet Take 0.5 tablets by mouth in the morning. 9 Active metoprolol tartrate (Lopressor) 25 MG tablet Take 25 mg by mouth 2 times daily. Active montelukast (Singulair) 10 MG tablet Take 10 mg by mouth in the morning. 9 Active nystatin (Mycostatin) 088714 UNIT/GM powder APPLY TO THE AREAS ON THE UNDER THE BREASTS AND ABDOMINAL FOLD ONCE DAILY AFTER SHOWERS Active omeprazole (PriLOSEC) [address] capsule TAKE 1 CAPSULE BY MOUTH 2 TIMES A DAY BEFORE MEALS. 4 Active ondansetron (Zofran) 4 MG tablet Take 4 mg by mouth every 6 (six) hours if needed for nausea. 4 Active oxyCODONE (Oxy-IR) 5 MG immediate release capsule Take 10 mg by mouth. 9 Active SITagliptin (Januvia) 100 MG tablet Take 100 mg by mouth in the morning. 9 Active Active Problems Problem Noted Date Diagnosed Date Low back pain associated wit h a spinal disorder other than radiculopathy or spinal stenosis 10/19/2023 Abnormal radiologic density 10/19/2023 Abnormal vaginal bleeding 10/19/2023 Allergic rhinitis 10/19/2023 Anxiety 10/19/2023 Ascending aortic aneurysm 10/19/2023 Benign essential hypertension 10/19/2023 Chronic kidney disease 10/19/2023 Chronic obstructive lung disease 10/19/2023 Chronic sinusitis 10/19/2023 Depressive disorder 10/19/2023 Diverticular disease of colon 10/19/2023 Elevated levels of transaminase & lactic acid de hydrogenase 10/19/2023 Endometrial hyperplasia 10/19/2023 Gastroesophageal reflux disease 10/19/2023 Herpes simplex type 1 infection 10/19/2023 Hypothyroidism 10/19/2023 Impaired fasting glucose 10/19/2023 Infected sebaceous cyst of skin 10/19/2023 Insomnia 10/19/2023 Intertrigo 10/19/2023 Irritable bowel syndrome 10/19/2023 Macular degeneration 10/19/2023 Migraine 10/19/2023 Calculus of kidney 10/19/2023 Nephrolithiasis 10/19/2023 Posttraumatic stress disorder 10/19/2023 Pulmonary nodules 10/19/2023 Recurrent major depression in partial remission 10/19/2023 Recurrent UTI 10/19/2023 Morbid obesity 10/19/2023 Severe obesity 10/19/2023 Asthma 10/19/2023 Sleep apnea 10/19/2023 Steatosis of liver 10/19/2023 Tobacco dependence syndrome 10/19/2023 Type 2 diabetes mellitus 10/19/2023 Vitamin D deficiency 10/19/2023 Vitiligo 10/19/2023 Immunizations Name Administration Dates Next Due Influenza Whole 02/03/2020 Influenza injectable quadrivalent preservative f ree 02/03/2020 Influenza, IIV3, injectable 02/25/2021, 9 Pfizer Covid-19 Vaccine 12+ 02/26/2021 Pfizer Covid-19 Vaccine 12+ Bivalent 06/12/2022 Tdap 06/01/2022 Social History Tobacco Use Types Packs/Day Years Used Date Smoking Tobacco: Former Cigarettes Smokeless Tobacco: Never Tobacco Cessation:Counseling Given: Not Answered Comments Unknown Sex and Gender Information Value Date Recorded Sex Assigned at Female 03/02/2022 10:25 AM EDT Legal Sex Female 10:25 AM EDT Gender Identity Female 03/02/2022 10:25 AM EDT Sexual Orientation Straight 03/02/2022 10 :25 AM EDT Last Filed Vital Signs Vital Sign Reading Time Taken Comments Blood Pressure 128/72 10/19/2023 3:32 PM EDT Pulse 69 08/20/2023 3:14 PM EDT Temperature - - Respiratory Rate - - Oxygen Saturation - - Inhaled Oxygen Concentration - - Weight - - Height - - Body Mass Index - - Plan of Treatment Health Maintenance Due Date Last Done Comments CT Colonography 1960 Colonoscopy 1960 Colorectal Cancer Screening 1960 Dental Prophylaxis 1960 Dental X-Ray: Bitewings 1960 Depression Screening 1960 Diabetes: Hemoglobin A1C 1960 FIT DNA/Cologuard 1960 FIT 1960 FOBT 1960 HIV Screening 1960 Lipid Panel 1960 SDOH Screening 1960 Sigmoidoscopy 1960 Diabetes: Foot Exam 1970 Eye Exam 1970 Alcohol/Substance Use Screening 1972 Hepatitis C Screening 1978 Diabetes: Urine Protein Screening 10/16/1979 Hepatitis A Vaccines (1 of 2 - Risk 2-dose series) 10/16/1979 Pap Smear 1981 Cervical Cancer Screening 1990 HPV/Cotest 1990 Mammogram 2000 Zoster Vaccines (1 of 2) 2010 Dental Oral Exam 11/18/2019 05/19/2019, , 12/12/2015 Pneumococcal Vaccine: 50+ Years (3 of 3 - PCV20 or PCV21) 10/08/2020 10/09/2015, 03/05/2010 Hepatitis B Vaccines (1 of 3 - Risk 3-dose series) 2020 RSV Patients and Patients Aged 60 years or older (1 - Risk 60-74 years 1-dose series) 2020 COVID-19 Vaccine ( season) 2024 06/12/2022, 02/26/2021, 08/01/2020, Additional history exists Tobacco Screening 12/14/2024 12/15/2023 Dental X-Ray: Full Mouth 12/03/2026 024, 04/19/2020, 05/19/2019, Additional history exists DTaP/Tdap/Td Vaccines (3 - Td or Tdap) 06/01/2032 06/01/2022, 01/08/2009 Influenza Vaccine Completed 02/08/2024, , 02/01/2023, Additional history exists HIB Vaccines Aged Out No longer eligi ble based on patient's age to complete this topic HPV Vaccines Aged Out No longer eligi ble based on patient's age to complete this topic IPV Vaccines Aged Out No longer eligi ble based on patient's age to complete this topic Meningococcal Vaccine Aged Out No zunilda brandee eligible based on patient's age to complete this topic RSV under 20 months Aged Out No longe r eligible based on patient's age to complete this topic Rotavirus Vaccines Aged Out No longer eligible based on patient's age to complete this topic Procedures Procedure Name Priority Date/Time Associated Diagnosis Comments PANORAMIC RADIOGRAPHIC IMAGE Routine 12/03/2023 1:00 PM EDT PERIODIC ORAL EVALUATION - ESTABLISHED PATIENT Routine 05/19/2019 12:00 AM EST from Last 3 Months or Most Recently Relevant to Health Maintenance Insurance [facility] MEDICAID STAND ADULT [facility] STANDARD [facility] MEDICAID STAND ADULT Member Subscriber Plan / Payer (Ef fective 2023-Present) Name:Constance Junior Relation to Subscriber:Self Name:Constance Junior Payer ID:Not on file Group ID:Not on file Type:Not on file Address: [place] [id number]
== END 2024-07-18 09:42 | disposition home or self-care (01) ==
PROVIDERS: PCP Nurse Practitioner Gerontology; Visit Provider Physician Assistant
DX: J01.90 Acute sinusitis, unspecified (principal); B96.89 Other specified bacterial agents as the cause of diseases classified elsewhere

== ENCOUNTER → 2024-07-18 09:14 | Outpatient (BNVA) | payer MEDICARE, MEDICAID, SELFPAY | PROVIDERS: PCP Nurse Practitioner Gerontology | DX: J01.90 Acute sinusitis, unspecified (principal); B96.89 Other specified bacterial agents as the cause of diseases classified elsewhere | CPT/HCPCS: 99202 ==

== ENCOUNTER 2024-07-19 08:49 | Outpatient (AMB) | payer MEDICARE, MEDICAID, SELFPAY ==
[2024-07-19 09:15] VITALS: BP 128/84; PULSE 86; TEMP 37; O2SAT 95; BMI 47.3
--- NOTE | 2024-07-19 09:15 | AM.OFFWIN_ITS ---
Intake Vital Signs 07/19/24 09:15 Height 5 ft 3 in Weight 267 lb BMI 47.3 BP 128/84 Blood Pressure Location Lt brachial Position Sitting Pulse 86 Pulse Source Pulse Oximeter Temp 98.6 F Temp Source Oral Pulse Oximetry (%) 95 Oxygen Delivery Method Room Air Intake Visit Reasons: EP Reaction to medication? Lips/nose numb Intake Note: Pt presents to the office today for c/o lip and nose numbness. Pt states this started after she took the Afrin nose spray yesterday. Patient Tobacco Use Status: Never used Tobacco Allergies adhesive tape [ADHESIVE TAPE] Allergy (Unknown, Verified 07/19/24 09:18) RASH Sulfa (Sulfonamide Antibiotics) [SULFA (SULFONAMIDE ANTIBIOTICS)] Allergy (Unknown, Verified 07/19/24 09:18) SWELLING AND HIVES ADHESIVE BANDAGE Allergy (Unknown, Uncoded 07/19/24 09:18) RASH HPI EP Reaction to medication? Lips/nose numb HPI Details This is a 63-year-old female patient who presents to the walk-in clinic today with numbness and tingling in her left nostril/left upper lip, following the use of Afrin spray last evening. She was seen here yesterday and started on Augmentin, and recommended Flonase for sinusitis. She states that she purchased some Afrin [id number], and used last night, after which she developed tingling/numbness in her left nostril (where she utilized spray) and left upper lip. She denies any other symptoms, aside from her sinus pressure and pain which have been persistent. [facility] Medical History Asthma IBS (irritable bowel syndrome) Chronic osteoarthritis Diabetes 1.5, managed as type 2 HTN (hypertension) Kidney stone Post hysterectomy menopause Sprain of ankle, left COVID Congestion of nasal sinus Bronchitis Social History Patient Tobacco Use Status: Never used Tobacco Review of Systems Const All systems reviewed & are unremarkable except as noted in HPI and below Physical Exam Vital Signs: Last Vital Signs Temp 98.6 F 07/19/24 09:15 Pulse 86 07/19/24 09:15 BP 128/84 07/19/24 09:15 Pulse Ox 95 07/19/24 09:15 Oxygen Delivery Method Room Air 07/19/24 09:15 BMI result Body Mass Index 47.3 HEENT Head: Yes normal to inspection, Yes normocephalic and Yes atraumatic Ears: hearing grossly normal bilaterally General nose exam: Normal external nose present (report of numbness/tingling left nare and left upper lip), Normal nares present and Normal nasal mucous membranes and turbinates present Face and sinus: Yes sinus tenderness (frontal/maxillary) Mouth: Normal oral and palatal mucosa present and moist mucous membranes abnormal Throat: Yes posterior oropharynx normal Neck Neck: Yes no lymphadenopathy Resp Effort & Inspection: normal respiratory effort Auscultation: clear to auscultation bilaterally Cardio Rate: regular rate Rhythm: regular rhythm Skin General skin exam: no rashes or lesions noted Extrem General: Yes capillary refill normal and Yes no clubbing, cyanosis or edema Psych Appearance: grossly normal Mental Status: mental status grossly normal Speech and movement: Normal speech and movement present Assessment & Plan Assessment & Plan (1) Allergic reaction caused by a drug: Code(s): T78.40XA - Allergy, unspecified, initial encounter Qualifiers: Encounter type: initial encounter Qualified Code(s): T78.40XA - Allergy, unspecified, initial encounter Plan: Symptoms consistent with allergic reaction to the Afrin spray. Advised patient to discontinue use of this. I will start her on a short course of prednisone, which may also help alleviate her sinusitis symptoms on facial tenderness due to this. We reviewed indications, use, possible side effects. She can also continue to take Augmentin, which was prescribed yesterday for her sinus infection. She requests refill of Flonase, which I will send. We discussed that should her allergic symptoms worsen, or new symptoms develop, she should go to the emergency department for evaluation. She verbalizes understanding and agrees to plan. Medications: New prednisone 20 mg PO BID 3 days 6 tabs 0RF T78.40XA - Allergy, unspecified, initial encounter fluticasone propionate 50 mcg/actuation administer into each nostril 1 spray intranasal BID 16 grams 0RF B96.89 - Other specified bacterial agents as the cause of diseases classified elsewhere, J01.90 - Acute sinusitis, unspecified Coding Level of Care Code Est Pt Level 4 (72876) Diagnoses Allergic reaction to drug, initial encounter T78.40XA Encounter type: initial encounter
--- OUTSIDE RECORDS SUMMARY | 2024-07-19 09:40 | XMS_ITS | Clinical Summary ---
Author Organization [employer] Address [address] [place] [address] [address] [place] [address] Care Team Providers Care Electrical Test Engineer Name Role Phone Unavailable Primary Care Provider [...] MINI PEN NEEDLES 31G X 5 MM [facility] USE DIRECTED FOR TYPE 2 DIABETES MELLITUS [...] in the morning. 9 Active nystatin (Mycostatin) 889514 UNIT/GM powder APPLY TO THE AREAS ON [...] Most Recently Relevant to Health Maintenance Insurance DENTAL-[facility] MEDICAID STAND ADULT [facility] STANDARD DENTAL-[place]ICAID STAND ADULT Member Subscriber Plan / Payer (Ef fective 2023-Present) Name:Constance Junior Relation to Subscriber:Self Name:Constance Junior Payer ID:Not on file Group ID:Not on file Type:Not on file Address: [place] [id number]
--- OUTSIDE RECORDS SUMMARY | 2024-07-19 09:40 | XMS_ITS | Clinical Summary ---
Author Organization [facility] Address [address] [place] [address] Phone Care Team Providers Care Hand I Tube Bender Name Role Phone Ana Cisneros NP Primary Care Provider [phone] Allergies Active Allergy Reactions Criticality Noted Date [...] cations 12/07/2016 DDD (degenerative disc disease), lumbar 05/17/20 17 Allergic rhinitis 09/16/2016 Asthma 09/16/2016 Patent [...] Care Team Description 07/13/2024 Telephone Pulmonolgy - [place] [address] [phone] Lina Camp MD dme request 07/12/2024 Telephone Pulmonolgy - [place] [address] [phone] Denice Davis MA Request For Order(s) 04/24/2024 Telephone Gastroenterology - [place] 175 [facility] [address] [phone] Aileen Verduzco PA from Last 3 Months [...] ROTATOR CUFF REPAIR OTHER SURGICAL HISTORY PROCEDURE: MO HYSTEROSCOPY ENDOMETRIAL ABLATION OTHER SURGICAL HISTORY PROCEDURE: HISTORY OTHER; COMMENT: History of Oral Surgery OTHER SURGICAL HISTORY PROCEDURE: HISTORY OTHER; COMMENT: History of Sinus Surgery OTHER SURGICAL HISTORY PROCEDURE: MO DILATION & CURETTAGE DX&/THER NONOBSTETRIC OTHER SURGICAL HISTORY PROCEDURE: HISTORY OTHER; COMMENT: History of Ostectomy Calcaneus For Spur Medical History Medical History Date Comments Acne vulgaris 08/27/2016 DX:Acne vulgaris Allergic rhinitis 09/16/2016 DX:Allergic rh initis Asthma 09/16/2016 DX:Asthma Borderline personality disor kathie ([facility]) 07/01/2016 DX:Borderline personality di sorder ([facility]) Calculus of kidney 07/31/2015 DX:Calculus o f kidney Carpal tunnel syndrome 07/22/2013 DX:Carpal tunnel syndrome Chronic obstructive pulmonar y disease ([facility]) 07/01/2016 DX:Chronic obstructive pulmo nary disease (HCC) Chronic sinusitis 03/11/2016 DX:Chronic sin usitis DDD (degenerative disc disea se), lumbar 09/16/2016 DX:DDD (degenerative disc di sease), lumbar Deliberate self-cutting 05/23/2014 DX:Delib erate self-cutting Diabetes mellitus type 2 wit h neurological manifestations ([facility]) 03/13/2017 DX:Diabetes hermes itus type 2 with neurological manifestations ([facility]) Diverticulosis of colon 08/01/2014 DX:Diver ticulosis of colon DM (diabetes mellitus), type 2 with renal complications ([facility]) 12/07/2016 DX:DM (diabetes mellitus ), type 2 with renal complications ([facility]) External hemorrhoids 09/28/2013 DX:External hemorrhoids Facial weakness [...] obesity with BMI of 5 0.0-59.9, adult ([facility]) 05/12/2016 DX:Morbid obesity with BMI o f 50.0-59.9, adult ([facility]) Multiple pulmonary nodules 09/01/2016 DX:Mu ltiple pulmonary [...] Care Team (Late st Contact Info) Description 08/08/2024 8:50 AM EDT Office Visit Gastroenterology - [place] 175 [facility] [address] [phone] Aileen Verduzco PA [address] [address] 01/26/2025 9:45 AM EDT Office Visit Pulmonolgy - [place] [address] [phone] Lina Camp MD [address] [phone] Health Maintenance Due Date Last Done Comments [...] us Provider [facility] [place] l Result from Last 3 Months Insurance MEDICARE [place]ICAID - [place] Care Teams Hand I Tube Bender Relationship Specialty Start Date End Date Ana Cisneros NP 24 [facility] [place] [address] PCP - General Internal Medicine 12/02/20
--- OUTSIDE RECORDS SUMMARY | 2024-07-19 09:40 | XMS_ITS | Clinical Summary ---
Author Organization [facility] Address [address] [place] [address] Care Team Providers Care Mixer Dry Food Products Name Role Phone Ana Cisneros NP Primary Care Provider [phone] Allergies Active Allergy Reactions Criticality Noted Date [...] age to complete this topic Care Teams Mixer Dry Food Products Relationship Specialty Start Date End Date Ana Cisneros BILLET BED OPERATOR [address] [place] [id number] PCP - General Nurse Practitioner 10/04/17
--- OUTSIDE RECORDS SUMMARY | 2024-07-19 09:40 | XMS_ITS | Encounter Summary ---
Author Organization [facility] Address [address] [place] [address] Care Team Providers Care Certified Physician'S Assistant Name Role Phone Ana Cisneros NP Primary Care Provider [phone] Reason for Visit * Reason Onset Date Comments dme request 07/13/2024 Encounter Details Date Type Department Care Team (Late st Contact Info) Description 07/13/2024 Telephone [facility] 175 [facility] [address] [place] [address] Lina Camp MD 175 [facility] [address] [place], [place] [phone] dme request Social History Tobacco Use Types [...] re certification signed and faxed back to [facility] [place]. Fax confirmation received. * Teresa Whitmore - 07/13/2024 4:35 PM EDT [employer] fax received for recertification order. Will send to onbase folder Nov 01/26/25 documented in this encounter Plan of Treatment Upcoming Encounters Date Type Department Care Team (Late st Contact Info) Description 08/08/2024 8:50 AM EDT Office Visit Gastroenterology - [place] 175 [facility] 175 [facility] [address] [place] [phone] Aileen Verduzco PA 175 [facility] [address] [place] [address] 01/26/2025 9:45 AM EDT Office Visit Pulmonolgy - [place] 175 [facility] [address] [place] [phone] Lina Camp MD 175 [facility] [address] [place] [phone] documented as of this encounter Visit Diagnoses Not on filedocumented in this encounter Care Teams Certified Physician'S Assistant Relationship Specialty Start Date End Date Ana Cisneros NP 24 [facility] [place] [address] PCP - General Internal Medicine 12/02/20 documented as of this encounter
--- OUTSIDE RECORDS SUMMARY | 2024-07-19 09:40 | XMS_ITS | Patient Health Record ---
Author Organization [facility] Address [address] [place] [address] Care Team Providers Care Cna Pct Name Role Phone Vanessa Rinaldi Unavailable [phone] Reason For Referral No Information Medications Medication SIG (Take, Route, Frequency, Duration) Notes Start Date End Date Status Advair Diskus 250-50 1 Inhalation TWICE DAILY for -3 [facility] 03/20/2013 Active Albuterol 90 MCG 2 Inhalation q6h for -3 [facility] 3 Active Allopurinol 100MG ORAL for -3 [facility] 03/20/2013 Active Aspirin EC 81MG 1 ORAL daily for -3 [facility] 03/20/2013 Active Ativan 2MG 1 ORAL three times d aily for 10 [facility] 03/20/2013 Active PROzac 20MG 1 ORAL every morning for -3 [facility] 03/20/2013 Active Bactroban 2% CREAM DIANN AA External thre e times daily for 7 [facility] 03/20/2013 Active Singulair 10 MG 1 ORAL daily for -3 [facility] 03/20/2013 Active Cefaclor 500MG 1 ORAL three times d aily for 10 [facility] 03/20/2013 Active Vitamin D3 1000 IU ORAL daily for -3 [facility] 03/20/2013 Active Fioricet 50-325-40 1 ORAL EVERY 6 HOURS for 10 [facility] 03/20/2013 Active Wellbutrin XL 450MG 1 ORAL daily for -3 [facility] 03/20/2013 Active Januvia 100MG 1 ORAL daily for -3 [facility] 03/20/2013 Active ZyrTEC 10MG 1 ORAL daily for -3 [facility] 03/20/2013 Active Lisinopril 5MG 1 ORAL daily for -3 [facility] 03/20/2013 Active metFORMIN HCl 500MG 1 ORAL twice daily for -3 [facility] 03/03 Active Metoprolol Tartrate 25MG 1 ORAL twice daily for -3 [facility] 03/20/2013 Active Multivitamins 1 ORAL daily for -3 [facility] 03/20/2013 Active Pantoprazole Sodium 40MG 1 ORAL daily for -3 [facility] 03/20 Active Prometrium 200MG 1 ORAL DAILY , DAYS 1 TO 12 for 12 [facility] 03/20/2013 Active Problems Problem Type SNOMED Code ICD Code Onset Dates Problem Status W/U Status Risk Notes Problem Neoplasm of uncertain behavior of trachea, bronchus and lung (492279501) Neoplasm of uncertain behavior of trachea, bronchus, 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 confirmed Major Problem 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 (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) Malignant neoplasm of bronchus and lung, unspecified site (162.9) Active confirmed Major Problem Hypothyroidism (54983471) Unspecified hypothyroidism (244.9) Active confirmed Major Problem Obesity (012131688) Obesity, unspecified (278.00) Active confirmed Major Problem Age-related macular degeneration (disorder) (906065699) Macular degeneration (senile) of retina, unspecified (362.50) Active confirmed Diag Problem Benign essential hypertension (5025741) Essential hypertension, benign (401.1) Active confirmed Major Problem Irritable bowel syndrome (14100450) Irritable bowel syndrome (564.1) Active confirmed Major Problem Chronic kidney disease (729502520) Chronic kidney disease, unspecified (585.9) Active confirmed Major Problem Calculus of kidney (84991851) Calculus of kidney (592.0) Active confirmed Major Problem Endometrial hyperplasia (586149027) Endometrial hyperplasia, unspecified (621.30) Active confirmed Diag Problem Abnormal vaginal bleeding (149457376) Other disorder of menstruation and other abnormal bleeding from female genital tract (626.8) Active confirmed Diag Problem Insomnia (540871753) Insomnia, unspecified (780.52) Active confirmed Major Problem Impaired fasting glucose (109631554) Impaired fasting glucose (790.21) Active confirmed Diag Problem Elevated levels of transaminase & lactic acid dehydrogenase (775125329) Nonspecific elevation of levels of transaminase or lactic acid dehydrogenase (LDH) (790.4) Active confirmed Major Plan Of Treatment No Information Insurance Providers Payer Name Payer Address Payer Phone Subscriber Number Group Number Insured Name Patient Relationship to Insured Coverage Start Date Coverage End Date MEDICARE [address] [place], [place] [id number] ALEXIA NIELSEN Self - patient is the insured
--- OUTSIDE RECORDS SUMMARY | 2024-07-19 09:40 | XMS_ITS | Encounter Summary ---
Author Organization [facility] Address [address] [place] [address] Care Team Providers Care Wafer Fabrication Operator Name Role Phone Ana Cisneros NP Primary Care Provider [phone] Reason for Visit * Reason Onset Date Comments Request For Order(s) 07/12/2024 Encounter Details Date Type Department Care Team (Late st Contact Info) Description 07/12/[address] [place] [address] Denice Davis MA Request For [...] 07/12/2024 8:37 AM EDT Rcvd fax from [facility] for order to be signed for oxygen therapy swo. Order signed by Dr. Camp and faxed to [facility] documented in this encounter Plan of Treatment Upcoming Encounters Date Type Department Care Team (Late st Contact Info) Description 08/08/2024 8:50 AM EDT Office Visit Gastroenterology - [place] 175 [place] 175 [facility] [address] [place] [phone] Aileen Verduzco PA [address] [address] 01/26/2025 9:45 AM EDT Office Visit Pulmonolgy - [place] [address] [phone] Lina Camp MD [address] [phone] documented as of this encounter Visit Diagnoses Not on filedocumented in this encounter Care Teams Wafer Fabrication Operator Relationship Specialty Start Date End Date Ana Cisneros NP 24 [facility] [place] [address] PCP - General Internal Medicine 12/02/20 documented as of this encounter
== END 2024-07-19 10:08 | disposition home or self-care (01) ==
PROVIDERS: PCP Nurse Practitioner Gerontology; Visit Provider Nurse Practitioner Family
DX: T78.40XA Allergy, unspecified, initial encounter (principal)

== ENCOUNTER → 2024-07-19 08:49 | Outpatient (BNVA) | payer MEDICARE, MEDICAID, SELFPAY | PROVIDERS: PCP Nurse Practitioner Gerontology; Visit Provider Nurse Practitioner Family | DX: T78.40XA Allergy, unspecified, initial encounter (principal) | CPT/HCPCS: 99212 ==

== ENCOUNTER 2025-04-14 09:35 | Outpatient (AMB) | payer MEDICARE, MEDICAID, SELFPAY ==
--- OUTSIDE RECORDS SUMMARY | 2025-04-14 09:38 | XMS_ITS | Clinical Summary ---
Author Organization [facility] Prior to 09/30/24 Address [address] [place] [address] Care Team Providers Care Cabinet Professional Name Role Phone Ana Cisneros NP Primary Care Provider [phone] Allergies Active Allergy Reactions Criticality Noted Date [...] (1 of 2) 2010 Influenza Vaccine (#1) 2025 Pneumococcal Vaccine (1 of 1 - PCV) 2025 RSV Adult > 60+ Yrs or Pregn [...] age to complete this topic Care Teams Cabinet Professional Relationship Specialty Start Date End Date Ana Cisneros NP [address] [place] [address] PCP - General Nurse Practitioner 10/04/17
--- OUTSIDE RECORDS SUMMARY | 2025-04-14 09:38 | XMS_ITS | Clinical Summary ---
Author Organization [facility] Address [address] [place] [address] Phone Care Team Providers Care [employer] Equipment E[employer]ctor Name Role Phone Nancy Hunter [employer] Primary Care Provider [phone] Allergies Active Allergy Reactions Criticality Noted Date Comments Cycrin 10/17/2020 Other Reaction(s): Rash/Dermatitis Hydrochlorothiazide 01/18/2024 Hydroxyzine 07/09/2022 Other Reaction(s): Hives/Urticaria Latex 10/17/2020 Medroxyprogesterone 03/05/2006 Provera TABS Soybean Swelling 10/17/2020 Other Reaction(s): Rash/Dermatitis Sulfa (Sulfonamide Antibiotics) Low 03/05/2006 Olanzapine Swelling,Rash 04/17/2024 Medications albuterol 2.5 mg /3 mL (0.083 %) nebulizer solution Inhale 3 mL (2.5 mg total) by mouth. 09/20/2023 Active aspirin 81 mg EC tablet Take 1 tablet (81 mg total) by mouth. Active buPROPion XL (WELLBUTRIN XL) 300 mg 24 hr tablet Take 1 tablet (300 mg total) by mouth 1 (one) time each day. To be taken with 150 mg also daily 09/28/2017 Active cetirizine (ZyrTEC) 10 mg tablet Take 1 tablet (10 mg total) by mouth. 09/14/2017 Active cholecalciferol (VITAMIN D-3) 25 mcg (1,000 unit) tablet Take 1 tablet (1,000 Units total) by mouth 1 (one) time each day. Active diazePAM (VALIUM) 2 mg tablet Take by mouth. 11/17/2023 Active FLUoxetine (PROzac) 20 mg capsule Take 4 capsules (80 mg total) by mouth 1 (one) time each day. 09/28/2017 Active fluticasone propionate (FLONASE) 50 mcg/actuation nasal spray SPRAY 2 SPRAYS INTO EACH NOSTRIL EVERY MORNING 11/25/2023 Active folic acid (FOLVITE) 1 mg tablet Take 1 tablet (1 mg total) by mouth. Active gabapentin (NEURONTIN) 300 mg capsule Take 3 capsules (900 mg total) by mouth 2 (two) times a day. Active insulin glargine (Lantus Solostar U-100 Insulin) 100 unit/mL (3 mL) injection pen 47 Units 1 (one) time each day in the morning. 10/08/2017 Active metFORMIN XR (GLUCOPHAGE-XR) 500 mg 24 hr tablet Take 2 tablets (1,000 mg total) by mouth 2 (two) times a day. 10/09/2017 Active metoprolol tartrate (LOPRESSOR) 25 mg tablet Take 1 tablet (25 mg total) by mouth. 10/18/2017 Active insulin admin supplies insulin pen USE DIRECTED AT BEDTIME WITH SOLOSTAR PEN. 09/05/2014 Active montelukast (SINGULAIR) 10 mg tablet Take 1 tablet (10 mg total) by mouth at bedtime. 10/09/2017 Active ondansetron (ZOFRAN) 4 mg tablet Take 1 tablet (4 mg total) by mouth every 6 (six) hours if needed. 02/03/2023 Active oxyCODONE (ROXICODONE) 5 mg immediate release tablet Take 1-3 tabs daily/prn 10/06/2017 Active SITagliptin phosphate (Januvia) 100 mg tablet at bedtime. 2017 Active cariprazine (Vraylar) 1.5 mg capsule Take 1 capsule (1.5 mg total) by mouth 1 (one) time each day in the morning. 12/20/2023 Active cariprazine (Vraylar) 3 mg capsule Take 2 capsules (6 mg total) by mouth at bedtime. 01/10/2024 Active triamcinolone (KENALOG) 0.5 % cream Apply as a thin film to the perianal skin 3 times daily 08/06/2022 Active insulin glargine (Lantus U-100 Insulin) 100 unit/mL injection Inject 47 Units under the skin. Active FLUoxetine (PROzac) 20 mg capsule Active gabapentin (NEURONTIN) 600 mg tablet Take 1 tablet (600 mg total) by mouth 1 (one) time each day. 09/28/2017 Active buPROPion SR (WELLBUTRIN SR) 150 mg 12 hr tablet Take 1 tablet (150 mg total) by mouth 1 (one) time each day. To be taken with 300 mg also Active lansoprazole (PREVACID) [address] capsule Take 1 capsule (30 mg total) by mouth 1 (one) time each day before breakfast. 90 capsule 3 06/09/2024 Active tirzepatide (Mounjaro) 2.5 mg/0.5 mL injection Inject 0.5 mL (2.5 mg total) under the skin every 7 (seven) days. Active lisinopriL (PRINIVIL,ZESTR IL) 2.5 mg tabletIndicatio ns:Patent foramen ovale,Aneurysm of the ascending aorta, without rupture (CMS/HCC V24) TAKE 1 TABLET BY MOUTH EVERY DAY 90 tablet 2 09/27/2024 Active atorvastatin (LIPITOR) 10 mg tablet TAKE 1 TABLET BY MOUTH EVERY DAY 90 tablet 3 10/24/2024 Active mesalamine (ASACOL HD) [address] tablet TAKE 2 TABLETS BY MOUTH 3 TIMES A DAY DO NOT CRUSH/CHEW OR SPLIT 540 tablet 1 10/26/2024 Active albuterol HFA (PROAIR HFA ; PROVENTIL HFA ; VENTOLIN HFA) 90 mcg/actuation inhaler INHALE 2 PUFFS INTO THE LUNGS EVERY 4 HOURS NEEDED FOR WHEEZING FOR UP TO 30 DAYS. 8.5 each 11 10/30/2024 Active dicyclomine (BENTYL) 20 mg tablet Take 1 tablet (20 mg total) by mouth 4 (four) times a day (before meals and nightly). 360 tablet 1 12/24/2024 Active diphenoxylate-a tropine (LOMOTIL) 2.5-0.025 mg per tablet Take 1 tablet by mouth 3 (three) times a day if needed for diarrhea. Max Daily Amount: 3 tablets 90 tablet 12/26/2024 Active famotidine (PEPCID) 40 mg tablet Take 1 tablet (40 mg total) by mouth at bedtime as needed for heartburn. 90 tablet 1 01/21/2025 Active Active Problems Problem Noted Date Diagnosed [...] Encounters Date Type Department Care Team Description 04/08/2025 Results Follow-Up Gastroenterology - [address] [facility] [address] [phone] Aileen Verduzco PA 03/26/2025 7:54 AM EST - 03/26/2025 11:59 PM EST Hospital Encounter [facility] Nuclear Medicine [address] [place] [address] Discharge Disposition: Home or Self Care 01/22/2025 Telephone Gastroenterology - [place] [address] [facility] [address] [place] [address] Aileen Verduzco PA 01/18/2025 Telephone Gastroenterology - [place] [address] [place] [address] Aileen Verduzco PA from Last 3 Months Immunizations Immunization Administration Dates Next Due COVID-19 (Moderna) 6mo [...] ROTATOR CUFF REPAIR OTHER SURGICAL HISTORY PROCEDURE: KS HYSTEROSCOPY ENDOMETRIAL ABLATION OTHER SURGICAL HISTORY PROCEDURE: HISTORY OTHER; COMMENT: History of Oral Surgery OTHER SURGICAL HISTORY PROCEDURE: HISTORY OTHER; COMMENT: History of Sinus Surgery OTHER SURGICAL HISTORY PROCEDURE: KS DILATION & CURETTAGE DX&/THER NONOBSTETRIC OTHER SURGICAL HISTORY PROCEDURE: HISTORY OTHER; COMMENT: History of Ostectomy Calcaneus For Spur Medical History Medical History Date Comments Acne vulgaris 08/27/2016 DX:Acne vulgaris Allergic rhinitis 09/16/2016 DX:Allergic rh initis Asthma 09/16/2016 DX:Asthma Borderline personality disor kathie ([facility], [facility] V28) 07/01/2016 DX:Borderline personality d isorder ([facility]) Calculus of kidney 07/31/2015 DX:Calculus o f kidney Carpal tunnel syndrome 07/22/2013 DX:Carpal tunnel syndrome Chronic obstructive pulmonar y disease ([facility], [facility] V28) 07/01/2016 DX:Chronic obstructive pulm onary disease (HCC) Chronic sinusitis 03/11/2016 DX:Chronic sin usitis DDD (degenerative disc disea se), lumbar 09/16/2016 DX:DDD (degenerative disc di sease), lumbar Deliberate self-cutting 05/23/2014 DX:Delib erate self-cutting Diabetes mellitus type 2 wit h neurological manifestations ([facility], [facility] V28) 03/13/2017 DX:Diabetes mellitus type 2 with neurological manifestations ([facility]) Diverticulosis of colon 08/01/2014 DX:Diver ticulosis of colon DM (diabetes mellitus), type 2 with renal complications ([facility], [facility] V28) 12/07/2016 DX:DM (diabetes mellitus), t ype 2 with renal complications ([facility]) External hemorrhoids 09/28/2013 DX:External hemorrhoids Facial weakness [...] obesity with BMI of 5 0.0-59.9, adult ([facility] V24, [facility] V28) 05/12/2016 DX:Morbid obesity wit h BMI of 50.0-59.9, adult ([facility]) Multiple pulmonary nodules 09/01/2016 DX:Mu ltiple pulmonary [...] Years Used Date Smoking Tobacco: Former Cigarettes 1 Q uit: 08/31/2018 Smokeless Tobacco: Never Alcohol Use Standard Drinks/Week Comments No 0 (1 standard drink = 0.6 oz pur e alcohol) Comments Unknown Sex and Gender Information Value Date Recorded Sex Assigned at Not on file Legal Sex Female 11:26 AM EST Gender Identity Not on file Sexual Orientation Not on file Last Filed Vital Signs Vital Sign Reading Time Taken Comments Blood Pressure 127/74 11/20/2024 9:19 AM EDT Pulse 85 11/20/2024 9:19 AM EDT Temperature - - Respiratory Rate - - Oxygen Saturation 97% 11/20/2024 9:19 AM EDT Inhaled Oxygen Concentration - - Weight 110 kg (243 lb) 11/20/2024 9:19 AM EDT Height 160 cm (5' 3 ) 11/20/2024 9:19 AM EDT Body Mass Index 43.05 11/20/2024 9:19 AM EDT Plan of Treatment Upcoming Encounters Date Type Department Care Team (Late st Contact Info) Description 05/23/2025 9:30 AM EST Office Visit Gastroenterology - [address] [facility] [address] [place] [phone] Aileen Verduzco PA [address] [facility] [address] [place] [address] Health Maintenance Due Date Last Done Comments Breast Cancer Screening 1960 Diabetes: Annual GFR (Glomerular Filtration Rate) 1960 Drug Screen 1960 Non-Opioid Controlled Substance Agreement 1960 Diabetes: Annual Foot Exam 1970 Diabetes: [...] series) 2020 Cholesterol Screening (Lipid Panel) 04/11/2022 HIV Screening 04/11/2022 Hepatitis C Screening 04/11/2022 Medicare Annual Wellness Visit 04/11/2022 Social Influencers of Health Screening 04/11/2022 Diabetes: Annual Urine Albumin-Creatinine Ratio (uACR) 04/16/2022 Diabetes: Blood Sugar Control Test (HGBA1C) 04/16/2022 Hypertension/CHF/CAD Annual BMP Blood Test 04/16/2022 Depression Screening 05/03/2024 COVID-19 Vaccine ( season) 2025 06/12/2022, 02/26/2021, 08/01/2020, Additional history exists Colorectal Cancer Screening: Colonoscopy 01/11/2029 01/11/2019 DTaP,Tdap,and Td Vaccines (3 - Td or Tdap) 06/01/2032 06/01/2022, 01/08/2009 RSV Immunization Adult Patients Completed 04/19/2023 Influenza Vaccine Completed 02/09/2025, , 02/01/2023, Additional history exists HIB Vaccines [...] age to complete this topic Meningococcal B Vaccine Aged Out No l onger eligible based on patient's age to complete this topic RSV Immunization Patients Under 20 months Aged Out No longer eligible based on patient's age to complete this topic Varicella Vaccines Aged Out No longer eligible based on patient's age to complete this topic Procedures Procedure Name Priority Date/Time Associated Diagnosis Comments NM GASTRIC EMPTYING STUDY Routine 03/26/2025 12:17 PM EST Epigastric pain from Last 3 Months Results * NM Gastric Emptying Study (03/26/2025 12:17 PM EST) Anatomical Region Laterality Modality Body Nuclear Medicine 03/26/2025 4:54 PM EST Impressions 03/26/2025 4:55 PM EST Markedly delayed solid material gastric emptying. Telerad DANIAL ([id number]) -------- FINAL REPORT -------- Dictated By: Radha William Dictated Date: 03/26/2025 16:54 ET Assigned Physician: Radha William Reviewed and Electronically Signed By: Radha William Signed Date: 03/26/2025 16:55 ET Workstation ID: [id number] Transcribed By: Self Edit Transcribed Date: 03/26/2025 16:54 ET Narrative 03/26/2025 4:55 PM EST HISTORY: Epigastric pain, bloating, and gastric debris noted on recent upper GI series. Question disordered gastric emptying. FINDINGS: Radionucleotide gastric emptying study performed following ingestion of 1.0 mCi of Tc99m sulfur colloid mixed with eggs for solid food evaluation. Solid food evaluation time to half peak clearance was not reached during the 4 hour course of the study, with normal being less than 90 minutes. Patients 4 hour retention amount was calculated at 62%. Reference normal solid residual activity: less than 90% at 1 hour less than 60% at 2 hours less than 30% at 3 hours less than 10% at 4 hours Procedure Note Radha William MD - 03/26/2025 HISTORY: Epigastric pain, bloating, and gastric debris noted on recentupper GI series. Question disordered gastric emptying. FINDINGS: Radionucleotide gastric emptying study performed followingingestion of 1.0 mCi of Tc99m sulfur colloid mixed with eggs for solidfood evaluation. Solid food evaluation time to half peak clearance was not reached duringthe 4 hour course of the study, with normal being less than 90 minutes. Patients 4 hour retention amount was calculated at 62%. Reference normal solid residual activity: less than 90% at 1 hour less than 60% at 2 hours less than 30% at 3 hours less than 10% at 4 hours IMPRESSION: Markedly delayed solid material gastric emptying. Isaac BARROW ([id number]) -------- FINAL REPORT -------- Dictated By: Radha William Dictated Date: 03/26/2025 16:54 ET Assigned Physician: Radha William Reviewed and Electronically Signed By: Radha William Signed Date: 03/26/2025 16:55 ET Workstation ID: [id number] Transcribed By: Self Edit Transcribed Date: 03/26/2025 16:54 ET Aileen BARROW IMG MI PROCEDURES Final Resul t from Last 3 Months Insurance MEDICARE [place] - [place] Member Subscriber Plan / Payer (Ef fective 2025-Present) Name:Alexia Junior Relation to Subscriber:Self Name:Alexia Junior Payer ID:[id number] Group ID:Not on file Type:Not on file Address: [facility] [employer] [place] ATTN:[employer] [address] [place] [address] Care Teams Structural Steel Equipment Erector Relationship Specialty Start Date End Date Nancy Hunter FNP [address] [place] [address] PCP - General Family Medicine 03/09/25
--- OUTSIDE RECORDS SUMMARY | 2025-04-14 09:38 | XMS_ITS | Continuity of Care Document ---
Author Organization [place] - [facility] Formerly [facility], [facility] Address [address] [place] [address] Care Team Providers Care Cryogenic Transport Driver Name Role Phone JACQUELINE KNUTSON Primary Care Provider [phone] Assessment Encounter Date Assessment Date Assessment LastModified by Organization Details LastModified Time 01/17/2025 01/17/2025 Status post combined endoscopic and intraoral approach to cystic lesion left maxillary region. Her facial pain has resolved. The patient is experiencing persistent numbness in the upper lip and melolabial fold, which appears to be improving over time. Pain has resolved, and the surgical site is draining into the nose without swelling. I discussed the risk of the surgical site closing off again and explained that the numbness was an inevitable consequence of the surgical approach. I reassured the patient that numbness typically improves over time. I recommended a follow-up visit in 5 to 6-month's months to monitor progress. If any issues arise before then, the patient was advised to contact me. gypsy Not available 01/17/2025 14:53:15 Plan of Treatment Reminders Order Date Submit Date Provider Last Modified By Organization Details Last Modified Time Details Appointments Establish ed 30 2025 01:30P M XANDER GRAY MD Not available Not available Not available Lab None recorded. Referral None recorded. Procedures None recorded. Surgeries None recorded. Imaging None recorded. Medication Orders None recorded. Patient TargetsNo targets recorded. Patient Instructions Encounter Date Encounter Id Patient Instructions Last Modified By Organization Details Last Modified Time 01/17/2025 [id number] Follow up in three to four months. Contact the clinic if any issues arise before the next appointment. gypsy Not available 01/17/2025 14:51:37 Please note: Parts of this encounter note have been generated by AI based on audio conversation. Patient consent was required prior to utilizing this technology. Content review was required prior to finalizing the note. gypsy Not available 01/17/2025 14:51:38 Reason for Referral None Reported. 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; Note: Date Diagnosed : 01/02/2016 12:43 PM (G50.1) Not Available [facility] 4 02:53:21 Chronic sinusitis 18500904 Active 2015 Other chronic sinusitis ; Note: Date Diagnosed : 01/02/2016 12:37 PM (J32.8) Not Available [facility] 4 02:53:18 Benign neoplasm of nose, 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, nasal cavity and accessory sinuses; Note: Date Diagnosed : 01/16/2016 1:41 PM (D14.0) Not Available [facility] 4 02:53:21 Acute maxillary sinusitis 43378278 Active 2019 Acute recurrent maxillary sinusitis ; Note: Date Diagnosed : 09/04/2019 10:26 AM (J01.01) Not Available [facility] 4 02:53:19 Chronic allergic conjuncti vitis 62520697 Active 2022 Other chronic allergic conjuncti vitis; Note: Date Diagnosed : 09/25/2022 1:55 PM (H10.45) Not Available [facility] 4 02:53:19 Sensorine ural hearing loss of bilateral ears 222255000 Active 2023 LYNDSAY GARCIA, [facility] [address] [facility],[place] [address], [facility] [place], [address] , [place] - [facility] 4 13:50:09 Otalgia of right ear [id number] Active 2023 XANDER HURD MD [address] [facility] [address],[facility] [address], [place], [address] , [place] [facility] 4 14:16:19 Chronic left maxillary sinusitis [id number] 041190 Active 2023 XANDER HURD MD [address] [facility], [place], [place], [address] , [place] - [facility] 4 14:16:23 Abnormal auditory perceptio n 28425936 Active 2023 XANDER HURD MD [address] [facility],[place] [address], [place], [address] , [place] [facility] 4 14:16:29 Abnormal auditory perceptio n 84092300 Active 2023 XANDER HURD MD [address] [facility],[place] [address], [place], [address] , [place] [facility] 4 14:16:53 Numbness of face 241435583 Active 2024 XANDER HURD MD [address] [facility],[place] [address], [place], [address] , [place] [facility] 5 13:00:14 Hypoesthe riley 232312002 Active 2024 XANDER HURD MD [address] [facility], [place], [address] , [place] [facility] 5 14:52:33 Chronic maxillary sinusitis 12486893 Active 2024 XANDER HURD MD [address] [facility] [place] [address], [place], [address] , [place] [facility] 5 14:52:26 Problem Notes None recorded. Procedures Surgical History Date Name Laterality Status Provider Name and Address Organization Details Recorded Time 5 JMSNasal/Sinus Endoscopy-PRIOR surgical cavities completed XANDER SINCLAIR MD [address] [facility],[address], [address], [place] [facility] 01/17/2025 14:52:19 5 JMSNasal/Sinus Endoscopy-PRIOR surgical cavities completed XANDER SINCLAIR MD [address] [facility],[address], [address], [place] [facility] 10/27/2024 15:59:14 5 JMSNasal/Sinus Endoscopy-DEBRI SANDRA completed PARADISE BYRNES PA-C [address] [facility],[address], [address], [place] [facility] 10/09/2024 14:59:55 5 excision of lesion of maxillary sinus by Julio-Manuel approach completed XANDER SINCLAIR MD [address] [facility],[address], [address], [place] [facility] 09/26/2024 13:06:13 5 nasal endoscopy with maxillary antrostomy completed XANDER SINCLAIR MD [address] [facility],[address], [address], [place] [facility] 09/26/2024 13:06:26 5 JMSNasal/Sinus Endoscopy-PRIOR surgical cavities completed XANDER SINCLAIR MD [address] [facility],[address], [address], [place] [facility] 08/23/2024 11:25:03 5 JMSNasal/Sinus Endoscopy-PRIOR surgical cavities completed Teagan Hernandez [place] - [facility] 07/20/2024 16:48:14 4 Comp Audio with Tymps - [id number] & [id number] completed WINIFRED WHYTE [address] [facility] [place],[address], [address], [place] [facility] 02/21/2024 13:49:57 maxillary sinusotomy by Julio-Manuel approach completed XANDER SINCLAIR MD [address] [place] [address], [place], [address], [facility] - [facility] 07/20/2024 17:22:31 Imaging Results None recorded. Procedure Notes None recorded. Medical Equipment None Reported. Allergies Allergen ID Allergen Name Allergen Category Reaction Reaction Severity Criticality Documentation Date Start Date Code Code System Note Provider Name and Address Organization Details Recorded Time 26596 Substance with sulfonami de structure and antibacte rial mechanism of action (substanc e) medicatio n other Not available Not available 09/14/2023 [id number] SNOMED React ion: unkno wn, unspe cifie d;; Not Available [facility] 01:04:16 Medications Name Sig Start Date Stop Date Status Note LastModified by Organization Details LastModified Time lamotrigi ne 150 mg tablet 02/13 completed Medicati on ID: [id number] D uration Value: 30 Reason: () Brand Name: lamotrig ine Send Method: E-Prescr ibed Sub s Allowed: subs OK Speci al Instruct ion: TAKE 1 TABLET BY MOUTH TWICE A DAY Medi cationGe nericNam e: lamotrig ine Not Available Not Available Not Available bupropion HCl SR 150 mg tablet,12 hr sustained -release 02/20 completed Medicati on ID: [id number] D uration Value: 28 Brand Name: bupropio n HCl Send Method: E-Prescr ibed Sub s Allowed: subs OK Speci al Instruct ion: TAKE 1 TABLET BY MOUTH AT 8 AM AND TAKE 1 TABLET BY MOUTH AT 3PM Medi cationGe nericNam e: bupropio n HCl Not Available Not Available Not Available prednison e 10 mg tablet PLEASE SEE ATTACHED FOR DETAILED DIRECTIO NS 02/20 completed Not Available Not Available Not Available doxycycli ne hyclate 100 mg capsule TAKE 1 CAPSULE BY MOUTH TWICE A DAY FOR 7 DAYS 08/23 completed Not Available Not Available Not Available nicotine 14 mg/24 hr daily transderm al patch 02/13 completed Medicati on ID: [id number] D uration Value: 28 Reason: () Brand Name: nicotine Send Method: E-Prescr ibed Sub s Allowed: subs OK Speci al Instruct ion: APPLY 1 PATCH DAILY DIRECTED . Medica tionGene ricName: nicotine Not Available Not Available Not Available albuterol sulfate 2.5 mg/3 mL (0.083 %) solution for nebulizat ion TAKE 1 VIAL BY NEBULIZA TION EVERY 4 HOURS NEEDED FOR WHEEZING FOR UP TO 30 DAYS. 08/23 completed Not Available Not Available Not Available trazodone 50 mg tablet TAKE 1 TABLET BY MOUTH AT BEDTIME FOR SLEEP NEEDED 08/23 completed Not Available Not Available Not Available triamcino lone acetonide 0.5 % topical cream APPLY TO AFFECTED AREA TWICE A DAY FOR 14 DAYS 08/23 completed Not Available Not Available Not Available cetirizin e 10 mg tablet 08/23 completed Medicati on ID: [id number] D uration Value: 30 Brand Name: cetirizi ne Send Method: E-Prescr ibed Sub s Allowed: subs OK Speci al Instruct ion: TAKE 1 TABLET BY MOUTH EVERY DAY Medi cationGe nericNam e: cetirizi ne Not Available Not Available Not Available atorvasta tin 10 mg tablet TAKE 1 TABLET BY MOUTH EVERY DAY active Not Available Not Available No t Available valacyclo vir 1 gram tablet 08/28 completed Medicati on ID: [id number] D uration Value: 1 Reason: () Brand Name: valacycl ovir Sen d Method: E-Prescr ibed Sub s Allowed: subs OK Speci al Instruct ion: TAKE 2 TABLETS BY MOUTH EVERY 12 HOURS NEEDED FOR 1 DAY Medi cationGe nericNam e: valacycl ovir Not Available Not Available Not Available ondansetr on HCl 4 mg tablet TAKE 1 TABLET BY MOUTH EVERY 6 HOURS NEEDED FOR NAUSEA active Not Available Not Available No t Available famotidin e 40 mg tablet TAKE 1 TABLET BY MOUTH EVERY DAY 02/20 completed Not Available Not Available Not Available prednison e 20 mg tablet TAKE 1 TABLET BY MOUTH DAILY FOR 10 DAYS 08/23 completed Not Available Not Available Not Available betametha sone, augmented 0.05 % topical cream 08/23 completed Medicati on ID: [id number] D uration Value: 30 Brand Name: betameth asone, augmente d Send Method: E-Prescr ibed Sub s Allowed: subs OK Medic ationGen ericName : betameth asone, augmente d Not Available Not Available Not Available olanzapin e 5 mg tablet TAKE 1 TABLET BY MOUTH EVERYDAY AT BEDTIME 10/27 completed Not Available Not Available Not Available diphenoxy late-atro pine 2.5 mg-0.025 mg tablet TAKE 1 TABLET BY MOUTH 4 TIMES A DAY. MAX DAILY AMOUNT: 4 TABLETS active Not Available Not Available No t Available meclizine 12.5 mg tablet TAKE 1 TABLET BY MOUTH THREE TIMES A DAY NEEDED FOR MOTION SICKNESS 10/27 completed Not Available Not Available Not Available fluocinon holden 0.05 % topical ointment 02/20 completed Medicati on ID: [id number] D uration Value: 14 Brand Name: tri ray Sen d Method: E-Prescr ibed Sub s Allowed: subs OK Speci al Instruct ion: APPLY TO AFFECTED AREAS ON BODY TWICE DAILY NEEDED FOR INFLAMMA TION Med icationG enericNa me: fluocino nide Not Available Not Available Not Available allopurin ol 100 mg tablet 02/20 completed Medicati on ID: [id number] D uration Value: 30 Brand Name: allopuri nol Send Method: E-Prescr ibed Sub s Allowed: subs OK Speci al Instruct ion: TAKE 1 TABLET BY MOUTH 3 TIMES A DAY Medi cationGe nericNam e: allopuri nol Not Available Not Available Not Available folic acid 400 mcg tablet TAKE 1 TABLET BY MOUTH EVERY DAY active Not Available Not Available No t Available triamcino lone acetonide 0.1 % topical cream APPLY TO AFFECTED AREAS BELOW BREASTS TWICE DAILY FOR ONE WEEK BREAK ONE WEEK, REPEAT NEEDED 10/27 completed Not Available Not Available Not Available lamotrigi ne 25 mg tablet 08/28 completed Medicati on ID: [id number] D uration Value: 28 Reason: () Brand Name: lamotrig ine Send Method: E-Prescr ibed Sub s Allowed: subs OK Medic ationGen ericName : lamotrig ine Not Available Not Available Not Available methenami ne hippurate 1 gram tablet TAKE 1 TABLET BY MOUTH TWICE A DAY active Not Available Not Available No t Available trazodone 100 mg tablet TAKE 1 TABLET BY MOUTH EVERY DAY AT BEDTIME NEEDED FOR INSOMNIA active Not Available Not Available No t Available dicyclomi ne 20 mg tablet TAKE 1 TABLET BY MOUTH FOUR TIMES A DAY active Not Available Not Available No t Available diazepam 2 mg tablet TAKE 1/2 TABLET BY MOUTH EVERY DAY NEEDED active Not Available Not Available No t Available flunisoli de 25 mcg (0.025 %) nasal spray 10/27 completed Medicati on ID: [id number] D uration Value: 90 Brand Name: flunisol holden Send Method: E-Prescr ibed Sub s Allowed: subs OK Medic ationGen ericName : flunisol holden Not Available Not Available Not Available econazole nitrate 1 % topical cream PLEASE SEE ATTACHED FOR DETAILED DIRECTIO NS 02/20 completed Not Available Not Available Not Available cephalexi n 500 mg capsule 02/13 completed Medicati on ID: [id number] D uration Value: 7 Reason: () Brand Name: cephalex in Send Method: E-Prescr ibed Sub s Allowed: subs OK Speci al Instruct ion: TAKE ONE CAPSULE BY MOUTH TWICE A DAY Medi cationGe nericNam e: cephalex in Not Available Not Available Not Available nystatin 100,000 unit/gram topical cream 02/20 completed Medicati on ID: [id number] D uration Value: 30 Brand Name: nystatin Send Method: E-Prescr ibed Sub s Allowed: subs OK Speci al Instruct ion: APPLY AND RUB IN A THIN FILM TO AFFECTED AREAS EVERY MORNING AND EVENI NG Medic ationGen ericName : nystatin Not Available Not Available Not Available clotrimaz ole-betam ethasone 1 %-0.05 % topical cream APPLY TO THE AFFECTED AND SURROUND ING AREAS OF SKIN BY TOPICAL ROUTE 2 TIMES PER DAY NEEDED 01/17 completed Not Available Not Available Not Available lansopraz ole 30 mg capsule,d elayed release TAKE 1 CAPSULE (30 MG TOTAL) BY MOUTH 1 (ONE) TIME EACH DAY BEFORE BREAKFAS T. active Not Available Not Available No t Available Advair Diskus 250 mcg-50 mcg/dose powder for inhalatio n 08/23 completed Medicati on ID: [id number] D uration Value: 30 Brand Name: Denzel Sears S end Method: E-Prescr ibed Sub s Allowed: subs OK Speci al Instruct ion: INHALE 1 PUFF BY MOUTH TWICE A DAY. RINSE MOUTH AFTER USE Medi cationGe nericNam e: Advair Diskus Not Available Not Available Not Available betametha sone dipropion ate 0.05 % topical cream APPLY SPARINGL Y TO AFFECTED AREA EVERY DAY active Not Available Not Available No t Available docusate sodium 100 mg capsule TAKE 1 CAPSULE BY MOUTH TWICE A DAY NEEDED 02/20 completed Not Available Not Available Not Available gabapenti n 300 mg capsule TAKE 3 TABLETS BY MOUTH THREE TIMES A DAY active Not Available Not Available No t Available omeprazol e 20 mg capsule,d elayed release TAKE 1 CAPSULE BY MOUTH 2 TIMES A DAY BEFORE MEALS. 02/20 completed Not Available Not Available Not Available folic acid 1 mg tablet 08/28 completed Medicati on ID: [id number] D uration Value: 28 Reason: () Brand Name: folic acid Sen d Method: E-Prescr ibed Sub s Allowed: subs OK Joei al Instruct ion: TAKE 1 TABLET BY MOUTH ONCE A DAY DIRECTED Medicat ionGener icName: folic acid Not Available Not Available Not Available monteluka st 10 mg tablet TAKE 1 TABLET BY MOUTH EVERY DAY active Not Available Not Available No t Available mupirocin 2 % topical ointment APPLY THIN FILM TO AFFECTED SKIN TOPICALL Y 2 TIMES A DAY NEEDED FOR 7 DAYS, 08/23 completed Not Available Not Available Not Available nystatin 100,000 unit/gram topical powder APPLY TO THE AREAS UNDER THE BREASTS AND ABDOMINA L FOLD ONCE DAILY AFTER SHOWERS active Not Available Not Available No t Available ibuprofen 600 mg tablet TAKE 1 TABLET BY MOUTH EVERY 6 HOURS FOR 10 DAYS 02/20 completed Not Available Not Available Not Available methylpre dnisolone 4 mg tablets in a dose pack 02/13 completed Medicati on ID: [id number] D uration Value: 6 Reason: () Brand Name: methylpr ednisolo ne Send Method: E-Prescr ibed Sub s Allowed: subs OK Medic ationGen ericName : methylpr ednisolo ne Not Available Not Available Not Available albuterol sulfate HFA 90 mcg/actua tion aerosol inhaler INHALE 2 PUFFS INTO THE LUNGS EVERY 4 HOURS NEEDED FOR WHEEZING FOR UP TO 30 DAYS. active Not Available Not Available No t Available ketoconaz ole 2 % topical cream 02/20 completed Medicati on ID: [id number] D uration Value: 20 Brand Name: venu Panchal d Method: E-Prescr ibed Sub s Allowed: subs OK Speci al Instruct ion: APPLY TWICE DAILY TO AFFECTED FLAKING AREAS ON FACE UNTIL RESOLVED Medicat ionGener icName: ketocona zole Not Available Not Available Not Available fluoxetin e 20 mg capsule TAKE 4 CAPSULES (80 MG TOTAL) BY MOUTH EVERY MORNING. active Not Available Not Available No t Available fluticaso ne propionat e 50 mcg/actua tion nasal spray,kimber pension SPRAY 2 SPRAYS INTO EACH NOSTRIL EVERY MORNING active Not Available Not Available No t Available metformin ER 500 mg tablet,ex tended release 24 hr TAKE 2 TABLETS BY MOUTH TWICE A DAY active Not Available Not Available No t Available lisinopri l 2.5 mg tablet TAKE 1 TABLET BY MOUTH EVERY DAY active Not Available Not Available No t Available doxycycli ne hyclate 100 mg tablet 02/13 completed Medicati on ID: [id number] D uration Value: 7 Reason: () Brand Name: doxycycl ine hyclate Send Method: E-Prescr ibed Sub s Allowed: subs OK Speci al Instruct ion: TAKE 1 TABLET BY MOUTH TWICE A DAY Medi cationGe nericNam e: doxycycl ine hyclate Not Available Not Available Not Available lamotrigi ne 100 mg tablet 08/28 completed Medicati on ID: [id number] D uration Value: 28 Reason: () Brand Name: lamotrig ine Send Method: E-Prescr ibed Sub s Allowed: subs OK Speci al Instruct ion: TAKE 1 TABLET BY MOUTH TWICE A DAY Medi cationGe nericNam e: lamotrig ine Not Available Not Available Not Available mometason e 0.1 % topical cream APPLY TO THE HANDS TWICE DAILY FOR 2 WEEKS, BREAK ONE WEEK. REPEAT NEEDED FOR FLARES. 02/20 completed Not Available Not Available Not Available diazepam 5 mg tablet 08/28 completed Medicati on ID: [id number] D uration Value: 14 Brand Name: diazepam Send Method: E-Prescr ibed Sub s Allowed: subs JAZZMINE waller Instruct ion: TAKE 1 TABLET BY MOUTH 3 TIMES A DAY DIRECTED Medicat ionGener icName: diazepam Not Available Not Available Not Available amoxicill in 875 mg-potass ium clavulana te 125 mg tablet TAKE 1 TABLET BY MOUTH EVERY 12 HOURS FOR 7 DAYS 02/20 completed Not Available Not Available Not Available Vitamin B-12 1,000 mcg tablet 08/28 completed Medicati on ID: [id number] D uration Value: 28 Reason: () Brand Name: Vitamin B-12 Sen d Method: E-Prescr ibed Sub s Allowed: subs JAZZMINE waller Instruct ion: TAKE 1 TABLET BY MOUTH EVERY DAY Medi cationGe nericNam e: Vitamin B-12 Not Available Not Available Not Available oxycodone 5 mg tablet TAKE 1 TABLET BY MOUTH 3 TIMES A DAY NEEDED FOR PAIN active Not Available Not Available No t Available bupropion HCl XL 300 mg 24 hr tablet, extended release TAKE ONE (1) TABLET BY MOUTH EVERY MORNING TOGETHER WITH 150 MG FOR TOTAL OF 450 MG active Not Available Not Available No t Available bupropion HCl XL 150 mg 24 hr tablet, extended release TAKE 1 TABLET BY MOUTH EVERY DAY IN THE MORNING active Not Available Not Available No t Available metoprolo l tartrate 25 mg tablet TAKE 1 TABLET BY MOUTH TWICE A DAY active Not Available Not Available No t Available Fiber Laxative (psyllium husk) 0.52 gram capsule 08/23 completed Medicati on ID: [id number] D uration Value: 30 Brand Name: Fiber Laxative (psylliu m husk) Se nd Method: E-Prescr ibed Sub s Allowed: subs JAZZMINE waller Instruct ion: TAKE ONE CAPSULE BY MOUTH EVERY DAY Medi cationGe nericNam e: Fiber Laxative (psylliu m husk) Not Available Not Available Not Available BD Ultra-Fin e Mini Pen Needle 31 gauge x 3/16 USE DIRECTED ONCE DAILY active Not Available Not Available No t Available mesalamin e 1,[address] 1 SUPPOSIT ORY RECTALLY AT BEDTIME FOR 360 DAYS. 01/17 completed Not Available Not Available Not Available Ranitidin e Hcl 08/28 completed Medicati on ID: [id number] D uration Value: 30 Reason: () Brand Name: ranitidi ne hcl Send Method: E-Prescr ibed Sub s Allowed: subs OK Speci al Instruct ion: TAKE 1 TABLET BY MOUTH TWICE A DAY Medi cationGe nericNam e: ranitidi ne hcl Not Available Not Available Not Available fluticaso ne propionat e 115 mcg-salme terol 21 mcg/actua tion HFA inhaler INHALE 2 PUFFS INTO THE LUNGS 2 TIMES DAILY FOR 30 DAYS. 08/23 completed Not Available Not Available Not Available Januvia 100 mg tablet TAKE 1 TABLET BY MOUTH EVERY DAY active Not Available Not Available No t Available cholecalc iferol (vitamin D3) 50 mcg (2,000 unit) tablet 08/23 completed Medicati on ID: [id number] D uration Value: 28 Brand Name: cholecal ciferol (vitamin D3) Send Method: E-Prescr ibed Sub s Allowed: subs JAZZMINE Diazi al Instruct ion: TAKE 1 TABLET BY MOUTH ONCE A DAY Medi cationGe nericNam e: cholecal ciferol (vitamin D3) Not Available Not Available Not Available dexlansop razole 60 mg capsule,b iphase delayed release TAKE 1 CAPSULE BY MOUTH EVERY DAY 10/27 completed Not Available Not Available Not Available mesalamin e 800 mg tablet,de layed release TAKE 2 TABLETS BY MOUTH 3 TIMES A DAY DO NOT CRUSH/CH EW OR SPLIT active Not Available Not Available No t Available potassium citrate ER 15 mEq (1,620 mg) tablet,ex tended release 08/28 completed Medicati on ID: [id number] D uration Value: 30 Reason: () Brand Name: potassiu m citrate Send Method: E-Prescr ibed Sub s Allowed: subs OK Speci al Instruct ion: TAKE 1 TABLET BY MOUTH TWICE A DAY Medi cationGe nericNam e: potassiu m citrate Not Available Not Available Not Available Vitamin D3 50 mcg (2,000 unit) capsule 08/23 completed Medicati on ID: [id number] D uration Value: 28 Brand Name: Vitamin D3 Send Method: E-Prescr ibed Sub s Allowed: subs OK Speci al Instruct ion: TAKE ONE CAPSULE BY MOUTH EVERY DAY Medi cationGe nericNam e: Vitamin D3 Not Available Not Available Not Available Rexulti 1 mg tablet 02/13 completed Medicati on ID: [id number] D uration Value: 28 Reason: () Brand Name: Rexulti Send Method: E-Prescr ibed Sub s Allowed: subs OK Speci al Instruct ion: TAKE 1 TABLET BY MOUTH EVERY DAY Medi cationGe nericNam e: Rexulti Not Available Not Available Not Available Rexulti 0.5 mg tablet 02/13 completed Medicati on ID: [id number] D uration Value: 28 Reason: () Brand Name: Rexulti Send Method: E-Prescr ibed Sub s Allowed: subs OK Speci al Instruct ion: TAKE 1 TABLET BY MOUTH EVERY DAY Medi cationGe nericNam e: Rexulti Not Available Not Available Not Available Tresiba FlexTouch U-100 insulin 100 unit/mL (3 mL) subcutane ous pen INJECT 47 UNITS SUBCUTAN EOUS INFUSION DAILY 02/20 completed Not Available Not Available Not Available Vraylar 6 mg capsule TAKE 1 CAPSULE BY MOUTH EVERYDAY AT BEDTIME active Not Available Not Available No t Available Vraylar 1.5 mg capsule TAKE 1 CAPSULE BY MOUTH EVERY DAY IN THE MORNING 08/23 completed Not Available Not Available Not Available Vraylar 3 mg capsule TAKE 1 CAPSULE BY MOUTH EVERY DAY IN THE MORNING 08/23 completed Not Available Not Available Not Available bupropion HCl 150 mg tablet,12 hr sustained -release( smoking deterrent ) 02/20 completed Medicati on ID: [id number] D uration Value: 28 Brand Name: bupropio n HCl (smoking deter) S end Method: E-Prescr ibed Sub s Allowed: subs OK Medic ationGen ericName : bupropio n HCl (smoking deter) Not Available Not Available Not Available Basaglar KwikPen U-100 Insulin 100 unit/mL (3 mL) subcutane ous USE 30 UNITS SUBCUTAN EOUS INJECTIO N DAILY AT BEDTIME active Not Available Not Available No t Available Lissette 7.5 mg/0.5 mL subcutane ous pen injector INJECT 7.5 MG SUBCUTAN EOUSLY EVERY WEEK,INS TR:ROTAT E INJECTIO N SITES active Not Available Not Available No t Available Mounjaro 5 mg/0.5 mL subcutane ous pen injector INJECT 5MG SUBCUTAN EOUSLY EVERY WEEK *ROTATE SITES* 01/17 completed Not Available Not Available Not Available Mounjaro 2.5 mg/0.5 mL subcutane ous pen injector INJECT 1 PEN (2.5 MG) INTO THE SKIN EVERY WEEK. ROTATE INJECTIO N SITES 10/27 completed Not Available Not Available Not Available Ultra-Fin e Pen Needle 31 gauge x 5/16 PATIENT TO USE EVERY DAY FOR TYPE 2 DIABETES E11.9 active Not Available Not Available No t Available Vitals None Recorded Social History None recorded. Functional Status None recorded. Mental Status None recorded. Family History Nothing Reported. Medical History Condition Response Allergies/Hayfever Y Heart Problems N Anxiety Y Tonsil Infections N Emphysema N Migraines N Thyroid Problems N Depression Y COPD Y Developmental Delay N Glaucoma N Nasal or Sinus Problems Y Anemia N Immune System Disorder N Anesthesia Complications N Heart Attack (AR) N Other Skin Condition Y Diabetes Y Rhinitis N Bleeding Disorder N Food Allergy N Hearing Loss N Arthritis Y Hyperlipidemia N Cancer N Stroke N Dementia N Nasal polyps Y Asthma Y Sleep Disorder Y High Cholesterol N GERD/Reflux Y Liver Disease N Headaches N Fibromyalgia N Hypertension Y Speech Delay N Kidney Disease N Gynecological HistoryNo gynecological history recorded. Obstetrics History GPAL:G 0 P 0 0 0 0 Past Encounters Encounter ID Performer Location Encounter Start Date Encounter Closed Date Diagnosis/Indication Diagnosis SNOMED-CT Code Diagnosis ICD10 Code Diagnosis IMO Codes Diagnosis Note [id number] XANDER HURD MD [facility] [address] [place] [address] 01/17/2025 14:16:46 01/17/2025 14:52:34 Chronic maxillary sinusitis 10840057 J32.0 2493 Hypoesthesia 316482200 R 20.1 15195 Health Concerns Section Related Observation LastModified by Organization Detai ls LastModified Time None Recorded Concern Status LastModified by Organization Details LastModified Time None Recorded Payers Encounter Date Sequence Insurance Name Policy Number Policy Petersen Covered Member ID Petersen Member ID Guarantor Name 01/17/2025 1 [place] [employer] Constance Junior [id number] Constance Junior 01/17/2025 2 [place] [facility] Constance Junior [id number] Constance Junior Notes Date Note Type Note Provider Name and Address Organization Details Recorded Time 01/17/2025 text/html Constance Junior is a 64-year-old female who presents for follow-up regarding a cyst in the left sinus area. The patient underwent a surgical approach under the cheek in August, and it has been approximately four months since the procedure. She reports persistent numbness in the upper lip and melolabial fold, which appears to be improving over time. She denies any pain and has not experienced any colds since the last visit in October. The surgical site appears to be draining into the nose without any swelling noted. XANDER SINCLAIR MD [address] [place] [address], [place], [address], [facility] 01/17/2025 14:53:31 OBGyn Episode No OBEpisode recorded.
--- OUTSIDE RECORDS SUMMARY | 2025-04-14 09:38 | XMS_ITS | Encounter Summary ---
Author Organization [facility] Address [address] [facility] [address] [place] [phone] Phone Care Team Providers Care Admissions Advisor Name Role Phone Ana Cisneros [facility] [place] Primary Care Provider [phone] Encounter Details Date Type Department Care Team (Late st Contact Info) Description 02/20/2019 Prep for Surgery [facility] Virtual Department [address] [place] [address] Jh Boyer DO 4 [facility], [facility] [place] [address] Social History Tobacco Use Types Packs/Day Years Used Date Smoking Tobacco: Former Smokeless Tobacco: Never Alcohol Use Standard Drinks/Week Comments Never 0 (1 standard drink = 0.6 oz pur e alcohol) Comments Unknown Sex and Gender Information Value Date Recorded Sex Assigned at Not on file Legal Sex Female 9:47 PM EDT Gender Identity Not on file Sexual Orientation Not on file documented as of this encounter Plan of Treatment Not on file documented as of this encounter Visit Diagnoses Not on filedocumented in this encounter Care Teams Admissions Advisor Relationship Specialty Start Date End Date Ana Cisneros NP [address] [place] [address] PCP - General Geriatric Psychiatry 10/21/18 documented as of this encounter Additional Source Comments The information contained in this document represents components of the legal health record. It is not the complete legal health record.[facility]
--- OUTSIDE RECORDS SUMMARY | 2025-04-14 09:38 | XMS_ITS | Data Portability ---
Author Organization [place] - [facility], Allergy Address [address] [address] Care Team Providers Care Sink Cutter Name Role Phone JACQUELINE PAUL Primary Care Provider Assessment Encounter Date Assessment Date Assessment LastModified by Organization Details LastModified Time 10/09/2024 10/09/2024 63yo female presents following left FESS on 09/26/[address] Sinclair. Pathology is benign, demonstrating polypoid mucosa with calcifications. Instruction for saline sinus irrigation 2-3 times daily with intermittent use of saline nasal spray were given. Patient may alternate between Ibuprofen and Tylenol for residual pain. The patient will follow up in 2 weeks as scheduled for reevaluation, or sooner with worsening symptoms. [email or web address] Not available 10/09/2024 15:00:27 10/27/2024 10/27/2024 1. Cystic Lesion of Left Maxillary Sinus The patient's left maxillary cystic lesion was surgically addressed using the endoscopic andCaldwell-Manuel technique, establishing drainage into the sinus. The expectation is for gradual symptomatic improvement over time with close monitoring for potential recurrence or complications. . Issues such as a contracted sinus, prior surgeries, and small sinus opening have contributed to current symptoms like numbness and the feeling of nasal congestion without discharge. The expectation is that healing with time may alleviate some of these symptoms. 2. Numbness of Left Cheek, Upper Lip, and Tip of Nose Current numbness in the left facial region following sinus surgery is likely due to postoperative nerve irritation. Time is expected to aid in the reduction of symptoms, with ongoing evaluation to monitor recovery progress we reviewed that previous to surgery she was having discomfort from the cyst pressing on the nerve. She understands that it was explained to her that surgery could make things better or worse especially with the numbness. Hopefully with time things will improve [email or web address] Not available 10/27/2024 16:00:48 01/17/2025 01/17/2025 Status post combined endoscopic and [...] Referral None recorded. Procedures None recorded. Surgeries endoscopy , nasal/sin us, w/ maxillary antrostom y & tissue removal (SURG) 2024 [id number] [email or web address] Not available 08/23/2024 12:16:48 stereotac tic computer- assisted navigatio n (SURG) 2024 025 [email or web address] Not available 08/23/2024 12:17:04 Imaging None recorded. Medication Orders None recorded. Patient TargetsNo targets recorded. Patient Instructions Encounter Date Encounter Id Patient Instructions Last Modified By Organization Details Last Modified Time 07/31/2024 [id number] Patient with history of chronic sinus inflammation and prior surgery in the . She has had a chronic left cystic lesion. She notes the facial pain and pressure are gone, but the numbness persists. I reviewed the images with her. She will continue saline rinses and we will arrange for an office reevaluation and discussed the options of transnasal or gingivobuccal approach to surgical intervention. She may require both. [email or web address] Not available 07/31/2024 13:01:37 08/23/2024 [id number] Patient with longstanding history of chronic sinusitis and intermittent problems with left facial pain and numbness. She usually responds to antibiotics and with resolution of the sinus disease her pain and numbness improved. Over the last several months she has had persistent numbness of the left cheek, nasolabial fold and upper lip. 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 The cystic lesion appears to be arising superiorly and may be pressing on the infraorbital nerve. It also appears to be blocking the drainage of the inferior portion of the sinus. We discussed that I will try to attempt endoscopic drainage of the cyst. I may need to remove a portion of her inferior turbinate for access. Given the location of the cyst she may have persistence or worsening of her numbness and facial pain. We discussed there is really no guarantee as to the outcome. The option of observation was discussed including the possibility of persistent discomfort and numbness. She would like to consider a surgical approach. I will hold off on doing a gingivobuccal incision if possible. She understands that if we need to go intraorally she may have difficulty with her dentures. [email or web address] Not available 08/23/2024 11:27:38 10/27/2024 [id number] Please note: Parts of this encounter note have been generated by AI based on audio conversation. Patient consent was required prior to utilizing this technology. Content review was required prior to finalizing the note. [email or web address] Not available 10/27/2024 15:58:46 01/17/2025 [id number] Follow up in three to four months. Contact the clinic if any issues arise before the next appointment. [email or web address] Not available 01/17/2025 14:51:37 Please note: Parts of this encounter note have been generated by AI based on audio conversation. Patient consent was required prior to utilizing this technology. Content review was required prior to finalizing the note. [email or web address] Not available 01/17/2025 14:51:38 Reason for Referral None Reported. Results Created Date Observation Date Name Description Value Unit Range Abnormal Flag Note LastModifiedBy Organization Detail LastModifiedTime 07/29/19 25 07/28/2024 CT, sinus es, w/o contr ast No observ ation record ed. [email or web address] [facility] [place] [id number] [facility] [address], [place], [address], 08/07/2024 08:13:02 09/28/1909/26/2024 clini stalin photo * No observ ation record ed. [email or web address] Not Available 09/01 08:54:52 Result Notes None recorded. 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; Note: Date Diagnosed : 01/02/2016 12:43 PM (G50.1) Not Available [facility] 4 02:53:21 Chronic sinusitis 06570834 Active 2015 Other chronic sinusitis ; Note: Date Diagnosed : 01/02/2016 12:37 PM (J32.8) Not Available [facility] 4 02:53:18 Benign neoplasm of nose, 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 neoplasm of middle ear, nasal cavity and accessory sinuses; Note: Date Diagnosed : 01/16/2016 1:41 PM (D14.0) Not Available [facility] 4 02:53:21 Acute maxillary sinusitis 67052516 Active 2019 Acute recurrent maxillary sinusitis ; Note: Date Diagnosed : 09/04/2019 10:26 AM (J01.01) Not Available [facility] 4 02:53:19 Chronic allergic conjuncti vitis 73555875 Active 2022 Other chronic allergic conjuncti vitis; Note: Date Diagnosed : 09/25/2022 1:55 PM (H10.45) Not Available [facility] 4 02:53:19 Sensorine ural hearing loss of bilateral ears 792387628 Active 2023 LYNDSAY GARCIA, [address], [place], [address] , [place] - [facility] 4 13:50:09 Otalgia of right ear 1263203351 Active 2023 XANDER HURD MD [address] [facility],[place] [address], [place], [address] , [place] [facility] 4 14:16:19 Chronic left maxillary sinusitis 55936957004 300856 Active 2023 XANDER HURD MD 100 [facility] [address], [place], [address] , [place] [facility] 4 14:16:23 Abnormal auditory perceptio n 14808276 Active 2023 XANDER HURD MD 100 [facility],[place] [address], [place], [address] , [place] [facility] 4 14:16:29 Abnormal auditory perceptio n 16860015 Active 2023 XANDER HURD MD 100 [facility],[place] [address], [place], [address] , [place] [facility] 4 14:16:53 Numbness of face 587759782 Active 2024 XANDER HURD MD 100 [facility],[place] [address], [place], [address] , [place] [facility] 5 13:00:14 Hypoesthe riley 718150192 Active 2024 XANDER HURD MD 100 [facility] [address], [place], [address] , [place] [facility] 5 14:52:33 Chronic maxillary sinusitis 63009292 Active 2024 XANDER HURD MD 100 [facility] [address], [place], [address] , [place] [facility] 5 14:52:26 Problem Notes None recorded. Procedures Surgical History Date Name Laterality Status Provider Name and Address Organization Details Recorded Time 5 JMSNasal/Sinus Endoscopy-PRIOR surgical cavities completed XANDER SINCLAIR MD [address] [facility],[address], [address], [place] - [facility] 01/17/2025 14:52:19 5 JMSNasal/Sinus Endoscopy-PRIOR surgical cavities completed XANDER SINCLAIR MD [address] [facility],[place] [address] [place] [address], [address], [place] [facility] 10/27/2024 15:59:14 5 JMSNasal/Sinus Endoscopy-DEBRI SANDRA completed PARADISE BYRNES PA-C [address] [facility],[address], [address], [place] [facility] 10/09/2024 14:59:55 5 excision of lesion of maxillary sinus by Julio-Manuel approach completed XANDER SINCLAIR MD [address] [facility],[address], [address], [place] [facility] 09/26/2024 13:06:13 5 nasal endoscopy with maxillary antrostomy completed XANDER SINCLAIR MD [address] [facility],[address], [address], [place] [facility] 09/26/2024 13:06:26 5 JMSNasal/Sinus Endoscopy-PRIOR surgical cavities completed XANDER SINCLAIR MD [address] [facility],[address], [address], [place] [facility] 08/23/2024 11:25:03 5 JMSNasal/Sinus Endoscopy-PRIOR surgical cavities completed Teagan Washington [place] - [facility] 07/20/2024 16:48:14 4 Comp Audio with Tymps - 87865 & 05067 completed WINIFRED WHYTE [address] [facility],[address], [address], [place] [facility] 02/21/2024 13:49:57 maxillary sinusotomy by Julio-Manuel approach completed XANEDR SINCLAIR MD [address] [place] [address], [place], [address], [place] [facility] 07/20/2024 17:22:31 Imaging Results None recorded. Procedure Notes None recorded. Medical Equipment None Reported. Allergies Allergen ID Allergen Name Allergen Category Reaction Reaction Severity Criticality Documentation Date Start Date Code Code System Note Provider Name and Address Organization Details Recorded Time 66216 Substance with sulfonami de structure and antibacte rial mechanism of action (substanc e) medicatio n other Not available Not available 09/14/2023 65372 8003 SNOMED React ion: unkno wn, unspe cifie d;; Not Available [facility] 01:04:16 Medications Name Sig Start Date Stop Date Status Note LastModified by Organization Details LastModified Time lamotrigi ne 150 mg tablet 02/13 completed Medicati on ID: [id number] D uration Value: 30 Reason: () Brand Name: lamotrig ine Send Method: E-Prescr ibed Sub s Allowed: subs OK Speci al Instruct ion: TAKE 1 TABLET BY MOUTH TWICE A DAY Medi cationGe nericNam e: lamotrig ine Not Available Not Available Not Available bupropion HCl SR 150 mg tablet,12 hr sustained -release 02/20 completed Medicati on ID: [id number] D uration Value: 28 Brand Name: bupropio [...] al patch 02/13 completed Medicati on ID: [id number] D uration Value: 28 Reason: () Brand [...] mg tablet 08/23 completed Medicati on ID: [id number] D uration Value: 30 Brand Name: cetirizi [...] gram tablet 08/28 completed Medicati on ID: [id number] D uration Value: 1 Reason: () Brand [...] Not Available Not Available Not Available betametha brittanye, augmented 0.05 % topical cream 08/23 completed Medicati on ID: [id number] D uration Value: 30 Brand Name: betameth [...] topical ointment 02/20 completed Medicati on ID: [id number] D uration Value: 14 Brand Name: tri ray Sen d Method: E-Prescr ibed Sub s Allowed: subs OK Speci al Instruct ion: APPLY TO AFFECTED AREAS ON BODY TWICE DAILY NEEDED FOR INFLAMMA TION Med icationG enericNa me: fluocino nide Not Available Not Available Not Available allopurin ol 100 mg tablet 02/20 completed Medicati on ID: [id number] D uration Value: 30 Brand Name: allopuri [...] mg tablet 08/28 completed Medicati on ID: [id number] D uration Value: 28 Reason: () Brand [...] nasal spray 10/27 completed Medicati on ID: [id number] D uration Value: 90 Brand Name: flunisol holden Send Method: E-Prescr ibed Sub s Allowed: subs OK Medic ationGen ericName : flunisol holden Not Available Not Available Not Available econazole nitrate 1 % topical cream PLEASE SEE ATTACHED FOR DETAILED DIRECTIO NS 02/20 completed Not Available Not Available Not Available cephalexi n 500 mg capsule 02/13 completed Medicati on ID: [id number] D uration Value: 7 Reason: () Brand Name: cephalex in Send Method: E-Prescr ibed Sub s Allowed: subs OK Speci al Instruct ion: TAKE ONE CAPSULE BY MOUTH TWICE A DAY Medi cationGe nericNam e: cephalex in Not Available Not Available Not Available nystatin 100,000 unit/gram topical cream 02/20 completed Medicati on ID: [id number] D uration Value: 30 Brand Name: nystatin [...] inhalatio n 08/23 completed Medicati on ID: [id number] D uration Value: 30 Brand Name: Advair Diskus S end Method: E-Prescr ibed Sub s Allowed: subs OK Segundo al Instruct ion: INHALE 1 PUFF BY [...] mg tablet 08/28 completed Medicati on ID: [id number] D uration Value: 28 Reason: () Brand Name: folic acid Sen d Method: E-Prescr ibed Sub s Allowed: subs JAZZMINE Raymond al Instruct ion: TAKE 1 TABLET BY [...] dose pack 02/13 completed Medicati on ID: [id number] D uration Value: 6 Reason: () Brand Name: methylpr mya Akhtar Method: E-Prescr ibed Sub s Allowed: subs [...] topical cream 02/20 completed Medicati on ID: [id number] D uration Value: 20 Brand Name: ketoconjesus nina Abdulkadir d Method: E-Prescr ibed Sub s Allowed: subs JAZZMINE Speci al Instruct ion: APPLY TWICE DAILY [...] mg tablet 02/13 completed Medicati on ID: [id number] D uration Value: 7 Reason: () Brand Name: doxycycl ine hyclate Send Method: E-Prescr ibed Sub s Allowed: subs JAZZMINE Specflores al Instruct ion: TAKE 1 TABLET BY MOUTH TWICE A DAY Medi cationGe nericNam e: doxycycl ine hyclate Not Available Not Available Not Available lamotrigi ne 100 mg tablet 08/28 completed Medicati on ID: [id number] D uration Value: 28 Reason: () Brand Name: lamotrig ine Send Method: E-Prescr ibed Sub s Allowed: subs JAZZMINE Speci al Instruct ion: TAKE 1 TABLET BY MOUTH TWICE A DAY Medi cationGe nericNam e: lamotrig ine Not Available Not Available Not Available mometason e 0.1 % topical cream APPLY TO THE HANDS TWICE DAILY FOR 2 WEEKS, BREAK ONE WEEK. REPEAT NEEDED FOR FLARES. 02/20 completed Not Available Not Available Not Available diazepam 5 mg tablet 08/28 completed Medicati on ID: [id number] D uration Value: 14 Brand Name: diazepam [...] mcg tablet 08/28 completed Medicati on ID: [id number] D uration Value: 28 Reason: () Brand [...] gram capsule 08/23 completed Medicati on ID: [id number] D uration Value: 30 Brand Name: Fiber [...] e Hcl 08/28 completed Medicati on ID: [id number] D uration Value: 30 Reason: () Brand [...] unit) tablet 08/23 completed Medicati on ID: [id number] D uration Value: 28 Brand Name: cholecal ciferol (vitamin D3) Send Method: E-Prescr ibed Sub s Allowed: subs JAZZMINE Speci al Instruct ion: TAKE 1 TABLET [...] tended release 08/28 completed Medicati on ID: [id number] D uration Value: 30 Reason: () Brand Name: potassiu m citrate Send Method: E-Prescr ibed Sub s Allowed: subs OK Speci al Instruct ion: TAKE 1 TABLET BY MOUTH TWICE A DAY Medi cationGe nericNam e: potassiu m citrate Not Available Not Available Not Available Vitamin D3 50 mcg (2,000 unit) capsule 08/23 completed Medicati on ID: [id number] D uration Value: 28 Brand Name: Vitamin D3 Send Method: E-Prescr ibed Sub s Allowed: subs OK Speci al Instruct ion: TAKE ONE CAPSULE BY MOUTH EVERY DAY Medi cationGe nericNam e: Vitamin D3 Not Available Not Available Not Available Rexulti 1 mg tablet 02/13 completed Medicati on ID: [id number] D uration Value: 28 Reason: () Brand Name: Rexulti Send Method: E-Prescr ibed Sub s Allowed: subs OK Speci al Instruct ion: TAKE 1 TABLET BY MOUTH EVERY DAY Medi cationGe nericNam e: Rexulti Not Available Not Available Not Available Rexulti 0.5 mg tablet 02/13 completed Medicati on ID: [id number] D uration Value: 28 Reason: () Brand [...] deterrent ) 02/20 completed Medicati on ID: [id number] D uration Value: 28 Brand Name: bupropio [...] Available Not Available No t Available Mounjaro 7.5 mg/0.5 mL subcutane ous pen injector [...] Available Not Available No t Available Vitals Date Recorded Body height Body weight Provider Name and Address Organization Details Last Updated DateTime 08/23/2024 161.29 cm 354602.9 g Sandra Garibay [place] - [facility] 08/23/2024 10:15:23 Date Recorded Body height Provider Name an d Address Organization Details Last Updated DateTime 10/09/2024 161.29 cm VIRAL SINGH [place] - [facility] 10/09/2024 13:36:59 Social History None recorded. Functional Status None recorded. Mental Status None recorded. Family History Nothing Reported. Medical History Condition Response Allergies/Hayfever Y Heart Problems N Anxiety Y Tonsil Infections N Emphysema N Migraines N Thyroid Problems N Glaucoma N Depression Y COPD Y Developmental Delay N Nasal or Sinus Problems Y Anemia N Immune System Disorder N Anesthesia Complications N Heart Attack (TN) N Other Skin Condition Y Diabetes Y Rhinitis N Bleeding Disorder N Food Allergy N Arthritis Y Hearing Loss N Hyperlipidemia N Cancer N Stroke N Dementia N Nasal polyps Y Asthma Y High Cholesterol N Sleep Disorder Y GERD/Reflux Y Liver Disease N Headaches N Fibromyalgia N Hypertension Y Speech Delay N Kidney Disease N Gynecological HistoryNo gynecological history recorded. Obstetrics History GPAL:G 0 P 0 0 0 0 Past Encounters Encounter ID Performer Location Encounter Start Date Encounter Closed Date Diagnosis/Indication Diagnosis SNOMED-CT Code Diagnosis ICD10 Code Diagnosis IMO Codes Diagnosis Note [id number] XANDER HURD MD [facility] [address] [address] 02/21/2024 13:24:43 02/21/2024 15:24:45 Otalgia of right ear [id number] H92.01 I recommende d the patient use light massage, warm compresses and anti-infla mmatories for symptomati c management . Stressed chewing evenly on both sides of the mouth to keep from overworkin g the jaw joint. Use soft food diet as needed. Jaw Joint Program informatio n sheet was shared. Chronic le ft maxillary sinusitis [id number] 0332013 J32.0 Abnormal a uditory perception 43313201 H93.299 [id number] WINIFRED WHYTE [facility] [address] [address] 02/21/2024 13:49:03 02/21/2024 16:26:35 Sensorineural hearing loss of bilateral ears 430556321 H90.3 Audiologic al evaluation results: Right ear: Normal auditory thresholds sloping at 4kHz to mild SNHL with excellent speech discrimina tion. Left ear: Normal auditory thresholds sloping at 8kHz to mild SNHL with excellent speech discrimina tion. Tympanomet ry: Right Ear:Type A Left Ear:Type A [id number] TEAGAN WASHINGTON PA-C [facility] [address] [address] 07/20/2024 14:19:56 07/20/2024 15:13:32 Acute maxillary sinusitis 98073234 J01.01 [id number] XANDER HURD MD [facility] [address] [address] 07/31/2024 12:56:22 07/31/2024 14:04:50 Numbness of face 731298848 R20.0 Chronic le ft maxillary sinusitis 6165285561 2792564 J32.0 [id number] XANDER HURD MD [facility] [address] [address] 08/23/2024 10:11:23 08/23/2024 11:30:56 Hypoesthesia 733282430 R20.1 Chronic le ft maxillary sinusitis 2828403130 5480896 J32.0 [id number] PARADISE BYRNES PA-C [facility] [address] [address] 10/09/2024 13:31:35 10/09/2024 13:59:22 Chronic left maxillary sinusitis 9509170853 9184956 J32.0 [id number] XANDER HURD MD [facility] [address] [address] 10/27/2024 15:23:35 10/27/2024 16:02:17 Atypical facial pain 31825882 G50.1 Chronic le ft maxillary sinusitis 7262065590 0549957 J32.0 Hypoesthesia 671698451 R 20.1 [id number] XANDER HURD MD [facility] [address] [address] 01/17/2025 14:16:46 01/17/2025 14:52:34 Chronic maxillary sinusitis 11998133 J32.0 2493 Hypoesthesia 378681762 R 20.1 72294 Health Concerns Section Related Observation LastModified by Organization Detai ls LastModified Time None Recorded Concern Status LastModified by Organization Details LastModified Time None Recorded Advance Directives Directive None Recorded Payers Insurance Date Sequence Insurance Name Policy Number Policy Petersen Covered Member ID Petersen Member ID Guarantor Name 01/14/2025 1 [place] [employer] Constance Junior [id number] Constance Junior 01/14/2025 2 [place] [facility] Constance Junior [id number] Constance Junior Notes Date Note Type Note Provider Name and Address Organization Details Recorded Time 07/31/2024 text/html Chronic sinusitis and prior surgery in the XANDER SINCLAIR MD [address] [place] [address], [address], [facility] 07/31/2024 13:09:54 08/23/2024 text/html Patient with longstanding history of chronic sinusitis and facial pain. She previously underwent septoplasty and sinus surgery including left-sided Caldwel Manuel. She has had endoscopic drainage as well. Intermittently she has had numbness on the left side. Recently the numbness has been in the medial labial fold and upper lip. CT scan showed postsurgical changes with a cystic lesion below the infraorbital nerve. XANDER SINCLAIR MD [address] [facility],[address], [address], [facility] 08/23/2024 11:28:39 10/09/2024 text/html ROS as noted in the HPI 63yo female presents following left FESS on 09/26/[address] Sinclair. Pathology is benign, demonstrating polypoid mucosa with calcifications. Patient irrigates with saline daily. Denies facial pain, nasal congestion, or nasal bleeding today. XANDER SINCLAIR MD [address] [facility],[address], [address], [facility] 10/09/2024 16:44:12 10/27/2024 text/html The patient is a 64-year-old female presenting with a cystic lesion in the left maxillary sinus. She has been experiencing numbness on the left cheek, upper lip, and tip of the nose after undergoing a surgical procedure to remove the cyst. The cyst's presence was longstanding and caused complications such as sinus infection pain due to its proximity to a nerve. The patient underwent the combined endoscopic and Julio-Manuel procedure, where cleaning was achieved through the sinus to remove scar tissue, with expectations for improvement over time XANDER SINCLAIR MD [address] [facility] [address], [place], [address], [facility] 10/27/2024 16:01:10 01/17/2025 text/html Constance Junior is a 64-year-old [...] without any swelling noted. XANDER SINCLAIR MD [address] [place] [address], [place], [address], [facility] - [facility] 01/17/2025 14:53:31 OBGyn Episode No OBEpisode recorded.
--- OUTSIDE RECORDS SUMMARY | 2025-04-14 09:38 | XMS_ITS | Clinical Summary ---
Author Organization [facility] Address [address] [address] Phone Care Team Providers Care Publicity Writer Name Role Phone Ana Cisneros OYSTER SORTER Primary Care Provider [phone] Allergies Active Allergy Reactions Criticality Noted Date Comments Sulfa (Sulfonamide Antibiotics) 10/01 Medications PROAIR HFA 90 mcg/actuation inhaler 9 Active allopurinol (ZYLOPRIM) 100 MG tablet Take 100 mg by mouth. 11 9 Active atorvastatin (LIPITOR) 10 MG tablet Take 10 mg by mouth daily. 2 9 Active buPROPion (WELLBUTRIN XL) 150 MG ER 24 hr tablet 8 Active buPROPion (WELLBUTRIN XL) 300 MG ER 24 hr tablet 8 Active cariprazine (VRAYLAR) 3 mg capsule Take by mouth. 8 Active cetirizine (ZYRTEC) 10 MG tablet TAKE 1 TABLET BY MOUTH EVERY DAY-NOT COVERED 5 9 Active cholecalciferol (VITAMIN D3) 2,000 unit capsule Take by mouth. 8 Active clotrimazole-be tamethasone (LOTRISONE) cream Active DEXILANT 60 mg capsule TAKE 1 CAPSULE BY MOUTH EVERY DAY IN THE MORNING 1 9 Active FLUoxetine (PROZAC) 20 MG capsule 9 Active ADVAIR DISKUS 250-50 mcg/dose DISKUS INHALE 1 PUFF INTO THE LUNGS EVERY 12 HOURS. 3 9 Active fluticasone propionate (FLONASE) 50 mcg/actuation nasal spray as needed. 5 9 Active gabapentin (NEURONTIN) 300 MG capsule TAKE 3 CAPSULES BY MOUTH 3 TIMES A DAY 2 9 Active LANTUS SOLOSTAR U-100 INSULIN 100 unit/mL (3 mL) InPn injection pen INJECT 44 UNITS INTO THE SKIN ONCE A DAY AT BEDTIME 3 9 Active lisinopril (PRINIVIL,ZESTR IL) 5 MG tablet TAKE 1/2 TABLET BY MOUTH DAILY 1 9 Active metFORMIN (GLUCOPHAGE-XR) 500 MG 24 hr tablet Take 1,000 mg by mouth daily. 1 9 Active methylPREDNISol one (MEDROL DOSEPACK) 4 mg tablet as needed. 0 9 Active metoprolol tartrate (LOPRESSOR) 25 MG tablet 8 Active montelukast (SINGULAIR) 10 mg tablet Take 10 mg by mouth daily. 1 9 Active mupirocin (BACTROBAN) 2 % ointment APPLY 1 APPLICATION TOPICALLY 3 TIMES A DAY FOR 1 WEEK AND THEN NEEDED 0 9 Active nystatin (NYSTOP) powder APPLY 2 OR 3 TIMES A DAY TO AFFECTED AREA 1 9 Active oxyCODONE 5 MG immediate release tablet Take 5 mg by mouth 3 (three) times a day as needed. 8 Active BD ULTRA-FINE MINI PEN NEEDLE 31 gauge x 3/16 Ndle USE DIRECTED AT BEDTIME WITH SOLORSTAR PEN 2 9 Active potassium citrate (UROCIT-K) 15 mEq SR tablet 8 Active FIBER LAXATIVE, PSYLLIUM HUSK, 0.52 gram capsule Take 0.52 g by mouth daily. 6 9 Active raNITIdine (ZANTAC) 150 MG tablet Take 150 mg by mouth. 5 9 Active JANUVIA 100 mg tablet Take 100 mg by mouth daily. 5 9 Active Family History Medical History Relation Comments Diabetes Brother 1 Infl. arthritis Brother 2 Diabetes Father Heart disease Father Infl. arthritis Father Cancer Mother Diabetes Mother Heart disease Mother Infl. arthritis Mother Relation Status Comments Brother 1 type 1 diabetes Brother 2 Father Mother Social History Tobacco Use Types Packs/Day Years Used Date Smoking Tobacco: Former Smokeless Tobacco: Never Alcohol Use Standard Drinks/Week Comments Never 0 (1 standard drink = 0.6 oz pur e alcohol) Education Answer Date Recorded Are you interested in more education? Not on janet e 08/28/2022 Are you concerned about learning? Not on file 08/28/2022 No 08/28/2022 No 08/28/2022 Digital Access Answer Date Recorded No 09/28/2022 No 09/28/2022 No 09/28/2022 Reliable internet access at home? Not on file 09/28/2022 Device with a working camera? Not on file Comments Unknown Sex and Gender Information Value Date Recorded Sex Assigned at Not on file Legal Sex Female 9:47 PM EDT Gender Identity Not on file Sexual Orientation Not on file Last Filed Vital Signs Vital Sign Reading Time Taken Comments Blood Pressure 136/71 12/06/2018 8:29 AM EDT Pulse - - Temperature 23.3 C (74 F) 12/06/2018 8:29 AM EDT Respiratory Rate - - Oxygen Saturation - - Inhaled Oxygen Concentration - - Weight 124.7 kg (275 lb) 12/06/2018 8:29 AM EDT Height 157.5 cm (5' 2 ) 12/06/2018 8:29 AM EDT Body Mass Index 50.3 12/06/2018 8:29 AM EDT Plan of Treatment Health Maintenance Due Date Last Done Comments Adult Td,Tdap Booster 1960 CREATININE LEVEL 1960 LIPID PANEL 1960 POTASSIUM LEVEL 1960 DEPRESSION SCREENING 1972 SMOKING Hx and SMOKELESS TOB ACCO SCREENING 1973 HEPATITIS C SCREENING 1978 HIV ONE-TIME SCREENING (18-6 5 YEARS) 1978 PAP SMEAR 1981 MAMMOGRAM 2000 COLOGUARD 2005 COLONOSCOPY 2005 COLORECTAL CANCER SCREENING 2005 FIT TEST 2005 FOBT 2005 SIGMOIDOSCOPY 2005 VIRTUAL COLONOSCOPY 2005 PNEUMOCOCCAL VACCINES (50+ y ears) (1 of 1 - PCV) 2010 ZOSTER VACCINES (1 of 2) 2010 INFLUENZA VACCINE (#1) 2024 02/03/2020 COVID-19 VACCINE (2 - 2024-2 6 season) 2025 08/01/2020 RSV VACCINE (1 - 1-dose 75+ series) 10/16/2035 HEPATITIS A VACCINES Aged Out No long er eligible based on patient's age to complete this topic HIB VACCINES Aged Out No longer eligi ble based on patient's age to complete this topic MENINGOCOCCAL VACCINES (ACWY) Aged Out No longer eligible based on patient's age to complete this topic MENINGOCOCCAL VACCINES (B) Aged Out N o longer eligible based on patient's age to complete this topic Medical Devices Not on file Insurance [facility] & B [facility] & [place] & B [facility] A & B [place] A & B [facility] MEDICARE [facility] A & B [place] & B Care Teams Publicity Writer Relationship Specialty Start Date End Date Ana Cisneros NP [address] [place] [address] PCP - General Geriatric Psychiatry 10/21/18 Additional Source Comments The information contained in this document represents components of the legal health record. It is not the complete legal health record.[facility]
--- OUTSIDE RECORDS SUMMARY | 2025-04-14 09:38 | XMS_ITS | Encounter Summary ---
Author Organization [facility] [place] [address] Care Team Providers Care Conveyor Attendant Name Role Phone Nancy Hunter RICARDO Primary Care Provider [phone] Encounter Details Date Type Department Care Team ([facility] st Contact Info) Description 04/08/2025 Results Follow-Up Gastroenterology - [address] [phone] Aileen Verduzco PA 299 [facility] [address] [place] [address] Social History Tobacco Use Types Packs/Day Years [...] as of this encounter Progress Notes * DANIAL Hunter - 04/08/2025 9:01 PM EST I will send msg. documented in this encounter Plan of Treatment Upcoming Encounters Date Type Department Care Team (Late st Contact Info) Description 05/23/2025 9:30 AM EST Office Visit Gastroenterology - 299 [address] [facility] [address] [place] [address] Aileen Verduzco PA 299 [facility] [address] [place] [address] documented as of this encounter Visit Diagnoses Not on filedocumented in this encounter Care Teams Conveyor Attendant Relationship Specialty Start Date End Date Nancy Hunter FNP [address] [place] [address] PCP - General Family Medicine 03/09/25 documented as of this encounter
--- OUTSIDE RECORDS SUMMARY | 2025-04-14 09:38 | XMS_ITS | Clinical Summary ---
Author Organization [facility] Address [address] [facility] [address] [place] [address] Care Team Providers Care Scheduling Coordinator Name Role Phone Unavailable Primary Care Provider [...] MINI PEN NEEDLES 31G X 5 MM [facility] USE DIRECTED FOR TYPE 2 DIABETES MELLITUS [...] in the morning. 9 Active nystatin (Mycostatin) 071167 UNIT/GM powder APPLY TO THE AREAS ON [...] remission 10/19/2023 Recurrent UTI 10/19/2023 Morbid obesity (CMS/HCC) 10/19/2023 Severe obesity (CMS/HCC) 10/19/2023 Asthma 10/19/2023 Sleep apnea 10/19/2023 Steatosis of liver 10/19/2023 Tobacco dependence syndrome 10/19/2023 Type 2 diabetes mellitus 10/19/2023 Vitamin D deficiency 10/19/2023 Vitiligo 10/19/2023 Immunizations Immunization Administration Dates Next Due Influenza Whole 02/03/2020 [...] Panel 1960 SDOH Screening 1960 Sigmoidoscopy 1960 Disability Screening 1960 Diabetes: Foot Exam 1970 Eye Exam [...] of 3 - Risk 3-dose series) 2020 Tobacco Screening 12/14/2024 12/15/2023 COVID-19 Vaccine ( season) 2025 06/12/2022, 02/26/2021, 08/01/2020, Additional history exists Influenza Vaccine (#1) 2025 , 02/08/2024, 02/01/2023, Additional history exists Dental X-Ray: Full Mouth 12/03/2026 024, 04/19/2020, 05/19/2019, Additional history exists DTaP/Tdap/Td Vaccines (3 - Td or Tdap) 06/01/2032 06/01/2022, 01/08/2009 RSV Patients and Patients Aged 60 years or older Completed 04/19/2023 HIB Vaccines Aged Out No longer eligi [...] Most Recently Relevant to Health Maintenance Insurance [facility] MEDICA[facility] STAND ADULT [facility] STANDARD [facility]ICA[facility] STAND ADULT
--- OUTSIDE RECORDS SUMMARY | 2025-04-14 09:38 | XMS_ITS | Encounter Summary ---
Author Organization [facility] Address [address] [facility] [address] [place] [id number] Phone Care Team Providers Care Trolley Car Operator Name Role Phone Ana Cisneros BARIATRIC PHYSICIAN Primary Care Provider [phone] Encounter Details Date Type Department Care Team (Late st Contact Info) Description 04/11/2020 Procedure Pass OR Admitting Dept - Virtual Department [address] [place] [address] Social History Tobacco Use Types Packs/Day Years [...] on filedocumented in this encounter Care Teams Trolley Car Operator Relationship Specialty Start Date End Date Ana Cisneros NP [address] [place] [address] PCP - General Geriatric Psychiatry 10/21/18 documented as of this encounter Additional Source Comments The information contained in this document represents components of the legal health record. It is not the complete legal health record.[facility]
[2025-04-14 09:41] VITALS: BP 100/60; PULSE 71; TEMP 36.7; O2SAT 99; BMI 39.3
--- NOTE | 2025-04-14 09:41 | MHC.OFFWIV ---
Intake Vital Signs 04/14/25 09:41 Height 5 ft 3 in Weight 222 lb BMI 39.3 BP 100/60 Blood Pressure Location Rt brachial Position Sitting Pulse 71 Pulse Source Pulse Oximeter Temp 98.1 F Temp Source Oral Pulse Oximetry (%) 99 Oxygen Delivery Method Room Air Intake Visit Reasons: EP, rash on left arm and chest Intake Note: Pt is here today c/o Rash Lt arm and chest x6days Patient Tobacco Use Status: Never used Tobacco Allergies adhesive tape (ADHESIVE TAPE) Allergy (Unknown, Verified 04/14/25 09:42) RASH Sulfa (Sulfonamide Antibiotics) (SULFA (SULFONAMIDE ANTIBIOTICS)) Allergy (Unknown, Verified 04/14/25 09:42) SWELLING AND HIVES ADHESIVE BANDAGE Allergy (Unknown, Uncoded 04/14/25 09:42) RASH Medication List - Last Reconciled 04/14/25 by Gianluca Echols MD albuterol sulfate 90 mcg/actuation 0 mcg inhalation atorvastatin 10 mg PO DAILY bupropion HCl XL 150 mg PO QAM bupropion HCl XL 300 mg PO DAILY cariprazine (Vraylar) 6 mg PO DAILY diphenhydramine HCl (Allergy (diphenhydramine)) 50 mg (2 x 25 mg) PO Q6-8H PRN 3 days fluoxetine 80 mg PO DAILY fluticasone propion-salmeterol 115-21 mcg/actuation 2 puffs inhalation BID fluticasone propionate 50 mcg/actuation 1 spray intranasal BID folic acid 0.4 mg PO DAILY gabapentin 900 mg PO TID methenamine hippurate 1 g PO BID metoprolol tartrate 25 mg PO BID montelukast 10 mg PO DAILY nystatin topical DAILY ondansetron HCl 4 mg PO Q6H PRN oxycodone 5 mg PO TID PRN prednisone 40 mg (2 x 20 mg) PO DAILY 4 days tirzepatide (Mounjaro) mg subcut HPI EP, rash on left arm and chest HPI Details patient was using a homeopathic remedy and started getting hives. She was given some prednisone x3 days and is now out of this but still has rash on arms and chest which is rather itchy, especially at night no throat swelling or difficulty swallowing or breathing PFSH Medical History Asthma IBS (irritable bowel syndrome) Chronic osteoarthritis Diabetes 1.5, managed as type 2 HTN (hypertension) Kidney stone Post hysterectomy menopause Sprain of ankle, left COVID Congestion of nasal sinus Bronchitis Social History Patient Tobacco Use Status: Never used Tobacco Review of Systems Narrative see HPI Physical Exam Vital Signs: Last Vital Signs Temp 98.1 F 04/14/25 09:41 Pulse 71 04/14/25 09:41 BP 100/60 04/14/25 09:41 Pulse Ox 99 04/14/25 09:41 Oxygen Delivery Method Room Air 04/14/25 09:41 BMI result Body Mass Index 39.3 Const General: no acute distress and well developed Nutritional Appearance: well nourished Orientation/consciousness: patient oriented x3 HEENT Head: Yes normocephalic and Yes atraumatic Eyes General: appearance normal, both eyes and all related structures Pupils: Equal, round and reactive pupils present EOM: EOMs intact bilaterally Resp Effort & Inspection: normal respiratory effort Auscultation: clear to auscultation bilaterally Cardio Rate: regular rate Rhythm: regular rhythm Heart sounds: S1 normal heart sound present, S2 normal heart sound present, no gallops, no murmurs and no rubs Skin Other: hives/wheels on chest and arms Neuro General: patient oriented x3 and gait normal Cranial nerves: Yes Equal, round and reactive pupils present Psych Affect: normal affect Assessment & Plan Assessment & Plan (1) Allergic reaction: Code(s): T78.40XA - Allergy, unspecified, initial encounter Plan: patient has already stopped the homeopathic remedy and should not resume it use Benadryl and prednisone as prescribed prednisone may raise blood sugar temporarily. use your diabetes medications as prescribed call or return to office if worsening or not improving. Seek medical attention if any difficulty swallowing or breathing Medications: New diphenhydramine HCl (Allergy (diphenhydramine)) 50 mg (2 x 25 mg) PO Q6-8H PRN 24 tabs 0RF sleep 3 days Gianluca Echols MD prednisone 40 mg (2 x 20 mg) PO DAILY 8 tabs 0RF 4 days Gianluca Echols MD Changed From cariprazine (Vraylar) 3 mg PO DAILY 30 caps 1RF To cariprazine (Vraylar) 6 mg PO DAILY Cece Hurley APRN Coding Level of Care Code Est Pt Level 3 (25133) Diagnoses Allergic reaction T78.40XA
== END 2025-04-14 10:30 | disposition home or self-care (01) ==
PROVIDERS: PCP Nurse Practitioner Gerontology; Visit Provider Family Medicine
DX: T78.40XA Allergy, unspecified, initial encounter (principal)

== ENCOUNTER → 2025-04-14 09:35 | Outpatient (BNVA) | payer MEDICARE, MEDICAID, SELFPAY | PROVIDERS: PCP Nurse Practitioner Gerontology | DX: T78.40XA Allergy, unspecified, initial encounter (principal); X58.XXXA Exposure to other specified factors, initial encounter | CPT/HCPCS: 99212 ==

== ENCOUNTER 2025-05-01 09:56 | Outpatient (AMB) | payer MEDICARE, MEDICAID, SELFPAY ==
[2025-05-01 09:59] VITALS: BP 116/68; PULSE 78; O2SAT 99; BMI 39.5
--- NOTE | 2025-05-01 09:59 | MHC.OFFWIV ---
Intake Vital Signs 05/01/25 09:59 Height 5 ft 3 in Weight 223 lb BMI 39.5 BP 116/68 Blood Pressure Location Lt brachial Position Sitting Pulse 78 Pulse Source Pulse Oximeter Pulse Oximetry (%) 99 Oxygen Delivery Method Room Air Intake Visit Reasons: EP Rash on chest, legs, arms Intake Note: Patient returns c/o rash all over arms & legs, Was seen previously & prescribed Benadryl & Prednisone & rash returned 1 week after completing medications. Patient Tobacco Use Status: Never used Tobacco Allergies adhesive tape (ADHESIVE TAPE) Allergy (Unknown, Verified 05/01/25 10:03) RASH Sulfa (Sulfonamide Antibiotics) (SULFA (SULFONAMIDE ANTIBIOTICS)) Allergy (Unknown, Verified 05/01/25 10:03) SWELLING AND HIVES HPI HPI Comments History of Present Illness Details History of Present Illness - The patient is a 64 year old female presenting with a rash. - The rash began as hives approximately one week before April 14, following the use of a cold medicine. - The rash is pruritic and has resulted in lots of itching creating scabbing. - She was seen by Dr. Echols on April 14 and was prescribed a 3-day course of prednisone, which provided some improvement before the rash recurred. - Subsequently, she was treated with diphenhydramine and another 4-day course of prednisone, which also helped temporarily, but the rash came back again. - The patient has a history of diabetes mellitus and notes that previous prednisone use elevated her blood sugar levels. - She was previously taken off insulin and metformin but resumed metformin while on prednisone. - She also reports using Zyrtec at night, but it does not alleviate her symptoms. [facility] Medical History Asthma IBS (irritable bowel syndrome) Chronic osteoarthritis Diabetes 1.5, managed as type 2 HTN (hypertension) Kidney stone Post hysterectomy menopause Sprain of ankle, left COVID Congestion of nasal sinus Bronchitis Social History Patient Tobacco Use Status: Never used Tobacco Review of Systems Narrative Review of Systems - Integumentary: Reports a pruritic rash that began as hives. - Endocrine: Endorses a history of diabetes and reports elevated blood sugars with prior prednisone use. - Allergic/Immunologic: Reports taking Zyrtec at night without relief. All systems reviewed and are unremarkable except as noted in HPI Physical Exam Exam Exam: Physical Exam General: Cooperative, healthy appearing, comfortable, no acute distress and well developed Orientation: Patient oriented x3 Limitations: No limitations Head: Normal to inspection Ears: Hearing grossly normal bilaterally Nose: Normal External nose present Face and sinus: Normal facial exam Eyes: Appearance normal, both eyes and all related structures Neck: Normal visual inspection and Yes full ROM Respiratory: Normal respiratory effort and able to speak in complete sentences. Skin: pinpoint scabs and maculopapular rash noted on bilateral arms, right leg, and chest Neuro: Patient oriented x3 Extremities: Normal to inspection Vital Signs: Last Vital Signs Pulse 78 05/01/25 09:59 BP 116/68 05/01/25 09:59 Pulse Ox 99 05/01/25 09:59 Oxygen Delivery Method Room Air 05/01/25 09:59 BMI result Body Mass Index 39.5 Assessment & Plan Assessment & Plan (1) Allergic reaction: Code(s): T78.40XA - Allergy, unspecified, initial encounter Qualifiers: Encounter type: subsequent encounter Qualified Code(s): T78.40XD - Allergy, unspecified, subsequent encounter Plan Patient was informed and verbally consented to the use of an ambient scribe for clinic note documentation during this visit. - The patient's recurrent urticarial rash has not resolved with previous short courses of prednisone, indicating the need for a longer duration of therapy. - A 10-day prednisone taper will be prescribed, starting at 60 mg for three days, then 40 mg for three days, and finally 20 mg for four days. - Advised to take prednisone in the morning to avoid insomnia. - Recommended using [id number] Benadryl (diphenhydramine) around the clock for the first few days to help control symptoms; patient reports it does not cause her to feel tired. - A prescription for 24 tablets of diphenhydramine will be sent to the patient's pharmacy. - The patient has a history of diabetes, and the prescribed prednisone course is expected to cause hyperglycemia. - Advised that blood sugars will likely be highest during the first three days of the taper and should improve as the dose decreases. - Instructed to monitor blood sugars closely and to use metformin as she did previously to manage steroid-induced hyperglycemia. - The patient was informed that the need for metformin might decrease during the last four days of the taper. Medications: New prednisone On days 1-3, take 3 tablets with breakfast, on days 4-6 take 2 tablets with breakfast, on days 7-10 take 1 tablet with breakfast 20 mg PO daily 19 tabs 0RF Refilled diphenhydramine HCl (Allergy (diphenhydramine)) 50 mg (2 x 25 mg) PO Q6-8H PRN 24 tabs 0RF allergic symptoms 3 days Coding Level of Care Code Est Pt Level 3 (00639) Diagnoses Allergic reaction, subsequent encounter T78.40XD Encounter type: subsequent encounter
--- OUTSIDE RECORDS SUMMARY | 2025-05-01 12:56 | XMS_ITS | Clinical Summary ---
Author Organization [facility] Address [address] [place] [address] Phone Care Team Providers Care Analysis Manager Name Role Phone Nancy Hunter FIREARMS EXPERT Primary Care Provider [phone] Allergies Active Allergy Reactions Criticality Noted Date [...] Description 04/08/2025 Results Follow-Up Gastroenterology - 299 [facility] [address] [phone] Aileen Verduzco PA 03/26/2025 7:54 AM EST - 03/26/2025 11:59 PM EST Hospital Encounter [facility] [address] [place] [address] Discharge Disposition: Home or Self Care from Last 3 Months Immunizations Immunization Administration [...] ROTATOR CUFF REPAIR OTHER SURGICAL HISTORY PROCEDURE: CO HYSTEROSCOPY ENDOMETRIAL ABLATION OTHER SURGICAL HISTORY PROCEDURE: HISTORY OTHER; COMMENT: History of Oral Surgery OTHER SURGICAL HISTORY PROCEDURE: HISTORY OTHER; COMMENT: History of Sinus Surgery OTHER SURGICAL HISTORY PROCEDURE: CO DILATION & CURETTAGE DX&/THER NONOBSTETRIC OTHER SURGICAL HISTORY PROCEDURE: HISTORY OTHER; COMMENT: History of Ostectomy Calcaneus For Spur Medical History Medical History Date Comments Acne vulgaris 08/27/2016 DX:Acne vulgaris Allergic rhinitis 09/16/2016 DX:Allergic rh initis Asthma 09/16/2016 DX:Asthma Borderline personality disor kathie ([facility] V24, [facility] V28) 07/01/2016 DX:Borderline personality d isorder ([facility]) Calculus of kidney 07/31/2015 DX:Calculus o f kidney Carpal tunnel syndrome 07/22/2013 DX:Carpal tunnel syndrome Chronic obstructive pulmonar y disease ([facility] V24, [facility] V28) 07/01/2016 DX:Chronic obstructive pulm onary disease (HCC) Chronic sinusitis 03/11/2016 DX:Chronic sin usitis DDD (degenerative disc disea se), lumbar 09/16/2016 DX:DDD (degenerative disc di sease), lumbar Deliberate self-cutting 05/23/2014 DX:Delib erate self-cutting Diabetes mellitus type 2 wit h neurological manifestations ([facility] V24, [facility] V28) 03/13/2017 DX:Diabetes mellitus type 2 with neurological manifestations ([facility]) Diverticulosis of colon 08/01/2014 DX:Diver ticulosis of colon DM (diabetes mellitus), type 2 with renal complications ([facility] V24, [facility] V28) 12/07/2016 DX:DM (diabetes mellitus), t ype 2 with renal complications ([facility]) External hemorrhoids 09/28/2013 DX:External hemorrhoids Facial [...] obesity with BMI of 5 0.0-59.9, adult ([facility] V24, [facility] V28) 05/12/2016 DX:Morbid obesity wit h BMI of 50.0-59.9, adult ([facility]) Multiple pulmonary nodules 09/01/2016 DX:Mu ltiple [...] Office Visit Gastroenterology - 299 [address] 299 [facility] [address] [place] [address] Aileen Verduzco PA 299 [facility] [address] [place] [address] Health Maintenance Due Date Last Done Comments [...] delayed solid material gastric emptying. Telerad DANIAL ([id number]) -------- FINAL REPORT -------- Dictated By: Radha William Dictated Date: 03/26/2025 16:54 ET Assigned Physician: Radha William Reviewed and Electronically Signed By: Radha William Signed Date: 03/26/2025 16:55 ET Workstation ID: [id number] Transcribed By: Self Edit Transcribed Date: 03/26/2025 [...] delayed solid material gastric emptying. Isaac BARROW ([id number]) -------- FINAL REPORT -------- Dictated By: Radha William Dictated Date: 03/26/2025 16:54 ET Assigned Physician: Radha William Reviewed and Electronically Signed By: Radha William Signed Date: 03/26/2025 16:55 ET Workstation ID: [id number] Transcribed By: Self Edit Transcribed Date: 03/26/2025 16:54 ET Aileen BARROW IMG NM PROCEDURES Final Resul t from Last 3 Months Insurance MEDICARE MEDICAID - [place] Care Teams Analysis Manager Relationship Specialty Start Date End Date Nancy Hunter FNP [address] [place] [address] PCP - General Family Medicine 03/09/25
--- OUTSIDE RECORDS SUMMARY | 2025-05-01 12:56 | XMS_ITS | Encounter Summary ---
Author Organization [facility] [place] [address] Care Team Providers Care Window Shade Cutter Name Role Phone Nancy Hunter RICARDO Primary Care Provider [phone] Encounter Details Date Type Department Care Team ([facility] st Contact Info) Description 04/08/2025 Results Follow-Up Gastroenterology - [address] [id number] Aileen Verduzco PA 299 [facility] [address] [place] [address] Social History Tobacco Use Types Packs/Day Years [...] Office Visit Gastroenterology - 299 [address] [facility] [address] [place] [address] Aileen Verduzco PA 299 [facility] [address] [place] [address] documented as of this encounter Visit Diagnoses Not on filedocumented in this encounter Care Teams Window Shade Cutter Relationship Specialty Start Date End Date Nancy Hunter FNP [address] [place] [address] PCP - General Family Medicine 03/09/25 documented as of this encounter
--- OUTSIDE RECORDS SUMMARY | 2025-05-01 12:56 | XMS_ITS | Clinical Summary ---
Author Organization [facility] Prior to 09/30/24 Address [address] [place] [address] Care Team Providers Care Sewing Machine Operator Zipper Name Role Phone Ana Cisneros NP Primary Care Provider [phone] Allergies Active Allergy Reactions Criticality Noted Date [...] age to complete this topic Care Teams Sewing Machine Operator Zipper Relationship Specialty Start Date End Date Ana Cisneros NP [address] [place] [address] PCP - General Nurse Practitioner 10/04/17
--- OUTSIDE RECORDS SUMMARY | 2025-05-01 12:56 | XMS_ITS | Encounter Summary ---
Author Organization [facility] Address [address] [facility] [address] [place] [address] Phone Care Team Providers Care Top Stop Attacher Name Role Phone Ana Cisneros [employer] Primary Care Provider [phone] Encounter Details Date Type Department Care Team (Late st Contact Info) Description 02/20/2019 Prep for Surgery [facility] Virtual Department [address] [place] [address] Jh Boyer DO 4 [facility] Orthopedics & Sports Medicine, [facility] [place] [address] Social History Tobacco Use Types Packs/Day Years [...] on filedocumented in this encounter Care Teams Top Stop Attacher Relationship Specialty Start Date End Date Ana Cisneros NP [address] [place] [address] PCP - General Geriatric Psychiatry 10/21/18 documented as of this encounter Additional Source Comments The information contained in this document represents components of the legal health record. It is not the complete legal health record.[facility]
--- OUTSIDE RECORDS SUMMARY | 2025-05-01 12:56 | XMS_ITS | Clinical Summary ---
Author Organization [facility] Address [address] [address] Phone Care Team Providers Care Molder Closed Molds Name Role Phone Ana Cisneros SPOOLER OPERATOR AUTOMATIC Primary Care Provider [phone] Allergies Active Allergy Reactions Criticality Noted Date [...] topic Medical Devices Not on file Insurance [facility] & B [facility] & B [place] & [facility] & [place] PART A & B [facility] MEDICARE PART A & [place] PART A & B Care Teams Molder Closed Molds Relationship Specialty Start Date End Date Ana Cisneros NP [address] [place] [address] PCP - General Geriatric Psychiatry 10/21/18 Additional Source Comments The information contained in this document represents components of the legal health record. It is not the complete legal health record.[facility]
--- OUTSIDE RECORDS SUMMARY | 2025-05-01 12:56 | XMS_ITS | Clinical Summary ---
Author Organization [employer] Address [address] [facility] [address] [place] [address] Care Team Providers Care Environmental Consultant Name Role Phone Unavailable Primary Care Provider [...] MINI PEN NEEDLES 31G X 5 MM [facility] USE DIRECTED FOR [...] in the morning. 9 Active nystatin (Mycostatin) 963579 UNIT/GM powder APPLY TO THE AREAS ON [...] Most Recently Relevant to Health Maintenance Insurance [facility] MEDICAID STAND ADULT [facility] STANDARD [facility] MEDICAID STAND ADULT
--- OUTSIDE RECORDS SUMMARY | 2025-05-01 12:56 | XMS_ITS | Encounter Summary ---
Author Organization [facility] Address [address] [facility] [address] [place] [address] Phone Care Team Providers Care Composition Floor Setter Name Role Phone Ana Cisneros RECORDS ASSISTANT Primary Care Provider [phone] Encounter Details Date Type Department Care Team (Late st Contact Info) Description 04/11/2020 Procedure Pass OR Admitting Dept - Virtual Department [address] [place] [address] Social History Tobacco Use Types Packs/Day Years [...] on filedocumented in this encounter Care Teams Composition Floor Setter Relationship Specialty Start Date End Date Ana Cisneros NP [address] [place] [address] PCP - General Geriatric Psychiatry 10/21/18 documented as of this encounter Additional Source Comments The information contained in this document represents components of the legal health record. It is not the complete legal health record.[facility]
== END 2025-05-01 11:17 | disposition home or self-care (01) ==
PROVIDERS: PCP Nurse Practitioner Gerontology; Visit Provider Physician Assistant
DX: T78.40XD Allergy, unspecified, subsequent encounter (principal)

== ENCOUNTER → 2025-05-01 09:56 | Outpatient (BNVA) | payer MEDICARE, MEDICAID, SELFPAY | PROVIDERS: PCP Nurse Practitioner Gerontology; Visit Provider Physician Assistant | DX: T78.40XD Allergy, unspecified, subsequent encounter (principal) | CPT/HCPCS: 99212 ==